=== PATIENT | female | born 1945 | race African-American/Black ===

== ENCOUNTER 2020-07-08 14:49 | Outpatient (REF) | payer MEDICARE, SELFPAY ==
--- NOTE | 2020-07-05 08:45 | MHC.SHP ---
Pre-Procedural Eval Section A The patient is an INPATIENT: No The History & Physical has been completed within 30 days and I have reviewed it.: Yes Section B Chief Complaint: Phimosis Anterior Capsule Allergies: Allergies Allergy/AdvReac Type Severity Reaction Status Date / Time insulin detemir Allergy Unknown hives Verified 10/22/16 00:00 insulin glargine Allergy Unknown rash/ hives Verified 10/22/16 00:00 penicillin V Allergy Unknown Verified 10/22/16 00:00 Penicillins [PENICILLINS] Allergy Unknown HIVES Unverified 06/06/20 17:06 sitagliptin [Januvia] Allergy Unknown hives Verified 10/22/16 00:00 Plan Diagnosis/Plan: Unchanged Patient has been examined and remains a candidate for the planned procedure
[2020-07-08 15:04] VITALS: BMI 28.7
[2020-07-08 15:06] VITALS: BP 153/70; PULSE 92; RESP 16; TEMP 36.6; O2SAT 96
== END 2020-07-08 23:59 | disposition home or self-care (01) ==
LOC: HO.MS 14:49
PROVIDERS: Visit Provider Ophthalmology
PROC: (CPT 66821; principal; 2020-07-08 15:40)
DX: H26.491 Other secondary cataract, right eye (principal); Z96.1 Presence of intraocular lens; E11.9 Type 2 diabetes mellitus without complications; E78.00 Pure hypercholesterolemia, unspecified; F17.210 Nicotine dependence, cigarettes, uncomplicated; Z79.84 Long term (current) use of oral hypoglycemic drugs; Z79.899 Other long term (current) drug therapy
CPT/HCPCS: 66821

== ENCOUNTER 2020-11-26 10:42 | Outpatient (REF) | payer MEDICARE, SELFPAY ==
[2020-11-26 12:19] LABS: MANUAL DIFF FLAG NO
[2020-11-26 12:26] LABS: Basophils Percent Auto 0.3 % (0-2); Eosinophils Absolute Auto 0.2 X10*3/uL (0.0-0.4); Hematocrit 43.7 % (37-47); Hemoglobin 13.8 g/dl (12.0-16.0); Imm Gran Abs Auto 0.03 X10*3/uL (0.00-0.03); Imm Gran Pct Auto 0.3 % (0.0-0.4); Lymphocytes Absolute Auto 3.1 X10*3/uL (1.2-4.9); Mean Corpuscular HGB Conc 31.6 g/dl (31.0-35.0); Mean Corpuscular Hemoglobin 28.2 pg (27.0-33.0); Mean Corpuscular Volume 89.4 fL (80-98); Mean Platelet Volume 9.4 fL (9.4-12.3); Monocytes Absolute Auto 0.4 X10*3/uL (0.1-1.2); Monocytes Percent Auto 4.6 % (2-11); Neutrophils Absolute Auto 5.9 X10*3/uL (2.0-8.3); Neutrophils Percent Auto 60.8 % (45-73); Platelet Count 342 X10*3/uL (160-400); Red Blood Count 4.89 X10*6/uL (4.20-5.50); Red Cell Distribution Width 12.8 % (11.0-16.0); White Blood Count 9.7 X10*3/uL (4.8-10.8)
[2020-11-26 12:40] LABS: Glucose Urine UA NEG (NEG); Leukocyte Esterase Urine NEG (NEG); Nitrite Urine NEG (NEG); Specific Gravity - Urine 1.025 (1.005-1.025); Urine Blood NEG (NEG); Urine Ketones NEG (NEG); Urine Protein NEG (NEG-TRACE)
[2020-11-26 13:06] LABS: Creatinine Urine 168.12 mg/dL; Microalbum/Creatinine Ratio Ur 13.6 ug/mg cr
[2020-11-26 13:20] LABS: Appearance Urine HAZY; Color Urine YELLOW
[2020-11-26 14:46] LABS: TSH reflex Free T4 0.79 uIU/mL (0.32-4.0)
[2020-11-26 15:06] LABS: Alanine Aminotransferase 26 U/L (0-31); Albumin Level 4.1 g/dL (3.5-5.0); Alkaline Phosphatase 114 U/L (39-117); Anion Gap 15 (12-20); Aspartate Amino Transferase 38 U/L (5-31); Bilirubin Total < 0.2 mg/dL (0.0-1.0); Blood Urea Nitrogen 10 mg/dL (9-16); Calcium 8.8 mg/dL (8.4-10.2); Carbon Dioxide 26 mmol/L (22-29); Chloride 106 mmol/L (96-108); Cholesterol 118 mg/dL; Estimated Glomerular Filt Rate > 60; Glucose Fasting 187 mg/dL (60-99); HDL Cholesterol 34 mg/dL; LDL Cholesterol Calculated 63 mg/dl; Potassium 4.5 mmol/L (3.3-5.1); Sodium 142 mmol/L (135-145); Total Protein 6.5 g/dL (6.5-8.0); Triglycerides 106 mg/dL
== END 2020-11-26 10:43 | disposition home or self-care (01) ==
LOC: HO.10HDL 10:42
PROVIDERS: Visit Provider Internal Medicine
DX: I10 Essential (primary) hypertension (principal); E78.00 Pure hypercholesterolemia, unspecified; E11.9 Type 2 diabetes mellitus without complications; E66.3 Overweight
CPT/HCPCS: 36415; 80053; 80061; 81003; 82043; 84443; 85025

== ENCOUNTER 2020-12-13 14:27 | Outpatient (REF) | payer MEDICARE, SELFPAY ==
--- NOTE | ~2020-12-13 | MM_ITS ---
EXAMINATION: MM SCREENING DIGITAL BREAST TOMOSYNTHESIS, BILATERAL CLINICAL INFORMATION: Screening. Asymptomatic. The lifetime risk of breast cancer based on the Tyrer-Cuzick Model is 7.8%. COMPARISON: Mammography: August 10, 2019 and studies dating back to August 12, 2015 TECHNIQUE: Digital breast tomosynthesis is performed in both the craniocaudal and mediolateral oblique views along with computer-aided detection (CAD). Synthesized 2D images are generated from the tomosynthesis. FINDINGS: There are scattered areas of fibroglandular density (ACR BI-RADS breast composition Category b). There are no significant masses, abnormal calcifications, or other abnormalities. MM/MM tomosynthesis screening BI IMPRESSION: There are no significant changes from prior study. ASSESSMENT: BI-RADS 1: Negative RECOMMENDATION: Routine annual mammography screening. This patient's information was entered into a reminder system with a target due date for their next mammogram.
== END 2020-12-13 14:28 | disposition home or self-care (01) ==
LOC: HO.MAMMO 14:27
PROVIDERS: Visit Provider Internal Medicine
DX: Z12.31 Encounter for screening mammogram for malignant neoplasm of breast (principal)
CPT/HCPCS: 77063; 77067

== ENCOUNTER 2021-01-09 06:49 | Outpatient (REF) | payer MEDICARE, SELFPAY ==
[2021-01-09 08:09] LABS: MANUAL DIFF FLAG NO
[2021-01-09 08:12] LABS: Basophils Percent Auto 0.2 % (0-2); Eosinophils Absolute Auto 0.2 X10*3/uL (0.0-0.4); Eosinophils Percent Auto 1.3 % (0-4); Hemoglobin 13.7 g/dl (12.0-16.0); Imm Gran Abs Auto 0.05 X10*3/uL (0.00-0.03); Imm Gran Pct Auto 0.4 % (0.0-0.4); Lymphocytes Absolute Auto 4.6 X10*3/uL (1.2-4.9); Lymphocytes Percent Auto 34.1 % (20-40); Mean Corpuscular HGB Conc 31.9 g/dl (31.0-35.0); Mean Corpuscular Hemoglobin 28.6 pg (27.0-33.0); Mean Corpuscular Volume 89.8 fL (80-98); Mean Platelet Volume 9.3 fL (9.4-12.3); Monocytes Absolute Auto 0.7 X10*3/uL (0.1-1.2); Monocytes Percent Auto 5.1 % (2-11); Neutrophils Percent Auto 58.9 % (45-73); Platelet Count 323 X10*3/uL (160-400); Red Blood Count 4.79 X10*6/uL (4.20-5.50); Red Cell Distribution Width 12.9 % (11.0-16.0); White Blood Count 13.5 X10*3/uL (4.8-10.8)
[2021-01-09 08:36] LABS: Alanine Aminotransferase 24 U/L (0-31); Albumin Level 4.1 g/dL (3.5-5.0); Alkaline Phosphatase 112 U/L (39-117); Anion Gap 14 (12-20); Aspartate Amino Transferase 38 U/L (5-31); Bilirubin Total 0.7 mg/dL (0.0-1.0); Blood Urea Nitrogen 17 mg/dL (9-16); Calcium 9.1 mg/dL (8.4-10.2); Carbon Dioxide 29 mmol/L (22-29); Chloride 102 mmol/L (96-108); Estimated Glomerular Filt Rate > 60; Glucose Random 158 mg/dL (60-115); Lipase 55 U/L (8-78); Potassium 4.6 mmol/L (3.3-5.1); Sodium 140 mmol/L (135-145); Total Protein 6.3 g/dL (6.5-8.0)
== END 2021-01-09 06:50 | disposition home or self-care (01) ==
LOC: HO.LAB 06:49
PROVIDERS: Visit Provider Internal Medicine
DX: R14.0 Abdominal distension (gaseous) (principal); R19.7 Diarrhea, unspecified
CPT/HCPCS: 36415; 80053; 83690; 85025

== ENCOUNTER 2021-08-15 09:19 | Emergency (ER) | payer MEDICARE, SELFPAY ==
[2021-08-15 09:43] VITALS: BP 140/68; PULSE 92; RESP 16; TEMP 36.9; O2SAT 98; BMI 27.8
--- NOTE | 2021-08-15 10:05 | ED.EAR ---
HPI - Ear Problem General Chief complaint: Ear Problems Stated complaint: lt ear pain Time Seen by Provider: 08/15/21 09:45 Source: patient Mode of arrival: ambulatory Limitations: no limitations History of Present Illness HPI Narrative: 75-year-old female with history of [id number] diabetes here with complaints of left ear pain and itching for 1 week. Patient was seen at urgent care on August 11 and prescribed ofloxacin drops 5 times twice a day. here with continued symptoms. no fevers, chills, drainage. Related Data Home Medications Medication Instructions Recorded Confirmed aspirin 81 mg tablet,delayed 81 mg PO DAILY 11/08/20 08/11/21 release diclofenac potassium 50 mg tablet 50 mg PO TID PRN 11/08/20 08/11/21 glipizide 10 mg tablet 10 mg PO BID 11/08/20 08/11/21 saxagliptin 5 mg tablet (Onglyza) 5 mg PO DAILY 11/08/20 08/11/21 tramadol 50 mg tablet 50 mg PO TID PRN 11/08/20 08/11/21 Previous Rx's Medication Instructions Recorded dulaglutide 0.75 mg/0.5 mL 0.75 mg (0.5 mL) SUBCUT QWEEK 28 05/15/21 subcutaneous pen injector Days #2 ml (Trulicity) atorvastatin 40 mg tablet 40 mg PO DAILY #90 tab 05/18/21 lisinopril 5 mg tablet 5 mg PO DAILY #90 tab 05/18/21 ciprofloxacin HCl 0.2 % ear drops 5 drp OTIC (EARS) BID 7 Days #14 ea 08/11/21 in a dropperette azithromycin 250 mg tablet See Rx Instructions .ROUTE 08/15/21 .COMPLEX #6 tab ciprofloxacin 0.3 %-dexamethasone 4 drp OTIC (EARS) BID 7 Days #7.5 08/15/21 0.1 % ear drops,suspension ml (Ciprodex) Allergies Allergy/AdvReac Type Severity Reaction Status Date / Time insulin detemir Allergy Unknown hives Verified 08/11/21 12:28 insulin glargine Allergy Unknown rash/ hives Verified 08/11/21 12:28 Penicillins [PENICILLINS] Allergy Unknown HIVES Verified 08/11/21 12:28 sitagliptin [Januvia] Allergy Unknown hives Verified 08/11/21 12:28 metformin AdvReac Intermediate diarrhea Verified 08/11/21 12:28 Review of Systems Review of Systems: Yes all other systems are reviewed and are negative Constitutional: Constitutional: Reports no additional constitutional complaints, Denies body ache(s), Denies chills, Denies fever(s), Denies headache(s) and Denies weakness Eyes: Eyes: Reports no additional eye complaints and Denies change in vision ENT: Reports system reviewed and no additional complaints, except as documented, Denies dizziness, Denies ear discharge, Reports otalgia, Denies headache(s), Denies nasal congestion, Denies nasal discharge and Denies neck pain Cardiovascular: Cardiovascular: Reports no additional cardiovascular complaints, Denies chest pain, Denies leg edema and Denies dyspnea Respiratory: Respiratory: Reports no additional respiratory complaints, Denies cough and Denies dyspnea Gastrointestinal: Gastrointestinal: Reports no additional gastrointestinal complaints, Denies abdominal pain, Denies diarrhea, Denies nausea and Denies vomiting Genitourinary: Genitourinary: Reports no additional female genitourinary complaints and Denies urinary incontinence Musculoskeletal: Musculoskeletal: Reports no additional musculoskeletal complaints, Denies back pain, Denies arthralgias, Denies joint swelling, Denies neck pain, Denies numbness and Denies tingling Integumentary/Breasts: Skin/Breast: Reports system reviewed and no additional complaints, except as docu and Denies rash Neurologic: Reports system reviewed and no additional complaints, except as documented, Denies Abnormal speech present, Denies dizziness, Denies headache(s), Denies numbness, Denies tingling and Denies weakness [facility] Past Medical History Attestation statement: The following information was validated with the patient. Source: old records reviewed and nursing notes reviewed Medical History Abdominal bloating Arthralgia Benign essential hypertension Diabetes mellitus Diarrhea Hip pain, bilateral Low back pain Overweight (BMI 25.0-29.9) Pure hypercholesterolemia Smoker Surgical History History of cataract surgery History of laser refractive surgery History of tonsillectomy Hx of appendectomy Family History Family History Mother Alzheimer disease Heart problem Father Heart attack Other Substance abuse Social History Social History Housing: Apartment Alcohol intake: current Alcohol intake frequency: holidays/special occasions only Patient Tobacco Use Status: Current everyday Tobacco user Cigarettes Per Day: 10 Second Hand Smoke Exposure: Yes Advance Directives: No Advance Directives Information Provided: Yes service: No Current occupational status: employed Physical Exam Vital Signs: Vital Signs: Last Vital Signs Temp 98.5 F 08/15/21 09:43 Pulse 92 08/15/21 09:43 Resp 16 08/15/21 09:43 BP 140/68 H 08/15/21 09:43 Pulse Ox 98 08/15/21 09:43 Body Mass Index 27.8 Const: General: cooperative, healthy appearing, comfortable and no acute distress Orientation/consciousness: patient oriented x3 Limitations: no limitations HENMT: Head: Yes normal to inspection Ears: hearing grossly normal bilaterally, TM normal on the right, EAC's normal, mastoids normal, no periauricular adenopathy, Abnormal EAC present ( left) erythema, edema and EAC tenderness and TM abnormal ( Left w/ erythema and bulging) General nose exam: Normal external nose present Face and sinus: Yes normal facial exam Mouth: Normal oral and palatal mucosa present Throat: Yes posterior oropharynx normal Eyes: General: appearance normal, both eyes and all related structures Pupils: Equal, round and reactive pupils present Neck: Neck: Yes normal visual inspection, Yes full ROM and Yes no lymphadenopathy Chest: Chest palpation & inspection: normal inspection of the chest Resp: Effort & Inspection: normal respiratory effort Auscultation: clear to auscultation bilaterally Cardio: Rate: regular rate Rhythm: regular rhythm Peripheral pulses: Peripheral pulses 2+ throughout GI: Inspection: Yes normal to inspection Palpation (GI): Soft to palpation and nontender Auscultation: normal bowel sounds Back/Spine/Pelvis: Thoracic/Lumbar Spine: thoracic and lumbar spine normal to inspection Skin: General skin exam: no rashes or lesions noted Neuro: General: patient oriented x3, no focal motor deficits and normal sensation to monofilament Cranial nerves: Yes Equal, round and reactive pupils present Cognition (Neuro): normal cognition Speech: No Abnormal speech present Gait exam (Neuro): Normal gait present Motor exam (neuro): 5/5 motor strength present throughout Extrem: General: Yes normal to inspection, Yes no pedal edema and Yes no calf tenderness Course Course Course Narrative: 75-year-old female here with a left otitis media and externa on exam despite using antibiotic drops for the last 4 days. No evidence of mastoiditis. nontoxic-appearing. will change drops to Ciprodex, add oral azithromycin due to penicillin allergy. reviewed worrisome signs and symptoms of when to return to the emergency department. Comfortable discharge home. MDM - Ear Medical Records Attestation: I reviewed the patient's medical records. Lab Data Attestation: I reviewed the patient's lab results. Discharge Plan Discharge Clinical Impression: Otitis externa, Otitis media Patient Disposition: Home, Self-Care Instructions: Otitis Externa (ED), How to Use Ear Drops (ED), Ear Infection (ED) Additional Instructions: When using the ear drips please let them instill in the ear for five minutes before sitting up. Alternate motrin and tylenol if able as needed Prescriptions: New ciprofloxacin-dexamethasone [Ciprodex] 0.3-0.1 % drops,suspension 4 drp otic (ears) BID 7 Days Qty: 7.5 RF: 0 azithromycin 250 mg tablet See Rx Instructions .ROUTE .COMPLEX Qty: 6 RF: 0 No Action Trulicity 0.75 mg/0.5 mL pen injector 0.75 mg subcut QWEEK 28 Days Qty: 2 RF: 3 lisinopril 5 mg tablet 5 mg PO DAILY Qty: 90 RF: 0 atorvastatin 40 mg tablet 40 mg PO DAILY Qty: 90 RF: 0 glipizide 10 mg tablet 10 mg PO BID RF: 0 aspirin 81 mg tablet,delayed release (DR/EC) 81 mg PO DAILY RF: 0 tramadol 50 mg tablet 50 mg PO TID PRNRF: 0 Onglyza 5 mg tablet 5 mg PO DAILY RF: 0 diclofenac potassium 50 mg tablet 50 mg PO TID PRNRF: 0 ciprofloxacin HCl 0.2 % dropperette 5 drp otic (ears) BID 7 Days Qty: 14 RF: 0 Referrals: Jono Vallecillo MD [Primary Care Provider] - 2 days Interventions: ED Discharge Assessment Last Done: 08/15/21 10:09 Discharge Date/Time: 08/15/21 10:10
== END 2021-08-15 10:10 | disposition home or self-care (01) ==
PROVIDERS: Emergency Provider Emergency Medicine; PCP Internal Medicine
DX: H66.92 Otitis media, unspecified, left ear (principal); H60.92 Unspecified otitis externa, left ear; E11.9 Type 2 diabetes mellitus without complications; I10 Essential (primary) hypertension; E78.00 Pure hypercholesterolemia, unspecified; F17.200 Nicotine dependence, unspecified, uncomplicated; Z79.4 Long term (current) use of insulin; Z79.82 Long term (current) use of aspirin; Z79.02 Long term (current) use of antithrombotics/antiplatelets; Z79.899 Other long term (current) drug therapy
CPT/HCPCS: 99283

== ENCOUNTER 2021-08-19 16:01 | Emergency (ER) | payer MEDICARE, SELFPAY ==
--- NOTE | ~2021-08-19 | CT_ITS ---
EXAMINATION: CT INNER EAR TEMPORAL BONES CLINICAL INFORMATION: Left ear infection. Mastoiditis. Malignant otitis externa. COMPARISON: Brain MRI from 08/12/2018. TECHNIQUE: Multidetector helical imaging was performed in the axial plane with generation of oblique axial and coronal reformatted projections. This CT examination was performed using dose optimization techniques as appropriate, variously including the following: *Automated exposure control. *Adjustment of mA and/or kV according to patient size (this includes techniques or standardized protocols for targeted exams where dose is matched to indication/reason for exam; i.e. extremities or head). *Use of iterative reconstruction technique. DLP: 340 mGy-cm FINDINGS: Right Temporal Bone: The external auditory canal is normal in appearance. The tympanic membrane is normal. The ossicular chain is intact. No soft tissue abnormality within the middle ear. The mastoid antrum and additional mastoid air cells remain well aerated. The sigmoid plate is intact. Normal ossification of the bony labyrinth. Normal appearance of the cochlea, vestibule, and semicircular canals. The vestibular aqueduct is normal. Normal appearance of the labyrinthine, geniculate, tympanic, and mastoid segments of the facial nerve. Normal appearance of the internal auditory canal. The cochlear aperture is normal. Normal appearance of the carotid canal and jugular foramen. Left Temporal Bone: Moderate circumferential mucosal thickening of the external auditory canal. The canal is partially filled with debris. There is also mild smooth thickening of the tympanic membrane which appears largely intact. No associated osseous erosion. Mild fluid/mucosal thickening and Prussak space and within the oval window niche. The ossicular chain is intact. No additional soft tissue abnormality within the middle ear. The mastoid antrum and additional mastoid air cells remain well aerated. The sigmoid plate is intact. Normal ossification of the bony labyrinth. Normal appearance of the cochlea, vestibule, and semicircular canals. The vestibular aqueduct is normal. Normal appearance of the labyrinthine, geniculate, tympanic, and mastoid segments of the facial nerve. Normal appearance of the internal auditory canal. The cochlear aperture is normal. Normal appearance of the carotid canal and jugular foramen. Other: The temporomandibular joints are normal in appearance bilaterally. No demonstrated intracranial abnormalities of the visualized skull base. Mild mucosal thickening of the paranasal sinuses. Multifocal odontogenic disease of the visualized maxillary teeth. Bilateral lens extractions. No additional Significant abnormalities of the visualized orbits. No abnormal contours of the visualized pharynx. CT/CT mastoid IMPRESSION: 1. Moderate circumferential mucosal thickening of the left external auditory canal suggestive of otitis externa. No associated osseous erosions. There is small volume fluid/mucosal thickening in the left-sided Prussak space and open window niche suggestive of mild otitis media. No demonstrated overt osseous destruction. 2. Normal CT appearance of the right temporal bone. 3. Odontogenic disease of the visualized maxillary teeth.
[2021-08-19 17:35] VITALS: BP 135/60; PULSE 86; RESP 19; TEMP 36.4; O2SAT 98; BMI 28.9
--- NOTE | 2021-08-19 20:35 | ED_ITS ---
HPI - Ear Problem General Chief complaint: Ear Problems Stated complaint: ear pain x2 weeks Time Seen by Provider: 08/19/21 19:38 Source: patient Mode of arrival: ambulatory Limitations: no limitations History of Present Illness HPI Narrative: Patient presents to ED for left ear pain. Patient states diagnosed with left ear infection that has not improved for the past 2 weeks. Patient states she has been to 2 ear drops and oral antibiotics and pain is still present. Patient states infections gotten worse. Patient denies any recent trauma to the ear or bleeding from the ear. Related Data Home Medications Medication Instructions Recorded Confirmed aspirin 81 mg tablet,delayed 81 mg PO DAILY 11/08/20 08/11/21 release diclofenac potassium 50 mg tablet 50 mg PO TID PRN 11/08/20 08/11/21 glipizide 10 mg tablet 10 mg PO BID 11/08/20 08/11/21 saxagliptin 5 mg tablet (Onglyza) 5 mg PO DAILY 11/08/20 08/11/21 tramadol 50 mg tablet 50 mg PO TID PRN 11/08/20 08/11/21 Previous Rx's Medication Instructions Recorded dulaglutide 0.75 mg/0.5 mL 0.75 mg (0.5 mL) SUBCUT QWEEK 28 05/15/21 subcutaneous pen injector Days #2 ml (Trulicity) atorvastatin 40 mg tablet 40 mg PO DAILY #90 tab 05/18/21 lisinopril 5 mg tablet 5 mg PO DAILY #90 tab 05/18/21 ciprofloxacin HCl 0.2 % ear drops 5 drp OTIC (EARS) BID 7 Days #14 ea 08/11/21 in a dropperette azithromycin 250 mg tablet See Rx Instructions .ROUTE 08/15/21 .COMPLEX #6 tab ciprofloxacin 0.3 %-dexamethasone 4 drp OTIC (EARS) BID 7 Days #7.5 08/15/21 0.1 % ear drops,suspension ml (Ciprodex) [id number] 3.3 4 drp OTIC (EAR) LEFT QID 10 Days 08/19/21 mg-3 mg-10 mg-0.5 mg/mL ear #10 ml drops,susp (Cortisporin-TC) oxycodone-acetaminophen 5 mg-325 1 tab PO TID PRN #9 tab 08/19/21 mg tablet (Percocet) Allergies Allergy/AdvReac Type Severity Reaction Status Date / Time insulin detemir Allergy Unknown hives Verified 08/19/21 17:34 insulin glargine Allergy Unknown rash/ hives Verified 08/19/21 17:34 Penicillins [PENICILLINS] Allergy Unknown HIVES Verified 08/19/21 17:34 sitagliptin [Januvia] Allergy Unknown hives Verified 08/19/21 17:34 metformin AdvReac Intermediate diarrhea Verified 08/19/21 17:34 Review of Systems Review of Systems: Yes all other systems are reviewed and are negative Constitutional: Constitutional: Reports as per HPI and Reports no additional constitutional complaints Eyes: Eyes: Reports as per HPI and Reports no additional eye complaints ENT: Reports system reviewed and no additional complaints, except as documented, Reports as per HPI and Reports ear discharge Cardiovascular: Cardiovascular: Reports as per HPI and Reports no additional cardiovascular complaints Respiratory: Respiratory: Reports as per HPI and Reports no additional respiratory complaints Gastrointestinal: Gastrointestinal: Reports as per HPI and Reports no additional gastrointestinal complaints Musculoskeletal: Musculoskeletal: Reports no additional musculoskeletal complaints and Reports as per HPI Neurologic: Reports system reviewed and no additional complaints, except as documented and Reports as per HPI Psychiatric: Psychiatric: Reports no additional psychiatric complaints and Reports as per HPI PMFSH Past Medical History Medical History Abdominal bloating Arthralgia Benign essential hypertension Diabetes mellitus Diarrhea Hip pain, bilateral Low back pain Overweight (BMI 25.0-29.9) Pure hypercholesterolemia Smoker Surgical History History of cataract surgery History of laser refractive surgery History of tonsillectomy Hx of appendectomy Family History Family History Mother Alzheimer disease Heart problem Father Heart attack Other Substance abuse Social History Social History Housing: Apartment Alcohol intake: current Alcohol intake frequency: holidays/special occasions only Patient Tobacco Use Status: Current everyday Tobacco user Cigarettes Per Day: 10 Second Hand Smoke Exposure: Yes Advance Directives: No Advance Directives Information Provided: Yes service: No Current occupational status: employed Physical Exam Vital Signs: Vital Signs: Last Vital Signs Temp 97.5 F 08/19/21 17:35 Pulse 86 08/19/21 17:35 Resp 19 08/19/21 17:35 BP 135/60 08/19/21 17:35 Pulse Ox 98 08/19/21 17:35 Body Mass Index 28.9 Const: General: cooperative, healthy appearing, comfortable, well developed, alert and awake Orientation/consciousness: patient oriented x3 HENMT: Head: Yes normal to inspection, Yes No palpable skull fracture present, Yes normocephalic and No atraumatic Ears: hearing grossly normal bilaterally, TM normal on the right, mastoids normal bilaterally, no periauricular adenopathy and Abnormal EAC present (left ear with white discharge/green discharge.) Eyes: General: appearance normal, both eyes and all related structures Neck: Neck: Yes normal visual inspection, Yes full ROM, Yes no lymphadenopathy, Yes no meningeal signs, Yes trachea midline, Yes supple, No anterior neck swelling and No tender Chest: Chest palpation & inspection: normal inspection of the chest and normal palpation of entire chest wall Resp: Effort & Inspection: normal respiratory effort and able to speak in complete sentences Cardio: Jugular venous distension: no JVD Heart sounds: S1 normal heart sound present and S2 normal heart sound present GI: Inspection: Yes normal to inspection and No abdominal wall ecchymosis Palpation (GI): Soft to palpation, not firm, nontender, no guarding and not rigid : General: No CVA tenderness and Yes no CVA tenderness Back/Spine/Pelvis: Back: no CVA tenderness, No CVA tenderness and No back tenderness Skin: General skin exam: no rashes or lesions noted and elasticity normal Neuro: General: patient oriented x3, gait normal, no meningeal signs and CN's II-XI intact bilaterally Cranial nerves: Yes CN's II-XII intact bilaterally Extrem: General: Yes normal to inspection and Yes full ROM Psych: Appearance: grossly normal, well kempt and not disheveled Course Course Course Narrative: Due to patient is still having infection for the past 2 weeks with pmh of DM will do CT scan of the ear mastoid to look for mastoiditis a lthough very unlikely due to mastoids appearing normal and check for malignant otitis externa. Pain medication ordered Reevaluation(s) Reevaluation #1: CT scan negative for mastoiditis or malignant otitis externa. Negative for osteomyelitis. Patient will be sent home with cortical Spore ear drops. She completed azithromycin. Time: :44 MDM - Ear MDM Narrative Medical decision making narrative: Otitis externa Discharge Plan Discharge Clinical Impression: Acute otitis externa of left ear Patient Disposition: Home, Self-Care Instructions: Otitis Externa (ED) Additional Instructions: CT scan shows otitis externa. CC scan came back negative for any mastoiditis or infection going to the bones of your skull. He will be discharged with corticosporin ear drops and narcotic. 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 Return to the ED immediately for any worsening ear pain, drainage, loss of hearing, swelling anterior/posterior tear, fever, chills, headache, dizziness, or any other concerning symptoms. Prescriptions: New Cortisporin-TC 3.3-3-10-0.5 mg/mL drops,suspension 4 drp otic (ear) left QID 10 Days Qty: 10 RF: 0 oxycodone-acetaminophen [Percocet] 5-325 mg tablet 1 tab PO TID PRN (Reason: pain) Qty: 9 RF: 0 No Action Trulicity 0.75 mg/0.5 mL pen injector 0.75 mg subcut QWEEK 28 Days Qty: 2 RF: 3 lisinopril 5 mg tablet 5 mg PO DAILY Qty: 90 RF: 0 atorvastatin 40 mg tablet 40 mg PO DAILY Qty: 90 RF: 0 ciprofloxacin-dexamethasone [Ciprodex] 0.3-0.1 % drops,suspension 4 drp otic (ears) BID 7 Days Qty: 7.5 RF: 0 azithromycin 250 mg tablet See Rx Instructions .ROUTE .COMPLEX Qty: 6 RF: 0 glipizide 10 mg tablet 10 mg PO BID RF: 0 aspirin 81 mg tablet,delayed release (DR/EC) 81 mg PO DAILY RF: 0 tramadol 50 mg tablet 50 mg PO TID PRNRF: 0 Onglyza 5 mg tablet 5 mg PO DAILY RF: 0 diclofenac potassium 50 mg tablet 50 mg PO TID PRNRF: 0 ciprofloxacin HCl 0.2 % dropperette 5 drp otic (ears) BID 7 Days Qty: 14 RF: 0 Referrals: Juan Smith [Physician] - 2 days (Otitis media for 2 weeks with no improvement with 2 prescribed ear drops and oral antibiotics. CT scan negative for mastoiditis or malignant otitis externa.) Interventions: ED Discharge Assessment Last Done: 08/19/21 22:00 Discharge Date/Time: 08/19/21 22:02 Print Language: Irish
[2021-08-19] MEDS: oxyCODONE HCl Immed Release 5 MG TABLET PO (20:59)
== END 2021-08-19 22:02 | disposition home or self-care (01) ==
PROVIDERS: Emergency Provider Emergency Medicine; PCP Internal Medicine
DX: H66.92 Otitis media, unspecified, left ear (principal); E11.9 Type 2 diabetes mellitus without complications; I10 Essential (primary) hypertension; F17.200 Nicotine dependence, unspecified, uncomplicated
CPT/HCPCS: 70481; 99283; 99284

== ENCOUNTER 2021-08-22 17:34 | Outpatient (REF) | payer MEDICARE, MEDICAID, SELFPAY | END 2021-08-22 17:35 | disposition home or self-care (01) | LOC: HO.LNP 17:34 | PROVIDERS: Visit Provider Internal Medicine | DX: H66.92 Otitis media, unspecified, left ear (principal) | CPT/HCPCS: 87070; 87077; 87205 ==

== ENCOUNTER 2022-01-20 00:23 | Emergency (ER) | payer MEDICARE, MEDICAID, SELFPAY ==
--- NOTE | ~2022-01-20 | XR_ITS ---
EXAMINATION: XR KNEE, LEFT CLINICAL INFORMATION: Injury, pain COMPARISON: None TECHNIQUE: Four views of the left knee. FINDINGS: Osseous alignment is anatomic. There is mild tricompartmental joint space narrowing. No acute fracture is seen. Patellar spurring is noted at the attachments of the quadriceps and patellar tendons. No significant effusion. XR/XR knee LT 3V IMPRESSION: No acute findings identified. Chronic/degenerative changes as noted above.
[2022-01-20 00:53] VITALS: BP 123/62; BP 140/60; PULSE 92; PULSE 96; RESP 18; TEMP 37.1; O2SAT 100; O2SAT 97; BMI 29.2
--- NOTE | 2022-01-20 01:27 | ED.GENADULT ---
HPI - General Adult General Chief complaint: General Medical Stated complaint: knee pain due to fall Time Seen by Provider: 01/20/22 01:24 Source: patient Limitations: no limitations History of Present Illness HPI narrative: This is a 76-year-old female who was going down the stairs around 16:00 yesterday when she thinks she missed a step and twisted her left knee. She denies any other injuries. She felt okay initially but later developed severe pain in her left knee, around 23:00. She notes that hurts her to try to walk or to bend or extend her left knee. Pain is achy, severe Related Data Home Medications Medication Instructions Recorded Confirmed aspirin 81 mg tablet,delayed 81 mg PO DAILY 11/08/20 08/22/21 release diclofenac potassium 50 mg tablet 50 mg PO TID PRN 11/08/20 08/22/21 glipizide 10 mg tablet 10 mg PO BID 11/08/20 08/22/21 tramadol 50 mg tablet 50 mg PO TID PRN 11/08/20 08/22/21 Previous Rx's Medication Instructions Recorded ciprofloxacin HCl 0.2 % ear drops 5 drp OTIC (EARS) BID 7 Days #14 ea 08/11/21 in a dropperette ciprofloxacin 0.3 %-dexamethasone 4 drp OTIC (EARS) BID 7 Days #7.5 08/15/21 0.1 % ear drops,suspension ml (Ciprodex) [id number] 3.3 4 drp OTIC (EAR) LEFT QID 10 Days 08/19/21 mg-3 mg-10 mg-0.5 mg/mL ear #10 ml drops,susp (Cortisporin-TC) oxycodone-acetaminophen 5 mg-325 1 tab PO TID PRN #9 tab 08/19/21 mg tablet (Percocet) dulaglutide 0.75 mg/0.5 mL 1.125 mg (0.75 mL) SUBCUT QWEEK #2 08/21/21 subcutaneous pen injector cap (Trulicity) saxagliptin 5 mg tablet (Onglyza) 5 mg PO DAILY 90 Days #90 tab 08/22/21 sulfamethoxazole 800 1 tab PO BID 10 Days #20 tab 08/22/21 mg-trimethoprim 160 mg tablet (Bactrim DS) clotrimazole 1 % topical solution See Rx Instructions .ROUTE TID 14 08/29/21 Days #30 ml atorvastatin 40 mg tablet 40 mg PO DAILY #90 tab 01/16/22 lisinopril 5 mg tablet 5 mg PO DAILY #90 tab 01/16/22 tramadol 50 mg tablet 50 - 100 mg PO Q4H PRN #20 tab 01/20/22 Allergies Allergy/AdvReac Type Severity Reaction Status Date / Time insulin detemir Allergy Unknown hives Verified 08/22/21 13:31 insulin glargine Allergy Unknown rash/ hives Verified 08/22/21 13:31 Penicillins [PENICILLINS] Allergy Unknown HIVES Verified 08/22/21 13:31 sitagliptin [Januvia] Allergy Unknown hives Verified 08/22/21 13:31 metformin AdvReac Intermediate diarrhea Verified 08/22/21 13:31 Review of Systems Review of Systems: As per HPI [facility] Past Medical History Medical History Abdominal bloating Arthralgia Benign essential hypertension Diabetes mellitus Diarrhea Hip pain, bilateral Low back pain Overweight (BMI 25.0-29.9) Pure hypercholesterolemia Smoker Surgical History History of cataract surgery History of laser refractive surgery History of tonsillectomy Hx of appendectomy Family History Family History Mother Alzheimer disease Heart problem Father Heart attack Other Substance abuse Social History Social History Housing: Apartment Alcohol intake: current Alcohol intake frequency: holidays/special occasions only Patient Tobacco Use Status: Current everyday Tobacco user Cigarettes Per Day: 5 Second Hand Smoke Exposure: Yes Advance Directives: No service: No Current occupational status: employed Physical Exam ED Vital Signs: Vital Signs - 24 hr 01/20/22 00:53 01/20/22 02:12 Temperature 98.8 F 99.3 F Pulse Rate 92 92 Respiratory Rate 18 14 Blood Pressure 123/62 122/48 L Pulse Oximetry 97 95 BMI result Body Mass Index 29.2 Const General: no acute distress Orientation/consciousness: patient oriented x3 HENMT Head: Yes normal to inspection General nose exam: Normal external nose present Mouth: moist mucous membranes Throat: Yes posterior oropharynx normal, Yes tonsils normal and Yes uvula midline Eyes Eyelids: Yes eyelids normal Conjunctivae: conjunctivae normal Pupils: Equal, round and reactive pupils present Neck Neck: Yes supple Resp Effort & Inspection: normal respiratory effort Auscultation: clear to auscultation bilaterally Cardio Rate: regular rate Rhythm: regular rhythm Heart sounds: S1 normal heart sound present, S2 normal heart sound present, no gallops, no murmurs and no rubs GI Inspection: No distended Palpation (GI): Soft to palpation and nontender Auscultation: normal bowel sounds Skin General skin exam: other (Warm and dry) Neuro General: patient oriented x3 and CN's II-XI intact bilaterally Cranial nerves: Yes Equal, round and reactive pupils present Extrem Other: Left knee without any effusion or obvious deformity. Tenderness over the patella also over the upper tibia at the knee. No laxity of the joint. Patient unable to lift the leg off of the gurney due to pain. No laxity with valgus or varus stress. General: Yes no pedal edema Psych Affect: normal affect Attitude: cooperative Medical Decision Making MDM Narrative Medical decision making narrative: Patient with an injury to her left knee, when she missed a step on the stairs yesterday. Pain did not start several hours later. Patient had extreme tenderness on exam to any movement, as well as to palpation. Pain seemed to be out of proportion to physical examination, as well as mechanism Imaging Data Left knee: Attestation: I personally reviewed and interpreted this imaging study as follows: My impression: No acute pathology Discharge Plan Discharge Clinical Impression: Left knee sprain Patient Disposition: Home, Self-Care Instructions: Knee Sprain (ED) Additional Instructions: Use tramadol and acetaminophen for pain. Wear the knee immobilizer for the next 5 days while up and around (you can remove it while resting or sleeping). Follow-up with orthopedics Prescriptions: New tramadol 50 mg tablet 50 - 100 mg PO Q4H PRN (Reason: pain) Qty: 20 0RF No Action Trulicity 0.75 mg/0.5 mL pen injector 1.125 mg subcut QWEEK Qty: 2 3RF clotrimazole 1 % solution See Rx Instructions .ROUTE TID 14 Days Qty: 30 0RF Rx Instructions: Apply 3 to 4 drops into the affected ear 3 times a day; lisinopril 5 mg tablet 5 mg PO DAILY Qty: 90 0RF atorvastatin 40 mg tablet 40 mg PO DAILY Qty: 90 0RF Cortisporin-TC 3.3-3-10-0.5 mg/mL drops,suspension 4 drp otic (ear) left QID 10 Days Qty: 10 0RF oxycodone-acetaminophen [Percocet] 5-325 mg tablet 1 tab PO TID PRN (Reason: pain) Qty: 9 0RF Rx Instructions: side effect is drowsiness. ciprofloxacin-dexamethasone [Ciprodex] 0.3-0.1 % drops,suspension 4 drp otic (ears) BID 7 Days Qty: 7.5 0RF sulfamethoxazole-trimethoprim [Bactrim DS] 800-160 mg tablet 1 tab PO BID 10 Days Qty: 20 0RF Onglyza 5 mg tablet 5 mg PO DAILY 90 Days Qty: 90 1RF glipizide 10 mg tablet 10 mg PO BID 0RF aspirin 81 mg tablet,delayed release (DR/EC) 81 mg PO DAILY 0RF tramadol 50 mg tablet 50 mg PO TID PRN0RF diclofenac potassium 50 mg tablet 50 mg PO TID PRN0RF ciprofloxacin HCl 0.2 % dropperette 5 drp otic (ears) BID 7 Days Qty: 14 0RF Referrals: Keith Gee MD [Physician] - 5 days
[2022-01-20] MEDS: Ibuprofen 400 MG TABLET PO (01:47)
[2022-01-20] MEDS: Acetaminophen 325 MG TABLET 650 MG PO (01:47)
[2022-01-20] MEDS: oxyCODONE HCl Immed Release 5 MG TABLET PO (01:48)
[2022-01-20 02:12] VITALS: BP 122/48; PULSE 92; RESP 14; TEMP 37.4; O2SAT 95
== END 2022-01-20 03:50 | disposition home or self-care (01) ==
PROVIDERS: Emergency Provider Emergency Medicine; PCP Internal Medicine
DX: S83.92XA Sprain of unspecified site of left knee, initial encounter (principal); M25.562 Pain in left knee; W10.9XXA Fall (on) (from) unspecified stairs and steps, initial encounter; Y93.9 Activity, unspecified; Y92.9 Unspecified place or not applicable; Y99.9 Unspecified external cause status; F17.210 Nicotine dependence, cigarettes, uncomplicated; Z71.6 Tobacco abuse counseling; Z79.899 Other long term (current) drug therapy
CPT/HCPCS: 73562; 99283

== ENCOUNTER 2022-02-05 06:36 | Outpatient (REF) | payer OTHER, SELFPAY ==
--- NOTE | ~2022-02-05 | XR_ITS ---
EXAMINATION: XR HIP, RIGHT CLINICAL INFORMATION: M25.551 - Pain in right hip COMPARISON: Radiographs lumbar spine 02/05/2022, 07/19/2019 TECHNIQUE: Two views of the right hip. FINDINGS: No fracture, dislocation, destructive process. No focal hip joint narrowing or erosive change or visible chondrocalcinosis. Mild spurring greater and lesser trochanter. Right SI joint and pubis are unremarkable. There is prominent whiskering from the lateral iliac crest and some mild whiskering at the ischial tuberosity. Lumbar radiographs show ossification anterior spinal ligament lower thoracic spine. Findings are suggestive of diffuse idiopathic skeletal hyperostosis. XR/XR hip RT min 2V IMPRESSION: -No hip joint narrowing or erosive change. -Mild spurring greater trochanter and lesser trochanter likely involving the tendon insertions. -Prominent whiskering lateral iliac crest and ossification lower thoracic anterior spinal ligament which may suggest diffuse idiopathic skeletal hyperostosis (DISH).
--- NOTE | ~2022-02-05 | XR_ITS ---
EXAMINATION: XR LUMBOSACRAL SPINE CLINICAL INFORMATION: M54.50 - Low back pain, unspecified COMPARISON: Radiographs lumbar spine 07/19/2019, MR lumbar spine 05/29/2020 TECHNIQUE: Three views of the lumbosacral spine. FINDINGS: The vertebral bodies are normal in height and there is normal lumbar lordosis. There is no lumbar vertebral compression, spondylolisthesis, destructive process. There is variable vertebral spurring again present L3-L4 and L4-L5 without interval disc narrowing or erosive change. Multilevel degenerative facet changes are present L3-S1. The SI joints and visualized sacrum are unremarkable. There is smooth ossification anterior spinal ligament lower thoracic spine again noted on lateral view. XR/XR lumbar spine 2-3V IMPRESSION: -Facet degeneration L3-S1. Vertebral spurring L3-S1. -No vertebral compression, spondylolisthesis, or destructive process.
== END 2022-02-05 06:37 | disposition home or self-care (01) ==
LOC: HO.XRAY 06:36
PROVIDERS: PCP Internal Medicine; Visit Provider Internal Medicine
DX: M25.551 Pain in right hip (principal); M54.50 Low back pain, unspecified
CPT/HCPCS: 72100; 73502

== ENCOUNTER 2022-02-18 14:51 | Outpatient (REF) | payer OTHER, SELFPAY ==
--- NOTE | ~2022-02-18 | MM_ITS ---
EXAMINATION: MM SCREENING DIGITAL BREAST TOMOSYNTHESIS, BILATERAL CLINICAL INFORMATION: Screening. Asymptomatic. Benign left stereotactic biopsy 2014 (sclerotic fibroadenoma with coarse and fine microcalcifications). Benign right stereotactic biopsy 2008 (sclerotic fibroadenoma). The lifetime risk of breast cancer based on the Tyrer-Cuzick Model is 8%. COMPARISON: Mammography: 12/13/2020, 08/10/2019, 08/27/2015, 08/22/2015, 08/12/2015 TECHNIQUE: Digital breast tomosynthesis is performed in both the craniocaudal and mediolateral oblique views along with computer-aided detection (CAD). Synthesized 2D images are generated from the tomosynthesis. FINDINGS: There are scattered areas of fibroglandular density (ACR BI-RADS breast composition Category b). Parenchymal pattern is similar to prior exams. There is fine fibronodular pattern. No developing density or interval mass or architectural abnormality. There is biopsy clip marker again seen mid upper outer left breast and a biopsy clip marker overlying coarse grouped calcifications posterior medial right breast. Other benign scattered punctate calcifications are similar to prior study. The axilla and skin contours are unremarkable. MM/MM tomosynthesis screening BI IMPRESSION: No significant changes from prior studies. ASSESSMENT: BI-RADS 2: Benign RECOMMENDATION: Routine annual mammography screening. This patient's information was entered into a reminder system with a target due date for their next mammogram.
== END 2022-02-18 14:52 | disposition home or self-care (01) ==
LOC: HO.MAMMO 14:51
PROVIDERS: Visit Provider Internal Medicine
DX: Z12.31 Encounter for screening mammogram for malignant neoplasm of breast (principal)
CPT/HCPCS: 77063; 77067

== ENCOUNTER 2022-02-19 06:25 | Outpatient (REF) | payer OTHER, SELFPAY | END 2022-02-19 06:26 | disposition home or self-care (01) | LOC: HO.HOSX 06:25 | PROVIDERS: Visit Provider Physician Assistant | DX: Z13.89 Encounter for screening for other disorder (principal) ==

== ENCOUNTER 2022-04-15 19:23 | Emergency (ER) | payer OTHER, SELFPAY ==
--- NOTE | ~2022-04-15 | XR_ITS ---
EXAMINATION: XR FOOT, RIGHT CLINICAL INFORMATION: Toe redness with pain. History of diabetes. COMPARISON: None TECHNIQUE: AP, lateral, and oblique views of the right foot. FINDINGS: No fracture or dislocation. No osseous destructive change or periostitis. No tracking soft tissue gas. Hallux valgus deformity and moderate first MTP joint osteoarthritis with joint space narrowing and osteophytes noted. Lisfranc alignment is maintained. Vascular calcifications and calcaneal spurs. XR/XR foot RT min 3V IMPRESSION: 1. No acute osseous injury or radiographic evidence of advanced osteomyelitis. 2. 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
[2022-04-15 20:50] VITALS: BP 123/70; PULSE 100; RESP 18; TEMP 36.6; O2SAT 97; BMI 28.9
[2022-04-15 22:57] LABS: Basophils Percent Auto 0.2 % (0-2); Eosinophils Absolute Auto 0.3 X10*3/uL (0.0-0.4); Hematocrit 43.1 % (37.0-47.0); Hemoglobin 14.3 g/dl (12.0-16.0); Imm Gran Abs Auto 0.03 X10*3/uL (0.00-0.03); Imm Gran Pct Auto 0.2 % (0.0-0.4); Lymphocytes Absolute Auto 4.5 X10*3/uL (1.2-4.9); Lymphocytes Percent Auto 35.3 % (20-40); MANUAL DIFF FLAG NO; Mean Corpuscular HGB Conc 33.2 g/dl (31.0-35.0); Mean Corpuscular Volume 87.4 fL (80.0-98.0); Mean Platelet Volume 8.8 fL (9.4-12.3); Monocytes Absolute Auto 0.7 X10*3/uL (0.1-1.2); Monocytes Percent Auto 5.2 % (2-11); Neutrophils Absolute Auto 7.2 x10*3/uL (2.0-8.3); Neutrophils Percent Auto 57.1 % (45-73); Platelet Count 321 X10*3/uL (160-400); Red Blood Count 4.93 X10*6/uL (4.20-5.50); Red Cell Distribution Width 12.7 % (11.0-16.0); White Blood Count 12.6 X10*3/uL (4.8-10.8)
[2022-04-15 23:00] VITALS: RESP 16
[2022-04-15] MEDS: HYDROmorphone HCl 0.5 MG/0.5 ML SYRINGE IVPUSH (23:00)
[2022-04-15] MEDS: 0.9 % Sodium Chloride 1,000 ML 999 ML IVCONT (23:01)
[2022-04-15] MEDS: cefTRIAXone sodium 1 GM in 0.9 % Sodium Chloride 50 ML IV (23:04)
--- NOTE | 2022-04-15 23:14 | ED.EXTPRO ---
HPI - Extremity Problem General Chief complaint: Extremity Injury, Lower Stated complaint: R foot pain Time Seen by Provider: 04/15/22 22:07 Source: patient Mode of arrival: ambulatory Limitations: no limitations History of Present Illness HPI Narrative: 76 yo female with history of poorly controlled diabetes (A1c 10.7%), chronic low back pain on chronic opiates, HTN, HLD, arthritis who presents to the ER for evaluation of non-traumatic right foot and toe pain for the last 1 week. She reports about 1 week ago she started having pain at the bottom of her right foot, as well as pain in all of her toes. She noticed her great toe was starting to turn red and she had redness at the bottom of her foot. She called her primary care doctor who advised her to do warm soaks with her foot, take her previously prescribed tramadol and exercise. She was instructed to come to the ER if these measures do not improve her pain. Patient reports significant pain with ambulation, palpation and movement of the foot and toes. Her sugars have been poorly controlled. She denies any history of diabetic foot wounds or ulcers on the toes. She does not have a advertising display rotator. She denies any fever or chills at home. She denies any wounds or discharge from the toes or foot. MD Complaint: extremity pain Onset (ago): week(s) (1) Pain Consistency: constant Location: right and lower extremity Severity scale (1-10): 9 Quality: burning, stabbing and aching Radiation: proximal Relieving factors: nothing Exacerbating factors: range of motion, weight bearing, walking and palpation Associated symptoms: denies other symptoms Related Data Home Medications Medication Instructions Recorded Confirmed aspirin 81 mg tablet,delayed 81 mg PO DAILY 11/08/20 03/25/22 release glipizide 10 mg tablet 10 mg PO BID 11/08/20 03/25/22 Previous Rx's Medication Instructions Recorded ciprofloxacin 0.3 %-dexamethasone 4 drp otic (ears) BID 7 days #7.5 08/15/21 0.1 % ear drops,suspension mL (Ciprodex) clotrimazole 1 % topical solution See Rx Instructions .Route TID 2 08/29/21 weeks #30 mL tramadol 50 mg tablet 50 - 100 mg PO Q4H PRN pain #20 01/20/22 tabs dulaglutide 1.5 mg/0.5 mL 1.5 mg (0.5 mL) subcut QWEEK 90 02/04/22 subcutaneous pen injector days #6.5 mL saxagliptin 5 mg tablet (Onglyza) 5 mg PO DAILY 90 days #90 tabs 02/04/22 atorvastatin 40 mg tablet 40 mg PO DAILY #90 tabs 03/09/22 lisinopril 5 mg tablet 5 mg PO DAILY #90 tabs 03/09/22 diclofenac sodium 1 % topical gel 2 g topical QID PRN pain #100 grams 03/25/22 (Arthritis Pain (diclofenac)) tramadol 50 mg tablet 50 mg PO TID PRN pain 30 days #90 03/30/22 tabs cephalexin 500 mg capsule 500 mg PO Q6H 10 days #40 caps 04/16/22 doxycycline hyclate 100 mg tablet 100 mg PO BID #20 tabs 04/16/22 oxycodone 5 mg tablet 5 mg PO Q6H PRN pain #8 tabs 04/16/22 Allergies Allergy/AdvReac Type Severity Reaction Status Date / Time insulin detemir Allergy Unknown hives Verified 04/15/22 22:38 insulin glargine Allergy Unknown rash/ hives Verified 04/15/22 22:38 Penicillins [PENICILLINS] Allergy Unknown HIVES Verified 04/15/22 22:38 sitagliptin [Januvia] Allergy Unknown hives Verified 04/15/22 22:38 metformin AdvReac Intermediate diarrhea Verified 04/15/22 22:38 Review of Systems Review of Systems: Constitutional: No Fever, No Chills ENT/Mouth: No sore throat, No Rhinorrhea, No Swallowing Difficulty Cardiovascular: No Chest Pain, No SOB, No Orthopnea, No Edema Respiratory: No Cough, No Sputum, No Wheezing, No dyspnea Gastrointestinal: No Nausea, No Vomiting, No Diarrhea, No abdominal Pain, No Hematochezia, No Melena Genitourinary: No Dysuria, No Urinary Frequency, No Hematuria Musculoskeletal: + joint pain, No Myalgias Skin: + Skin Lesions, No rash Neuro: No Weakness, + Numbness, No Dizziness, No Headache Psych: No Anxiety/Panic, No Depression Heme/Lymph: No Bruising, No Lymphadenopathy Endocrine: No Polyuria, No Polydipsia PMFSH Past Medical History Medical History Abdominal bloating Arthralgia Benign essential hypertension Diabetes mellitus Diarrhea Hip pain, bilateral Low back pain Overweight (BMI 25.0-29.9) Pure hypercholesterolemia Smoker Surgical History History of cataract surgery History of laser refractive surgery History of tonsillectomy Hx of appendectomy Family History Family History Mother Alzheimer disease Heart problem Father Heart attack Other Substance abuse Social History Social History Housing: Apartment Alcohol intake: current Alcohol intake frequency: holidays/special occasions only Patient Tobacco Use Status: Current everyday Tobacco user Cigarettes Per Day: 5 Second Hand Smoke Exposure: Yes Advance Directives: No Advance Directives Information Provided: No service: No Current occupational status: employed Cognitive needs: No Hearing needs: No Vision needs: Yes Physical Exam Vital Signs: Vital Signs: Last Vital Signs Temp 97.8 F 04/15/22 20:50 Pulse 100 04/15/22 20:50 Resp 16 04/15/22 23:00 BP 123/70 04/15/22 20:50 Pulse Ox 97 04/15/22 20:50 O2 Del Method 04/15/22 20:50 BMI result Body Mass Index 28.9 Appearance: Alert. Oriented X3. No acute distress. Eyes: Pupils equal, round and reactive to light. ENT: Pharynx normal. Neck: Normal inspection. Neck supple. CVS: Normal heart rate and rhythm. Pulses normal. Respiratory: No respiratory distress. Breath sounds normal. Abdomen: Soft and nontender. +BS x4 Skin: Skin warm and dry. Normal skin color. Normal skin turgor. No rashes. Extremities: thickened, yellow toenails on bilateral feet. right great toe with mild erythema and warmth of the tip, no open wound, great toe and toes 2-4 are tender to touch, cool. plantar aspect of the 4th digit with purplish discoloration. 1+ DP and PD pulses bilaterally. Neuro: Oriented X 3. No motor deficit. No sensory deficit. Course Course Course Narrative: 76-year-old female with history of poorly controlled diabetes among other comorbidities who presents to the ER for evaluation of a painful right foot and several toes. Denies any trauma or injury. Examination is concerning for possible PVD with embolic phenomenon however foot has good pulses in both the DP and PD locations. cool but not cold. possible mild early cellulitis of the great toe as well. Will get metabolic workup, XR foot and give empiric dose of IV rocephin. Dispo pending resulst in improvement Reevaluation(s) Reevaluation #1: Lab workup showing WBC 12.6. ESR only 22. CRP only 1.23. She has mild transaminitis with no right upper quadrant tenderness or abdominal complaints today. X-ray of the foot is showing no acute osseous injury or radiographic evidence of advanced osteomyelitis. Her pain is improved after IV pain medications. She was hoping to avoid admission to the hospital. Case was discussed with Dr. Wolfe. Will plan to send the patient home on oral antibiotics, pain control and have her return to the ER in 2 days for re-evaluation. Will start on aspirin for concern of PVD. She will need to be seen by Dr. Good, encouraged to call his office tomorrow morning to arrange an appointment. Patient agrees with plan and will come back to the ER on Wednesday for re-evaluation. Strict return precautions were discussed as well that showed prompt more urgent re-evaluation. Patient agrees with plan and stable for discharge home. MDM - Extremity (Nontraumatic) Lab Data Result diagrams: 04/15/22 22:47 04/15/22 22:47 Labs: Lab Results 04/15/22 04/15/22 04/15/22 Range/Units 22:47 22:47 22:47 WBC 12.6 H (4.8-10.8) X10*3/uL RBC 4.93 (4.20-5.50) X10*6/uL Hgb 14.3 (12.0-16.0) g/dl Hct 43.1 (37.0-47.0) % MCV 87.4 (80.0-98.0) fL MCH 29.0 (27.0-33.0) pg MCHC 33.2 (31.0-35.0) g/dl RDW 12.7 (11.0-16.0) % Plt Count 321 (160-400) X10*3/uL MPV 8.8 L (9.4-12.3) fL Immature Gran % (Auto) 0.2 (0.0-0.4) % Neut % (Auto) 57.1 (45-73) % Lymph % (Auto) 35.3 (20-40) % [place] % (Auto) 5.2 (2-11) % Eos % (Auto) 2.0 (0-4) % Baso % (Auto) 0.2 (0-2) % Lymph # (Auto) 4.5 (1.2-4.9) X10*3/uL [place] # (Auto) 0.7 (0.1-1.2) X10*3/uL Eos # (Auto) 0.3 (0.0-0.4) X10*3/uL Baso # (Auto) 0.0 (0.0-0.2) X10*3/uL Abs Immat Gran (auto) 0.03 (0.00-0.03) X10*3/uL Absolute Neuts (auto) 7.2 (2.0-8.3) x10*3/uL Absolute Nucleated RBC 0.000 (0.0-0.012) X10*3/uL Nucleated RBC % (auto) 0.0 (0.0-0.2) /100WBC ESR 22 H (0-20) MM/HR Sodium 143 (135-145) mmol/L Potassium 4.3 (3.3-5.1) mmol/L Chloride 105 (96-108) mmol/L Carbon Dioxide 29 (22-29) mmol/L Anion Gap 13 (12-20) BUN 13 (9-16) mg/dL Creatinine 0.72 (0.5-1.4) mg/dL Estim Creat Clear Calc 63.5 Estimated GFR > 60 Random Glucose 115 (60-115) mg/dL Lactic Acid (0.5-2.0) mmol/L Calcium 9.4 (8.4-10.2) mg/dL Magnesium 1.8 (1.6-2.6) mg/dL Total Bilirubin 0.2 (0.0-1.0) mg/dL Direct Bilirubin < 0.2 (0.0-0.5) mg/dL AST 51 H (5-31) U/L ALT 42 H (0-31) U/L Alkaline Phosphatase 128 H (39-117) U/L C-Reactive Protein 1.23 H (< or = 0.50) mg/dL Total Protein 6.9 (6.5-8.0) g/dL Albumin 4.2 (3.5-5.0) g/dL COVID-19 ([facility]) (Negative) COVID-19 Clin Com 04/15/22 04/15/22 Range/Units 22:47 22:47 WBC (4.8-10.8) X10*3/uL RBC (4.20-5.50) X10*6/uL Hgb (12.0-16.0) g/dl Hct (37.0-47.0) % MCV (80.0-98.0) fL MCH (27.0-33.0) pg MCHC (31.0-35.0) g/dl RDW (11.0-16.0) % Plt Count (160-400) X10*3/uL MPV (9.4-12.3) fL Immature Gran % (Auto) (0.0-0.4) % Neut % (Auto) (45-73) % Lymph % (Auto) (20-40) % [place] % (Auto) (2-11) % Eos % (Auto) (0-4) % Baso % (Auto) (0-2) % Lymph # (Auto) (1.2-4.9) X10*3/uL [place] # (Auto) (0.1-1.2) X10*3/uL Eos # (Auto) (0.0-0.4) X10*3/uL Baso # (Auto) (0.0-0.2) X10*3/uL Abs Immat Gran (auto) (0.00-0.03) X10*3/uL Absolute Neuts (auto) (2.0-8.3) x10*3/uL Absolute Nucleated RBC (0.0-0.012) X10*3/uL Nucleated RBC % (auto) (0.0-0.2) /100WBC ESR (0-20) MM/HR Sodium (135-145) mmol/L Potassium (3.3-5.1) mmol/L Chloride (96-108) mmol/L Carbon Dioxide (22-29) mmol/L Anion Gap (12-20) BUN (9-16) mg/dL Creatinine (0.5-1.4) mg/dL Estim Creat Clear Calc Estimated GFR Random Glucose (60-115) mg/dL Lactic Acid 1.0 (0.5-2.0) mmol/L Calcium (8.4-10.2) mg/dL Magnesium (1.6-2.6) mg/dL Total Bilirubin (0.0-1.0) mg/dL Direct Bilirubin (0.0-0.5) mg/dL AST (5-31) U/L ALT (0-31) U/L Alkaline Phosphatase (39-117) U/L C-Reactive Protein (< or = 0.50) mg/dL Total Protein (6.5-8.0) g/dL Albumin (3.5-5.0) g/dL COVID-19 ([facility]) Negative (Negative) COVID-19 Clin Com See Note Critical Care Time Critical Care Time Critical Care Time: No Discharge Plan Discharge Clinical Impression: Acute foot pain, Cellulitis of toe Patient Disposition: Home, Self-Care Instructions: Cellulitis (ED), Peripheral Vascular Disease (ED) Additional Instructions: Recommend starting the prescribed antibiotics as directed, complete the entire course. Start him 1st thing tomorrow morning. Recommend starting baby aspirin 81 mg per day. Take the prescribed oxycodone as needed for severe pain, do not combine this with your previously prescribed tramadol. Keep the foot warm to help improve circulation. Recommend following up with Dr. Good, the vascular surgeon to evaluate for peripheral vascular disease. Recommend coming back to the emergency room in 2 days.i for re-evaluation. If you develop new or worsening symptoms call 911 or come back to the ER for further evaluation. Prescriptions: New doxycycline hyclate 100 mg tablet 100 mg PO BID Qty: 20 0RF cephalexin 500 mg capsule 500 mg PO Q6H 10 Days Qty: 40 0RF oxycodone 5 mg tablet 5 mg PO Q6H PRN (Reason: pain) Qty: 8 0RF Rx Instructions: Partial Fill upon patient request. No Action clotrimazole 1 % solution See Rx Instructions .ROUTE TID 14 Days Qty: 30 0RF Rx Instructions: Apply 3 to 4 drops into the affected ear 3 times a day; lisinopril 5 mg tablet 5 mg PO DAILY Qty: 90 0RF atorvastatin 40 mg tablet 40 mg PO DAILY Qty: 90 0RF tramadol 50 mg tablet 50 mg PO TID PRN (Reason: pain) 30 Days Qty: 90 0RF tramadol 50 mg tablet 50 - 100 mg PO Q4H PRN (Reason: pain) Qty: 20 0RF ciprofloxacin-dexamethasone [Ciprodex] 0.3-0.1 % drops,suspension 4 drp otic (ears) BID 7 Days Qty: 7.5 0RF glipizide 10 mg tablet 10 mg PO BID aspirin 81 mg tablet,delayed release (DR/EC) 81 mg PO DAILY Onglyza 5 mg tablet 5 mg PO DAILY 90 Days Qty: 90 1RF Trulicity 1.5 mg/0.5 mL pen injector 1.5 mg subcut QWEEK 90 Days Qty: 6.5 1RF diclofenac sodium [Arthritis Pain (diclofenac)] 1 % gel 2 g topical QID PRN (Reason: pain) Qty: 100 1RF Rx Instructions: apply to single elbow, wrist or hand; for hand includes palm/fingers/back of hand Referrals: Roque Good MD [Physician] - (poorly controlled diabetic with embolic phenomenon to toes)
[2022-04-15 23:21] LABS: COVID-19 Test Negative (Negative)
[2022-04-15 23:26] LABS: Alanine Aminotransferase 42 U/L (0-31); Albumin Level 4.2 g/dL (3.5-5.0); Alkaline Phosphatase 128 U/L (39-117); Anion Gap 13 (12-20); Aspartate Amino Transferase 51 U/L (5-31); Bilirubin Direct < 0.2 mg/dL (0.0-0.5); Bilirubin Total 0.2 mg/dL (0.0-1.0); Blood Urea Nitrogen 13 mg/dL (9-16); C Reactive Protein 1.23 mg/dL (< or = 0.50); Calcium 9.4 mg/dL (8.4-10.2); Carbon Dioxide 29 mmol/L (22-29); Chloride 105 mmol/L (96-108); Creatinine Clr Calc Pharmacy 63.5; Estimated Glomerular Filt Rate > 60; Glucose Random 115 mg/dL (60-115); Magnesium 1.8 mg/dL (1.6-2.6); Potassium 4.3 mmol/L (3.3-5.1); Sodium 143 mmol/L (135-145); Total Protein 6.9 g/dL (6.5-8.0)
[2022-04-15 23:37] LABS: Erythrocyte Sedimentation Rate 22 MM/HR (0-20)
== END 2022-04-16 00:51 | disposition home or self-care (01) ==
PROVIDERS: Physician Assistant; Emergency Provider Internal Medicine; PCP Internal Medicine
DX: M79.671 Pain in right foot (principal); L03.031 Cellulitis of right toe; Z20.822 Contact with and (suspected) exposure to COVID-19; E11.9 Type 2 diabetes mellitus without complications; I10 Essential (primary) hypertension; E78.5 Hyperlipidemia, unspecified; F11.20 Opioid dependence, uncomplicated; F17.200 Nicotine dependence, unspecified, uncomplicated; Z79.82 Long term (current) use of aspirin; Z79.02 Long term (current) use of antithrombotics/antiplatelets; Z79.899 Other long term (current) drug therapy; Z79.4 Long term (current) use of insulin
CPT/HCPCS: 73630; 80048; 80076; 83605; 83735; 85025; 85652; 86140; 87040; 87635; 96365; 96375; 99283; 99284; J0696; J1170

== ENCOUNTER 2022-04-18 13:42 | Emergency (ER) | payer OTHER, SELFPAY ==
--- NOTE | ~2022-04-18 | US_ITS ---
EXAMINATION: NONINVASIVE ASSESSMENT OF THE ARTERIES OF THE RIGHT LOWER EXTREMITY INCLUDING BILATERAL LOWER EXTREMITY DUPLEX. CLINICAL INFORMATION: Foot pain, wound, peripheral vascular disease COMPARISON: None TECHNIQUE: right lower extremity arterial system evaluated with duplex Doppler techniques with wave form analysis and measurement of velocities in the common femoral, profunda femoral, superficial femoral, popliteal, tibial and peroneal arteries. The study was performed only at rest. FINDINGS: Common femoral artery: 164 cm/s, Multiphasic Profunda femoris artery: 132 cm/s, Multiphasic Superficial femoral artery (proximal): 583 cm/s, monophasic Superficial femoral artery (mid): 73.2 cm/s, monophasic Superficial femoral artery (distal): 75.2 cm/s, triphasic Proximal Popliteal artery: 37.8 cm/s, monophasic Proximal posterior tibial artery: 37.5 cm/s, monophasic Mid Peroneal artery: 16.3 cm/s, Multiphasic Diffuse atherosclerotic disease, most significantly in the proximal SFA. US/US arterial duplex LE RT IMPRESSION: Severe stenosis in the proximal SFA and short segment occlusion in the mid posterior tibial artery.
[2022-04-18 13:54] VITALS: BP 145/69; PULSE 100; RESP 18; TEMP 36.4; O2SAT 95; BMI 28.9
--- NOTE | 2022-04-18 17:15 | ED.GENADULT ---
HPI - General Adult General Chief complaint: General Medical Stated complaint: check up on foot Time Seen by Provider: 04/18/22 15:39 Source: patient Mode of arrival: ambulatory Limitations: no limitations History of Present Illness HPI narrative: 76 year old female with past medical history significant for poorly controlled diabetes (A1c 10.7%), chronic low back pain on chronic opiates, HTN, HLD, arthritis who presents to the ER for evaluation of non-traumatic right foot and toe pain for the last week and a half worsening. Patient tells me that she has noted discoloration to her toes, has also been worsening. She reports severe neuropathy to the toes in the foot, she tells me it is so painful it is keeping her up at night. She was seen here in the emergency department on 04/15/2022, started on aspirin for concerns of PVD and was discharged home with Keflex and doxycycline as well as oxycodone. Patient denies chest pain, shortness of breath, fevers, chills, nausea, vomiting, abdominal pain, headache, vision changes and dizziness. Onset (ago): week(s) (1.5 ) Severity: severe Severity scale (1-10): 10 Quality: burning and sharp Pain Consistency: constant Relieving factors: none Exacerbating factors: other (weight bearing ) Associated symptoms: denies other symptoms Related Data Home Medications Medication Instructions Recorded Confirmed aspirin 81 mg tablet,delayed 81 mg PO DAILY 11/08/20 03/25/22 release glipizide 10 mg tablet 10 mg PO BID 11/08/20 03/25/22 Previous Rx's Medication Instructions Recorded ciprofloxacin 0.3 %-dexamethasone 4 drp otic (ears) BID 7 days #7.5 08/15/21 0.1 % ear drops,suspension mL (Ciprodex) clotrimazole 1 % topical solution See Rx Instructions .Route TID 2 08/29/21 weeks #30 mL tramadol 50 mg tablet 50 - 100 mg PO Q4H PRN pain #20 01/20/22 tabs dulaglutide 1.5 mg/0.5 mL 1.5 mg (0.5 mL) subcut QWEEK 90 02/04/22 subcutaneous pen injector days #6.5 mL saxagliptin 5 mg tablet (Onglyza) 5 mg PO DAILY 90 days #90 tabs 02/04/22 diclofenac sodium 1 % topical gel 2 g topical QID PRN pain #100 grams 03/25/22 (Arthritis Pain (diclofenac)) tramadol 50 mg tablet 50 mg PO TID PRN pain 30 days #90 03/30/22 tabs atorvastatin 40 mg tablet 40 mg PO DAILY #90 tabs 04/16/22 cephalexin 500 mg capsule 500 mg PO Q6H 10 days #40 caps 04/16/22 doxycycline hyclate 100 mg tablet 100 mg PO BID #20 tabs 04/16/22 lisinopril 5 mg tablet 5 mg PO DAILY #90 tabs 04/16/22 oxycodone 5 mg tablet 5 mg PO Q6H PRN pain #8 tabs 04/16/22 clopidogrel 75 mg tablet 75 mg PO DAILY #30 tabs 04/18/22 gabapentin 100 mg capsule 100 mg PO TID PRN neuropathy #30 04/18/22 caps oxycodone 5 mg capsule 5 mg PO BID PRN pain #8 caps 04/18/22 Allergies Allergy/AdvReac Type Severity Reaction Status Date / Time insulin detemir Allergy Unknown hives Verified 04/18/22 13:54 insulin glargine Allergy Unknown rash/ hives Verified 04/18/22 13:54 Penicillins [PENICILLINS] Allergy Unknown HIVES Verified 04/18/22 13:54 sitagliptin [Januvia] Allergy Unknown hives Verified 04/18/22 13:54 metformin AdvReac Intermediate diarrhea Verified 04/18/22 13:54 Review of Systems Review of Systems: Constitutional: No Fever, No Chills ENT/Mouth: No sore throat, No Rhinorrhea, No Swallowing Difficulty Cardiovascular: No Chest Pain, No SOB, No Orthopnea, No Edema Respiratory: No Cough, No Sputum, No Wheezing, No dyspnea Gastrointestinal: No Nausea, No Vomiting, No Diarrhea, No abdominal Pain, No Hematochezia, No Melena Genitourinary: No Dysuria, No Urinary Frequency, No Hematuria Musculoskeletal: + joint pain, No Myalgias Skin: + Skin Lesions, No rash Neuro: No Weakness, + Numbness, No Dizziness, No Headache Psych: No Anxiety/Panic, No Depression Heme/Lymph: No Bruising, No Lymphadenopathy Endocrine: No Polyuria, No Polydipsia Yes all other systems are reviewed and are negative [facility] Past Medical History Attestation statement: The following information was validated with the patient. Source: old records reviewed and nursing notes reviewed Medical History Abdominal bloating Arthralgia Benign essential hypertension Diabetes mellitus Diarrhea Hip pain, bilateral Low back pain Overweight (BMI 25.0-29.9) Pure hypercholesterolemia Smoker Surgical History History of cataract surgery History of laser refractive surgery History of tonsillectomy Hx of appendectomy Family History Family History Mother Alzheimer disease Heart problem Father Heart attack Other Substance abuse Social History Social History Housing: Apartment Alcohol intake: current Alcohol intake frequency: holidays/special occasions only Patient Tobacco Use Status: Current everyday Tobacco user Cigarettes Per Day: 5 Second Hand Smoke Exposure: Yes Advance Directives: No Advance Directives Information Provided: No service: No Current occupational status: employed Cognitive needs: No Hearing needs: No Vision needs: Yes Physical Exam ED Vital Signs: Vital Signs - 24 hr 04/18/22 13:54 Temperature 97.6 F Pulse Rate 100 Respiratory Rate 18 Blood Pressure 145/69 H Pulse Oximetry 95 Oxygen Delivery Method Room Air BMI result Body Mass Index 28.9 VSS Appearance: Alert.? Oriented X3.? No acute distress.? Head: Normocephalic, atraumatic, no step-offs or deformities Eyes: Pupils equal, round and reactive to light.? CVS: Normal heart rate and rhythm.? Pulses normal.? Respiratory: No respiratory distress.? Breath sounds normal.? Abdomen: Soft and nontender.? Skin: Skin warm and dry.? Normal skin color.? Normal skin turgor.? Extremities: No lower extremity edema.? No calf ttp. 5/5 strength to bilateral upper and lower extremities 2+ DP,AT,PT pulses on left. 1+ DP,AT,PT pulses on right. Thickened, yellow toenails on b/l feet. R great toe with mild erythema and warmth of the tip, no open wound. All toes on right surface grinder tender to touch and cool. 4th digit on the rights plantar aspect with purplish discoloration. R foot with decreased sensation from toes to ankle on right when compared to left. Left normal sensation. Neuro: Oriented X 3.? No motor deficit. CN 2-12 intact Course Reevaluation(s) Reevaluation #1: Arterial duplex scan with severe stenosis in the proximal SFA and short-segment occlusion in the right mid posterior tibial artery. I discussed these findings with Dr. Good who recommends adding Plavix to aspirin. He recommends outpatient follow-up. At this time patient will be discharged home, will add gabapentin for neuropathy. Advised her to return with new or worsening symptoms. Gabapentin has also been sent to her pharmacy for neuropathy. Time: 17:26 Medical Decision Making [facility] Narrative Medical decision making narrative: [id number] 76-year-old female presents with complaints of atraumatic right foot pain, and discoloration to toes. Was told to come in for further evaluation after few days of treatment with antibiotics, pain medicine. To note patient was seen here on the , was discharged home with 100 mg doxycycline p.o. b.i.d. times 10 days, Keflex 500 mg p.o. q.6 hours times 10 days, oxycodone 5 mg tablets p.o. q.6 hours as needed and was instructed to start 81 mg baby aspirin daily. Patient tells me she has been taking all these as prescribed. Physical examination significant for 5/5 strength to bilateral upper and lower extremities 2+ DP,AT,PT pulses on left. 1+ DP,AT,PT pulses on right. Thickened, yellow toenails on b/l feet. R great toe with mild erythema and warmth of the tip, no open wound. All toes on right surface grinder tender to touch and cool. 4th digit on the rights plantar aspect with purplish discoloration. R foot with decreased sensation from toes to ankle on right when compared to left. Left normal sensation. Concerns for arterial occlusion, PVD. Plan- arterial duplex Medical Records Medical records reviewed: Yes I reviewed the patient's medical records. Lab Data Lab results reviewed: Yes I reviewed the patient's lab results. Critical Care Time Critical Care Time Critical Care Time: No Discharge Plan Discharge Clinical Impression: Arterial occlusion Patient Disposition: Home, Self-Care Instructions: Peripheral Vascular Disease (ED) Additional Instructions: Take your medications as prescribed. If you were prescribed antibiotics today, it is important that you take your medication to their entirety, do not skip any doses, do not finish them early. Follow-up with your primary care provider this week. Return to the emergency department with new or worsening symptoms. Such as fevers, chills, chest pain, shortness of breath, nausea, vomiting, dizziness, headache, vision changes, lethargy In case of emergency call 911 Please continue taking aspirin 81 mg daily, on top of aspirin I have sent clopidogrel to the pharmacy similar to [facility] Gabapentin has also been sent to your pharmacy you can take it 3 times a day as needed for pain, is good for neuropathy. I also sent a script for oxycodone unknown, please take this only for severe pain, it is a narcotic it can cause dependence please take this with caution. It may also cause constipation so you can take [id number] stool softeners with this. US/US arterial duplex LE RT IMPRESSION: Severe stenosis in the proximal SFA and short segment occlusion in the mid posterior tibial artery. Prescriptions: New clopidogrel 75 mg tablet 75 mg PO DAILY Qty: 30 0RF gabapentin 100 mg capsule 100 mg PO TID PRN (Reason: neuropathy) Qty: 30 0RF oxycodone 5 mg capsule 5 mg PO BID PRN (Reason: pain) Qty: 8 0RF Rx Instructions: Partial Fill upon patient request. No Action clotrimazole 1 % solution See Rx Instructions .ROUTE TID 14 Days Qty: 30 0RF Rx Instructions: Apply 3 to 4 drops into the affected ear 3 times a day; tramadol 50 mg tablet 50 mg PO TID PRN (Reason: pain) 30 Days Qty: 90 0RF lisinopril 5 mg tablet 5 mg PO DAILY Qty: 90 0RF atorvastatin 40 mg tablet 40 mg PO DAILY Qty: 90 0RF tramadol 50 mg tablet 50 - 100 mg PO Q4H PRN (Reason: pain) Qty: 20 0RF ciprofloxacin-dexamethasone [Ciprodex] 0.3-0.1 % drops,suspension 4 drp otic (ears) BID 7 Days Qty: 7.5 0RF doxycycline hyclate 100 mg tablet 100 mg PO BID Qty: 20 0RF cephalexin 500 mg capsule 500 mg PO Q6H 10 Days Qty: 40 0RF oxycodone 5 mg tablet 5 mg PO Q6H PRN (Reason: pain) Qty: 8 0RF Rx Instructions: Partial Fill upon patient request. glipizide 10 mg tablet 10 mg PO BID aspirin 81 mg tablet,delayed release (DR/EC) 81 mg PO DAILY Onglyza 5 mg tablet 5 mg PO DAILY 90 Days Qty: 90 1RF Trulicity 1.5 mg/0.5 mL pen injector 1.5 mg subcut QWEEK 90 Days Qty: 6.5 1RF diclofenac sodium [Arthritis Pain (diclofenac)] 1 % gel 2 g topical QID PRN (Reason: pain) Qty: 100 1RF Rx Instructions: apply to single elbow, wrist or hand; for hand includes palm/fingers/back of hand Referrals: Jono Vallecillo MD [Primary Care Provider] - 2 days ED Physician,Delilah [Physician] - 2 days Roque Good MD [Physician] - 2 days Stand Alone Forms: Work/School Release
== END 2022-04-18 17:58 | disposition home or self-care (01) ==
PROVIDERS: Emergency Provider Emergency Medicine; PCP Internal Medicine
DX: I77.1 Stricture of artery (principal); M79.671 Pain in right foot; E11.9 Type 2 diabetes mellitus without complications; F11.20 Opioid dependence, uncomplicated; I10 Essential (primary) hypertension; E78.00 Pure hypercholesterolemia, unspecified; F17.210 Nicotine dependence, cigarettes, uncomplicated; Z79.02 Long term (current) use of antithrombotics/antiplatelets; Z79.899 Other long term (current) drug therapy
CPT/HCPCS: 93926; 99282; 99284

== ENCOUNTER → 2022-05-05 13:32 | Outpatient (BNVA) | payer OTHER, SELFPAY | PROVIDERS: PCP Internal Medicine; Visit Provider Surgery Vascular Surgery | DX: I73.9 Peripheral vascular disease, unspecified (principal) | CPT/HCPCS: 99202 ==

== ENCOUNTER 2022-05-12 16:26 | Outpatient (REF) | payer OTHER, SELFPAY ==
[2022-05-12 16:53] LABS: MANUAL DIFF FLAG NO
[2022-05-12 17:23] LABS: Basophils Percent Auto 0.3 % (0-2); Eosinophils Absolute Auto 0.2 X10*3/uL (0.0-0.4); Eosinophils Percent Auto 1.7 % (0-4); Hematocrit 43.4 % (37.0-47.0); Hemoglobin 14.1 g/dl (12.0-16.0); Imm Gran Abs Auto 0.05 X10*3/uL (0.00-0.03); Imm Gran Pct Auto 0.4 % (0.0-0.4); Lymphocytes Absolute Auto 4.3 X10*3/uL (1.2-4.9); Lymphocytes Percent Auto 35.2 % (20-40); Mean Corpuscular HGB Conc 32.5 g/dl (31.0-35.0); Mean Corpuscular Hemoglobin 28.4 pg (27.0-33.0); Mean Corpuscular Volume 87.3 fL (80.0-98.0); Mean Platelet Volume 8.7 fL (9.4-12.3); Monocytes Absolute Auto 0.5 X10*3/uL (0.1-1.2); Monocytes Percent Auto 4.2 % (2-11); Neutrophils Absolute Auto 7.1 x10*3/uL (2.0-8.3); Neutrophils Percent Auto 58.2 % (45-73); Platelet Count 404 X10*3/uL (160-400); Red Blood Count 4.97 X10*6/uL (4.20-5.50); Red Cell Distribution Width 12.9 % (11.0-16.0); White Blood Count 12.2 X10*3/uL (4.8-10.8)
[2022-05-12 17:44] LABS: Alanine Aminotransferase 45 U/L (0-31); Albumin Level 4.2 g/dL (3.5-5.0); Alkaline Phosphatase 155 U/L (39-117); Anion Gap 15 (12-20); Aspartate Amino Transferase 58 U/L (5-31); Bilirubin Total 0.3 mg/dL (0.0-1.0); Blood Urea Nitrogen 10 mg/dL (9-16); Calcium 9.4 mg/dL (8.4-10.2); Carbon Dioxide 28 mmol/L (22-29); Chloride 104 mmol/L (96-108); Cholesterol 122 mg/dL; Estimated Glomerular Filt Rate > 60; Glucose Fasting 151 mg/dL (60-99); HDL Cholesterol 30 mg/dL; LDL Cholesterol Calculated 64 mg/dl; Potassium 4.1 mmol/L (3.3-5.1); Sodium 143 mmol/L (135-145); Total Protein 6.9 g/dL (6.5-8.0); Triglycerides 140 mg/dL
[2022-05-12 17:47] LABS: Estimated Average Glucose 160 mg/dL; Hemoglobin A1c % 7.2 %
[2022-05-12 17:49] LABS: Appearance Urine Clear; Color Urine Yellow; Glucose Urine UA 100 mg/dL (Negative); Leukocyte Esterase Urine Small (1+) (Negative); Nitrite Urine Negative (Negative); Urine Blood Negative (Negative); Urine Ketones Trace mg/dL (Negative); Urine Protein Trace mg/dL (Neg-Trace)
[2022-05-12 18:04] LABS: TSH reflex Free T4 1.13 uIU/mL (0.32-4.0)
[2022-05-12 19:20] LABS: Bacteria Urine None Seen (None Seen); Hyaline Casts Urine 0-2 /LPF (0-2); RBC Urine 0-2 /HPF (0-2); UACC Culture Trigger YES
[2022-05-14 00:41] LABS: C Peptide 6.21 ng/mL (0.80-3.85)
[2022-05-15 19:41] LABS: Glutamic acid decarboxylase Ab <5 IU/mL (<5)
== END 2022-05-12 16:27 | disposition home or self-care (01) ==
LOC: HO.LAB 16:26
PROVIDERS: PCP Internal Medicine; Visit Provider Internal Medicine
DX: E11.9 Type 2 diabetes mellitus without complications (principal); E78.00 Pure hypercholesterolemia, unspecified; I10 Essential (primary) hypertension
CPT/HCPCS: 36415; 80053; 80061; 81001; 83036; 84443; 84681; 85025; 86341; 87086

== ENCOUNTER 2022-05-13 07:31 | Day surgery (SDC) | payer OTHER, SELFPAY ==
[2022-05-13] VITALS (7 sets, daily range): BP systolic 130–151; BP diastolic 46–73; PULSE 75–88; RESP 15–18; TEMP 36.4–36.6; O2SAT 98–100; BMI 28.9
[2022-05-13 08:09] LABS: Glucose, Whole Blood 168 mg/dL (60-115)
[2022-05-13 08:14] LABS: MANUAL DIFF FLAG NO
[2022-05-13 08:16] LABS: Basophils Absolute Auto 0.1 X10*3/uL (0.0-0.2); Basophils Percent Auto 0.4 % (0-2); Eosinophils Absolute Auto 0.3 X10*3/uL (0.0-0.4); Eosinophils Percent Auto 2.9 % (0-4); Hematocrit 40.7 % (37.0-47.0); Hemoglobin 13.2 g/dl (12.0-16.0); Imm Gran Abs Auto 0.04 X10*3/uL (0.00-0.03); Imm Gran Pct Auto 0.4 % (0.0-0.4); Lymphocytes Absolute Auto 3.1 X10*3/uL (1.2-4.9); Lymphocytes Percent Auto 27.6 % (20-40); Mean Corpuscular HGB Conc 32.4 g/dl (31.0-35.0); Mean Corpuscular Hemoglobin 28.4 pg (27.0-33.0); Mean Corpuscular Volume 87.7 fL (80.0-98.0); Mean Platelet Volume 8.5 fL (9.4-12.3); Monocytes Absolute Auto 0.5 X10*3/uL (0.1-1.2); Monocytes Percent Auto 4.6 % (2-11); Neutrophils Absolute Auto 7.2 x10*3/uL (2.0-8.3); Neutrophils Percent Auto 64.1 % (45-73); Platelet Count 363 X10*3/uL (160-400); Red Blood Count 4.64 X10*6/uL (4.20-5.50); White Blood Count 11.2 X10*3/uL (4.8-10.8)
[2022-05-13 08:36] LABS: Blood Urea Nitrogen 9 mg/dL (9-16); Creatinine Clr Calc Pharmacy 63.5; Estimated Glomerular Filt Rate > 60
--- NOTE | 2022-05-13 11:52 | W.PM.OPN ---
Operative Note Operative Note Date of Service: 05/13/22 Narrative: Angiogram report from [facility] Preoperative diagnosis: Atherosclerosis of right lower extremity with nonhealing great toe ulcer Postoperative diagnosis: Same Procedure: 1. Ultrasound-guided left common femoral access 2. Aortogram with right lower extremity runoff 3. Right SFA atherectomy and plasty Surgeon:Roque Good M.D., FACS, RPVI Operation Shift Supervisor:None Anesthesia: Local with moderate conscious sedation. Total intraservice moderate sedation time was 61 minutes. I monitored the patient's level of consciousness and physiologic status continuously throughout the procedure. Specimens:none Drains:none Estimated blood loss: Less than 10 ml Implant: Medtronic Impact 5 x 40 DCB Indications: 76-year-old female who originally presented to the emergency room with pain and nonhealing ulcer of the right leg now presents to us for endovascular intervention she had noninvasive testing which demonstrated SFA disease. She now presents for intervention. The patient has signed the informed consent after reviewing risks, complications, benefits, and alternatives previously discussed with the patient. The patient was given the opportunity to ask any additional questions or voice any concerns. All questions were answered to the patient's satisfaction. Procedure in detail: Patient was brought to the angiography suite prior to which a time-out was called for patient identification and site verification. Bilateral groins were prepped and draped in the standard surgical fashion. Under ultrasound guidance left common femoral was punctured with micro puncture needle and wire. Subsequently a precision 4 [place] sheath was then placed. Bentson wire was advanced to the level of the aorta. 4 [place] Flush catheter was brought up and parked at the level of the renal arteries. Aortogram was then undertaken. Catheter was brought down to the level of the iliac bifurcation. Iliacs were subsequently imaged. Catheter was then brought in up and over to the right side SFA. Runoff study was then undertaken. It was noted that she had a proximal small segment stenotic lesion in the SFA at this time 5000 units of systemic heparin was administered up and over 6 [place] sheath was then placed. Glidewire Advantage was used to traverse the lesion. Once across the lesion we placed a trail Blazer catheter. We instilled contrast to confirmed true lumen. Once this was done we placed a 5 [place] spider wire. Once this was done we then turned our attention to the proximal SFA. Multiple unidirectional passes of the SFA were undertaken. This debulk the lesion. This was then subsequently followed up with a 5 x 40 drug coated balloon. This was brought into position and the under 3 minutes and insufflated for a total of 3 minutes in duration. Once this was all accomplished completion angiogram demonstrated excellent result. Catheter wire sheath was brought back to the ipsilateral side. StarClose closure device was then deployed. At the end the case sponge instrument counts were correct. Patient tolerated the procedure well. Returned to recovery with stable vitals. Interpretation of films: 1. Ultrasound demonstrates appropriate femoral puncture. Image of which was saved. 2. Aortogram demonstrates appropriate caliber aorta. Minimal disease. Appropriate take-off of the renals. 3. Iliac images demonstrate no significant disease 4. 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 Dorsalis pedis/plantar arch: Incomplete Conclusion: 1. Successful atherectomy and plasty of right SFA 2. Anticoagulation status: Will require 6 months of aspirin and Plavix This note is constructed using voice recognition software. While every effort has been made to ensure accuracy, bench inspector errors may have been included. Thank you for allowing me to participate in the care of your patient. Yours sincerely, Roque Good MD, FACS, R.P.V.I.
[2022-05-13] MEDS: Clopidogrel Bisulfate 75 MG TABLET PO (12:34)
[2022-05-13] MEDS: Aspirin 81 MG TAB.CHEW PO (12:34)
== END 2022-05-13 14:50 | disposition home or self-care (01) ==
PROVIDERS: PCP Internal Medicine; Visit Provider Surgery Vascular Surgery
DX: E11.51 Type 2 diabetes mellitus with diabetic peripheral angiopathy without gangrene (principal); E11.65 Type 2 diabetes mellitus with hyperglycemia; L97.519 Non-pressure chronic ulcer of other part of right foot with unspecified severity; I70.235 Atherosclerosis of native arteries of right leg with ulceration of other part of foot; Z79.4 Long term (current) use of insulin; I10 Essential (primary) hypertension; E78.5 Hyperlipidemia, unspecified; M54.50 Low back pain, unspecified; M25.552 Pain in left hip; M25.551 Pain in right hip; Z79.899 Other long term (current) drug therapy; Z79.82 Long term (current) use of aspirin; Z79.02 Long term (current) use of antithrombotics/antiplatelets; Z88.0 Allergy status to penicillin; Z88.8 Allergy status to other drugs, medicaments and biological substances; F17.210 Nicotine dependence, cigarettes, uncomplicated
CPT/HCPCS: 36415; 37225; 76937; 82565; 82947; 84520; 85025; 99152; 99153; C1714; C1725; C1760; C1769; C1884; C1887; J2250; J3010; Q9967

== ENCOUNTER → 2022-05-26 14:09 | Outpatient (BNVA) | payer OTHER, SELFPAY | PROVIDERS: PCP Internal Medicine; Visit Provider Surgery Vascular Surgery | DX: I73.9 Peripheral vascular disease, unspecified (principal) | CPT/HCPCS: 99212 ==

== ENCOUNTER 2022-06-01 09:40 | Emergency (ER) | payer OTHER, SELFPAY ==
--- NOTE | ~2022-06-01 | CT_ITS ---
EXAMINATION: CT HEAD WITHOUT CONTRAST CLINICAL INFORMATION: Severe headache COMPARISON: None TECHNIQUE: Contiguous axial imaging was performed from the skull base to vertex without intravenous administration of contrast. This CT examination was performed using dose optimization techniques as appropriate, variously including the following: *Automated exposure control *Adjustment of mA and/or kV according to patient size (this includes techniques or standardized protocols for targeted exams where dose is matched to indication/reason for exam; i.e. extremities or head) *Use of iterative reconstruction technique DLP: 703 mGy-cm FINDINGS: There is no acute intra-axial, extra-axial bleed, masses or midline shift. There is no acute infarction evolution. The lateral ventricles are symmetrical in size and configuration without enlargement. The chaidez to white matter difference is maintained normal. The bone windows reveal no calvarial abnormality. Bilateral paranasal sinuses and mastoid air cells are well-aerated. There is nonspecific mild asymmetric thickening of the right posterior scalp compatible left side but no hematoma is suspected. CT/CT head/brain wo IV con IMPRESSION: No acute intracranial process seen.
--- NOTE | ~2022-06-01 | CT_ITS ---
EXAMINATION: CTA OF THE HEAD AND NECK CLINICAL INFORMATION: Headache. COMPARISON: Head CT from 06/01/2022. TECHNIQUE: Test bolus sequences followed by intravenous administration 70 mL of Omnipaque 350. Helical imaging was performed in the axial plane from the mediastinum to the skull vertex. Delayed postcontrast imaging of the head was also performed. The data was processed at the medical office technologist's workstation for generation of MIP sequences. Three-dimensional volume rendered reformatted images were also generated at an offline 3-D workstation. Stenoses are assessed in accordance with NASCET criteria unless otherwise indicated. This CT examination was performed using dose optimization techniques as appropriate, variously including the following: *Automated exposure control *Adjustment of mA and/or kV according to patient size (this includes techniques or standardized protocols for targeted exams where dose is matched to indication/reason for exam; i.e. extremities or head) *Use of iterative reconstruction technique DLP: 1553 mGy-cm FINDINGS: CTA NECK: The imaged aortic arch and origins of the great vessels are patent with mild atherosclerotic wall calcifications. The common carotid arteries are patent with a retropharyngeal course of the right common carotid artery near the bifurcation. There is mild atheromatous plaque along the medial wall of the left common carotid artery without significant stenosis. Atherosclerotic wall calcifications at the origin of the left internal carotid artery results in a 50% focal stenosis. The remainder of the left cervical ICA is normal. There is mild atheromatous disease in the proximal right ICA without significant stenosis. The vertebral arteries opacify normally and are of normal caliber. There are asymmetrically prominent posterior right parotid space lymph nodes measuring up to 1 cm in diameter. There are additional right-sided high level V lymph nodes which are mildly enlarged, measuring up to 1.3 cm in long axis dimension in the axial plane at the C2-C3 level. A right-sided level IIB is mildly enlarged, though with a normal reniform morphology. A small but conspicuous right-sided postauricular lymph node is also visible. Bulky anterior endplate osteophyte formation visible from the C4 through the C6 levels. Multilevel hypertrophic facet arthropathy present contributing to varying degrees of foraminal encroachment. The thyroid is mildly heterogeneous with small nodules. The visualized mediastinum appears normal. The imaged portions of the lungs are clear. CTA HEAD: The intradural vertebral arteries and basilar artery are normal. The posterior cerebral arteries are widely patent. There are significant atherosclerotic wall calcifications in the cavernous internal carotid arteries and proximal supraclinoid segments with areas of moderate stenotic narrowing. The MARY and MCA vascular complexes bilaterally are normal. The venous sinuses opacify normally. Right parieto-occipital scalp soft tissue thickening and a mild amount of subgaleal fluid noted, of indeterminate etiology. Soft tissue reticulation and stranding evident in the right suboccipital soft tissues involving the superficial paravertebral musculature as well. There is also what may represent focal scarring at the high right frontal scalp vertex. CT/CT angio head neck IMPRESSION: Approximately 50% stenosis at the origin of the cervical left internal carotid artery. Partial retropharyngeal course of the right carotid vasculature. No vessel occlusion or significant stenosis otherwise. Extensive atherosclerotic wall calcifications in the intracranial internal carotid arteries with areas of moderate stenosis. Remaining vessels at the level of the [place] are patent. No vascular occlusions. Right parieto-occipital scalp soft tissue thickening with a mild amount of subgaleal edema. Additional mild inflammatory changes in the surrounding right suboccipital soft tissues. Asymmetric mild right-sided parotid space and right-sided upper level V cervical adenopathy. Findings are indeterminate but in the absence of recent trauma may be due to an underlying infectious/inflammatory process. Correlate with findings on physical examination. Imaging findings reported to Dr. Alvarez at 4:14PM on 06/01/2022.
[2022-06-01 10:21] VITALS: BP 152/65; PULSE 104; RESP 18; TEMP 36.6; O2SAT 99; BMI 27.4
[2022-06-01 12:50] VITALS: BP 157/66; PULSE 89; RESP 16; TEMP 36.9; O2SAT 99
[2022-06-01 14:12] VITALS: BP 136/65; PULSE 91; RESP 14; TEMP 36.8; O2SAT 99
--- NOTE | 2022-06-01 14:46 | ED_ITS ---
HPI - Headache General Chief Complaint: Headache Stated Complaint: MASSIVE PAIN BACK OF HEAD Time Seen by Provider: 06/01/22 10:44 Source: patient Mode of arrival: ambulatory Limitations: no limitations History of Present Illness HPI Narrative: 76-year-old female came in for evaluation of a headache. Since yesterday morning patient did have right-sided head pain involving also the right side of her neck and the right ear pain has been severe 03/29 and constant described as dull aching pain, patient used oxycodone that was prescribed to her for different issue with no relief of the pain, no nausea, no vomiting, no photophobia, no neck stiffness, nothing makes the pain worse or better. No fever or chills. Related Data Home Medications Medication Instructions Recorded Confirmed aspirin 81 mg tablet,delayed 81 mg PO DAILY 11/08/20 05/15/22 release glipizide 10 mg tablet 10 mg PO BID 11/08/20 05/15/22 Previous Rx's Medication Instructions Recorded saxagliptin 5 mg tablet (Onglyza) 5 mg PO DAILY 90 days #90 tabs 02/04/22 tramadol 50 mg tablet 50 mg PO TID PRN pain 30 days #90 03/30/22 tabs atorvastatin 40 mg tablet 40 mg PO DAILY #90 tabs 04/16/22 lisinopril 5 mg tablet 5 mg PO DAILY #90 tabs 04/16/22 diclofenac sodium 1 % topical gel 2 g topical QID PRN pain #100 grams 05/06/22 (Arthritis Pain (diclofenac)) clopidogrel 75 mg tablet (Plavix) 75 mg PO DAILY #90 tabs 05/13/22 gabapentin 100 mg capsule 100 mg PO TID PRN neuropathy 30 05/15/22 days #90 caps dulaglutide 1.5 mg/0.5 mL 1.5 mg (0.5 mL) subcut QWEEK 90 05/16/22 subcutaneous pen injector days #6.5 mL oxycodone 5 mg tablet 5 mg PO Q8H PRN pain #7 tabs 06/01/22 Allergies Allergy/AdvReac Type Severity Reaction Status Date / Time insulin detemir Allergy Unknown hives Verified 05/26/22 14:14 insulin glargine Allergy Unknown rash/ hives Verified 05/26/22 14:14 Penicillins [PENICILLINS] Allergy Unknown HIVES Verified 05/26/22 14:14 sitagliptin [Januvia] Allergy Unknown hives Verified 05/26/22 14:14 metformin AdvReac Intermediate diarrhea Verified 05/26/22 14:14 Review of Systems Review of Systems: All other systems are reviewed and are negative Constitutional: Reports as per HPI and Reports no additional constitutional complaints Eyes: Reports as per HPI and Reports no additional eye complaints Reports system reviewed and no additional complaints, except as documented Cardiovascular: Reports as per HPI and Reports no additional cardiovascular complaints Respiratory: Reports as per HPI and Reports no additional respiratory complaints Gastrointestinal: Reports as per HPI and Reports no additional gastrointestinal complaints Genitourinary: Reports no additional female genitourinary complaints Musculoskeletal: Reports no additional musculoskeletal complaints Skin/Breast: Reports system reviewed and no additional complaints, except as docu Psychiatric: Reports no additional psychiatric complaints Endocrine: Reports no additional endocrine complaints Hematologic/Lymphatic: Reports no additional hematologic/lymphatic complaints Allergic/Immunologic: Reports no additional allergic/immunologic complaints Reports system reviewed and no additional complaints, except as documented and Reports Abnormal speech present [facility] Past Medical History Medical History Abdominal bloating Arthralgia Benign essential hypertension Diabetes mellitus Diarrhea H/O coronary angiogram Hip pain, bilateral Low back pain Overweight (BMI 25.0-29.9) Pure hypercholesterolemia Smoker Surgical History History of cataract surgery History of laser refractive surgery History of tonsillectomy Hx of appendectomy Family History Family History Mother Alzheimer disease Heart problem Father Heart attack Other Substance abuse Social History Social History Housing: Apartment Alcohol intake: current Alcohol intake frequency: holidays/special occasions only Patient Tobacco Use Status: Current everyday Tobacco user Cigarettes Per Day: 5 Second Hand Smoke Exposure: Yes Advance Directives: No Advance Directives Information Provided: Yes service: No Current occupational status: employed Cognitive needs: No Hearing needs: No Vision needs: Yes Physical Exam Vital Signs: Vital Signs: Last Vital Signs Temp 98.2 F 06/01/22 16:00 Pulse 89 06/01/22 16:00 Resp 16 06/01/22 16:00 BP 155/63 H 06/01/22 16:00 Pulse Ox 98 06/01/22 16:00 O2 Del Method 06/01/22 16:00 BMI result Body Mass Index 27.4 Vital signs have been reviewed as appeared to be correct. Blood pressure normal. Heart rate normal. Respiration rate normal. Temperature normal. Oxygen saturation normal. Appearance: Alert. Oriented X3. No acute distress. Head: Normal external exam. Normocephalic. Atraumatic. No Barros signs noted. No raccoon eyes noted Eyes: PERRLA. EOMI. Conjunctiva and sclera normal. Eyelids normal. ENT: TM's Normal. Pharynx normal. Uvula midline. Moist mucous membranes. No trismus noted. No drooling noted. No muffled voice noted. Neck: Normal inspection. Neck supple. FROM. No adenopathy. Thyroid Normal. No meningeal signs. No neck mass noted. CVS: Normal heart rate and rhythm. Heart sound normal. No murmurs noted. Pulses normal throughout. Respiratory: No respiratory distress. Painless inspiration. Breath sounds normal. No wheezes/rales/rhonchi noted. Chest nontender. No accessory muscle usage noted or decreased air movement noted. Abdomen: Soft and nontender. Bowel sounds normal in all 4 quadrants. No distention noted. No organomegaly noted. No visible injury noted. Back: No CVA tenderness. Full range of motion noted. Skin: Skin warm and dry. Normal skin color. Normal skin turgor. No rashes/lesions/lacerations noted. Extremities: No lower extremity edema. Extremities exhibit normal range of motion. Extremities nontender. Neuro: Oriented X 3. Cranial nerve exam: II-XII are grossly intact No motor deficit. No sensory deficit. Reflexes normal. Course Course Course Narrative: 76-year-old female came in with headache, patient has normal inflammatory marker, negative CT head, negative CT angiogram of head and neck, only remarkable for inflammatory scalp change with lymphadenopathy. Case signed out to Dr. Carcamo to check on the CTA angio and dispo the patient. [facility] [place] - Headache Lab Data Attestation: I reviewed the patient's lab results. Result diagrams: 06/01/22 14:33 06/01/22 14:33 Labs: Lab Results 06/01/22 06/01/22 06/01/22 Range/Units 14:33 14:33 14:33 WBC 8.6 (4.8-10.8) X10*3/uL RBC 4.64 (4.20-5.50) X10*6/uL Hgb 13.1 (12.0-16.0) g/dl Hct 40.7 (37.0-47.0) % MCV 87.7 (80.0-98.0) fL MCH 28.2 (27.0-33.0) pg MCHC 32.2 (31.0-35.0) g/dl RDW 13.3 (11.0-16.0) % Plt Count 349 (160-400) X10*3/uL MPV 8.4 L (9.4-12.3) fL Immature Gran % (Auto) 0.2 (0.0-0.4) % Neut % (Auto) 57.1 (45-73) % Lymph % (Auto) 32.3 (20-40) % [place] % (Auto) 7.4 (2-11) % Eos % (Auto) 2.6 (0-4) % Baso % (Auto) 0.4 (0-2) % Lymph # (Auto) 2.8 (1.2-4.9) X10*3/uL [place] # (Auto) 0.6 (0.1-1.2) X10*3/uL Eos # (Auto) 0.2 (0.0-0.4) X10*3/uL Baso # (Auto) 0.0 (0.0-0.2) X10*3/uL Abs Immat Gran (auto) 0.02 (0.00-0.03) X10*3/uL Absolute Neuts (auto) 4.9 (2.0-8.3) x10*3/uL Absolute Nucleated RBC 0.000 (0.0-0.012) X10*3/uL Nucleated RBC % (auto) 0.0 (0.0-0.2) /100WBC ESR 13 (0-20) MM/HR Sodium 142 (135-145) mmol/L Potassium 3.9 (3.3-5.1) mmol/L Chloride 105 (96-108) mmol/L Carbon Dioxide 29 (22-29) mmol/L Anion Gap 12 (12-20) BUN 7 L (9-16) mg/dL Creatinine 0.74 (0.5-1.4) mg/dL Estim Creat Clear Calc 60.3 Estimated GFR > 60 Random Glucose 99 (60-115) mg/dL Calcium 8.8 D (8.4-10.2) mg/dL Troponin I High Sens (<3.5-17.0) ng/L C-Reactive Protein 0.47 (< or = 0.50) mg/dL 06/01/22 Range/Units 14:33 WBC (4.8-10.8) X10*3/uL RBC (4.20-5.50) X10*6/uL Hgb (12.0-16.0) g/dl Hct (37.0-47.0) % MCV (80.0-98.0) fL MCH (27.0-33.0) pg MCHC (31.0-35.0) g/dl RDW (11.0-16.0) % Plt Count (160-400) X10*3/uL MPV (9.4-12.3) fL Immature Gran % (Auto) (0.0-0.4) % Neut % (Auto) (45-73) % Lymph % (Auto) (20-40) % [place] % (Auto) (2-11) % Eos % (Auto) (0-4) % Baso % (Auto) (0-2) % Lymph # (Auto) (1.2-4.9) X10*3/uL [place] # (Auto) (0.1-1.2) X10*3/uL Eos # (Auto) (0.0-0.4) X10*3/uL Baso # (Auto) (0.0-0.2) X10*3/uL Abs Immat Gran (auto) (0.00-0.03) X10*3/uL Absolute Neuts (auto) (2.0-8.3) x10*3/uL Absolute Nucleated RBC (0.0-0.012) X10*3/uL Nucleated RBC % (auto) (0.0-0.2) /100WBC ESR (0-20) MM/HR Sodium (135-145) mmol/L Potassium (3.3-5.1) mmol/L Chloride (96-108) mmol/L Carbon Dioxide (22-29) mmol/L Anion Gap (12-20) BUN (9-16) mg/dL Creatinine (0.5-1.4) mg/dL Estim Creat Clear Calc Estimated GFR Random Glucose (60-115) mg/dL Calcium (8.4-10.2) mg/dL Troponin I High Sens 5.5 (<3.5-17.0) ng/L C-Reactive Protein (< or = 0.50) mg/dL Imaging Data CT scan - head: Attestation: I personally reviewed and interpreted this imaging study as follows: Radiologist's impression: No acute pathology. Discharge Plan Discharge Clinical Impression: Headache Patient Disposition: Still a Patient Instructions: Acute Headache (ED) Prescriptions: New oxycodone 5 mg tablet 5 mg PO Q8H PRN (Reason: pain) Qty: 7 0RF Rx Instructions: Partial Fill upon patient request. No Action tramadol 50 mg tablet 50 mg PO TID PRN (Reason: pain) 30 Days Qty: 90 0RF lisinopril 5 mg tablet 5 mg PO DAILY Qty: 90 0RF atorvastatin 40 mg tablet 40 mg PO DAILY Qty: 90 0RF diclofenac sodium [Arthritis Pain (diclofenac)] 1 % gel 2 g topical QID PRN (Reason: pain) Qty: 100 1RF Rx Instructions: apply to single elbow, wrist or hand; for hand includes palm/fingers/back of hand dulaglutide 1.5 mg/0.5 mL pen injector 1.5 mg subcut QWEEK 90 Days Qty: 6.5 1RF clopidogrel [Plavix] 75 mg tablet 75 mg PO DAILY Qty: 90 1RF glipizide 10 mg tablet 10 mg PO BID aspirin 81 mg tablet,delayed release (DR/EC) 81 mg PO DAILY gabapentin 100 mg capsule 100 mg PO TID PRN (Reason: neuropathy) 30 Days Qty: 90 2RF Onglyza 5 mg tablet 5 mg PO DAILY 90 Days Qty: 90 1RF Referrals: Jono Vallecillo MD [Primary Care Provider] -
[2022-06-01 14:50] LABS: MANUAL DIFF FLAG NO
[2022-06-01 14:53] LABS: Basophils Percent Auto 0.4 % (0-2); Eosinophils Absolute Auto 0.2 X10*3/uL (0.0-0.4); Eosinophils Percent Auto 2.6 % (0-4); Hematocrit 40.7 % (37.0-47.0); Hemoglobin 13.1 g/dl (12.0-16.0); Imm Gran Abs Auto 0.02 X10*3/uL (0.00-0.03); Imm Gran Pct Auto 0.2 % (0.0-0.4); Lymphocytes Absolute Auto 2.8 X10*3/uL (1.2-4.9); Lymphocytes Percent Auto 32.3 % (20-40); Mean Corpuscular HGB Conc 32.2 g/dl (31.0-35.0); Mean Corpuscular Hemoglobin 28.2 pg (27.0-33.0); Mean Corpuscular Volume 87.7 fL (80.0-98.0); Mean Platelet Volume 8.4 fL (9.4-12.3); Monocytes Absolute Auto 0.6 X10*3/uL (0.1-1.2); Monocytes Percent Auto 7.4 % (2-11); Neutrophils Absolute Auto 4.9 x10*3/uL (2.0-8.3); Neutrophils Percent Auto 57.1 % (45-73); Platelet Count 349 X10*3/uL (160-400); Red Blood Count 4.64 X10*6/uL (4.20-5.50); Red Cell Distribution Width 13.3 % (11.0-16.0); White Blood Count 8.6 X10*3/uL (4.8-10.8)
[2022-06-01 15:05] LABS: Anion Gap 12 (12-20); Blood Urea Nitrogen 7 mg/dL (9-16); C Reactive Protein 0.47 mg/dL (< or = 0.50); Calcium 8.8 mg/dL (8.4-10.2); Carbon Dioxide 29 mmol/L (22-29); Chloride 105 mmol/L (96-108); Creatinine Clr Calc Pharmacy 60.3; Estimated Glomerular Filt Rate > 60; Glucose Random 99 mg/dL (60-115); Potassium 3.9 mmol/L (3.3-5.1); Sodium 142 mmol/L (135-145)
[2022-06-01 15:12] LABS: Troponin-I High Sensitivity 5.5 ng/L (<3.5-17.0)
[2022-06-01] MEDS: Morphine Sulfate 2 MG/ML CARTRIDGE 1 MG IVPUSH (15:12)
[2022-06-01] MEDS: 0.9 % Sodium Chloride 1,000 ML 999 ML IV (15:13)
--- NOTE | 2022-06-01 15:14 | PC.NURSE ---
patient a/ox4 . pearrla . heart rate regular at 94 . lungs clear . skin pink warm and dry . abdomen soft non tender , non distended . positive bowel sounds in all four quadrants . Iv placed in left AC . fluids and pain medication given for 10/10 pain located in posture part of patients head and neck . patient has full range of motion to area ., reports that it feels like a pulled muscle since Wednesday . patient to CT for IV contrast . patient aware of plan of care .
[2022-06-01 15:41] LABS: Erythrocyte Sedimentation Rate 13 MM/HR (0-20)
[2022-06-01] MEDS: iohexoL 350 MG/ML 100 ML INFUS..BTL IV (15:45)
[2022-06-01 16:00] VITALS: BP 155/63; PULSE 89; RESP 16; TEMP 36.8; O2SAT 98
[2022-06-01] MEDS: valACYclovir HCL 1,000 MG TABLET 1000 MG PO (17:33)
[2022-06-01] MEDS: Gabapentin 300 MG CAPSULE PO (17:33)
== END 2022-06-01 17:49 | disposition home or self-care (01) ==
PROVIDERS: Emergency Medicine; Emergency Provider Internal Medicine; PCP Internal Medicine
DX: R51.9 Headache, unspecified (principal); R21 Rash and other nonspecific skin eruption; I10 Essential (primary) hypertension; E11.9 Type 2 diabetes mellitus without complications; E78.00 Pure hypercholesterolemia, unspecified; Z79.02 Long term (current) use of antithrombotics/antiplatelets; Z79.899 Other long term (current) drug therapy; Z79.82 Long term (current) use of aspirin; F17.210 Nicotine dependence, cigarettes, uncomplicated
CPT/HCPCS: 36415; 70450; 70496; 70498; 80048; 84484; 85025; 85652; 86140; 96360; 96361; 96374; 96375; 99284; J2270; Q9967

== ENCOUNTER 2022-08-07 15:00 | Outpatient (REF) | payer OTHER, SELFPAY ==
[2022-08-07 15:20] LABS: MANUAL DIFF FLAG NO
[2022-08-07 15:33] LABS: Basophils Percent Auto 0.3 % (0-2); Eosinophils Absolute Auto 0.3 X10*3/uL (0.0-0.4); Eosinophils Percent Auto 2.3 % (0-4); Hematocrit 44.3 % (37.0-47.0); Hemoglobin 14.4 g/dl (12.0-16.0); Imm Gran Abs Auto 0.04 X10*3/uL (0.00-0.03); Imm Gran Pct Auto 0.3 % (0.0-0.4); Lymphocytes Absolute Auto 4.8 X10*3/uL (1.2-4.9); Lymphocytes Percent Auto 41.3 % (20-40); Mean Corpuscular HGB Conc 32.5 g/dl (31.0-35.0); Mean Corpuscular Hemoglobin 28.6 pg (27.0-33.0); Mean Corpuscular Volume 88.1 fL (80.0-98.0); Mean Platelet Volume 8.4 fL (9.4-12.3); Monocytes Absolute Auto 0.6 X10*3/uL (0.1-1.2); Monocytes Percent Auto 4.9 % (2-11); Neutrophils Absolute Auto 5.8 x10*3/uL (2.0-8.3); Neutrophils Percent Auto 50.9 % (45-73); Platelet Count 365 X10*3/uL (160-400); Red Blood Count 5.03 X10*6/uL (4.20-5.50); Red Cell Distribution Width 13.1 % (11.0-16.0); White Blood Count 11.5 X10*3/uL (4.8-10.8)
[2022-08-07 15:44] LABS: Estimated Average Glucose 151 mg/dL; Hemoglobin A1c % 6.9 %
[2022-08-07 16:30] LABS: Alanine Aminotransferase 44 U/L (0-31); Albumin Level 4.2 g/dL (3.5-5.0); Alkaline Phosphatase 119 U/L (39-117); Anion Gap 14 (12-20); Aspartate Amino Transferase 53 U/L (5-31); Bilirubin Total 0.5 mg/dL (0.0-1.0); Blood Urea Nitrogen 9 mg/dL (9-16); Calcium 9.5 mg/dL (8.4-10.2); Carbon Dioxide 28 mmol/L (22-29); Chloride 104 mmol/L (96-108); Cholesterol 103 mg/dL; Estimated Glomerular Filt Rate > 60; Glucose Fasting 148 mg/dL (60-99); HDL Cholesterol 30 mg/dL; LDL Cholesterol Calculated 56 mg/dl; Potassium 4.2 mmol/L (3.3-5.1); Sodium 142 mmol/L (135-145); TSH reflex Free T4 1.26 uIU/mL (0.32-4.0); Total Protein 6.7 g/dL (6.5-8.0); Triglycerides 88 mg/dL; Vitamin D 25-OH Total 10.2 ng/mL (>30)
[2022-08-07 18:06] LABS: Appearance Urine Clear; Color Urine Yellow; Glucose Urine UA 100 mg/dL (Negative); Leukocyte Esterase Urine Negative (Negative); Nitrite Urine Negative (Negative); PH 5.5 (5.0-9.0); Specific Gravity - Urine 1.015 (1.005-1.025); Urine Blood Negative (Negative); Urine Ketones Negative (Negative); Urine Protein Negative (Neg-Trace)
[2022-08-07 18:23] LABS: Creatinine Urine 95.16 mg/dL; Microalbum/Creatinine Ratio Ur 11.5 ug/mg cr
== END 2022-08-07 15:01 | disposition home or self-care (01) ==
LOC: HO.LAB 15:00
PROVIDERS: PCP Internal Medicine; Visit Provider Internal Medicine
DX: E78.00 Pure hypercholesterolemia, unspecified (principal); E11.9 Type 2 diabetes mellitus without complications; E55.9 Vitamin D deficiency, unspecified; I10 Essential (primary) hypertension
CPT/HCPCS: 36415; 80053; 80061; 81003; 82043; 82306; 83036; 84443; 85025

== ENCOUNTER 2022-09-29 14:24 | Outpatient (REF) | payer OTHER, SELFPAY ==
--- NOTE | ~2022-09-29 | US_ITS ---
EXAMINATION: NONINVASIVE ASSESSMENT OF THE ARTERIES OF BOTH LOWER EXTREMITIES WITH PVR EXAM AND BILATERAL LOWER EXTREMITY DUPLEX Gricelda Gordillo MD CLINICAL INFORMATION: Peripheral vascular disease TECHNIQUE: Ankle pulse volume recordings, ankle pressure measurements and ankle brachial indices were obtained of the lower extremity arterial system bilaterally in addition to duplex Doppler techniques with wave form analysis and measurement of velocities in the common femoral, profunda femoral, superficial femoral, popliteal and tibial arteries. The study was performed only at rest. COMPARISON: Arterial duplex on 04/18/2022 FINDINGS: Significant bilateral calcific atherosclerotic disease. a) AT REST: RIGHT LE. The right ankle-brachial index is: 0.61 * >0.97-1.25 = normal - no significant arterial disease * 0.75-0.96 = mild peripheral arterial disease * 0.5-0.74 = moderate peripheral arterial disease * <0.50 = severe peripheral arterial disease 2. Right ankle pressure: Abnormal 3. Right ankle PVR waveform: Abnormal 4. Right direct duplex Doppler findings: Common femoral artery: 161 cm/s, Multiphasic Profunda femoris artery: 140 cm/s, Multiphasic Superficial femoral artery (proximal): 185 cm/s, Multiphasic Superficial femoral artery (mid): 150 cm/s, Multiphasic Superficial femoral artery (distal): 170 cm/s, Multiphasic Proximal Popliteal artery: 75 cm/s, Multiphasic Mid posterior tibial artery: Occluded LEFT LE. The left ankle-brachial index is: 0.47 * >0.97-1.25 = normal - no significant arterial disease * 0.75-0.96 = mild peripheral arterial disease * 0.5-0.74 = moderate peripheral arterial disease * <0.50 = severe peripheral arterial disease 2. Left ankle pressure: Abnormal 3. Left ankle PVR waveform: Abnormal 4. Left direct duplex Doppler findings: Common femoral artery: 99 cm/s, Multiphasic Profunda femoris artery: 148 cm/s, Multiphasic Superficial femoral artery (proximal): 77 cm/s, Multiphasic Superficial femoral artery (mid): 139 cm/s, Multiphasic Superficial femoral artery (distal): 19 cm/s, Multiphasic Proximal Popliteal artery: 37 cm/s, Multiphasic Mid posterior tibial artery: 19 cm/s, monophasic US/US arterial duplex LE BI IMPRESSION: RIGHT LEG: Moderate peripheral arterial disease throughout the right lower extremity. Severe stenosis at the proximal SFA and occlusion of the posterior tibial artery. LEFT LEG: Moderate peripheral arterial disease throughout the right lower extremity. Severe stenosis of the left posterior tibial artery.
== END 2022-09-29 14:25 | disposition home or self-care (01) ==
LOC: HO.US 14:24
PROVIDERS: Visit Provider Surgery Vascular Surgery
DX: I73.9 Peripheral vascular disease, unspecified (principal)
CPT/HCPCS: 93923; 93925

== ENCOUNTER → 2022-10-20 11:12 | Outpatient (BNVA) | payer OTHER, SELFPAY | PROVIDERS: PCP Internal Medicine; Visit Provider Surgery Vascular Surgery | DX: I73.9 Peripheral vascular disease, unspecified (principal) | CPT/HCPCS: 99212 ==

== ENCOUNTER 2022-11-16 13:20 | Outpatient (REF) | payer OTHER, SELFPAY ==
[2022-11-16 13:33] LABS: MANUAL DIFF FLAG NO
[2022-11-16 14:23] LABS: Basophils Percent Auto 0.3 % (0-2); Eosinophils Absolute Auto 0.2 X10*3/uL (0.0-0.4); Eosinophils Percent Auto 1.5 % (0-4); Hematocrit 45.9 % (37.0-47.0); Hemoglobin 14.8 g/dl (12.0-16.0); Imm Gran Abs Auto 0.03 X10*3/uL (0.00-0.03); Imm Gran Pct Auto 0.3 % (0.0-0.4); Lymphocytes Absolute Auto 3.7 X10*3/uL (1.2-4.9); Lymphocytes Percent Auto 32.5 % (20-40); Mean Corpuscular HGB Conc 32.2 g/dl (31.0-35.0); Mean Corpuscular Hemoglobin 28.2 pg (27.0-33.0); Mean Corpuscular Volume 87.4 fL (80.0-98.0); Mean Platelet Volume 8.8 fL (9.4-12.3); Monocytes Absolute Auto 0.5 X10*3/uL (0.1-1.2); Neutrophils Absolute Auto 7.1 x10*3/uL (2.0-8.3); Neutrophils Percent Auto 61.4 % (45-73); Platelet Count 378 X10*3/uL (160-400); Red Blood Count 5.25 X10*6/uL (4.20-5.50); White Blood Count 11.5 X10*3/uL (4.8-10.8)
[2022-11-16 14:45] LABS: Estimated Average Glucose 246 mg/dL; Hemoglobin A1c % 10.2 %
[2022-11-16 15:18] LABS: Alanine Aminotransferase 17 U/L (0-31); Alkaline Phosphatase 105 U/L (39-117); Anion Gap 11 (12-20); Aspartate Amino Transferase 35 U/L (5-31); Bilirubin Total 0.4 mg/dL (0.0-1.0); Blood Urea Nitrogen 12 mg/dL (9-16); Calcium 9.4 mg/dL (8.4-10.2); Carbon Dioxide 31 mmol/L (22-29); Chloride 104 mmol/L (96-108); Cholesterol 164 mg/dL; Estimated Glomerular Filt Rate > 60; Glucose Fasting 106 mg/dL (60-99); HDL Cholesterol 31 mg/dL; LDL Cholesterol Calculated 108 mg/dl; Potassium 4.4 mmol/L (3.3-5.1); Sodium 142 mmol/L (135-145); Total Protein 6.6 g/dL (6.5-8.0); Triglycerides 126 mg/dL; Vitamin D 25-OH Total 18.5 ng/mL (>30)
[2022-11-16 15:48] LABS: Appearance Urine Clear; Color Urine Yellow; Glucose Urine UA Negative (Negative); Leukocyte Esterase Urine Negative (Negative); Nitrite Urine Negative (Negative); Specific Gravity - Urine 1.025 (1.005-1.025); Urine Blood Negative (Negative); Urine Ketones Trace mg/dL (Negative); Urine Protein Trace mg/dL (Neg-Trace)
[2022-11-16 16:27] LABS: Creatinine Urine 206.92 mg/dL; Microalbum/Creatinine Ratio Ur 5.7 ug/mg cr
== END 2022-11-16 13:21 | disposition home or self-care (01) ==
LOC: HO.LAB 13:20
PROVIDERS: PCP Internal Medicine; Visit Provider Internal Medicine
DX: E11.9 Type 2 diabetes mellitus without complications (principal); E78.00 Pure hypercholesterolemia, unspecified; E55.9 Vitamin D deficiency, unspecified; I10 Essential (primary) hypertension
CPT/HCPCS: 36415; 80053; 80061; 81003; 82043; 82306; 83036; 84443; 85025

== ENCOUNTER 2023-03-04 09:58 | Outpatient (REF) | payer OTHER, SELFPAY ==
[2023-03-04 10:10] LABS: MANUAL DIFF FLAG NO
[2023-03-04 10:42] LABS: Basophils Percent Auto 0.3 % (0-2); Eosinophils Absolute Auto 0.3 X10*3/uL (0.0-0.4); Eosinophils Percent Auto 2.7 % (0-4); Hematocrit 42.2 % (37.0-47.0); Hemoglobin 13.6 g/dl (12.0-16.0); Imm Gran Abs Auto 0.02 X10*3/uL (0.00-0.03); Imm Gran Pct Auto 0.2 % (0.0-0.4); Lymphocytes Absolute Auto 3.6 X10*3/uL (1.2-4.9); Lymphocytes Percent Auto 38.7 % (20-40); Mean Corpuscular HGB Conc 32.2 g/dl (31.0-35.0); Mean Corpuscular Hemoglobin 28.4 pg (27.0-33.0); Mean Corpuscular Volume 88.1 fL (80.0-98.0); Mean Platelet Volume 8.5 fL (9.4-12.3); Monocytes Absolute Auto 0.6 X10*3/uL (0.1-1.2); Monocytes Percent Auto 6.1 % (2-11); Neutrophils Absolute Auto 4.9 x10*3/uL (2.0-8.3); Platelet Count 317 X10*3/uL (160-400); Red Blood Count 4.79 X10*6/uL (4.20-5.50); White Blood Count 9.4 X10*3/uL (4.8-10.8)
[2023-03-04 11:23] LABS: Appearance Urine Clear; Color Urine Yellow; Glucose Urine UA Negative (Negative); Leukocyte Esterase Urine Small (1+) (Negative); Nitrite Urine Negative (Negative); UMIC TRIGGER UACC YES; Urine Blood Negative (Negative); Urine Ketones Negative (Negative); Urine Protein Negative (Neg-Trace)
[2023-03-04 11:26] LABS: Bacteria Urine None Seen (None Seen); Hyaline Casts Urine 0-2 /LPF (0-2); RBC Urine 0-2 /HPF (0-2); UACC Culture Trigger YES
[2023-03-04 11:29] LABS: Estimated Average Glucose 177 mg/dL; Hemoglobin A1c % 7.8 %
[2023-03-04 11:32] LABS: Alanine Aminotransferase 22 U/L (0-31); Alkaline Phosphatase 98 U/L (39-117); Anion Gap 12 (12-20); Aspartate Amino Transferase 42 U/L (5-31); Bilirubin Total 0.5 mg/dL (0.0-1.0); Blood Urea Nitrogen 14 mg/dL (9-16); Calcium 9.1 mg/dL (8.4-10.2); Carbon Dioxide 29 mmol/L (22-29); Chloride 105 mmol/L (96-108); Cholesterol 121 mg/dL; Estimated Glomerular Filt Rate > 60; Glucose Fasting 135 mg/dL (60-99); HDL Cholesterol 36 mg/dL; LDL Cholesterol Calculated 69 mg/dl; Sodium 142 mmol/L (135-145); Total Protein 6.6 g/dL (6.5-8.0); Triglycerides 83 mg/dL
[2023-03-04 11:36] LABS: TSH reflex Free T4 1.75 uIU/mL (0.32-4.0)
[2023-03-04 12:03] LABS: Creatinine Urine 134.57 mg/dL; Microalbum/Creatinine Ratio Ur 9.6 ug/mg cr
== END 2023-03-04 09:59 | disposition home or self-care (01) ==
LOC: HO.LAB 09:58
PROVIDERS: PCP Internal Medicine; Visit Provider Internal Medicine
DX: E78.00 Pure hypercholesterolemia, unspecified (principal); E11.9 Type 2 diabetes mellitus without complications; I10 Essential (primary) hypertension; E55.9 Vitamin D deficiency, unspecified; R82.90 Unspecified abnormal findings in urine
CPT/HCPCS: 36415; 80053; 80061; 81001; 82043; 82306; 83036; 84443; 85025; 87086

== ENCOUNTER 2023-03-25 14:36 | Outpatient (REF) | payer OTHER, SELFPAY ==
--- NOTE | ~2023-03-25 | US_ITS ---
EXAMINATION: US NONINVASIVE ASSESSMENT OF THE ARTERIES OF BOTH LOWER EXTREMITIES INCLUDING PVR EXAM AND BILATERAL LOWER EXTREMITY DUPLEX. CLINICAL INFORMATION: Peripheral vascular disease COMPARISON: ABIs/arterial duplex 09/29/2022 TECHNIQUE: Ankle pulse volume recordings, ankle pressure measurements and ankle brachial indices were obtained of the lower extremity arterial system bilaterally in addition to duplex Doppler techniques with wave form analysis and measurement of velocities in the common femoral, profunda femoral, superficial femoral, popliteal, tibial and peroneal arteries. The study was performed only at rest. FINDINGS: RIGHT LE. THE RIGHT ANKLE-BRACHIAL INDEX IS: 0.79 >0.97-1.25 = normal - no significant arterial disease 0.75-0.96 = mild peripheral arterial disease 0.5-0.74 = moderate peripheral arterial disease <0.50 = severe peripheral arterial disease <0.30 = critical arterial disease 2. SEGMENTAL PRESSURES (mmHg): Ankle: PT 92, DP 82 3. PVR WAVEFORMS: Ankle: Loss of dicrotic notch. 4. DIRECT DUPLEX: Common femoral artery: 172 cm/s, monophasic Profunda femoris artery: 125 cm/s, biphasic Superficial femoral artery (proximal): 148 cm/s, biphasic Superficial femoral artery (mid): 175 cm/s, biphasic Superficial femoral artery (distal): 228 cm/s, biphasic Popliteal artery: 83.5 cm/s, biphasic Mid posterior tibial artery: 9.4 cm/s, monophasic Peroneal artery: 39.5 cm/s, biphasic LEFT LE. THE LEFT ANKLE-BRACHIAL INDEX IS: 0.76 (higher of the DP/PT) >0.97-1.25 = normal - no significant arterial disease 0.75-0.96 = mild peripheral arterial disease 0.5-0.74 = moderate peripheral arterial disease <0.50 = severe peripheral arterial disease <0.30 = critical arterial disease 2. SEGMENTAL PRESSURES: Ankle: PT 67, DP 88 3. PVR WAVEFORMS: Ankle: Loss of dicrotic notch. 4. DIRECT DUPLEX: Common femoral artery: 83 cm/s, biphasic Profunda femoris artery: 177 cm/s, monophasic Superficial femoral artery (proximal): 87 cm/s, monophasic Superficial femoral artery (mid): 234 cm/s, biphasic Superficial femoral artery (distal): 52 cm/s, monophasic Popliteal artery: 32.6 cm/s, Multiphasic Mid posterior tibial artery: 18.3 cm/s, monophasic Peroneal artery: 25.5 cm/s, monophasic US/US arterial duplex LE BI IMPRESSION: 1. Moderate bilateral lower extremity peripheral arterial disease. When compared to prior study in September 2022, bilateral ABIs have improved. 2. Moderate left mid and right distal SFA stenosis. 3. Bilateral tibial disease, worst involving the left posterior tibial artery.
== END 2023-03-25 14:37 | disposition home or self-care (01) ==
LOC: HO.US 14:36
PROVIDERS: PCP Internal Medicine; Visit Provider Surgery Vascular Surgery
DX: I70.213 Atherosclerosis of native arteries of extremities with intermittent claudication, bilateral legs (principal)
CPT/HCPCS: 93923; 93925

== ENCOUNTER 2023-04-15 13:35 | Outpatient (REF) | payer OTHER, SELFPAY ==
--- NOTE | ~2023-04-15 | MM_ITS ---
EXAMINATION: MM SCREENING DIGITAL BREAST TOMOSYNTHESIS, BILATERAL CLINICAL INFORMATION: Screening. Asymptomatic. The lifetime risk of breast cancer based on the Tyrer-Cuzick Model is 6.9%. COMPARISON: Mammography: Numerous prior exams, most recently 02/18/2022. Exams dating back to 2014. Benign left stereotactic biopsy 2014 (sclerotic fibroadenoma with coarse and fine microcalcifications). Benign right stereotactic biopsy 02/18/2009 (sclerotic fibroadenoma). TECHNIQUE: Digital breast tomosynthesis is performed in both the craniocaudal and mediolateral oblique views along with computer-aided detection (CAD). Synthesized 2D images are generated from the tomosynthesis. FINDINGS: The breasts are heterogeneously dense, which may obscure small masses (ACR BI-RADS breast composition Category c). Stable biopsy clip abutting dystrophic calcifications present posterior one third right breast in the approximate 2:00 axis. Stable benign scattered punctate calcifications in both breasts without suspicious morphologies. Post benign biopsy clip noted upper outer left breast, middle one third. There is a stable small round circumscribed partially calcified fibroadenoma in the outer right breast far posterior one third. This is unchanged from several prior exams and is benign. Low density benign appearing axillary lymph nodes are unchanged from multiple prior exams. There are no suspicious masses, suspicious grouped calcifications, or areas of architectural distortion. The parenchymal pattern is stable from prior exams. There are no skin changes evident. MM/MM tomosynthesis screening BI IMPRESSION: No mammographic evidence of malignancy. Stable benign findings. ASSESSMENT: BI-RADS BI-RADS 2 - Benign Findings RECOMMENDATION: Routine annual mammography screening. 1 year F/U This examination should not preclude the clinical evaluation of a suspicious palpable abnormality. This patient's information was entered into a reminder system with a target due date for their next mammogram.
== END 2023-04-15 13:36 | disposition home or self-care (01) ==
LOC: HO.MAMMO 13:35
PROVIDERS: Visit Provider Internal Medicine
DX: Z12.31 Encounter for screening mammogram for malignant neoplasm of breast (principal)
CPT/HCPCS: 77063; 77067

== ENCOUNTER → 2023-04-15 13:45 | Outpatient (BNV) | payer OTHER, SELFPAY | PROVIDERS: Visit Provider Radiology Diagnostic Radiology | DX: Z12.31 Encounter for screening mammogram for malignant neoplasm of breast (principal) | CPT/HCPCS: 77063; 77067 ==

== ENCOUNTER 2023-05-11 15:07 | Outpatient (AMB) | payer OTHER, SELFPAY ==
[2023-05-11 15:07] VITALS: BMI 28.5
--- NOTE | 2023-05-11 15:07 | A.OFFVIS_ITS ---
Intake Vital Signs 05/11/23 15:07 Height 5 ft 2 in Weight 156 lb BMI 28.5 Intake Visit Reasons: Follow up 03/25 arterial Intake Note: 6 mo follow up Right LE Angio 05/13/22 s/p Arterial US 03/25/23, Pt states she is well, only concern is right foot numbness and stiffness. Accompanied by: Self / Same As Patient Allergies insulin detemir Allergy (Unknown, Verified 05/11/23 15:11) hives insulin glargine Allergy (Unknown, Verified 05/11/23 15:11) rash/ hives Penicillins [PENICILLINS] Allergy (Unknown, Verified 05/11/23 15:11) HIVES sitagliptin [Januvia] Allergy (Unknown, Verified 05/11/23 15:11) hives metformin Adverse Reaction (Intermediate, Verified 05/11/23 15:11) diarrhea HPI Follow up 03/25 arterial HPI Details Very pleasant 77-year-old female presents for routine surveillance follow-up the regarding peripheral vascular disease. She had undergone prior endovascular intervention on the right lower extremity back in April of 2022 she has continues to do fairly well with that. Her right great toe has gone on to heal. 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 She has been fairly active and busy with that. She remains on aspirin and statin. She now presents for routine surveillance follow-up. [facility] Medical History Abdominal bloating Arthralgia Benign essential hypertension Diabetes mellitus Diarrhea H/O coronary angiogram Hip pain, bilateral Low back pain Overweight (BMI 25.0-29.9) Pure hypercholesterolemia Smoker Vitamin D deficiency Surgical History History of cataract surgery History of laser refractive surgery History of tonsillectomy Hx of appendectomy Family History Mother Alzheimer disease Heart problem Father Heart attack Other Substance abuse Social History (Updated 05/11/23 @ 15:13 by REILLY Grove) Housing: Apartment Alcohol intake: current Alcohol intake frequency: holidays/special occasions only Patient Tobacco Use Status: Former Tobacco user Quit Date: 12/2022 Cigarettes Per Day: 5 e-Cigarette/Vaping Use: Never Used Second Hand Smoke Exposure: Yes service: No Current occupational status: employed Cognitive needs: No Hearing needs: No Vision needs: Yes Review of Systems Const All systems reviewed & are unremarkable except as noted in HPI and below Reports no additional complaints ENT Reports Normal hearing present Card Denies chest pain, Denies chest pain at rest, Denies chest pain with activity and Denies pedal edema Resp Denies cough GI Denies abdominal pain Musc Denies abnormal gait, Denies muscle cramps and Denies radiating pain into limb Skin/Breast Denies skin ulcer and Denies wounds Neuro Reports Normal hearing present and Denies abnormal gait Psych Reports no additional complaints Physical Exam Vital Signs: BMI result Body Mass Index 28.5 Const General: cooperative, healthy appearing and comfortable Orientation/consciousness: oriented to person, oriented to place and oriented to time HEENT Head: Yes normal to inspection Neck Neck: Yes normal visual inspection Carotids: no bruits Chest Chest palpation & inspection: normal inspection of the chest Resp Effort & Inspection: normal respiratory effort and able to speak in complete sentences Auscultation: clear to auscultation bilaterally, no crackles, no rales, no rhonchi and no wheezes Cardio Other: Right side palpable DP left side DP signal Rate: regular rate Rhythm: regular rhythm Heart sounds: S1 normal heart sound present and S2 normal heart sound present Bruits: no carotid bruits Peripheral pulses: Peripheral pulses 2+ throughout GI Inspection: Yes normal to inspection Skin Wounds: no wounds Hair: normal Neuro General: oriented to person, oriented to place and oriented to time Cranial nerves: Yes CN's II-XII intact bilaterally and Yes Normal hearing present Cognition (Neuro): normal cognition Motor exam (neuro): 5/5 motor strength present throughout Extrem Other: venous exam: No significant superficial varicosities or spider telangiectasias, minimal edema General: No clubbing, No cyanosis and No edema Psych Appearance: grossly normal Mental Status: mental status grossly normal Speech and movement: Normal speech and movement present Results Reviewed Results Reviewed: Noninvasive arterial testing dated 03/25/2023 demonstrates DANYELLE on the right of 0.79 and on the left of 0.76. Assessment & Plan Assessment & Plan (1) PAD (peripheral artery disease): Comment: 05/13/2022 - right SFA atherectomy and plasty, Code(s): I73.9 - Peripheral vascular disease, unspecified Plan: In short patient has stable claudication. I did review the pathophysiology of peripheral vascular disease with the patient. In addition we did discuss routine conservative measures including a healthy diet and the importance of exercise and ambulation. We did discuss risk factor modification. The patient will continue to to follow-up with surveillance follow-up in approximately 1 year. Thank you for allowing us to participate in this patient's care. If there are any questions or concerns please do not hesitate to contact us. Orders: Orders US arterial duplex LE BI 364 Days I73.9 - Peripheral vascular disease, unspeci fied Coding Level of Care Code Est Pt Level 4 (81734) Diagnoses PAD (peripheral artery disease) I73.9
== END 2023-05-11 15:29 | disposition home or self-care (01) ==
PROVIDERS: PCP Internal Medicine; Visit Provider Surgery Vascular Surgery
DX: I73.9 Peripheral vascular disease, unspecified (principal); Z98.62 Peripheral vascular angioplasty status
CPT/HCPCS: 99213

== ENCOUNTER → 2023-05-11 15:07 | Outpatient (BNVA) | payer OTHER, SELFPAY | PROVIDERS: PCP Internal Medicine; Visit Provider Surgery Vascular Surgery | DX: I73.9 Peripheral vascular disease, unspecified (principal) | CPT/HCPCS: 99212 ==

== ENCOUNTER 2023-07-13 15:20 | Outpatient (REF) | payer OTHER, SELFPAY ==
[2023-07-13 15:49] LABS: MANUAL DIFF FLAG NO
[2023-07-13 16:51] LABS: Basophils Percent Auto 0.4 % (0-2); Eosinophils Absolute Auto 0.2 X10*3/uL (0.0-0.4); Eosinophils Percent Auto 1.9 % (0-4); Hemoglobin 13.7 g/dl (12.0-16.0); Imm Gran Abs Auto 0.02 X10*3/uL (0.00-0.03); Imm Gran Pct Auto 0.2 % (0.0-0.4); Lymphocytes Absolute Auto 3.1 X10*3/uL (1.2-4.9); Lymphocytes Percent Auto 37.9 % (20-40); Mean Corpuscular HGB Conc 32.6 g/dl (31.0-35.0); Mean Corpuscular Hemoglobin 28.4 pg (27.0-33.0); Mean Corpuscular Volume 87.1 fL (80.0-98.0); Monocytes Absolute Auto 0.5 X10*3/uL (0.1-1.2); Monocytes Percent Auto 5.9 % (2-11); Neutrophils Absolute Auto 4.5 x10*3/uL (2.0-8.3); Neutrophils Percent Auto 53.7 % (45-73); Platelet Count 338 X10*3/uL (160-400); Red Blood Count 4.82 X10*6/uL (4.20-5.50); White Blood Count 8.3 X10*3/uL (4.8-10.8)
[2023-07-13 16:58] LABS: Estimated Average Glucose 169 mg/dL; Hemoglobin A1c % 7.5 % (<6.0)
[2023-07-13 18:03] LABS: Appearance Urine Clear; Color Urine Yellow; Glucose Urine UA 500 mg/dL (Negative); Leukocyte Esterase Urine Trace (Negative); Nitrite Urine Negative (Negative); PH 6.5 (5.0-9.0); UMIC TRIGGER UACC YES; Urine Blood Negative (Negative); Urine Ketones Negative (Negative); Urine Protein Negative (Neg-Trace)
[2023-07-13 18:09] LABS: Bacteria Urine None Seen (None Seen); Hyaline Casts Urine 0-2 /LPF (0-2); RBC Urine 0-2 /HPF (0-2); WBC Urine 0-5 /HPF (0-5)
[2023-07-13 18:28] LABS: Alanine Aminotransferase 22 U/L (0-31); Albumin Level 3.9 g/dL (3.5-5.0); Alkaline Phosphatase 82 U/L (39-117); Anion Gap 13 (12-20); Aspartate Amino Transferase 40 U/L (5-31); Bilirubin Total 0.3 mg/dL (0.0-1.0); Blood Urea Nitrogen 11 mg/dL (9-16); Calcium 9.3 mg/dL (8.4-10.2); Carbon Dioxide 28 mmol/L (22-29); Chloride 105 mmol/L (96-108); Cholesterol 170 mg/dL (<200); Estimated Glomerular Filt Rate > 60; Glucose Fasting 182 mg/dL (60-99); HDL Cholesterol 32 mg/dL (>40); LDL Cholesterol Calculated 79 mg/dL (<100); Potassium 4.1 mmol/L (3.3-5.1); Sodium 142 mmol/L (135-145); Total Protein 6.6 g/dL (6.5-8.0); Triglycerides 295 mg/dL (<150)
[2023-07-13 18:45] LABS: Vitamin D 25-OH Total 20.9 ng/mL (>30)
[2023-07-13 23:43] LABS: Creatinine Urine 107.47 mg/dL; Microalbum/Creatinine Ratio Ur 6.5 ug/mg cr (<30)
== END 2023-07-13 15:21 | disposition home or self-care (01) ==
LOC: HO.LAB 15:20
PROVIDERS: PCP Internal Medicine; Visit Provider Internal Medicine
DX: E55.9 Vitamin D deficiency, unspecified (principal); E11.9 Type 2 diabetes mellitus without complications; E78.00 Pure hypercholesterolemia, unspecified; I10 Essential (primary) hypertension; R30.0 Dysuria
CPT/HCPCS: 36415; 80053; 80061; 81001; 82043; 82306; 82570; 83036; 85025

== ENCOUNTER 2023-07-21 14:28 | Outpatient (AMB) | payer OTHER, SELFPAY ==
[2023-07-21 14:32] VITALS: BP 120/62; PULSE 107; O2SAT 97; BMI 29.9
--- NOTE | 2023-07-21 14:32 | MHC.PC.OV ---
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 Accompanied by: Self / Same As Patient Allergies insulin detemir Allergy (Unknown, Verified 07/21/23 14:55) hives insulin glargine Allergy (Unknown, Verified 07/21/23 14:55) rash/ hives Penicillins [PENICILLINS] Allergy (Unknown, Verified 07/21/23 14:55) HIVES sitagliptin [Januvia] Allergy (Unknown, Verified 07/21/23 14:55) hives metformin Adverse Reaction (Intermediate, Verified 07/21/23 14:55) diarrhea Medication List - Last Reconciled 07/22/23 by Jono Vallecillo MD aspirin 81 mg PO DAILY atorvastatin 40 mg PO DAILY cholecalciferol (vitamin D3) 50 mcg PO DAILY 90 days diclofenac sodium 1% (Arthritis Pain (diclofenac)) 2 grams topical QID PRN dulaglutide 1.5 mg (0.5 mL) subcut QWEEK 90 days gabapentin 100 mg PO TID PRN 30 days lisinopril 5 mg PO DAILY tramadol 50 mg PO TID PRN 30 days valacyclovir (Valtrex) 1,000 mg PO TID Tobacco use date assessed: 07/21/23 Fall risk assessment: No Falls in past year Last assessed Fall Risk: 07/21/23 Dental Screening Dental Screen Date: 07/21/23 Did you have a dental visit in the last 12 months?: No Did you have a dental problem in the last 6 months where you did not have access to dental care?: No Was dental information given to patient?: No HPI F/Up DM, hyperlipidemia HPI Details Patient comes in today for her follow-up visit States that she feels okay She denies any headaches or dizziness Denies any chest pains, no shortness of breath No nausea /vomiting, no abdominal pain No change in bowel habits noted Needs her Trulicity Rx refilled Had her follow-up labs done last week - to discuss her results [facility] History Vitamin D deficiency H/O coronary angiogram Hip pain, bilateral Arthralgia Diarrhea Abdominal bloating Smoker Low back pain Overweight (BMI 25.0-29.9) Benign essential hypertension Pure hypercholesterolemia Diabetes mellitus Surgical History Hx of appendectomy History of tonsillectomy History of laser refractive surgery History of cataract surgery Family History Mother Alzheimer disease Heart problem Father Heart attack Other Substance abuse Social History Housing: Apartment Alcohol intake: current Alcohol intake frequency: holidays/special occasions only Patient Tobacco Use Status: Former Tobacco user Quit Date: 12/2022 Cigarettes Per Day: 5 e-Cigarette/Vaping Use: Never Used Second Hand Smoke Exposure: Yes service: No Current occupational status: employed Cognitive needs: No Hearing needs: No Vision needs: Yes Questionnaire PHQ-9 Over the last 2 weeks, how often have you been bothered by any of the following problems? 1. Little interest or pleasure in doing things: not at all 2. Feeling down, depressed, or hopeless: not at all 3. Trouble falling or staying asleep, or sleeping too much: not at all 4. Feeling tired or having little energy: not at all 5. Poor appetite or overeating: not at all 6. Feeling bad about yourself - or that you are a failure or have let yourself or your family down: not at all 7. Trouble concentrating on things, such as reading the newspaper or watching television: not at all 8. Moving or speaking so slowly that other people could have noticed. Or the opposite - being so fidgety or restless that you have been moving around a lot more than usual: not at all 9. Thoughts that you would be better off or of hurting yourself in some way: not at all Total score: 0 Depression Screening Interpretation: Negative Depression Screening Done: Yes 93719 - PHQ-9 Billing: Yes Source: Developed by Drs. Jet Sutton, Anali Darby, Rg Fleming and colleagues, with an educational casandra from [employer]. Thrive Questionnaire Date Thrive assessed: 07/21/23 I am a: Patient What is your living situation today?: I have a steady place to live Within the past 12 months, did the food you bought not last and you didn't have the money to get more?: Never true Within the past 12 months, did you worry whether your food would run out before you got money to buy more?: Never true Do you have trouble paying for medicines?: No Do you have trouble getting transportation to medical appointments?: No Do you have trouble paying your heating and electricity bill?: No Do you have trouble taking care of your child, family member or friend?: No Do you have trouble with day-to-day activities such as bathing, preparing meals, shopping, managing finances, etc.?: No Are you currently unemployed and looking for a job?: No Are you interested in more education?: No Please select the resources that you would like help with: None Currently or been in a relationship where the following occur: no concerns reported AUDIT C Alcohol Use Questionnaire (AUDIT-C) 1. How often do you have a drink containing alcohol?: Monthly or less 2. How many drinks containing alcohol do you have on a typical day when you are drinking?: 1 or 2 3. How often do you have six or more drinks on one occasion?: Never Total Score: 1 Score Reviewed/Action Taken: Yes WILDA-7 AMB Questionnaire WILDA-7 Date WILDA - 7 assessed: 07/21/23 Feeling nervous, anxious, or on edge: 0 = Not at all Not being able to stop or control worryin = Not at all Worrying too much about different things: 0 = Not at all Trouble relaxin = Not at all Being so restless that it is hard to sit still: 0 = Not at all Becoming easily annoyed or irritable: 0 = Not at all Feeling afraid as if something awful might happen: 0 = Not at all Total WILDA-7 score (0-4 normal; 5-9 mild; 10-14 moderate; 15-21 severe): 0 Source: Developed by Drs. Jet Sutton, Anali Darby, Rg Fleming and colleagues, with an educational casandra from [employer]. Review of Systems Const Denies chills, Denies fatigue, Denies fever(s) and Denies headache(s) ENT Denies dysphagia, Denies dizziness, Denies otalgia, Denies headache(s), Denies neck pain, Denies odynophagia and Denies sore throat Card Denies chest pain, Denies palpitations and Denies dyspnea Resp Denies cough and Denies dyspnea GI Denies abdominal pain, Denies constipation, Denies dysphagia, Denies heartburn, Denies diarrhea, Denies nausea, Denies odynophagia and Denies vomiting Denies difficulty voiding, Denies nocturia and Denies dysuria Musc Denies neck pain Skin/Breast Denies rash Neuro Denies dizziness and Denies headache(s) Endo Denies fatigue and Denies palpitations Physical exam (Primary Care) Vital Signs: Last Vital Signs Pulse 107 H 07/21/23 14:32 BP 120/62 07/21/23 14:32 Pulse Ox 97 07/21/23 14:32 Oxygen Delivery Method Room Air 07/21/23 14:32 BMI result Body Mass Index 29.9 Tobacco/Smoking Status: Tobacco use Status Tobacco use date assessed 07/21/23 07/21/23 14:41 Patient Tobacco Use Status Former Tobacco user 07/21/23 14:41 e-Cigarette/Vaping Use Never Used 07/21/23 14:41 PHQ-9: PHQ-9 Score PHQ-9: Total score 0 07/22/23 05:23 Depression Screening Interpretation: Negative Thrive Assessment: Date of Thrive Assessment Date Thrive assessed 07/21/23 07/21/23 14:41 Currently or been in a relationship where the following occur: no concerns reported Const General: no acute distress and alert HENMT Ears: TM's normal bilaterally and EAC's normal Throat: Yes posterior oropharynx normal and Yes tonsils normal (no TP congestion) Neck Neck: Yes no lymphadenopathy and Yes supple Resp Auscultation: clear to auscultation bilaterally, no rales and no wheezes Cardio Rate: regular rate Rhythm: regular rhythm Heart sounds: no murmurs GI Palpation (GI): Soft to palpation and nontender Auscultation: normal bowel sounds Back/Spine/Pelvis Thoracic/Lumbar Spine: lumbar spinal tenderness (mild) Skin Other: (+) multiple scattered dark and slightly raised skin lesions on the face and forehead Extrem General: Yes no clubbing, cyanosis or edema Right lower extremity: hip/thigh Details: tenderness Location: of the hip Left lower extremity: knee Details: tenderness; no swelling Results Reviewed Results Reviewed: Laboratory Tests 03/04/23 07/13/23 07/13/23 10:09 15:48 15:48 WBC 8.3 Hgb 13.7 Hct 42.0 Plt Count 338 Sodium 142 Potassium 4.1 Creatinine 0.77 Estimated GFR > 60 Fasting Glucose 182 H Hemoglobin A1c % 7.5 H Calcium 9.3 AST 40 H ALT 22 Triglycerides 295 H Cholesterol 170 LDL Cholesterol, Calc 79 HDL Cholesterol 32 L 25-OH Vitamin D Total 20.9 L TSH 1.75 Ur Specific [place] Urine Protein Urine Glucose (UA) Urine Blood Microalb/Creat Ratio 07/13/23 16:45 WBC Hgb Hct Plt Count Sodium Potassium Creatinine Estimated GFR Fasting Glucose Hemoglobin A1c % Calcium AST ALT Triglycerides Cholesterol LDL Cholesterol, Calc HDL Cholesterol 25-OH Vitamin D Total TSH Ur Specific [place] 1.020 Urine Protein Negative Urine Glucose (UA) 500 H Urine Blood Negative Microalb/Creat Ratio 6.5 Assessment and Plan Assessment & Plan (1) Diabetes mellitus: Code(s): E11.9 - Type 2 diabetes mellitus without complications Qualifiers: Diabetes mellitus complication status: with other specified complication Diabetes mellitus [employer] insulin use: without [employer] use Diabetes mellitus type: type 2 Qualified Code(s): E11.69 - Type 2 diabetes mellitus with other specified complication Plan: HgbA1c was at 7.5% on her labs done last week (was at 7.8% a few months ago) - goal is < 7.0% Reinforced diabetic diet Continue Glipizide 10 mg BID, Onglyza 5 mg QD and Trulicity 1.5 mg SQ once a week Will recheck her labs and HgbA1c in 3 months for follow up (2) Pure hypercholesterolemia: Code(s): E78.00 - Pure hypercholesterolemia, unspecified Plan: Results of her labs done last week reviewed and discussed with patient Reinforced low cholesterol diet Continue Atorvastatin 40 mg QD Will recheck her fasting lipids and labs in 3 months for follow-up (3) Benign essential hypertension: Code(s): I10 - Essential (primary) hypertension Plan: Reinforced low-sodium diet - goal is systolic BP of at least 140 mm or less Continue Lisinopril 5 mg QD (4) PAD (peripheral artery disease): Comment: 05/13/2022 - right SFA atherectomy and plasty, Code(s): I73.9 - Peripheral vascular disease, unspecified Plan: S/P endovascular intervention of the right lower extremity last year in April 2022 S/P dual antiplatelet therapy with Aspirin 81 mg QD and Clopidogrel 75 mg QD x 6 months post-op Currently remains on Aspirin 81 mg QD alone Follow up with vascular surgery as scheduled (5) Vitamin D deficiency: Code(s): E55.9 - Vitamin D deficiency, unspecified Plan: Advised that her Vitamin D level is still low on her recent labs Continue Vitamin D3 2000 units QD (6) Facet arthritis, degenerative, lumbar spine: Code(s): M47.816 - Spondylosis without myelopathy or radiculopathy, lumbar region Plan: Lumbar spine x-rays done a few months ago revealed (+) facet arthritis changes in the lumbar spine Reinforced activity and weight lifting restrictions Patient reports (+) significant improvement of her low back pain with physical therapy Continue Tramadol 50 mg TID PRN and Voltaren gel topically over her lower back as needed; continue Gabapentin 100 mg TID (7) Multiple lesions of face: Code(s): L98.9 - Disorder of the skin and subcutaneous tissue, unspecified Plan: Patient has been referred to dermatology for further evaluation and management of these lesions Follow up with dermatology as scheduled (8) Overweight (BMI 25.0-29.9): Code(s): E66.3 - Overweight Plan: Reinforced diet/exercise as tolerated/lose weight Plan Follow up in 3 months Orders: Orders Complete Blood Count Auto Diff 3 Months I10 - Essential (primary) hypertension Lipid Panel 3 Months E78.00 - Pure hypercholesterolemia, unspecified Hemoglobin A1c 3 Months E11.9 - Type 2 diabetes mellitus without complications Microalbumin, Random (w Creat) 3 Months E11.9 - Type 2 diabetes mellitus without complications Comprehensive [place]. Panel Fast 3 Months E78.00 - Pure hypercholesterolemia, unspecified TSH reflex Free T4 3 Months E78.00 - Pure hypercholesterolemia, unspecified UA CC w/rflx Micro + Cult 3 Months R30.0 - Dysuria Vitamin D 25-OH Total 3 Months E55.9 - Vitamin D deficiency, unspecified Medications: Refilled dulaglutide 1.5 mg (0.5 mL) subcut QWEEK 90 days 6.5 mL 1RF E11.69 - Type 2 diabetes mellitus with other specified complication Discontinued gabapentin Discontinued Reason: Duplicate 300 mg PO BID 30 caps 0RF Coding Level of Care Code Est Pt Level 4 (18554) Diagnoses Type 2 diabetes mellitus with other specified complication, without long-term current use of insulin E11.69 Diabetes mellitus complication status: with other specified complication Diabetes mellitus [employer] insulin use: without fpc use Diabetes mellitus type: type 2 Pure hypercholesterolemia E78.00 Benign essential hypertension I10 PAD (peripheral artery disease) I73.9 Vitamin D deficiency E55.9 Facet arthritis, degenerative, 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 Multiple lesions of face L98.9 Overweight (BMI 25.0-29.9) E66.3
== END 2023-07-21 15:02 | disposition home or self-care (01) ==
PROVIDERS: PCP Internal Medicine; Visit Provider Internal Medicine
DX: E11.69 Type 2 diabetes mellitus with other specified complication (principal); E78.00 Pure hypercholesterolemia, unspecified; I10 Essential (primary) hypertension; I73.9 Peripheral vascular disease, unspecified; E55.9 Vitamin D deficiency, unspecified; M47.816 Spondylosis without myelopathy or radiculopathy, lumbar region; L98.9 Disorder of the skin and subcutaneous tissue, unspecified; E66.3 Overweight
CPT/HCPCS: 99214

== ENCOUNTER 2023-10-22 11:47 | Outpatient (REF) | payer OTHER, SELFPAY ==
[2023-10-22 12:09] LABS: MANUAL DIFF FLAG NO
[2023-10-22 13:50] LABS: Basophils Percent Auto 0.4 % (0-2); Eosinophils Absolute Auto 0.2 X10*3/uL (0.0-0.4); Hematocrit 42.9 % (37.0-47.0); Hemoglobin 13.9 g/dl (12.0-16.0); Imm Gran Abs Auto 0.02 X10*3/uL (0.00-0.03); Imm Gran Pct Auto 0.2 % (0.0-0.4); Lymphocytes Absolute Auto 3.2 X10*3/uL (1.2-4.9); Lymphocytes Percent Auto 37.5 % (20-40); Mean Corpuscular HGB Conc 32.4 g/dl (31.0-35.0); Mean Corpuscular Hemoglobin 28.4 pg (27.0-33.0); Mean Corpuscular Volume 87.6 fL (80.0-98.0); Mean Platelet Volume 9.1 fL (9.4-12.3); Monocytes Absolute Auto 0.5 X10*3/uL (0.1-1.2); Monocytes Percent Auto 6.1 % (2-11); Neutrophils Absolute Auto 4.5 x10*3/uL (2.0-8.3); Neutrophils Percent Auto 53.8 % (45-73); Platelet Count 333 X10*3/uL (160-400); Red Cell Distribution Width 13.1 % (11.0-16.0); White Blood Count 8.4 X10*3/uL (4.8-10.8)
[2023-10-22 14:16] LABS: Appearance Urine Cloudy; Color Urine Yellow; Glucose Urine UA 500 mg/dL (Negative); Leukocyte Esterase Urine Trace (Negative); Nitrite Urine Negative (Negative); PH 5.5 (5.0-9.0); Specific Gravity - Urine >= 1.030 (1.005-1.025); UMIC TRIGGER UACC YES; Urine Blood Negative (Negative); Urine Ketones Negative (Negative); Urine Protein 30 (1+) mg/dL (Neg-Trace)
[2023-10-22 14:26] LABS: Bacteria Urine Trace (None Seen); Hyaline Casts Urine 0-2 /LPF (0-2); RBC Urine 0-2 /HPF (0-2); WBC Urine 0-5 /HPF (0-5)
[2023-10-22 14:51] LABS: Alanine Aminotransferase 27 U/L (0-31); Albumin Level 3.9 g/dL (3.5-5.0); Alkaline Phosphatase 90 U/L (39-117); Anion Gap 14 (12-20); Aspartate Amino Transferase 45 U/L (5-31); Bilirubin Total 0.3 mg/dL (0.0-1.0); Blood Urea Nitrogen 12 mg/dL (9-16); Calcium 8.8 mg/dL (8.4-10.2); Carbon Dioxide 27 mmol/L (22-29); Chloride 105 mmol/L (96-108); Cholesterol 160 mg/dL (<200); Estimated Glomerular Filt Rate > 60; Glucose Fasting 230 mg/dL (60-99); HDL Cholesterol 36 mg/dL (>40); LDL Cholesterol Calculated 103 mg/dL (<100); Sodium 142 mmol/L (135-145); Total Protein 6.7 g/dL (6.5-8.0); Triglycerides 106 mg/dL (<150)
[2023-10-22 15:01] LABS: Creatinine Urine 203.05 mg/dL; Microalbum/Creatinine Ratio Ur 17.2 ug/mg cr (<30)
[2023-10-22 15:11] LABS: TSH reflex Free T4 1.44 uIU/mL (0.32-4.0); Vitamin D 25-OH Total 20.5 ng/mL (>30)
[2023-10-22 15:13] LABS: Estimated Average Glucose 209 mg/dL; Hemoglobin A1c % 8.9 % (<6.0)
== END 2023-10-22 11:48 | disposition home or self-care (01) ==
LOC: HO.LAB 11:47
PROVIDERS: PCP Internal Medicine; Visit Provider Internal Medicine
DX: R30.0 Dysuria (principal); E11.9 Type 2 diabetes mellitus without complications; I10 Essential (primary) hypertension; E78.00 Pure hypercholesterolemia, unspecified; E55.9 Vitamin D deficiency, unspecified
CPT/HCPCS: 36415; 80053; 80061; 81001; 82043; 82306; 82570; 83036; 84443; 85025

== ENCOUNTER 2023-10-27 14:06 | Outpatient (AMB) | payer OTHER, SELFPAY ==
[2023-10-27 14:08] VITALS: BP 130/70; PULSE 100; O2SAT 96; BMI 30.8
--- NOTE | 2023-10-27 14:08 | MHC.PC.OV ---
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 Required: No Accompanied by: Self / Same As Patient Allergies insulin detemir Allergy (Unknown, Verified 10/27/23 14:56) hives insulin glargine Allergy (Unknown, Verified 10/27/23 14:56) rash/ hives Penicillins [PENICILLINS] Allergy (Unknown, Verified 10/27/23 14:56) HIVES sitagliptin [Januvia] Allergy (Unknown, Verified 10/27/23 14:56) hives metformin Adverse Reaction (Intermediate, Verified 10/27/23 14:56) diarrhea Medication List - Last Reconciled 10/27/23 by Jono Vallecillo MD aspirin 81 mg PO DAILY atorvastatin 40 mg PO DAILY cholecalciferol (vitamin D3) 50 mcg PO DAILY 90 days diclofenac sodium 1% (Arthritis Pain (diclofenac)) 2 grams topical QID PRN dulaglutide 1.5 mg (0.5 mL) subcut QWEEK 90 days gabapentin 100 mg PO TID PRN 30 days lisinopril 5 mg PO DAILY tramadol 50 mg PO TID PRN 30 days valacyclovir (Valtrex) 1,000 mg PO TID Tobacco use date assessed: 10/27/23 Fall risk assessment: No Falls in past year Last assessed Fall Risk: 10/27/23 Dental Screening Dental Screen Date: 10/27/23 Did you have a dental visit in the last 12 months?: No Did you have a dental problem in the last 6 months where you did not have access to dental care?: No Was dental information given to patient?: No HPI 3 MONTH F/U HPI Details Patient comes in today for her follow up visit States that she feels okay She denies any headaches or dizziness Denies any chest pains, no SOB No nausea/vomiting, no abdominal pain No change in bowel habits noted Had her follow up labs done last week - to discuss her results [facility] Medical History (Updated 10/27/23 @ 15:24 by Jono Vallecillo MD) Obesity (BMI 30-39.9) Vitamin D deficiency H/O coronary angiogram Hip pain, bilateral Arthralgia Diarrhea Abdominal bloating Smoker Low back pain Overweight (BMI 25.0-29.9) Benign essential hypertension Pure hypercholesterolemia Diabetes mellitus Surgical History Hx of appendectomy History of tonsillectomy History of laser refractive surgery History of cataract surgery Family History Mother Alzheimer disease Heart problem Father Heart attack Other Substance abuse Social History Housing: Apartment Alcohol intake: current Alcohol intake frequency: holidays/special occasions only Patient Tobacco Use Status: Former Tobacco user Quit Date: 12/2022 Cigarettes Per Day: 5 e-Cigarette/Vaping Use: Never Used Second Hand Smoke Exposure: Yes service: No Current occupational status: employed Cognitive needs: No Hearing needs: No Vision needs: Yes Questionnaire PHQ-9 Over the last 2 weeks, how often have you been bothered by any of the following problems? 1. Little interest or pleasure in doing things: not at all 2. Feeling down, depressed, or hopeless: not at all 3. Trouble falling or staying asleep, or sleeping too much: not at all 4. Feeling tired or having little energy: not at all 5. Poor appetite or overeating: not at all 6. Feeling bad about yourself - or that you are a failure or have let yourself or your family down: not at all 7. Trouble concentrating on things, such as reading the newspaper or watching television: not at all 8. Moving or speaking so slowly that other people could have noticed. Or the opposite - being so fidgety or restless that you have been moving around a lot more than usual: not at all 9. Thoughts that you would be better off or of hurting yourself in some way: not at all Total score: 0 Depression Screening Interpretation: Negative Depression Screening Done: Yes 44457 - PHQ-9 Billing: Yes Source: Developed by Drs. Jet Sutton, Anali Darby, Rg Fleming and colleagues, with an educational casandra from [employer]. Thrive Questionnaire Date Thrive assessed: 10/27/23 I am a: Patient What is your living situation today?: I have a steady place to live Within the past 12 months, did the food you bought not last and you didn't have the money to get more?: Never true Within the past 12 months, did you worry whether your food would run out before you got money to buy more?: Never true Do you have trouble paying for medicines?: No Do you have trouble getting transportation to medical appointments?: No Do you have trouble paying your heating and electricity bill?: No Do you have trouble taking care of your child, family member or friend?: No Do you have trouble with day-to-day activities such as bathing, preparing meals, shopping, managing finances, etc.?: No Are you currently unemployed and looking for a job?: No Are you interested in more education?: No Please select the resources that you would like help with: None Currently or been in a relationship where the following occur: no concerns reported THRIVE Score: 0 AUDIT C Alcohol Use Questionnaire (AUDIT-C) 1. How often do you have a drink containing alcohol?: Monthly or less 2. How many drinks containing alcohol do you have on a typical day when you are drinking?: 1 or 2 3. How often do you have six or more drinks on one occasion?: Never Total Score: 1 Score Reviewed/Action Taken: Yes WILDA-7 AMB Questionnaire WILDA-7 Date WILDA - 7 assessed: 10/27/23 Feeling nervous, anxious, or on edge: 0 = Not at all Not being able to stop or control worryin = Not at all Worrying too much about different things: 0 = Not at all Trouble relaxin = Not at all Being so restless that it is hard to sit still: 0 = Not at all Becoming easily annoyed or irritable: 0 = Not at all Feeling afraid as if something awful might happen: 0 = Not at all Total WILDA-7 score (0-4 normal; 5-9 mild; 10-14 moderate; 15-21 severe): 0 Source: Developed by Drs. Jet Sutton, Anali Darby, Rg Fleming and colleagues, with an educational casandra from [employer]. Review of Systems Const Denies chills, Denies fatigue, Denies fever(s) and Denies headache(s) ENT Denies dysphagia, Denies dizziness, Denies otalgia, Denies headache(s), Denies neck pain, Denies odynophagia and Denies sore throat Card Denies chest pain, Denies palpitations and Denies dyspnea Resp Denies cough and Denies dyspnea GI Denies abdominal pain, Denies constipation, Denies dysphagia, Denies heartburn, Denies diarrhea, Denies nausea, Denies odynophagia and Denies vomiting Denies difficulty voiding, Denies nocturia and Denies dysuria Musc Reports back pain (over the lower back - chronic), Reports arthralgias (both hips, on and off) and Denies neck pain Skin/Breast Denies rash Neuro Denies dizziness and Denies headache(s) Endo Denies fatigue and Denies palpitations Physical exam (Primary Care) Vital Signs: Last Vital Signs Pulse 100 10/27/23 14:08 BP 130/70 10/27/23 14:08 Pulse Ox 96 10/27/23 14:08 Oxygen Delivery Method Room Air 10/27/23 14:08 BMI result Body Mass Index 30.8 Tobacco/Smoking Status: Tobacco use Status Tobacco use date assessed 10/27/23 10/27/23 14:14 Patient Tobacco Use Status Former Tobacco user 10/27/23 14:14 e-Cigarette/Vaping Use Never Used 10/27/23 14:14 PHQ-9: PHQ-9 Score PHQ-9: Total score 0 10/27/23 14:14 Depression Screening Interpretation: Negative Thrive Assessment: Date of Thrive Assessment Date Thrive assessed 10/27/23 10/27/23 14:14 Currently or been in a relationship where the following occur: no concerns reported Const General: no acute distress and alert HENMT Ears: TM's normal bilaterally and EAC's normal Throat: Yes posterior oropharynx normal and Yes tonsils normal (no TP congestion) Neck Neck: Yes no lymphadenopathy and Yes supple Resp Auscultation: clear to auscultation bilaterally, no rales and no wheezes Cardio Rate: regular rate Rhythm: regular rhythm Heart sounds: no murmurs GI Palpation (GI): Soft to palpation and nontender Auscultation: normal bowel sounds Back/Spine/Pelvis Thoracic/Lumbar Spine: lumbar spinal tenderness (mild) Extrem General: Yes no clubbing, cyanosis or edema Right lower extremity: hip/thigh Details: tenderness Location: of the hip Left lower extremity: knee Details: tenderness; no swelling Results Reviewed Results Reviewed: Laboratory Tests 10/22/23 10/22/23 12:07 12:08 WBC 8.4 Hgb 13.9 Hct 42.9 Plt Count 333 Sodium 142 Potassium 4.0 Creatinine 0.79 Estimated GFR > 60 Fasting Glucose 230 H Hemoglobin A1c % 8.9 H Calcium 8.8 AST 45 H ALT 27 Triglycerides 106 Cholesterol 160 LDL Cholesterol, Calc 103 H HDL Cholesterol 36 L 25-OH Vitamin D Total 20.5 L TSH 1.44 Urine pH 5.5 Ur Specific Brule >= 1.030 H Urine Protein 30 (1+) H Urine Glucose (UA) 500 H Urine Blood Negative Urine Nitrite Negative Ur Leukocyte Esterase Trace H Microalb/Creat Ratio 17.2 Assessment and Plan Assessment & Plan (1) Diabetes mellitus: Code(s): E11.9 - Type 2 diabetes mellitus without complications Qualifiers: Diabetes mellitus type: type 2 Diabetes mellitus fdc insulin use: without termite technician use Diabetes mellitus complication status: with other specified complication Qualified Code(s): E11.69 - Type 2 diabetes mellitus with other specified complication Plan: HgbA1c was at 8.9% on her labs done last week (was at 7.5% a few months ago) - goal is < 7.0% Reinforced diabetic diet - patient admits to poor compliance with her diet over the holidays Continue Glipizide 10 mg BID and Onglyza 5 mg QD; will increase her Trulicity from 1.5 mg to 3 mg SQ once a week Will recheck her labs and HgbA1c in 3 months for follow up (2) Pure hypercholesterolemia: Code(s): E78.00 - Pure hypercholesterolemia, unspecified Plan: Results of her labs done last week reviewed and discussed with patient Reinforced low cholesterol diet Continue Atorvastatin 40 mg QD Will recheck her fasting lipids and labs in 3 months for follow-up (3) Benign essential hypertension: Code(s): I10 - Essential (primary) hypertension Plan: Reinforced low-sodium diet - goal is systolic BP of at least 140 mm or less Continue Lisinopril 5 mg QD (4) PAD (peripheral artery disease): Comment: 05/13/2022 - right SFA atherectomy and plasty, Code(s): I73.9 - Peripheral vascular disease, unspecified Plan: S/P endovascular intervention of the right lower extremity a couple of years ago in April 2022 S/P dual antiplatelet therapy with Aspirin 81 mg QD and Clopidogrel 75 mg QD x 6 months post-op She currently remains on Aspirin 81 mg QD alone Follow up with vascular surgery as scheduled (5) Vitamin D deficiency: Code(s): E55.9 - Vitamin D deficiency, unspecified Plan: Continue Vitamin D3 2000 units QD (6) Facet arthritis, degenerative, lumbar spine: Code(s): M47.816 - Spondylosis without myelopathy or radiculopathy, lumbar region Plan: Lumbar spine x-rays done last year revealed (+) facet arthritis changes in the lumbar spine Reinforced activity and weight lifting restrictions Patient reports (+) significant improvement of her low back pain with physical therapy Continue Tramadol 50 mg TID PRN and Voltaren gel topically over her lower back as needed; continue Gabapentin 100 mg TID (7) Obesity (BMI 30-39.9): Code(s): E66.9 - Obesity, unspecified Plan: Reinforced diet/exercise as tolerated/lose weight - she has gained some weight since her last visit Plan Follow up in 3 months Orders: Orders Complete Blood Count Auto Diff 3 Months D64.9 - Anemia, unspecified Lipid Panel 3 Months E78.00 - Pure hypercholesterolemia, unspecified Microalbumin, Random (w Creat) 3 Months E11.9 - Type 2 diabetes mellitus without complications TSH reflex Free T4 3 Months E78.00 - Pure hypercholesterolemia, unspecified UA CC w/rflx Micro + Cult 3 Months R30.0 - Dysuria Comprehensive Eckerman. Panel Fast 3 Months E78.00 - Pure hypercholesterolemia, unspecified Vitamin B12 and Folate 3 Months E53.8 - Deficiency of other specified B group vitamins Vitamin D 25-OH Total 3 Months E55.9 - Vitamin D deficiency, unspecified Hemoglobin A1c 3 Months E11.9 - Type 2 diabetes mellitus without complications Medications: Changed From dulaglutide 1.5 mg (0.5 mL) subcut QWEEK 90 days 6.5 mL 1RF E11.69 - Type 2 diabetes mellitus with other specified complication To dulaglutide 1.5 mg (0.25 mL) subcut QWEEK 90 days 3.25 mL 1RF E11.69 - Type 2 diabetes mellitus with other specified complication From dulaglutide 1.5 mg (0.25 mL) subcut QWEEK 90 days 3.25 mL 1RF E11.69 - Type 2 diabetes mellitus with other specified complication To dulaglutide 3 mg (0.5 mL) subcut QWEEK 90 days 6.5 mL 1RF E11.69 - Type 2 diabetes mellitus with other specified complication Coding Level of Care Code Est Pt Level 4 (12864) Diagnoses Type 2 diabetes mellitus with other specified complication, without long-term current use of insulin E11.69 Diabetes mellitus type: type 2 Diabetes mellitus termite technician insulin use: without termite technician use Diabetes mellitus complication status: with other specified complication Pure hypercholesterolemia E78.00 Benign essential hypertension I10 PAD (peripheral artery disease) I73.9 Vitamin D deficiency E55.9 Facet arthritis, degenerative, 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 Obesity (BMI 30-39.9) E66.9
== END 2023-10-27 15:02 | disposition home or self-care (01) ==
PROVIDERS: PCP Internal Medicine; Visit Provider Internal Medicine
DX: E11.69 Type 2 diabetes mellitus with other specified complication (principal); I73.9 Peripheral vascular disease, unspecified; E66.9 Obesity, unspecified; Z68.30 Body mass index [BMI] 30.0-30.9, adult; E78.00 Pure hypercholesterolemia, unspecified; I10 Essential (primary) hypertension; E55.9 Vitamin D deficiency, unspecified; M47.816 Spondylosis without myelopathy or radiculopathy, lumbar region
CPT/HCPCS: 99214

== ENCOUNTER 2023-12-22 15:40 | Outpatient (AMB) | payer OTHER, SELFPAY ==
--- NOTE | 2023-12-22 15:43 | A.OFFPC_ITS ---
Vital Signs 12/22/23 15:45 Height 5 ft 2 in Weight 165 lb BMI 30.2 BP 110/52 L Blood Pressure Location Lt brachial Position Sitting Pulse 101 H Pulse Source Pulse Oximeter Pulse Oximetry (%) 95 Oxygen Delivery Method Room Air Intake Visit Reasons: Annual Physical - see comments Intake Note: Patient is here today for a physical. 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 Required: No [place] Curtain Machine Tender: Not Required per policy Accompanied by: Self / Same As Patient Allergies insulin detemir Allergy (Unknown, Verified 03/22/24 14:12) hives insulin glargine Allergy (Unknown, Verified 03/22/24 14:12) rash/ hives Penicillins [PENICILLINS] Allergy (Unknown, Verified 03/22/24 14:12) HIVES sitagliptin [Januvia] Allergy (Unknown, Verified 03/22/24 14:12) hives metformin Adverse Reaction (Intermediate, Verified 03/22/24 14:12) diarrhea Medication List - Last Reconciled 12/22/23 by Jono Vallecillo MD aspirin 81 mg PO DAILY atorvastatin 40 mg PO DAILY cholecalciferol (vitamin D3) 50 mcg PO DAILY 90 days diclofenac sodium 1% (Arthritis Pain (diclofenac)) 2 grams topical QID PRN dulaglutide 3 mg (0.5 mL) subcut QWEEK 90 days gabapentin 100 mg PO TID PRN 30 days lisinopril 5 mg PO DAILY tramadol 50 mg PO TID PRN 30 days valacyclovir (Valtrex) 1,000 mg PO TID Tobacco use date assessed: 12/22/23 Fall risk assessment: No Falls in past year Last assessed Fall Risk: 12/22/23 Dental Screening Dental Screen Date: 10/27/23 HPI Annual Physical - see comments HPI Details Patient comes in today for her annual physical examination States that she feels okay She denies any headaches or dizziness Denies any chest pains, no shortness of breath No nausea /vomiting, no abdominal pain No change in bowel habits noted She denies any acute urinary symptoms Needs her Valacyclovir Rx refilled She had her mammogram last done in March 2023; she no longer needs to continue with her yearly gynecologic exam and Pap smear States that had a colonoscopy many years ago but cannot exactly remember when - states that it is likely over 10 years ago [facility] Medical History Obesity (BMI 30-39.9) Vitamin D deficiency H/O coronary angiogram Hip pain, bilateral Arthralgia Diarrhea Abdominal bloating Smoker Low back pain Overweight (BMI 25.0-29.9) Benign essential hypertension Pure hypercholesterolemia Diabetes mellitus Surgical History Hx of appendectomy History of tonsillectomy History of laser refractive surgery History of cataract surgery Family History Mother Alzheimer disease Heart problem Father Heart attack Other Substance abuse Social History Housing: Apartment Alcohol intake: current Alcohol intake frequency: holidays/special occasions only Patient Tobacco Use Status: Former Tobacco user Cigarettes Per Day: 5 e-Cigarette/Vaping Use: Never Used Second Hand Smoke Exposure: Yes service: No Current occupational status: employed Cognitive needs: No Hearing needs: No Vision needs: Yes Questionnaire Thrive Questionnaire Date Thrive assessed: 10/27/23 WILDA-7 AMB Questionnaire WILDA-7 Date WILDA - 7 assessed: 10/27/23 Source: Developed by Drs. Jet Sutton, Anali Darby, Rg Fleming and colleagues, with an educational casandra from [employer]. Review of Systems Const Denies chills, Denies fatigue, Denies fever(s), Denies headache(s) and Denies malaise Eyes Denies blurry vision, Denies change in vision, Denies irritation and Denies itchy eyes ENT Denies dysphagia, Denies dizziness, Denies headache(s), Denies neck pain and Denies odynophagia Card Denies chest pain, Denies rapid heart rate, Denies irregular heart rhythm, Denies palpitations and Denies dyspnea Resp Denies chest congestion, Denies cough, Denies dyspnea and Denies wheezing GI Denies abdominal pain, Denies bloating, Denies constipation, Denies dysphagia, Denies heartburn, Denies diarrhea, Denies nausea, Denies odynophagia and Denies vomiting Denies hematuria, Denies urinary frequency, Denies dysuria, Denies urinary incontinence and Denies urinary urgency Musc Reports back pain (over the lower back - chronic), Reports arthralgias (in both hips, on and off) and Denies neck pain Skin/Breast Denies breast pain, Denies breast mass, Denies change in pigmentation, Denies lesions, Denies rash and Denies unusual bruising Neuro Denies dizziness, Denies headache(s) and Denies paresthesias Psych Denies anxiety and Denies depression Endo Denies fatigue and Denies palpitations Chicho/Lymph Denies easy bruising Aller/Immun Denies itchy eyes and Denies wheezing Physical exam (Primary Care) Vital Signs: Last Vital Signs Pulse 101 H 12/22/23 15:45 BP 110/52 L 12/22/23 15:45 Pulse Ox 95 12/22/23 15:45 Oxygen Delivery Method Room Air 12/22/23 15:45 BMI result Body Mass Index 30.2 Tobacco/Smoking Status: Tobacco use Status Tobacco use date assessed 12/22/23 12/22/23 15:50 Patient Tobacco Use Status Former Tobacco user 12/22/23 15:50 e-Cigarette/Vaping Use Never Used 12/22/23 15:50 Thrive Assessment: Date of Thrive Assessment Date Thrive assessed 10/27/23 12/22/23 15:50 Const General: no acute distress, alert and awake Orientation/consciousness: patient oriented x3 HENMT Head: Yes normocephalic and Yes atraumatic Ears: external ears normal, TM's normal bilaterally and EAC's normal General nose exam: No nasal discharge present Face and sinus: Yes normal facial exam and Yes sinuses nontender Teeth and gingiva: dentition normal Throat: Yes posterior oropharynx normal and Yes tonsils normal (no TP congestion) Eyes Eyelids: Yes eyelids normal Conjunctivae: conjunctivae normal Pupils: Equal, round and reactive pupils present EOM: EOMs intact bilaterally Neck Neck: Yes no lymphadenopathy and Yes supple Thyroid: Thyroid normal Resp Auscultation: clear to auscultation bilaterally, no rales and no wheezes Cardio Rate: regular rate Rhythm: regular rhythm Heart sounds: no murmurs GI Palpation (GI): Soft to palpation, nontender and No hepatosplenomegaly present Auscultation: normal bowel sounds General: Yes no CVA tenderness Back/Spine/Pelvis Back: no CVA tenderness Thoracic/Lumbar Spine: lumbar spinal tenderness (mild) Skin Lesions: no lesions Rashes: no rashes Neuro General: patient oriented x3, moves all extremities, no focal motor deficits and CN's II-XI intact bilaterally Cranial nerves: Yes Equal, round and reactive pupils present Cognition (Neuro): normal cognition Gait exam (Neuro): Normal gait present Extrem General: Yes no clubbing, cyanosis or edema Right lower extremity: hip/thigh Details: tenderness Location: of the hip Left lower extremity: knee Details: tenderness; no swelling Assessment and Plan Assessment & Plan (1) Annual physical exam: Code(s): Z00.00 - Encounter for general adult medical examination without abnormal findings Plan: Have reminded patient to get her follow up labs done as scheduled next month before her regular follow up visit Will refer her to GI for her repeat colonoscopy She is up-to-date with her annual mammogram; she no longer needs to continue with yearly gynecology exam and pap smear (2) Diabetes mellitus: Code(s): E11.9 - Type 2 diabetes mellitus without complications Qualifiers: Diabetes mellitus complication status: with other specified complication Diabetes mellitus salvage determiner insulin use: without penitentiary use Diabetes mellitus type: type 2 Qualified Code(s): E11.69 - Type 2 diabetes mellitus with other specified complication Plan: Her HgbA1c was at 8.9% on her labs done a couple of months ago (was previously at 7.5%) - goal is < 7.0% Reinforced diabetic diet - patient admits to poor compliance with her diet over the past few months Continue Glipizide 10 mg BID and Onglyza 5 mg QD; will increase her Trulicity from 1.5 mg to 3 mg SQ once a week Will recheck her labs and HgbA1c in 3 months for follow up (3) Pure hypercholesterolemia: Code(s): E78.00 - Pure hypercholesterolemia, unspecified Plan: Reinforced low cholesterol diet Continue Atorvastatin 40 mg QD Will recheck her fasting lipids and labs as scheduled next month for follow-up (4) Benign essential hypertension: Code(s): I10 - Essential (primary) hypertension Plan: Reinforced low-sodium diet - goal is systolic BP of at least 140 mm or less Continue Lisinopril 5 mg QD (5) PAD (peripheral artery disease): Comment: 05/13/2022 - right SFA atherectomy and plasty, 01/12/2024 - left SFA atherectomy and plasty Code(s): I73.9 - Peripheral vascular disease, unspecified Plan: S/P endovascular intervention of the right lower extremity a couple of years ago in April 2022 S/P dual antiplatelet therapy with Aspirin 81 mg QD and Clopidogrel 75 mg QD x 6 months post-op She currently remains on Aspirin 81 mg QD alone Follow up with vascular surgery as scheduled (6) Vitamin D deficiency: Code(s): E55.9 - Vitamin D deficiency, unspecified Plan: Continue Vitamin D3 2000 units QD (7) Facet arthritis, degenerative, lumbar spine: Code(s): M47.816 - Spondylosis without myelopathy or radiculopathy, lumbar region Plan: Lumbar spine x-rays done last year revealed (+) facet arthritis changes in the lumbar spine Reinforced activity and weight lifting restrictions Patient reports (+) significant improvement of her low back pain with physical therapy Continue Tramadol 50 mg TID PRN and Voltaren gel topically over her lower back as needed; continue Gabapentin 100 mg TID (8) Obesity (BMI 30-39.9): Code(s): E66.9 - Obesity, unspecified Plan: Reinforced diet/exercise as tolerated/lose weight Plan Follow up as scheduled next month Orders: Referrals Gastroenterology Referral Z12.11 - Encounter for screening for malignant neoplasm of colon Medications: Changed From valacyclovir 1,000 mg PO TID 20 tabs 0RF To valacyclovir (Valtrex) 1,000 mg PO TID 20 tabs 0RF Coding Level of Care Code Est Pt Prev Care >65y(68235) Diagnoses Annual physical exam Z00.00 Type 2 diabetes mellitus with other specified complication, without long-term current use of insulin E11.69 Diabetes mellitus complication status: with other specified complication Diabetes mellitus salvage determiner insulin use: without penitentiary use Diabetes mellitus type: type 2 Pure hypercholesterolemia E78.00 Benign essential hypertension I10 PAD (peripheral artery disease) I73.9 Vitamin D deficiency E55.9 Facet arthritis, degenerative, 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 Obesity (BMI 30-39.9) E66.9
[2023-12-22 15:45] VITALS: BP 110/52; PULSE 101; O2SAT 95; BMI 30.2
== END 2023-12-22 16:20 | disposition home or self-care (01) ==
PROVIDERS: PCP Internal Medicine; Visit Provider Internal Medicine
DX: Z00.00 Encounter for general adult medical examination without abnormal findings (principal); E11.69 Type 2 diabetes mellitus with other specified complication; E78.00 Pure hypercholesterolemia, unspecified; I10 Essential (primary) hypertension; I73.9 Peripheral vascular disease, unspecified; E55.9 Vitamin D deficiency, unspecified; M47.816 Spondylosis without myelopathy or radiculopathy, lumbar region; E66.9 Obesity, unspecified
CPT/HCPCS: 99499

== ENCOUNTER 2024-01-04 14:34 | Emergency (ER) | payer OTHER, SELFPAY ==
--- NOTE | ~2024-01-04 | US_ITS ---
EXAMINATION: US VENOUS ULTRASOUND WITH DOPPLER LOWER EXTREMITY, LEFT CLINICAL INFORMATION: Pain COMPARISON: None available. TECHNIQUE: Ultrasound of the deep veins is performed from the hip to the calf with compression sonography and color and pulse Doppler assessment. Spectral analysis with color-flow imaging is performed. FINDINGS: There is normal venous compression and respiratory variation and augmented flow. The visualized common femoral vein, superficial femoral vein, profunda femoral vein, popliteal vein, and the mid calf posterior tibial and peroneal veins shows no evidence of deep venous thrombosis. US/US venous duplex LE LT IMPRESSION: No DVT demonstrated in the left lower extremity.
--- NOTE | ~2024-01-04 | US_ITS ---
EXAMINATION: NONINVASIVE ASSESSMENT OF THE ARTERIES OF THE LEFT LOWER EXTREMITY Abdiel Fall MD CLINICAL INFORMATION: Rule out arterial occlusion TECHNIQUE: Left lower extremity duplex ultrasound was performed with velocity measurements and waveform analysis in the common femoral arteries, profunda femoris arteries, proximal mid and distal superficial femoral arteries, popliteal arteries and tibial vessels. This study was performed only at rest. COMPARISON: 03/25/2023 FINDINGS: Velocities in cm/sec and phasicity as well as the presence of plaque are reported below. LEFT LEG: Severe atherosclerotic disease is present with moderate plaque. Biphasic flow is present in the common femoral artery and profunda femoris artery. A tight stenosis is seen in the mid SFA with velocity acceleration up to 241 cm/s. Below this level there is monophasic flow. Collateral branches can be seen. Common Femoral: 115 Profunda Femoris: 149 Proximal SFA: 60 Mid SFA: 241 Distal SFA: 15 Popliteal: 27 Posterior tibial: 10, occluded distally Peroneal: 20 Anterior tibial artery: 22 US/US arterial duplex LE LT IMPRESSION: 1. Moderate atherosclerotic changes are present. 2. There is a tight stenosis in the mid SFA with monophasic flow below this level. 3. There is occlusion of the distal posterior tibial artery.
[2024-01-04 14:59] VITALS: BP 164/58; PULSE 93; RESP 16; TEMP 36.6; O2SAT 95; BMI 30.1
--- NOTE | 2024-01-04 15:04 | ED_ITS ---
HPI - General Adult General Chief complaint: Extremity Injury, Lower Stated complaint: Heat Sensation in L Leg Time Seen by Provider: 01/04/24 17:16 Source: patient Mode of arrival: ambulatory Limitations: no limitations History of Present Illness HPI narrative: 78 year old female with pmhx significant for poorly-controlled diabetes, diabetic neuropathy, right lower extremity arterial occlusion on 81 mg aspirin d aily, chronic low back pain, hypertension, HDL, arthritis presents to the ED today for evaluation of atraumatic left lower extremity pain x1 day, worsening. Admits to burning sensation with in the left lower extremity, extending from her left foot into her knee. Endorses pain with touching the left lower extremity. Able to ambulate with steady gait. She does have a history of neuropathy and st ates that this does not feel similar. Denies recent travel or long car rides. Denies fever, chills, chest pain, shortness of breath, cough, hemoptysis. Related Data Home Medications ?Medication ?Instructions ?Recorded ?Confirmed aspirin 81 mg tablet,delayed 81 mg PO DAILY 11/08/20 12/22/23 release Previous Rx's ?Medication ?Instructions ?Recorded gabapentin 100 mg capsule 100 mg PO TID PRN neuropathy 30 10/08/22 days #90 caps atorvastatin 40 mg tablet 40 mg PO DAILY #90 tabs 07/14/23 diclofenac sodium 1 % topical gel 2 g topical QID PRN pain #100 grams 07/30/23 (Arthritis Pain (diclofenac)) cholecalciferol (vitamin D3) 50 50 mcg PO DAILY 90 days #90 caps 09/10/23 mcg (2,000 unit) capsule tramadol 50 mg tablet 50 mg PO TID PRN pain 30 days #90 09/10/23 tabs dulaglutide 3 mg/0.5 mL 3 mg (0.5 mL) subcut QWEEK 90 days 10/27/23 subcutaneous pen injector #6.5 mL lisinopril 5 mg tablet 5 mg PO DAILY #90 tabs 11/26/23 valacyclovir 1 gram tablet 1,000 mg PO TID #20 tabs 12/22/23 (Valtrex) Allergies Allergy/AdvReac Type Severity Reaction Status Date / Time insulin detemir Allergy Unknown hives Verified 01/04/24 15:04 insulin glargine Allergy Unknown rash/ hives Verified 01/04/24 15:04 Penicillins [PENICILLINS] Allergy Unknown HIVES Verified 01/04/24 15:04 sitagliptin [Januvia] Allergy Unknown hives Verified 01/04/24 15:04 metformin AdvReac Intermediate diarrhea Verified 01/04/24 15:04 Review of Systems Review of Systems: Constitutional: No fever, chills, fatigue, night sweats, weight changes ENT/Mouth: No ear pain, hearing loss, nasal congestion, sinus pain, rhinorrhea, sore throat Eyes: No eye pain, swelling, redness, vision changes, discharge Cardio: No chest pain, palpitations, [place], orthopnea, peripheral edema Pulm: No SOB, cough, sputum, wheezing, dyspnea, hemoptysis GI: No nausea, vomiting, hematemesis, abdominal pain, diarrhea, constipation, hematochezia, melena : No irregular bleeding, dysuria, frequency, urgency, hesitancy, hematuria, flank pain, urinary flow changes, urinary incontinence or retention MSK: No back pain, neck pain, joint pain, myalgias, +LLE pain Skin: No lesions, rashes Neuro: No weakness, numbness, paresthesias, LOC, dizziness, headache Psych: No anxiety/panic, depression, SI/HI, AH/VH All other systems reviewed and are negative. [facility] Past Medical History Attestation statement: The following information was validated with the patient. Source: old records reviewed and nursing notes reviewed Medical History Obesity (BMI 30-39.9) Vitamin D deficiency H/O coronary angiogram Hip pain, bilateral Arthralgia Diarrhea Abdominal bloating Smoker Low back pain Overweight (BMI 25.0-29.9) Benign essential hypertension Pure hypercholesterolemia Diabetes mellitus Surgical History Hx of appendectomy History of tonsillectomy History of laser refractive surgery History of cataract surgery Family History Family History Mother Alzheimer disease Heart problem Father Heart attack Other Substance abuse Social History Social History Housing: Apartment Alcohol intake: current Alcohol intake frequency: holidays/special occasions only Patient Tobacco Use Status: Former Tobacco user Quit Date: 12/2022 Cigarettes Per Day: 5 e-Cigarette/Vaping Use: Never Used Second Hand Smoke Exposure: Yes Advance Directives: No Advance Directives Information Provided: No service: No Current occupational status: employed Cognitive needs: No Hearing needs: No Vision needs: Yes Physical Exam ED Vital Signs: Vital Signs - 24 hr 01/04/24 14:59 01/04/24 16:24 01/04/24 20:15 Temperature 97.9 F 98.3 F 97.9 F Pulse Rate 93 81 76 Respiratory Rate 16 18 16 Blood Pressure 164/58 H 148/65 H 143/60 H Pulse Oximetry 95 98 99 Oxygen Delivery Method Room Air Room Air Room Air 01/04/24 21:04 Temperature 97.9 F Pulse Rate 76 Respiratory Rate 16 Blood Pressure 143/60 H Pulse Oximetry 99 Oxygen Delivery Method Room Air BMI result Body Mass Index 30.1 Patient hypertensive, vitals otherwise WNL. Const General: cooperative, healthy appearing, comfortable and no acute distress Orientation/consciousness: patient oriented x3 Limitations: no limitations [facility] Head: Yes normal to inspection, Yes No palpable skull fracture present, Yes normocephalic and Yes atraumatic Eyes General: appearance normal, both eyes and all related structures Conjunctivae: conjunctivae normal Sclerae: sclerae normal Pupils: Equal, round and reactive pupils present Neck Neck: Yes normal visual inspection Skin General skin exam: no rashes or lesions noted Neuro General: patient oriented x3 and gait normal Cranial nerves: Yes Equal, round and reactive pupils present Extrem Other: + no peripheral edema. Tender to palpation of the posterior left lower extremity. Extremity slightly cold to touch. No palpable DP or PT pulses noted to left lower extremity. I did however identify faint PT pulse with Doppler. No mottling. Sensation intact. Strength intact. Full ROM noted to left knee, left ankle and all digits on left foot. Ambulating with steady gait. General: Yes normal to inspection Course Course Course Narrative: RME- 78-year-old female presents for evaluation of a warm sensation to her left calf. She denies any pain but does have tenderness on exam. Plan for ultrasound to rule out DVT. The patient has a history of neuropathy Reevaluation(s) Reevaluation #1: 7669-- venous duplex of left lower extremity does not demonstrate clot. Given patient's history of arterial occlusion and PVD without identified pulses with palpation, arterial ultrasound obtained. Sign-out given to my colleague Faraz Hardwick pending results and disposition. Reevaluation #2: Patient's left lower extremity arterial ultrasound does show a distal tibial artery occlusion. The patient's physical exam is reassuring. I did discuss with Dr. Good, vascular surgery. He reviewed the ultrasound report and the patient is stable for discharge on baby aspirin and Plavix. She will follow-up with him in the office on . The patient already sees Dr. Good. She will call the office tomorrow Time: 20:53 Medical Decision Making Medical Decision Making MDM Narrative: 8 year old female with pmhx significant for poorly-controlled diabetes, diabetic neuropathy, right lower extremity arterial occlusion on 81 mg aspirin daily, chronic low back pain, hypertension, HDL, arthritis presents to the ED today for evaluation of atraumatic left lower extremity pain x1 day, worsening. Patient hypertensive, vitals otherwise WNL. On exam, there is no peripheral edema. Tender to palpation of the posterior left lower extremity. Extremity slightly cold to touch. No palpable DP or PT pulses noted to left lower extremity. I did however identify faint PT pulse with Doppler. No mottling. Sensation intact. Strength intact. Full ROM noted to left knee, left ankle and all digits on left foot. Ambulating with steady gait. Differential diagnosis includes PVD, PAD, neuropathy, DVT, MSK sprain/strain, muscle spasm. Lower suspicion for acute arterial occlusion however given patient's history, will obtain arterial duplex. Unlikely fracture, dislocation, acute threat to limb or compartment syndrome. Differential Diagnosis Differential Diagnoses: The differential diagnosis associated with the pr esentation includes As above Admission/Observation Consideration of admission/observation: Escalation of care including admissi on/observation considered Consult Healthcare Provider Management of the patient was discussed with: Delivery And Mail Sorter (Dr. Good) Independent Interpretation I performed an independent interpretation of an: Ultrasound Interpretation: Venous duplex does not demonstrate clot, agree with radiologist's interpretation. Radiology Impression Discussion of test interpretation with radiology: I have reviewed the radiol ogist's reading. Radiologist Impression: EXAMINATION: US VENOUS ULTRASOUND WITH DOPPLER LOWER EXTREMITY, LEFT CLINICAL INFORMATION: Pain COMPARISON: None available. TECHNIQUE: Ultrasound of the deep veins is performed from the hip to the calf with compression sonography and color and pulse Doppler assessment. Spectral analysis with color-flow imaging is performed. FINDINGS: There is normal venous compression and respiratory variation and augmented flow. The visualized common femoral vein, superficial femoral vein, profunda femoral vein, popliteal vein, and the mid calf posterior tibial and peroneal veins shows no evidence of deep venous thrombosis. US/US venous duplex LE LT IMPRESSION: No DVT demonstrated in the left lower extremity. EXAMINATION: NONINVASIVE ASSESSMENT OF THE ARTERIES OF THE LEFT LOWER EXTREMITY Abdiel Fall MD CLINICAL INFORMATION: Rule out arterial occlusion TECHNIQUE: Left lower extremity duplex ultrasound was performed with velocity measurements and waveform analysis in the common femoral arteries, profunda femoris arteries, proximal mid and distal superficial femoral arteries, popliteal arteries and tibial vessels. This study was performed only at rest. COMPARISON: 03/25/2023 FINDINGS: Velocities in cm/sec and phasicity as well as the presence of plaque are reported below. LEFT LEG: Severe atherosclerotic disease is present with moderate plaque. Biphasic flow is present in the common femoral artery and profunda femoris artery. A tight stenosis is seen in the mid SFA with velocity acceleration up to 241 cm/s. Below this level there is monophasic flow. Collateral branches can be seen. Common Femoral: 115 Profunda Femoris: 149 Proximal SFA: 60 Mid SFA: 241 Distal SFA: 15 Popliteal: 27 Posterior tibial: 10, occluded distally Peroneal: 20 Anterior tibial artery: 22 US/US arterial duplex LE LT IMPRESSION: 1. Moderate atherosclerotic changes are present. 2. There is a tight stenosis in the mid SFA with monophasic flow below this level. 3. There is occlusion of the distal posterior tibial artery. External Record Review External record reviewed: Inpatient record, Office record, Outpatient record, Prior outpatient labs, Prior outpatient radiology, Primary care record and Outside ED record Prescription Management I considered prescription management with: Pain Medication Chronic Conditions Patient?s care impacted by: Diabetes and Other (Neuropathy, PVD) Social Determinants Patient?s care significantly limited by Social Determinants of Health including: Other Social Determinant of Health Critical Care Time Critical Care Time Critical Care Time: Yes Total Critical Care Time: 50 Attestation: Critical care time in the amount of 50 minutes has been provided to the patient in terms of direct patient care, frequent reevaluation, consultation with vascular surgery, review and interpretation of medical data and results, and management of potentially life-threatening conditions. This is all outside of any medical procedures. Discharge Plan Discharge Clinical Impression: PAD (peripheral artery disease) Patient Disposition: Home, Self-Care Instructions: Peripheral Artery Disease (ED) Additional Instructions: A venous ultrasound of your left leg does not show clot. The arterial ultrasound does show a clot in the distal tibial artery. Take aspirin 81 mg daily and Plavix 75 mg daily Call the office of Dr. Good tomorrow morning to schedule an appointment. He will be able to see you on , but you still need to get a time for your appointment Return for new or worsening symptoms Prescriptions: No Action gabapentin 100 mg capsule 100 mg PO TID PRN (Reason: neuropathy) 30 Days Qty: 90 2RF atorvastatin 40 mg tablet 40 mg PO DAILY Qty: 90 1RF diclofenac sodium [Arthritis Pain (diclofenac)] 1 % gel 2 g topical QID PRN (Reason: pain) Qty: 100 1RF Rx Instructions: apply to single elbow, wrist or hand; for hand includes palm/fingers/back of hand tramadol 50 mg tablet 50 mg PO TID PRN (Reason: pain) 30 Days Qty: 90 0RF cholecalciferol (vitamin D3) 50 mcg (2,000 unit) capsule 50 mcg PO DAILY 90 Days Qty: 90 3RF lisinopril 5 mg tablet 5 mg PO DAILY Qty: 90 0RF aspirin 81 mg tablet,delayed release (DR/EC) 81 mg PO DAILY dulaglutide 3 mg/0.5 mL pen injector 3 mg subcut QWEEK 90 Days Qty: 6.5 1RF valacyclovir [Valtrex] 1 gram tablet 1,000 mg PO TID Qty: 20 0RF Referrals: Roque Good MD [Physician] - (left posterior artery occlusion) Interventions: ED Discharge Assessment Last Done: 01/04/24 21:04 Discharge Date/Time: 01/04/24 21:05 Print Language: Macedonian
[2024-01-04 16:24] VITALS: BP 148/65; PULSE 81; RESP 18; TEMP 36.8; O2SAT 98
[2024-01-04 20:15] VITALS: BP 143/60; PULSE 76; RESP 16; TEMP 36.6; O2SAT 99
--- NOTE | 2024-01-04 20:37 | PC.NURSE ---
this nurse took over care of pt at 1915, pt a&ox3, awaiting results of doppler, vitals stable, pt denies pain/discomfort, call huerta within reach, will continue to monitor
[2024-01-04 21:04] VITALS: BP 143/60; PULSE 76; RESP 16; TEMP 36.6; O2SAT 99
== END 2024-01-04 21:05 | disposition home or self-care (01) ==
PROVIDERS: Emergency Provider Emergency Medicine Emergency Medical Services; PCP Internal Medicine
DX: I73.9 Peripheral vascular disease, unspecified (principal); I70.201 Unspecified atherosclerosis of native arteries of extremities, right leg; I10 Essential (primary) hypertension; E11.40 Type 2 diabetes mellitus with diabetic neuropathy, unspecified; Z79.82 Long term (current) use of aspirin
CPT/HCPCS: 93926; 93971; 99283; 99284

== ENCOUNTER 2024-01-06 12:43 | Outpatient (AMB) | payer OTHER, SELFPAY ==
--- NOTE | 2024-01-06 12:59 | A.OFFVIS_ITS ---
Vital Signs 01/06/24 12:59 Height 5 ft 2 in Weight 164 lb BMI 30.0 Intake Visit Reasons: ED referral for Left PAD Intake Note: Ed referral for Left LE PAD s/p Arterial US 01/04/24. Pt states wednesday a.m. she felt heat on her distal calf up to her knee and it comes and goes. Pt has Hx of Right LE Angio 05/13/2022. Pt states she is no longer on Plavix at the moment Accompanied by: Self / Same As Patient Allergies insulin detemir Allergy (Unknown, Verified 01/06/24 13:07) hives insulin glargine Allergy (Unknown, Verified 01/06/24 13:07) rash/ hives Penicillins [PENICILLINS] Allergy (Unknown, Verified 01/06/24 13:07) HIVES sitagliptin [Januvia] Allergy (Unknown, Verified 01/06/24 13:07) hives metformin Adverse Reaction (Intermediate, Verified 01/06/24 13:07) diarrhea HPI HPI ED referral for Left PAD: Details: Very pleasant 78-year-old female presents for follow-up regarding peripheral vascular disease. She reported new onset left lower extremity pain and actually presented to the emergency room on 01/04/2024. She would undergone arterial noninvasive testing which did demonstrate some SFA disease. She is noting that she is having difficulty ambulating more than a block in particular that left leg. Of note she has undergone previous right lower extremity intervention back in April of 2022 with us. She continues to be maintained on aspirin and statin. She now presents to us for routine follow-up [facility] Medical History Obesity (BMI 30-39.9) Vitamin D deficiency H/O coronary angiogram Hip pain, bilateral Arthralgia Diarrhea Abdominal bloating Smoker Low back pain Overweight (BMI 25.0-29.9) Benign essential hypertension Pure hypercholesterolemia Diabetes mellitus Surgical History Hx of appendectomy History of tonsillectomy History of laser refractive surgery History of cataract surgery Family History Mother Alzheimer disease Heart problem Father Heart attack Other Substance abuse Social History (Reviewed 01/06/24 @ 13:09 by [place] Housing: Apartment Alcohol intake: current Alcohol intake frequency: holidays/special occasions only Patient Tobacco Use Status: Former Tobacco user Quit Date: 12/2022 Cigarettes Per Day: 5 e-Cigarette/Vaping Use: Never Used Second Hand Smoke Exposure: Yes service: No Current occupational status: employed Cognitive needs: No Hearing needs: No Vision needs: Yes Review of Systems Const All systems reviewed & are unremarkable except as noted in HPI and below Reports no additional complaints ENT Reports Normal hearing present Card Denies chest pain, Denies chest pain at rest, Denies chest pain with activity and Denies pedal edema Resp Denies cough GI Denies abdominal pain Musc Denies abnormal gait, Denies muscle cramps and Denies radiating pain into limb Skin/Breast Denies skin ulcer and Denies wounds Neuro Reports Normal hearing present and Denies abnormal gait Psych Reports no additional complaints Physical Exam Vital Signs: BMI result Body Mass Index 30.0 Const General: cooperative, healthy appearing and comfortable Orientation/consciousness: oriented to person, oriented to place and oriented to time HEENT Head: Yes normal to inspection Neck Neck: Yes normal visual inspection Carotids: no bruits Chest Chest palpation & inspection: normal inspection of the chest Resp Effort & Inspection: normal respiratory effort and able to speak in complete sentences Auscultation: clear to auscultation bilaterally, no crackles, no rales, no rhonchi and no wheezes Cardio Other: Bilateral DP signals Rate: regular rate Rhythm: regular rhythm Heart sounds: S1 normal heart sound present and S2 normal heart sound present Bruits: no carotid bruits Peripheral pulses: Peripheral pulses 2+ throughout GI Inspection: Yes normal to inspection Skin Wounds: no wounds Hair: normal Neuro General: oriented to person, oriented to place and oriented to time Cranial nerves: Yes CN's II-XII intact bilaterally and Yes Normal hearing present Cognition (Neuro): normal cognition Motor exam (neuro): 5/5 motor strength present throughout Extrem Other: venous exam: No significant superficial varicosities or spider telangiectasias, minimal edema General: No clubbing, No cyanosis and No edema Psych Appearance: grossly normal Mental Status: mental status grossly normal Speech and movement: Normal speech and movement present Results Reviewed Results Reviewed: Noninvasive arterial testing dated 01/04/2024 demonstrates left side mid SFA high velocities of 241. Written report and images were reviewed. Assessment & Plan Assessment & Plan (1) PAD (peripheral artery disease): Comment: 05/13/2022 - right SFA atherectomy and plasty, Code(s): I73.9 - Peripheral vascular disease, unspecified Category: Medical Plan: Patient notes leg pain when walking distances. I have discussed the pathophysiology of peripheral vascular disease with the patient. I have also discussed risk factor modification. I have reviewed the patient's arterial testing which reveals left SFA disease. the patient would benefit from a left leg endovascular peripheral angiogram with possible angioplasty, stent, and/or atherectomy. This has been discussed in detail with the patient along with risks, benefits, and complications. This includes but is not limited to b leeding, infection, heart attack, need for emergent surgical repair, limb ischemia, blood vessel damage, bleeding, puncture, kidney injury, bruising, allergic reaction, and skin reaction. The patient demonstrates a clear understanding. We will schedule for the next appropriate time. Thank you for allowing us to assist in this patient's care.
== END 2024-01-06 13:42 | disposition home or self-care (01) ==
PROVIDERS: PCP Internal Medicine; Visit Provider Surgery Vascular Surgery
DX: I73.9 Peripheral vascular disease, unspecified (principal)
CPT/HCPCS: 99214

== ENCOUNTER → 2024-01-06 12:43 | Outpatient (BNVA) | payer OTHER, SELFPAY | PROVIDERS: PCP Internal Medicine; Visit Provider Surgery Vascular Surgery | DX: I73.9 Peripheral vascular disease, unspecified (principal) | CPT/HCPCS: 99212 ==

== ENCOUNTER 2024-01-12 05:58 | Day surgery (SDC) | payer OTHER, SELFPAY ==
[2024-01-12] VITALS (8 sets, daily range): BP systolic 118–144; BP diastolic 56–65; PULSE 78–85; RESP 14–16; TEMP 36.1–36.6; O2SAT 93–99; BMI 30.2
[2024-01-12 06:31] LABS: MANUAL DIFF FLAG NO
[2024-01-12] MEDS: 0.9 % Sodium Chloride 1,000 ML 100 ML IVCONT (06:49)
[2024-01-12 06:52] LABS: Basophils Percent Auto 0.2 % (0-2); Eosinophils Absolute Auto 0.2 X10*3/uL (0.0-0.4); Eosinophils Percent Auto 2.2 % (0-4); Hematocrit 42.7 % (37.0-47.0); Imm Gran Abs Auto 0.02 X10*3/uL (0.00-0.03); Imm Gran Pct Auto 0.2 % (0.0-0.4); Lymphocytes Absolute Auto 4.1 X10*3/uL (1.2-4.9); Lymphocytes Percent Auto 43.2 % (20-40); Mean Corpuscular HGB Conc 32.8 g/dl (31.0-35.0); Mean Corpuscular Hemoglobin 28.7 pg (27.0-33.0); Mean Corpuscular Volume 87.5 fL (80.0-98.0); Mean Platelet Volume 9.2 fL (9.4-12.3); Monocytes Absolute Auto 0.6 X10*3/uL (0.1-1.2); Monocytes Percent Auto 6.4 % (2-11); Neutrophils Absolute Auto 4.5 x10*3/uL (2.0-8.3); Neutrophils Percent Auto 47.8 % (45-73); Platelet Count 326 X10*3/uL (160-400); Red Blood Count 4.88 X10*6/uL (4.20-5.50); Red Cell Distribution Width 12.5 % (11.0-16.0); White Blood Count 9.4 X10*3/uL (4.8-10.8)
[2024-01-12 06:54] LABS: Blood Urea Nitrogen 11 mg/dL (9-16); Creatinine Clr Calc Pharmacy 52.1; Estimated Glomerular Filt Rate > 60
--- NOTE | 2024-01-12 09:32 | W.PM.OPN ---
Operative Note Operative Note Date of Service: 01/12/24 Narrative: Angiogram report from [facility] Preoperative diagnosis: Atherosclerosis of left lower extremity with activity limiting claudication Postoperative diagnosis: Same Procedure: 1. Ultrasound-guided right common femoral access 2. Aortogram with left lower extremity runoff 3. Left SFA atherectomy and plasty Surgeon:Roque Good M.D., FACS, RPVI Cryptologic Technician Technical:None Anesthesia: Local with moderate conscious sedation. Total intraservice moderate sedation time was 60 minutes. I monitored the patient's level of consciousness and physiologic status continuously throughout the procedure. Specimens:none Drains:none Estimated blood loss: Less than 10 ml Implant: [employer] Impact DCB 4 by 80 Indications: Very pleasant 78-year-old female who actually presented to the emergency room with left lower extremity pain. She reported it was more of a pain and warm sensation in that left leg. She now presents for endovascular intervention. The patient has signed the informed consent after reviewing risks, complications, benefits, and alternatives previously discussed with the patient. The patient was given the opportunity to ask any additional questions or voice any concerns. All questions were answered to the patient's satisfaction. Procedure in detail: Patient was brought to the angiography suite prior to which a time-out was called for patient identification and site verification. Bilateral groins were prepped and draped in the standard surgical fashion. Under ultrasound guidance right common femoral was punctured with micro puncture needle and wire. Subsequently a precision 4 [place]i sheath was then placed. Bentson wire was advanced to the level of the aorta. 4 [place]i Flush catheter was brought up and parked at the level of the renal arteries. Aortogram was then undertaken. Catheter was brought down to the level of the iliac bifurcation. Iliacs were subsequently imaged. Catheter was then brought in up and over to the left side SFA. Runoff study was then undertaken. It was recognized that she had mid SFA disease. At this time 5000 units of systemic heparin was administered. After 5 minutes of circulation time up and over 6 [place]i sheath was then placed. Once this was accomplished we then placed a 5. Spider wire. The we then used a Hawk 1 atherectomy on left SFA. Once this was accomplished we had some residual stenosis. We then used a 4 x 80 drug coated balloon. Demonstrated excellent result. Catheter wire sheath was brought back to the ipsilateral side. Celt closure device was then deployed. Patient tolerated the procedure well. Returned to recovery with stable vitals. Interpretation of films: 1. Ultrasound demonstrates appropriate femoral puncture. Image of which was saved. 2. Aortogram demonstrates appropriate caliber aorta. Minimal disease. Appropriate take-off of the renals. 3. Iliac images demonstrate no significant disease small in caliber 4. Left Leg Common femoral artery: No significant disease Profundus Femoris: No significant disease Superficial femoral artery: Small in caliber mid SFA total occlusion immediate reconstitution question usual connection between artery and vein. Popliteal artery (p1,p2,p3): No significant disease Anterior tibial artery: Patent to Peroneal artery: Patent to foot Posterior tibial artery: Diminutive and occludes in the proximal 3rd Dorsalis pedis/plantar arch: Incomplete Conclusion: 1. Successful atherectomy and plasty left SFA 2. Anticoagulation status: 6 months of aspirin and Plavix This note is constructed using voice recognition software. While every effort has been made to ensure accuracy, vp clinical research errors may have been included. Thank you for allowing me to participate in the care of your patient. Yours sincerely, Roque Good MD, FACS, R.P.V.I.
[2024-01-12] MEDS: Clopidogrel Bisulfate 75 MG TABLET PO (11:24)
[2024-01-12] MEDS: Aspirin 81 MG TAB.CHEW PO (11:24)
== END 2024-01-12 11:50 | disposition home or self-care (01) ==
PROVIDERS: PCP Internal Medicine; Visit Provider Surgery Vascular Surgery
DX: E11.51 Type 2 diabetes mellitus with diabetic peripheral angiopathy without gangrene (principal); I70.212 Atherosclerosis of native arteries of extremities with intermittent claudication, left leg; I10 Essential (primary) hypertension; E78.00 Pure hypercholesterolemia, unspecified; E66.9 Obesity, unspecified; Z68.30 Body mass index [BMI] 30.0-30.9, adult; Z79.85 Long-term (current) use of injectable non-insulin antidiabetic drugs; Z79.82 Long term (current) use of aspirin; Z79.899 Other long term (current) drug therapy; Z88.0 Allergy status to penicillin; Z88.8 Allergy status to other drugs, medicaments and biological substances; Z98.890 Other specified postprocedural states; Z87.891 Personal history of nicotine dependence
CPT/HCPCS: 36415; 37225; 75630; 76937; 82565; 84520; 85025; 99152; 99153; A4364; C1714; C1760; C1769; C1887; C1894; C2623; J1644; J2250; J2310; J3010; Q9967

== ENCOUNTER → 2024-01-12 05:58 | Outpatient (BNV) | payer OTHER, SELFPAY | PROVIDERS: PCP Internal Medicine; Visit Provider Surgery Vascular Surgery | DX: I70.212 Atherosclerosis of native arteries of extremities with intermittent claudication, left leg (principal) | CPT/HCPCS: 37225; 75625; 75710; 99152 ==

== ENCOUNTER 2024-02-10 10:51 | Outpatient (AMB) | payer OTHER, SELFPAY ==
--- NOTE | 2024-02-10 10:56 | MHC.OFFVIS ---
Intake Visit Reasons: 2 week follow up left leg angio Intake Note: Patient presents for 2 week follow up left leg angiogram. Patient has no symptoms or complaints. Accompanied by: Self / Same As Patient Allergies insulin detemir Allergy (Unknown, Verified 02/10/24 10:57) hives insulin glargine Allergy (Unknown, Verified 02/10/24 10:57) rash/ hives Penicillins [PENICILLINS] Allergy (Unknown, Verified 02/10/24 10:57) HIVES sitagliptin [Januvia] Allergy (Unknown, Verified 02/10/24 10:57) hives metformin Adverse Reaction (Intermediate, Verified 02/10/24 10:57) diarrhea HPI HPI 2 week follow up left leg angio: Details: Very pleasant 78-year-old female presents for follow-up status post left lower extremity angiogram. She reports that the left leg does feel significantly better. She is ambulating much better. She now presents for routine postprocedure follow-up. [facility] Medical History Obesity (BMI 30-39.9) Vitamin D deficiency H/O coronary angiogram Hip pain, bilateral Arthralgia Diarrhea Abdominal bloating Smoker Low back pain Overweight (BMI 25.0-29.9) Benign essential hypertension Pure hypercholesterolemia Diabetes mellitus Surgical History Hx of appendectomy History of tonsillectomy History of laser refractive surgery History of cataract surgery Family History Mother Alzheimer disease Heart problem Father Heart attack Other Substance abuse Social History Housing: Apartment Alcohol intake: current Alcohol intake frequency: holidays/special occasions only Patient Tobacco Use Status: Former Tobacco user Quit Date: 12/2022 Cigarettes Per Day: 5 e-Cigarette/Vaping Use: Never Used Second Hand Smoke Exposure: Yes service: No Current occupational status: employed Cognitive needs: No Hearing needs: No Vision needs: Yes Review of Systems Const All systems reviewed & are unremarkable except as noted in HPI and below Reports no additional complaints ENT Reports Normal hearing present Card Denies chest pain, Denies chest pain at rest, Denies chest pain with activity and Denies pedal edema Resp Denies cough GI Denies abdominal pain Musc Denies abnormal gait, Denies muscle cramps and Denies radiating pain into limb Skin/Breast Denies skin ulcer and Denies wounds Neuro Reports Normal hearing present and Denies abnormal gait Psych Reports no additional complaints Physical Exam Const General: cooperative, healthy appearing and comfortable Orientation/consciousness: oriented to person, oriented to place and oriented to time HEENT Head: Yes normal to inspection Neck Neck: Yes normal visual inspection Carotids: no bruits Chest Chest palpation & inspection: normal inspection of the chest Resp Effort & Inspection: normal respiratory effort and able to speak in complete sentences Auscultation: clear to auscultation bilaterally, no crackles, no rales, no rhonchi and no wheezes Cardio Other: Bilateral DP signals Rate: regular rate Rhythm: regular rhythm Heart sounds: S1 normal heart sound present and S2 normal heart sound present Bruits: no carotid bruits Peripheral pulses: Peripheral pulses 2+ throughout GI Inspection: Yes normal to inspection Skin Wounds: no wounds Hair: normal Neuro General: oriented to person, oriented to place and oriented to time Cranial nerves: Yes CN's II-XII intact bilaterally and Yes Normal hearing present Cognition (Neuro): normal cognition Motor exam (neuro): 5/5 motor strength present throughout Extrem Other: venous exam: No significant superficial varicosities or spider telangiectasias, minimal edema General: No clubbing, No cyanosis and No edema Psych Appearance: grossly normal Mental Status: mental status grossly normal Speech and movement: Normal speech and movement present Assessment & Plan Assessment & Plan (1) PAD (peripheral artery disease): Comment: 05/13/2022 - right SFA atherectomy and plasty, 01/12/2024 - left SFA atherectomy and plasty Code(s): I73.9 - Peripheral vascular disease, unspecified Category: Medical Plan: In short patient has done well from her endovascular intervention. I did review the pathophysiology of peripheral vascular disease with the patient. In addition we did discuss routine conservative measures including a healthy diet and the importance of exercise and ambulation. We did discuss risk factor modification. The patient will continue to to follow-up with surveillance follow-up in approximately 3 months. Thank you for allowing us to participate in this patient's care. If there are any questions or concerns please do not hesitate to contact us. Orders: Orders US arterial duplex LE BI 3 Months I73.9 - Peripheral vascular disease, unspecified Coding Level of Care Code Est Pt Level 4 (13349) Diagnoses PAD (peripheral artery disease) I73.9
== END 2024-02-10 11:37 | disposition home or self-care (01) ==
PROVIDERS: PCP Internal Medicine; Visit Provider Surgery Vascular Surgery
DX: I73.9 Peripheral vascular disease, unspecified (principal)
CPT/HCPCS: 99213

== ENCOUNTER → 2024-02-10 10:51 | Outpatient (BNVA) | payer OTHER, SELFPAY | PROVIDERS: PCP Internal Medicine; Visit Provider Surgery Vascular Surgery | DX: I73.9 Peripheral vascular disease, unspecified (principal) | CPT/HCPCS: 99212 ==

== ENCOUNTER 2024-03-17 11:58 | Outpatient (REF) | payer OTHER, SELFPAY ==
[2024-03-17 12:13] LABS: MANUAL DIFF FLAG NO
[2024-03-17 13:52] LABS: Basophils Percent Auto 0.5 % (0-2); Eosinophils Absolute Auto 0.2 X10*3/uL (0.0-0.4); Eosinophils Percent Auto 2.5 % (0-4); Hematocrit 40.3 % (37.0-47.0); Hemoglobin 13.4 g/dl (12.0-16.0); Imm Gran Abs Auto 0.02 X10*3/uL (0.00-0.03); Imm Gran Pct Auto 0.2 % (0.0-0.4); Lymphocytes Absolute Auto 3.3 X10*3/uL (1.2-4.9); Lymphocytes Percent Auto 40.6 % (20-40); Mean Corpuscular HGB Conc 33.3 g/dl (31.0-35.0); Mean Corpuscular Hemoglobin 29.1 pg (27.0-33.0); Mean Corpuscular Volume 87.4 fL (80.0-98.0); Monocytes Absolute Auto 0.5 X10*3/uL (0.1-1.2); Neutrophils Percent Auto 50.2 % (45-73); Platelet Count 350 X10*3/uL (160-400); Red Blood Count 4.61 X10*6/uL (4.20-5.50)
[2024-03-17 14:02] LABS: Estimated Average Glucose 223 mg/dL; Hemoglobin A1c % 9.4 % (<6.0)
[2024-03-17 14:11] LABS: Appearance Urine Cloudy; Color Urine Yellow; Glucose Urine UA Negative (Negative); Leukocyte Esterase Urine Small (1+) (Negative); Nitrite Urine Negative (Negative); Specific Gravity - Urine 1.025 (1.005-1.025); UMIC TRIGGER UACC YES; Urine Blood Negative (Negative); Urine Ketones Negative (Negative); Urine Protein Trace mg/dL (Neg-Trace)
[2024-03-17 14:32] LABS: Bacteria Urine Trace (None Seen); Calcium Oxalate Crystals Urine Present; Hyaline Casts Urine 0-2 /LPF (0-2); RBC Urine 0-2 /HPF (0-2); UACC Culture Trigger YES; WBC Urine 0-5 /HPF (0-5)
[2024-03-17 14:58] LABS: Creatinine Urine 228.04 mg/dL; Microalbum/Creatinine Ratio Ur 7.8 ug/mg cr (<30)
[2024-03-17 15:12] LABS: Alanine Aminotransferase 24 U/L (0-31); Alkaline Phosphatase 91 U/L (39-117); Anion Gap 13 (12-20); Aspartate Amino Transferase 39 U/L (5-31); Bilirubin Total 0.4 mg/dL (0.0-1.0); Blood Urea Nitrogen 11 mg/dL (9-16); Calcium 9.4 mg/dL (8.4-10.2); Carbon Dioxide 27 mmol/L (22-29); Chloride 106 mmol/L (96-108); Cholesterol 119 mg/dL (<200); Estimated Glomerular Filt Rate > 60; Glucose Fasting 175 mg/dL (60-99); HDL Cholesterol 35 mg/dL (>40); LDL Cholesterol Calculated 65 mg/dL (<100); Potassium 3.8 mmol/L (3.3-5.1); Sodium 142 mmol/L (135-145); TSH reflex Free T4 1.51 uIU/mL (0.32-4.0); Total Protein 6.8 g/dL (6.5-8.0); Triglycerides 95 mg/dL (<150); Vitamin D 25-OH Total 27.3 ng/mL (>30)
[2024-03-17 15:18] LABS: Folate 5.7 ng/mL (> or = 4.0); Vitamin B12 223 pg/mL (200-900)
== END 2024-03-17 11:59 | disposition home or self-care (01) ==
LOC: HO.LAB 11:58
PROVIDERS: PCP Internal Medicine; Visit Provider Internal Medicine
DX: E55.9 Vitamin D deficiency, unspecified (principal); E53.8 Deficiency of other specified B group vitamins; E78.00 Pure hypercholesterolemia, unspecified; E11.9 Type 2 diabetes mellitus without complications; D64.9 Anemia, unspecified; R82.90 Unspecified abnormal findings in urine
CPT/HCPCS: 36415; 80053; 80061; 81001; 81003; 82043; 82306; 82570; 82607; 82746; 83036; 84443; 85025; 87086

== ENCOUNTER 2024-03-22 13:30 | Outpatient (AMB) | payer OTHER, SELFPAY ==
--- NOTE | 2024-03-22 13:32 | A.OFFPC_ITS ---
Vital Signs 03/22/24 13:33 Height 5 ft 2 in Weight 162 lb BMI 29.6 BP 134/58 L Blood Pressure Location Lt brachial Position Sitting Pulse 84 Pulse Source Pulse Oximeter Pulse Oximetry (%) 97 Oxygen Delivery Method Room Air Intake Visit Reasons: Follow Up Intake Note: Patient is here to follow up Building Energy Consultant Required: No Allergies insulin detemir Allergy (Unknown, Verified 03/22/24 14:12) hives insulin glargine Allergy (Unknown, Verified 03/22/24 14:12) rash/ hives Penicillins [PENICILLINS] Allergy (Unknown, Verified 03/22/24 14:12) HIVES sitagliptin [Januvia] Allergy (Unknown, Verified 03/22/24 14:12) hives metformin Adverse Reaction (Intermediate, Verified 03/22/24 14:12) diarrhea Medication List - Last Reconciled 03/22/24 by Jono Vallecillo MD aspirin 81 mg PO DAILY atorvastatin 40 mg PO DAILY cholecalciferol (vitamin D3) 50 mcg PO DAILY 90 days clopidogrel (Plavix) 75 mg PO DAILY diclofenac sodium 1% (Arthritis Pain (diclofenac)) 2 grams topical QID PRN dulaglutide (Trulicity) 1.5 mg subcut QWEEK gabapentin 100 mg PO TID PRN 30 days lisinopril 5 mg PO DAILY tramadol 50 mg PO TID PRN 30 days valacyclovir (Valtrex) 1,000 mg PO TID Tobacco use date assessed: 12/22/23 Fall risk assessment: No Falls in past year Last assessed Fall Risk: 03/22/24 Dental Screening Dental Screen Date: 10/27/23 HPI Follow Up HPI Details Patient comes in today for her follow-up visit States that she feels okay She denies any headaches or dizziness Denies any chest pains, no shortness of breath No nausea/ vomiting, no abdominal pain No change in bowel habits noted Needs her Tramadol Rx refilled - states that these are helping her manage her chronic low back pain and joint pains Had her follow-up labs done last week - to discuss her results [facility] Medical History Obesity (BMI 30-39.9) Vitamin D deficiency H/O coronary angiogram Hip pain, bilateral Arthralgia Diarrhea Abdominal bloating Smoker Low back pain Overweight (BMI 25.0-29.9) Benign essential hypertension Pure hypercholesterolemia Diabetes mellitus Surgical History Hx of appendectomy History of tonsillectomy History of laser refractive surgery History of cataract surgery Family History Mother Alzheimer disease Heart problem Father Heart attack Other Substance abuse Social History Housing: Apartment Alcohol intake: current Alcohol intake frequency: holidays/special occasions only Patient Tobacco Use Status: Former Tobacco user Cigarettes Per Day: 5 e-Cigarette/Vaping Use: Never Used Second Hand Smoke Exposure: Yes service: No Current occupational status: employed Cognitive needs: No Hearing needs: No Vision needs: Yes Questionnaire Thrive Questionnaire Date Thrive assessed: 10/27/23 AUDIT C Alcohol Use Questionnaire (AUDIT-C) 1. How often do you have a drink containing alcohol?: Monthly or less 2. How many drinks containing alcohol do you have on a typical day when you are drinking?: 1 or 2 3. How often do you have six or more drinks on one occasion?: Never Total Score: 1 Score Reviewed/Action Taken: Yes WILDA-7 AMB Questionnaire WILDA-7 Date WILDA - 7 assessed: 10/27/23 Source: Developed by Drs. Jet Sutton, Anali Darby, Rg Fleming and colleagues, with an educational casandra from [employer]. Review of Systems Const Denies chills, Denies fatigue, Denies fever(s) and Denies headache(s) ENT Denies dysphagia, Denies dizziness, Denies otalgia, Denies headache(s), Denies neck pain, Denies odynophagia and Denies sore throat Card Denies chest pain, Denies palpitations and Denies dyspnea Resp Denies cough and Denies dyspnea GI Denies abdominal pain, Denies constipation, Denies dysphagia, Denies heartburn, Denies diarrhea, Denies nausea, Denies odynophagia and Denies vomiting Denies difficulty voiding, Denies nocturia and Denies dysuria Musc Reports back pain (over the lower back - chronic), Reports arthralgias (in both hips, on and off) and Denies neck pain Skin/Breast Denies rash Neuro Denies dizziness and Denies headache(s) Endo Denies fatigue and Denies palpitations Physical exam (Primary Care) Vital Signs: Last Vital Signs Pulse 84 03/22/24 13:33 BP 134/58 L 03/22/24 13:33 Pulse Ox 97 03/22/24 13:33 Oxygen Delivery Method Room Air 03/22/24 13:33 BMI result Body Mass Index 29.6 Tobacco/Smoking Status: Tobacco use Status Tobacco use date assessed 12/22/23 03/22/24 13:33 Patient Tobacco Use Status Former Tobacco user 03/22/24 13:33 e-Cigarette/Vaping Use Never Used 03/22/24 13:33 Thrive Assessment: Date of Thrive Assessment Date Thrive assessed 10/27/23 03/22/24 13:33 Const General: no acute distress and alert HENMT Ears: TM's normal bilaterally and EAC's normal Throat: Yes posterior oropharynx normal and Yes tonsils normal (no TP congestion) Neck Neck: Yes no lymphadenopathy and Yes supple Thyroid: Thyroid normal Resp Auscultation: clear to auscultation bilaterally, no rales and no wheezes Cardio Rate: regular rate Rhythm: regular rhythm Heart sounds: no murmurs GI Palpation (GI): Soft to palpation and nontender Auscultation: normal bowel sounds General: Yes no CVA tenderness Back/Spine/Pelvis Back: no CVA tenderness Thoracic/Lumbar Spine: lumbar spinal tenderness (mild) Extrem General: Yes no clubbing, cyanosis or edema Right lower extremity: hip/thigh Details: tenderness Location: of the hip Left lower extremity: knee Details: tenderness; no swelling Results Reviewed Results Reviewed: Laboratory Tests 10/22/23 03/17/24 03/17/24 12:08 12:05 12:10 WBC 8.4 8.0 Hgb 13.9 13.4 Hct 42.9 40.3 Plt Count 333 350 Sodium 142 142 Potassium 4.0 3.8 Creatinine 0.82 Estimated GFR > 60 Fasting Glucose 175 H Hemoglobin A1c % 9.4 H Calcium 9.4 D AST 39 H ALT 24 Triglycerides 95 Cholesterol 119 LDL Cholesterol, Calc 65 HDL Cholesterol 35 L Vitamin B12 223 25-OH Vitamin D Total 27.3 L TSH 1.51 Ur Specific [place] 1.025 Urine Protein Trace Urine Glucose (UA) Negative Urine Blood Negative Urine Nitrite Negative Ur Leukocyte Esterase Small (1+) H Microalb/Creat Ratio 7.8 Assessment and Plan Assessment & Plan (1) Diabetes mellitus: Code(s): E11.9 - Type 2 diabetes mellitus without complications Qualifiers: Diabetes mellitus complication status: with other specified complication 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 use: without regional intermodal truck driver use Diabetes mellitus type: type 2 Qualified Code(s): E11.69 - Type 2 diabetes mellitus with other specified complication Plan: Patient's HgbA1c is now at 9.4% on her labs done last week (was at 8.9% a few months ago) - goal is < 7.0% Reinforced diabetic diet Continue Glipizide 10 mg BID; we tried increasing her Trulicity from 1.5 mg to 3 mg SQ once a week a few months ago but she could not tolerate the 3 mg dose due to severe nausea and went back on the 1.5 mg does once a week She also developed hives previously to long-acting insulins like Tresiba and Lantus as well as to Januvia and she could not tolerate metformin due to diarrhea We tried to start her additionally on Onglyza at her last visit but it appears that her insurance declined to cover this Have advised patient that her diabetes control appears to be gradually getting worse and as she had significant reactions to several different diabetes medications, it is getting complicated trying to figure out what the best start her on medication-goetz Will go ahead and refer her to endocrinology [facility] for further evaluation and management Will recheck her labs and HgbA1c in 3 months for follow up (2) Pure hypercholesterolemia: Code(s): E78.00 - Pure hypercholesterolemia, unspecified Plan: Results of her labs done last week reviewed and discussed with patient Reinforced low cholesterol diet Continue Atorvastatin 40 mg QD Will recheck her fasting lipids and labs in 3 months for follow-up (3) Benign essential hypertension: Code(s): I10 - Essential (primary) hypertension Plan: Reinforced low-sodium diet - goal is systolic BP of at least 140 mm or less Continue Lisinopril 5 mg QD for now (4) PAD (peripheral artery disease): Comment: 05/13/2022 - right SFA atherectomy and plasty, 01/12/2024 - left SFA atherectomy and plasty Code(s): I73.9 - Peripheral vascular disease, unspecified Plan: S/P endovascular intervention of the right lower extremity a couple of years ago in April 2022 S/P dual antiplatelet therapy with Aspirin 81 mg QD and Clopidogrel 75 mg QD x 6 months post-op She currently remains on Aspirin 81 mg QD alone Follow up with vascular surgery as scheduled (5) Vitamin D deficiency: Code(s): E55.9 - Vitamin D deficiency, unspecified Plan: Continue Vitamin D3 2000 units QD (6) Facet arthritis, degenerative, lumbar spine: Code(s): M47.816 - Spondylosis without myelopathy or radiculopathy, lumbar region Plan: Lumbar spine x-rays done last year revealed (+) facet arthritis changes in the lumbar spine Reinforced activity and weight lifting restrictions Patient reports (+) significant improvement of her low back pain with physical therapy Continue Tramadol 50 mg TID PRN and Voltaren gel topically over her lower back as needed; continue Gabapentin 100 mg TID (7) Obesity (BMI 30-39.9): Code(s): E66.9 - Obesity, unspecified Plan: Reinforced diet/exercise as tolerated/lose weight Plan Follow up in 3 months Orders: Orders Complete Blood Count Auto Diff 3 Months D64.9 - Anemia, unspecified Hemoglobin A1c 3 Months E11.9 - Type 2 diabetes mellitus without complications Microalbumin, Random (w Creat) 3 Months E11.9 - Type 2 diabetes mellitus without complications Comprehensive [place]. Panel Fast 3 Months E78.00 - Pure hypercholesterolemia, unspecified Lipid Panel 3 Months E78.00 - Pure hypercholesterolemia, unspecified UA CC w/rflx Micro + Cult 3 Months R30.0 - Dysuria Referrals Endocrinology Referral E11.69 - Type 2 diabetes mellitus with other specified complication Medications: Refilled tramadol 50 mg PO TID 30 days PRN 90 tabs 0RF pain Coding Level of Care Code Est Pt Level 4 (12946) Complex EM visit Add On G2211 Diagnoses Type 2 diabetes mellitus with other specified complication, without long-term current use of insulin E11.69 Diabetes mellitus complication status: with other specified complication Diabetes mellitus senior care insulin use: without senior care use Diabetes mellitus type: type 2 Pure hypercholesterolemia E78.00 Benign essential hypertension I10 PAD (peripheral artery disease) I73.9 Vitamin D deficiency E55.9 Facet arthritis, degenerative, 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 Obesity (BMI 30-39.9) E66.9
[2024-03-22 13:33] VITALS: BP 134/58; PULSE 84; O2SAT 97; BMI 29.6
== END 2024-03-22 14:24 | disposition home or self-care (01) ==
PROVIDERS: PCP Internal Medicine; Visit Provider Internal Medicine
DX: E11.51 Type 2 diabetes mellitus with diabetic peripheral angiopathy without gangrene (principal); E78.00 Pure hypercholesterolemia, unspecified; I10 Essential (primary) hypertension; M47.816 Spondylosis without myelopathy or radiculopathy, lumbar region; E55.9 Vitamin D deficiency, unspecified
CPT/HCPCS: 99214; G2211

== ENCOUNTER 2024-03-28 13:49 | Outpatient (AMB) | payer OTHER, SELFPAY ==
--- NOTE | 2024-03-28 13:53 | MHC.OFFVIS ---
Vital Signs 03/28/24 13:55 Height 5 ft 2 in Weight 163 lb 2.273 oz BMI 29.8 BP 116/60 Blood Pressure Location Rt brachial Position Sitting Pulse 96 Pulse Source Pulse Oximeter Intake Visit Reasons: T2DM/CONFIRMED Intake Note: NEW Patient presents today to established treatment for Diabetes Mellitus Type 2: Most recent Diabetic Eye Exam: DUE Most recent Podiatry Exam: Does not see a Residential Housekeeper Most recent HbA1c: 9.4%, 03/17/2024 Random Glucose- 269mg/dL, Today District Attorney Required: No Accompanied by: Self / Same As Patient Allergies insulin detemir Allergy (Unknown, Verified 03/28/24 13:54) hives insulin glargine Allergy (Unknown, Verified 03/28/24 13:54) rash/ hives Penicillins [PENICILLINS] Allergy (Unknown, Verified 03/28/24 13:54) HIVES sitagliptin [Januvia] Allergy (Unknown, Verified 03/28/24 13:54) hives metformin Adverse Reaction (Intermediate, Verified 03/28/24 13:54) diarrhea HPI Comments Details: [78] YO [M/F] who is seen in consultation for T2DM at the request of PCP. Initially diagnosed with T2DM in [1995 ]. Most recent HbA1c: 9.4%, 03/17/2024 Was initially started on treatment with [glipizide]. Metformin (not er) gas/bloating Lantus/levemir hives Diffuse rash with Lantus many years ago glipizide stopped:ineffective Current regimen [Trulicity 1.5mg]. Has been on for several years, recently tried 3.0 mg and was unable to tolerate. Checks sugars [0] times per day. In the past she did test twice daily and does have a meter. Reports low sugars [none]. Treats lows with [Doesn't carry a source of sugar]. [Checks] sugar after to ensure it is rising. [Treats] according to rule of 15's. Had eyes checked yearly in the past, last eye exam [2-3 years ago], [not certain] retinopathy. [Denies ] neuropathy, last foot exam [Sees PA at the [facility]], [Denies] nephropathy, on [KENNY]. [Has] HLD, on [statin]. Last LDL [65] as measured on [03/13]. [Denies] CAD. Sees vascular has had angioplasty Denies numbness, tingling, cramping in legs Diet: [Eats a slice of toast/ 1/2 banana for breakfast, picks on veg/fruit/cheese for lunch and small dinner.] Weight: [stable, appetite down since Trulicity] [Had] diabetes education. None recent She quit smoking a year and a half ago. Rare alcohol PFSH Medical History Obesity (BMI 30-39.9) Vitamin D deficiency H/O coronary angiogram Hip pain, bilateral Arthralgia Diarrhea Abdominal bloating Smoker Low back pain Overweight (BMI 25.0-29.9) Benign essential hypertension Pure hypercholesterolemia Diabetes mellitus Surgical History Hx of appendectomy History of tonsillectomy History of laser refractive surgery History of cataract surgery Family History Mother Alzheimer disease Heart problem Father Heart attack Other Substance abuse Social History Housing: Apartment Alcohol intake: current Alcohol intake frequency: holidays/special occasions only Patient Tobacco Use Status: Former Tobacco user Cigarettes Per Day: 5 e-Cigarette/Vaping Use: Never Used Second Hand Smoke Exposure: Yes service: No Current occupational status: employed Cognitive needs: No Hearing needs: No Vision needs: Yes Physical Exam Vital Signs: Last Vital Signs Pulse 96 03/28/24 13:55 BP 116/60 03/28/24 13:55 BMI result Body Mass Index 29.8 Absence of Cushingoid features. Absence of acromegalic features. Neck exam reveals nl size thyroid about 15 gms. No thyroid nodules palpable. No carotid bruits present. Lungs CTA. Heart S1 S2, Reg R/R. No M/R/ G. Skin exam reveals absence of vitiligo or acanthosis nigricans. Abdominal exam reveals Soft NT/ND with NA BS. No organomegaly present. Const General: cooperative and healthy appearing Orientation/consciousness: oriented to person Neck Other: . Neck: Yes normal visual inspection Thyroid: Thyroid normal Resp Effort & Inspection: normal respiratory effort Cardio Jugular venous distension: no JVD Rate: regular rate Rhythm: regular rhythm Heart sounds: S1 normal heart sound present and S2 normal heart sound present Neuro General: oriented to person Extrem Other: Visual exam of foot performed. No ulcerations or open lesions. No onchomycosis, no callouses.Pulses 2 + distally Sensation intact to monofilament exam. Vibratory sensation sensed is intact with 128 Hz tuning fork, bunion bilateral Results Reviewed Results Reviewed: Laboratory Last Values Glucose (Clinic) 269 mg/dL (60-115) H 03/28/24 14:05 Laboratory Tests 07/13/23 10/22/23 03/17/24 15:48 12:08 12:05 Potassium Creatinine Estimated GFR Fasting Glucose Hemoglobin A1c % 7.5 H 8.9 H Calcium AST ALT Albumin Triglycerides Cholesterol LDL Cholesterol, Calc Urine Creatinine 228.04 Urine Microalbumin 18.0 Microalb/Creat Ratio 7.8 03/17/24 12:10 Potassium 3.8 Creatinine 0.82 Estimated GFR > 60 Fasting Glucose 175 H Hemoglobin A1c % 9.4 H Calcium 9.4 D AST 39 H ALT 24 Albumin 4.0 Triglycerides 95 Cholesterol 119 LDL Cholesterol, Calc 65 Urine Creatinine Urine Microalbumin Microalb/Creat Ratio Assessment & Plan Assessment & Plan (1) Diabetes mellitus: Code(s): E11.9 - Type 2 diabetes mellitus without complications Category: Medical Qualifiers: Diabetes mellitus type: type 2 Diabetes mellitus watcher automat long goods insulin use: without watcher automat long goods use Diabetes mellitus complication status: with other specified complication Qualified Code(s): E11.69 - Type 2 diabetes mellitus with other specified complication Plan: Poorly controlled sugar on Trulicity 1.5 mg weekly. Had hives to both Lantus and Levemir and GI intolerance to 1500 mg of metformin regular release. The prescription was sent for a Empagliglozin. Side effects of empagliflozin were reviewed: UTI, fungal infection, infection and groin, DKA, low sugars and lightheadedness. We will get her started on a freestyle Asim 3 and set up an appointment with the supervisor assembly room. She will use her iPhone for this. In the meantime she is agreed to test her sugars twice daily. The patient was counseled to always carry a source of sugar and on the rule of 15's: Take 3 glucose tablets and repeat again in 15 minutes if blood sugar is not in normal range. Continue to repeat every 15 minutes until blood sugar is normal. Medications: New blood-glucose sensor (FreeStyle Asim 3 Sensor device) As directed 2 ea 11RF empagliflozin (Jardiance) 10 mg PO DAILY 30 days 30 tabs 1RF E11.69 - Type 2 diabetes mellitus with other specified complication Coding Level of Care Code Tele New Pt Level 5 (58623) Diagnoses Type 2 diabetes mellitus with other specified complication, without long-term current use of insulin E11.69 Diabetes mellitus type: type 2 Diabetes mellitus long-term insulin use: without long-term use Diabetes mellitus complication status: with other specified complication Time Spent (min) 60 Comment Time spent reviewing labs/diagnostic, reviewing previous provider notes, face to face, doc
[2024-03-28 13:55] VITALS: BP 116/60; PULSE 96; BMI 29.8
[2024-03-28 14:10] LABS: Glucose, Whole Blood 269 mg/dL (60-115)
== END 2024-03-28 14:46 | disposition home or self-care (01) ==
PROVIDERS: PCP Internal Medicine; Visit Provider Nurse Practitioner Adult Health
DX: E11.69 Type 2 diabetes mellitus with other specified complication (principal)
CPT/HCPCS: 99205

== ENCOUNTER → 2024-03-28 13:49 | Outpatient (BNVA) | payer OTHER, SELFPAY | PROVIDERS: PCP Internal Medicine; Visit Provider Nurse Practitioner Adult Health | DX: E11.69 Type 2 diabetes mellitus with other specified complication (principal); Z79.85 Long-term (current) use of injectable non-insulin antidiabetic drugs | CPT/HCPCS: 82947 ==

== ENCOUNTER 2024-04-11 13:02 | Outpatient (AMB) | payer MEDICARE, SELFPAY ==
--- NOTE | 2024-04-11 13:06 | A.OFFVIS_ITS ---
Vital Signs 04/11/24 13:07 Height 5 ft 2 in Weight 159 lb 13.362 oz BMI 29.2 BP 131/56 L Blood Pressure Location Lt brachial Position Sitting Pulse 101 H Intake Visit Reasons: Colonoscopy Screening Intake Note: New patient in office today for colonoscopy screening. CC: Patient denies having any GI concerns or symptoms today. She does not remember when was her last colonoscopy but it states that it was done here at [facility] [place] and that it was normal. Lead Printer Required: No Accompanied by: Self / Same As Patient Allergies insulin detemir Allergy (Unknown, Verified 05/23/24 13:03) hives insulin glargine Allergy (Unknown, Verified 05/23/24 13:03) rash/ hives Penicillins [PENICILLINS] Allergy (Unknown, Verified 05/23/24 13:03) HIVES sitagliptin [Januvia] Allergy (Unknown, Verified 05/23/24 13:03) hives metformin Adverse Reaction (Intermediate, Verified 05/23/24 13:03) diarrhea HPI HPI Colonoscopy Screening: Details: 78-year-old female here for preprocedural meeting to discuss a screening colonoscopy. She is referred by Jono Vallecillo. PMX Obesity Hypertension High cholesterol Diabetes Peripheral arterial disease Lumbar facet arthritis * SURGICAL HISTORY Appendectomy Tonsillectomy Cataract surgery Question laser refractive surgery * ALLERGIES Insulin detimer Penicillin Metformin Sitagliptin * Social Yuppies LABS: Laboratory Tests 03/17/24 12:10 WBC 8.0 Hgb 13.4 Hct 40.3 Plt Count 350 Estimated GFR > 60 Total Bilirubin 0.4 AST 39 H ALT 24 Alkaline Phosphatase 91 TSH 1.51 TODAY'S VISIT She tells me that she just had a negative Cologuard test - it apperas this happened AFTER her GI referral for colonoscopy. With this she does not need a colonoscopy given she has no FHX of CRC - she can repeat the COloguard q 3 years. She had some diarrhea but this resolved with stopping metformin. She had some appetite problems, but this was r/t her Trulicity and she is snacking on finger foods. GLEN osborn PFS Medical History Right hip pain Abdominal bloating Diarrhea Overweight (BMI 25.0-29.9) Right otitis media Left otitis media Left knee sprain Annual physical exam Obesity (BMI 30-39.9) Vitamin D deficiency H/O coronary angiogram Hip pain, bilateral Arthralgia Smoker Low back pain Benign essential hypertension Pure hypercholesterolemia Diabetes mellitus Surgical History H/O tubal ligation H/O colonoscopy Hx of appendectomy History of tonsillectomy History of laser refractive surgery History of cataract surgery Family History Mother Alzheimer disease Heart problem Father Heart attack Brother Cancer Sister Breast cancer Family/Other Breast cancer Other Substance abuse Social History Housing: Apartment Alcohol intake: current Alcohol intake frequency: holidays/special occasions only Patient Tobacco Use Status: Former Tobacco user Cigarettes Per Day: 5 e-Cigarette/Vaping Use: Never Used Second Hand Smoke Exposure: Yes service: No Current occupational status: employed Cognitive needs: No Hearing needs: No Vision needs: Yes Review of Systems Const Denies fatigue, Denies fever(s), Denies night sweats, Denies poor appetite and Denies weight loss Eyes Details: glasses Reports requires corrective lenses ENT Reports Normal hearing present, Denies dental pain, Denies dysphagia, Denies hearing loss, Denies mouth pain, Denies odynophagia, Denies throat swelling, Denies tongue swelling and Reports other (Dentition adequate) Card Reports no additional complaints Resp Reports no additional complaints GI Details: Denies abdominal pain, Denies melena, Denies bloating, Denies hematochezia, Denies constipation, Denies GI cramping, Denies dysphagia, Denies excessive flatus, Denies early satiety, Denies heartburn, Denies diarrhea, Denies nausea, Denies odynophagia, Denies vomiting and Denies hematemesis Skin/Breast Denies pruritus, Denies lesions, Denies rash and Denies jaundice Neuro Reports Normal hearing present and Denies Abnormal speech present Endo Denies fatigue Aller/Immun Denies throat swelling and Denies tongue swelling Physical Exam Vital Signs: Last Vital Signs Pulse 101 H 04/11/24 13:07 BP 131/56 L 04/11/24 13:07 BMI result Body Mass Index 29.2 Const General: cooperative, no acute distress, well developed and well groomed Nutritional Appearance: well nourished and overweight Orientation/consciousness: oriented to person, oriented to place and oriented to time Limitations: No language barrier HEENT Head: Yes normocephalic and Yes atraumatic Eyes General: appearance normal, both eyes and all related structures Pupils: Equal, round and reactive pupils present Neck Neck: Yes normal visual inspection and Yes no lymphadenopathy Thyroid: Thyroid normal Resp Effort & Inspection: normal respiratory effort and able to speak in complete sentences Auscultation: clear to auscultation bilaterally Cardio Rate: regular rate Rhythm: regular rhythm Heart sounds: Normal, physiologic split S2 sound present Peripheral pulses: radial pulses present and posterior tibial pulses present GI Inspection: No distended and No Abdominal panniculus present Palpation (GI): Soft to palpation, nontender, no guarding, not rigid and No hepatosplenomegaly present Percussion: Yes normal to percussion Auscultation: normal bowel sounds Rectal Exam - Female: deferred Skin General skin exam: no rashes or lesions noted, turgor normal, skin not dry, no jaundice, No spider nevi and no striae Rashes: no rashes Nails: normal Neuro General: oriented to person, oriented to place and oriented to time Cranial nerves: Yes Equal, round and reactive pupils present and Yes Normal hearing present Speech: No Abnormal speech present Extrem General: Yes normal to inspection, No clubbing, No cyanosis and No edema Psych Appearance: grossly normal and well kempt Mental Status: mental status grossly normal Speech and movement: Normal speech and movement present Affect: normal affect Attitude: cooperative Thought process: Normal thought process present and not confabulating Thought content: Normal thought content present Insight: Good insight present (Psych) Judgement: Good judgement present (Psych) Assessment & Plan Assessment & Plan (1) Pre-op examination: Code(s): Z01.818 - Encounter for other preprocedural examination Category: Medical Plan She tells me that she just had a negative Cologuard test - it apperas this happened AFTER her GI referral for colonoscopy. With this she does not need a colonoscopy given she has no FHX of CRC - she can repeat the COloguard q 3 years. She had some diarrhea but this resolved with stopping metformin. She had some appetite problems, but this was r/t her Trulicity and she is snacking on finger foods. ROV prn Coding Level of Care Code New Pt Level 3 (35735) Diagnoses Pre-op examination Z01.818
[2024-04-11 13:07] VITALS: BP 131/56; PULSE 101; BMI 29.2
== END 2024-04-11 13:34 | disposition home or self-care (01) ==
PROVIDERS: PCP Internal Medicine; Visit Provider Nurse Practitioner
DX: Z12.11 Encounter for screening for malignant neoplasm of colon (principal)
CPT/HCPCS: 99024

== ENCOUNTER → 2024-04-11 13:02 | Outpatient (BNVA) | payer MEDICARE, SELFPAY | PROVIDERS: PCP Internal Medicine; Visit Provider Nurse Practitioner | DX: Z01.818 Encounter for other preprocedural examination (principal) | CPT/HCPCS: 99212 ==

== ENCOUNTER 2024-04-17 12:51 | Outpatient (AMB) | payer OTHER, SELFPAY ==
--- NOTE | 2024-04-17 13:29 | MHC.AMDMED ---
Intake Intake Visit Reasons: T2DM Obstetric Assistant Required: No Accompanied by: Self / Same As Patient Allergies insulin detemir Allergy (Unknown, Verified 03/28/24 13:54) hives insulin glargine Allergy (Unknown, Verified 03/28/24 13:54) rash/ hives Penicillins [PENICILLINS] Allergy (Unknown, Verified 03/28/24 13:54) HIVES sitagliptin [Januvia] Allergy (Unknown, Verified 03/28/24 13:54) hives metformin Adverse Reaction (Intermediate, Verified 03/28/24 13:54) diarrhea HPI Comprehensive Diabetes Asmnt Most Recent Diabetes Results: Microalb/Creat Ratio 7.8 ug/mg cr (<30) 03/17/24 Cholesterol 119 mg/dL (<200) 03/17/24 HDL Cholesterol 35 mg/dL (>40) L 03/17/24 Triglycerides 95 mg/dL (<150) 03/17/24 Creatinine 0.82 mg/dL (0.5-1.4) 03/17/24 Blood Urea Nitrogen 11 mg/dL (9-16) 03/17/24 Sodium 142 mmol/L (135-145) 03/17/24 Potassium 3.8 mmol/L (3.3-5.1) 03/17/24 Chloride 106 mmol/L (96-108) 03/17/24 Carbon Dioxide 27 mmol/L (22-29) 03/17/24 Calcium 9.4 mg/dL (8.4-10.2) 03/17/24 AST 39 U/L (5-31) H 03/17/24 ALT 24 U/L (0-31) 03/17/24 Total Protein 6.8 g/dL (6.5-8.0) 03/17/24 Albumin 4.0 g/dL (3.5-5.0) 03/17/24 [facility] Medical History Right hip pain Abdominal bloating Diarrhea Overweight (BMI 25.0-29.9) Right otitis media Left otitis media Left knee sprain Annual physical exam Obesity (BMI 30-39.9) Vitamin D deficiency H/O coronary angiogram Hip pain, bilateral Arthralgia Smoker Low back pain Benign essential hypertension Pure hypercholesterolemia Diabetes mellitus Surgical History H/O tubal ligation H/O colonoscopy Hx of appendectomy History of tonsillectomy History of laser refractive surgery History of cataract surgery Family History Mother Alzheimer disease Heart problem Father Heart attack Brother Cancer Sister Breast cancer Family/Other Breast cancer Other Substance abuse Social History Housing: Apartment Alcohol intake: current Alcohol intake frequency: holidays/special occasions only Patient Tobacco Use Status: Former Tobacco user Cigarettes Per Day: 5 e-Cigarette/Vaping Use: Never Used Second Hand Smoke Exposure: Yes service: No Current occupational status: employed Cognitive needs: No Hearing needs: No Vision needs: Yes Assessment & Plan Assessment & Plan (1) Diabetes mellitus: Code(s): E11.9 - Type 2 diabetes mellitus without complications Qualifiers: Diabetes mellitus type: type 2 Diabetes mellitus director long term care insulin use: without director long term care use Diabetes mellitus complication status: with other specified complication Qualified Code(s): E11.69 - Type 2 diabetes mellitus with other specified complication Plan: Patient at visit to set up an insert Asim 3 Instructed patient sensors water proof you can shower, or swim do not submerge sensor in water for over 30 minutes Is sensor falls off cannot put back in you need to replace sensor, customer service number given to patient for sensor replacement Sensor placed on the back of L arm Patient left visit with sensor in warmup Reviewed how to interpret trend arrows Reminded patient that to check finger sticks if symptoms do not match sensor reading. Discussed lag time between finger stick and sensor data.? Instructed patient she should always keep blood glucometer for backup testing if needed Reviewed delay of CGM from fingersticks Reminded pt that if symptoms do not match sensor still needs to check fingersticks. Portions of this note were created using voice recognition software, please excuse any words or phrases that may have been misinterpreted. Patient Instructions: Patient instruction: CGM provides information on blood glucose control throughout the day, including hyperglycemia and hypoglycemia. ? Continue to monitor blood glucose as instructed. Follow nutrition guidelines provided. Report any discomfort promptly to health care provider. ?Stay well-hydrated. You can bathe ,shower, swim and exercise while wearing the glucose sensor. Do not submerge glucose sensor in water for more than 30 minutes. Coding Level of Care Code Est Pt Level 1 (13923) Diagnoses Type 2 diabetes mellitus with other specified complication, without long-term current use of insulin E11.69 Diabetes mellitus type: type 2 Diabetes mellitus detention insulin use: without detention use Diabetes mellitus complication status: with other specified complication
== END 2024-04-17 13:58 | disposition home or self-care (01) ==
PROVIDERS: PCP Internal Medicine; Visit Provider Registered Nurse Diabetes Educator
DX: E11.69 Type 2 diabetes mellitus with other specified complication (principal)

== ENCOUNTER → 2024-04-17 12:51 | Outpatient (BNVA) | payer OTHER, SELFPAY | PROVIDERS: PCP Internal Medicine; Visit Provider Registered Nurse Diabetes Educator | DX: E11.69 Type 2 diabetes mellitus with other specified complication (principal) | CPT/HCPCS: 99211 ==

== ENCOUNTER 2024-04-25 13:29 | Outpatient (REF) | payer OTHER, SELFPAY ==
[2024-04-25 15:19] LABS: Appearance Urine Clear; Color Urine Yellow; Glucose Urine UA >=1000 mg/dL (Negative); Leukocyte Esterase Urine Negative (Negative); Nitrite Urine Negative (Negative); PH 5.5 (5.0-9.0); Specific Gravity - Urine >= 1.030 (1.005-1.025); UMIC TRIGGER UACC YES; Urine Blood Negative (Negative); Urine Ketones Negative (Negative); Urine Protein Negative (Neg-Trace)
[2024-04-25 15:27] LABS: Bacteria Urine None Seen (None Seen); Hyaline Casts Urine 0-2 /LPF (0-2); RBC Urine 0-2 /HPF (0-2); Squamous Epithelial Cell Urine 0-2 /HPF (0-2); WBC Urine 0-5 /HPF (0-5)
[2024-04-25 15:47] LABS: Anion Gap 11 (12-20); Blood Urea Nitrogen 12 mg/dL (9-16); Calcium 9.4 mg/dL (8.4-10.2); Carbon Dioxide 28 mmol/L (22-29); Chloride 107 mmol/L (96-108); Estimated Glomerular Filt Rate > 60; Glucose Random 98 mg/dL (60-115); Sodium 142 mmol/L (135-145)
== END 2024-04-25 13:30 | disposition home or self-care (01) ==
LOC: HO.LAB 13:29
PROVIDERS: PCP Internal Medicine; Visit Provider Nurse Practitioner Adult Health
DX: E11.69 Type 2 diabetes mellitus with other specified complication (principal)
CPT/HCPCS: 36415; 80048; 81001; 82947

== ENCOUNTER 2024-04-25 13:29 | Outpatient (AMB) | payer OTHER, SELFPAY ==
--- NOTE | 2024-04-25 13:37 | A.OFFVIS_ITS ---
Vital Signs 04/25/24 13:38 Height 5 ft 2 in Weight 160 lb 14.999 oz BMI 29.4 BP 116/78 Position Sitting Pulse 92 Pulse Source Pulse Oximeter Intake Visit Reasons: T2DM/CONFIRMED Intake Note: Patient presents today for a follow-up on Type 2 Diabetes Mellitus: Last Diabetic Eye exam: OVER DUE Last Podiatry Exam: Does not see a Compacting Machine Operator/Tender Most recent HbA1c: 9.4%, 03/17/2024 Random Glucose- 119 mg/dL, Today Allergies insulin detemir Allergy (Unknown, Verified 03/28/24 13:54) hives insulin glargine Allergy (Unknown, Verified 03/28/24 13:54) rash/ hives Penicillins [PENICILLINS] Allergy (Unknown, Verified 03/28/24 13:54) HIVES sitagliptin [Januvia] Allergy (Unknown, Verified 03/28/24 13:54) hives metformin Adverse Reaction (Intermediate, Verified 03/28/24 13:54) diarrhea PFSH Medical History Right hip pain Abdominal bloating Diarrhea Overweight (BMI 25.0-29.9) Right otitis media Left otitis media Left knee sprain Annual physical exam Obesity (BMI 30-39.9) Vitamin D deficiency H/O coronary angiogram Hip pain, bilateral Arthralgia Smoker Low back pain Benign essential hypertension Pure hypercholesterolemia Diabetes mellitus Surgical History H/O tubal ligation H/O colonoscopy Hx of appendectomy History of tonsillectomy History of laser refractive surgery History of cataract surgery Family History Mother Alzheimer disease Heart problem Father Heart attack Brother Cancer Sister Breast cancer Family/Other Breast cancer Other Substance abuse Social History Housing: Apartment Alcohol intake: current Alcohol intake frequency: holidays/special occasions only Patient Tobacco Use Status: Former Tobacco user Cigarettes Per Day: 5 e-Cigarette/Vaping Use: Never Used Second Hand Smoke Exposure: Yes service: No Current occupational status: employed Cognitive needs: No Hearing needs: No Vision needs: Yes Coding
[2024-04-25 13:38] VITALS: BP 116/78; PULSE 92; BMI 29.4
--- NOTE | 2024-04-25 13:44 | A.OFFVIS_ITS ---
Vital Signs 04/25/24 13:38 Height 5 ft 2 in Weight 160 lb 14.999 oz BMI 29.4 BP 116/78 Position Sitting Pulse 92 Pulse Source Pulse Oximeter Intake Visit Reasons: T2DM/CONFIRMED Intake Note: Patient presents today for a follow-up on Type 2 Diabetes Mellitus: Last Diabetic Eye exam: DUE Last Podiatry Exam: Does not see a Door To Door Selling Distributor Most recent HbA1c: 9.4%, 03/17/2024 Random Glucose- 119 mg/dL, Today Allergies insulin detemir Allergy (Unknown, Verified 03/28/24 13:54) hives insulin glargine Allergy (Unknown, Verified 03/28/24 13:54) rash/ hives Penicillins [PENICILLINS] Allergy (Unknown, Verified 03/28/24 13:54) HIVES sitagliptin [Januvia] Allergy (Unknown, Verified 03/28/24 13:54) hives metformin Adverse Reaction (Intermediate, Verified 03/28/24 13:54) diarrhea HPI Comments Details: Details: [78] YO [M/F] who is seen in f/u for type 2 diabetes. She was last seen by Maryanne MCGRAW for freestyle Asim sensor training and by myself as a new patient several weeks ago at which time she was started on Jardiance. Initially diagnosed with T2DM in [1995 ]. Most recent HbA1c: 9.4%, 03/17/2024 Was initially started on treatment with [glipizide]. Metformin (not er) gas/bloating Lantus/levemir hives Diffuse rash with Lantus many years ago glipizide stopped:ineffective Current regimen [Trulicity 1.5mg] and Jardiance. Has been on Trulicity for several years, recently tried 3.0 mg and was unable to tolerate. Average glucose is 138. Had 1 yeast infection since starting Jardiance and cleared with otc Rx. Reports low sugars [none]. Treats lows with [Doesn't carry a source of sugar]. [Checks] sugar after to ensure it is rising. . Had eyes checked yearly in the past, last eye exam [2-3 years ago], [not certain] retinopathy. She will call with the name of the Opthamologist she would like to see if [employer] requires a referral. [Denies ] neuropathy, last foot exam [Sees PA at the [facility]], [Denies] nephropathy, on [KENNY]. [Has] HLD, on [statin]. Last LDL [65] as measured on [03/13]. [Denies] CAD. Sees vascular has had angioplasty Denies numbness, tingling, cramping in legs Diet: [Eats a slice of toast/ 1/2 banana for breakfast, picks on veg/fruit/cheese for lunch and small dinner.] Weight: [stable, appetite down since Trulicity] [Had] diabetes education. None recent with exception of sensor training. She quit smoking a year and a half ago. Rare alcohol PFSH Medical History Right hip pain Abdominal bloating Diarrhea Overweight (BMI 25.0-29.9) Right otitis media Left otitis media Left knee sprain Annual physical exam Obesity (BMI 30-39.9) Vitamin D deficiency H/O coronary angiogram Hip pain, bilateral Arthralgia Smoker Low back pain Benign essential hypertension Pure hypercholesterolemia Diabetes mellitus Surgical History H/O tubal ligation H/O colonoscopy Hx of appendectomy History of tonsillectomy History of laser refractive surgery History of cataract surgery Family History Mother Alzheimer disease Heart problem Father Heart attack Brother Cancer Sister Breast cancer Family/Other Breast cancer Other Substance abuse Social History Housing: Apartment Alcohol intake: current Alcohol intake frequency: holidays/special occasions only Patient Tobacco Use Status: Former Tobacco user Cigarettes Per Day: 5 e-Cigarette/Vaping Use: Never Used Second Hand Smoke Exposure: Yes service: No Current occupational status: employed Cognitive needs: No Hearing needs: No Vision needs: Yes Physical Exam Vital Signs: Last Vital Signs Pulse 92 04/25/24 13:38 BP 116/78 04/25/24 13:38 BMI result Body Mass Index 29.4 Const General: cooperative and healthy appearing Nutritional Appearance: average body habitus Neck Neck: Yes normal visual inspection Resp Effort & Inspection: normal respiratory effort Cardio Jugular venous distension: no JVD Rate: regular rate Rhythm: regular rhythm Heart sounds: S1 normal heart sound present and S2 normal heart sound present Results Reviewed Results Reviewed: Laboratory Last Values Glucose (Clinic) 119 mg/dL (60-115) H 04/25/24 13:43 Laboratory Tests 03/17/24 03/17/24 12:05 12:10 Plt Count 350 Potassium 3.8 Creatinine 0.82 Estimated GFR > 60 Hemoglobin A1c % 9.4 H Calcium 9.4 D AST 39 H ALT 24 Triglycerides 95 Cholesterol 119 LDL Cholesterol, Calc 65 HDL Cholesterol 35 L 25-OH Vitamin D Total 27.3 L TSH 1.51 Urine Creatinine 228.04 Urine Microalbumin 18.0 Microalb/Creat Ratio 7.8 Assessment & Plan Assessment & Plan (1) Diabetes mellitus: Code(s): E11.9 - Type 2 diabetes mellitus without complications Category: Medical Qualifiers: Diabetes mellitus type: type 2 Diabetes mellitus usp insulin use: without intermediate project manager use Diabetes mellitus complication status: with other specified complication Qualified Code(s): E11.69 - Type 2 diabetes mellitus with other specified complication Plan: Type 2 diabetic with improved readings on Trulicity, Jardiance and freestyle Asim 3. She has had 1 yeast infections since starting Jardiance which she treated OTC. I again today reviewed side effects with her. She will contact our office with the name of the transport tech she would like to see if she needs a referral through [employer]. She has road ordered an elliptical link trainer operator and we will start exercising on this. She is requesting a new meter in the event she needs to test her sugar to confirm a low or reading out of the ordinary. She will have labs done today and I will see him back in 4 months. Orders: Orders Basic Metabolic Panel Today E11.69 - Type 2 diabetes mellitus with other specified complication Medications: New blood-glucose sensor (FreeStyle Asim 3 Sensor device) As directed 6 11RF blood-glucose meter (FreeStyle Lite Meter kit) As directed prn low reading on sensor 1 ea 0RF blood sugar diagnostic (FreeStyle Lite Strips) As directed prn low on glucose sensor 50 ea 1RF lancets (Fingerstix Lancets) As directed for use with freestyle lite prn low glucose on sensor 50 ea 1RF E11.69 - Type 2 diabetes mellitus with other specified complication Discontinued blood-glucose sensor (FreeStyle Asim 3 Sensor device) Discontinued Reason: Doctor's Order As directed 2 ea 11RF Coding Level of Care Code Est Pt Level 4 (17220) Diagnoses Type 2 diabetes mellitus with other specified complication, without long-term current use of insulin E11.69 Diabetes mellitus type: type 2 Diabetes mellitus usp insulin use: without intermediate project manager use Diabetes mellitus complication status: with other specified complication Time Spent (min) 30 Comment Time spent reviewing labs/previous provider notes, face to face, chart documenta tion
[2024-04-25 13:50] LABS: Glucose, Whole Blood 119 mg/dL (60-115)
== END 2024-04-25 14:08 | disposition home or self-care (01) ==
PROVIDERS: PCP Internal Medicine; Visit Provider Nurse Practitioner Adult Health
DX: E11.69 Type 2 diabetes mellitus with other specified complication (principal)
CPT/HCPCS: 99214

== ENCOUNTER 2024-05-01 15:25 | Outpatient (AMB) | payer OTHER, SELFPAY ==
--- NOTE | 2024-05-01 15:54 | MHC.AMDMED ---
Intake Intake Visit Reasons: 60 min/CONFIRMED Retail Pricing Coordinator Required: No Accompanied by: Self / Same As Patient Allergies insulin detemir Allergy (Unknown, Verified 03/28/24 13:54) hives insulin glargine Allergy (Unknown, Verified 03/28/24 13:54) rash/ hives Penicillins [PENICILLINS] Allergy (Unknown, Verified 03/28/24 13:54) HIVES sitagliptin [Januvia] Allergy (Unknown, Verified 03/28/24 13:54) hives metformin Adverse Reaction (Intermediate, Verified 03/28/24 13:54) diarrhea HPI Comprehensive Diabetes Asmnt Most Recent Diabetes Results: Hemoglobin A1c 11.4 % 02/09/20 Microalb/Creat Ratio 7.8 ug/mg cr (<30) 03/17/24 Cholesterol 119 mg/dL (<200) 03/17/24 HDL Cholesterol 35 mg/dL (>40) L 03/17/24 Triglycerides 95 mg/dL (<150) 03/17/24 Creatinine 0.79 mg/dL (0.5-1.4) 04/25/24 Blood Urea Nitrogen 12 mg/dL (9-16) 04/25/24 Sodium 142 mmol/L (135-145) 04/25/24 Potassium 4.0 mmol/L (3.3-5.1) 04/25/24 Chloride 107 mmol/L (96-108) 04/25/24 Carbon Dioxide 28 mmol/L (22-29) 04/25/24 Calcium 9.4 mg/dL (8.4-10.2) 04/25/24 AST 39 U/L (5-31) H 03/17/24 ALT 24 U/L (0-31) 03/17/24 Total Protein 6.8 g/dL (6.5-8.0) 03/17/24 Albumin 4.0 g/dL (3.5-5.0) 03/17/24 [facility] Medical History Right hip pain Abdominal bloating Diarrhea Overweight (BMI 25.0-29.9) Right otitis media Left otitis media Left knee sprain Annual physical exam Obesity (BMI 30-39.9) Vitamin D deficiency H/O coronary angiogram Hip pain, bilateral Arthralgia Smoker Low back pain Benign essential hypertension Pure hypercholesterolemia Diabetes mellitus Surgical History H/O tubal ligation H/O colonoscopy Hx of appendectomy History of tonsillectomy History of laser refractive surgery History of cataract surgery Family History Mother Alzheimer disease Heart problem Father Heart attack Brother Cancer Sister Breast cancer Family/Other Breast cancer Other Substance abuse Social History Housing: Apartment Alcohol intake: current Alcohol intake frequency: holidays/special occasions only Patient Tobacco Use Status: Former Tobacco user Cigarettes Per Day: 5 e-Cigarette/Vaping Use: Never Used Second Hand Smoke Exposure: Yes service: No Current occupational status: employed Cognitive needs: No Hearing needs: No Vision needs: Yes Assessment & Plan Assessment & Plan (1) Diabetes mellitus: Code(s): E11.9 - Type 2 diabetes mellitus without complications Qualifiers: Diabetes mellitus type: type 2 Diabetes mellitus penitentiary insulin use: without termite exterminator helper use Diabetes mellitus complication status: with other specified complication Qualified Code(s): E11.69 - Type 2 diabetes mellitus with other specified complication Plan: Personal Continuous Glucose Monitor: Patients CGM information reviewed Reviewed patient's sensor data: Hypoglycemia: ? 0% Hyperglycemia:? 16% Time in Range:? 84% Average glucose for the last 2 weeks?145 mg/dL Patient able to insert new sensor independently at visit without issue.? Patient reports she has changed portions of carbohydrates at meals, and eliminated many high carbohydrate foods. Reviewed with patient diabetes food hub website, for recipe ideas for breakfast. Reviewed how to interpret trend arrows Reminded patient that to check finger sticks if symptoms do not match sensor reading. Discussed lag time between finger stick and sensor data.? Patient will follow-up with ict educator as instructed Portions of this note were created using voice recognition software, please excuse any words or phrases that may have been misinterpreted. Patient Instructions: Follow-up with ict educator in 10 weeks Coding Level of Care Code Est Pt Level 1 (23315) Diagnoses Type 2 diabetes mellitus with other specified complication, without long-term current use of insulin E11.69 Diabetes mellitus type: type 2 Diabetes mellitus termite exterminator helper insulin use: without penitentiary use Diabetes mellitus complication status: with other specified complication
== END 2024-05-01 15:56 | disposition home or self-care (01) ==
PROVIDERS: PCP Internal Medicine; Visit Provider Registered Nurse Diabetes Educator
DX: E11.69 Type 2 diabetes mellitus with other specified complication (principal)

== ENCOUNTER → 2024-05-01 15:25 | Outpatient (BNVA) | payer OTHER, SELFPAY | PROVIDERS: PCP Internal Medicine; Visit Provider Registered Nurse Diabetes Educator | DX: E11.69 Type 2 diabetes mellitus with other specified complication (principal) | CPT/HCPCS: 99211 ==

== ENCOUNTER 2024-05-15 12:55 | Outpatient (REF) | payer OTHER, SELFPAY ==
--- NOTE | ~2024-05-15 | US_ITS ---
EXAMINATION: Noninvasive assessment of the bilateral lower extremities with ARTERIAL DUPLEX and ANKLE BRACHIAL INDICES (ABIs). CLINICAL INFORMATION: Peripheral vascular disease TECHNIQUE: Duplex Doppler techniques with waveform analysis and measurement of velocities in the bilateral common femoral, profunda femoris, superficial femoral, popliteal and tibial arteries were performed. Additionally, ankle pulse volume recordings, ankle pressure measurements and ankle brachial indices were obtained of the lower extremity arterial system bilaterally. The study was performed only at rest. COMPARISON: Noninvasive arterial evaluation from 01/04/2024, ultrasound from 03/25/2023 and arteriogram from 01/12/2024 FINDINGS: DIRECT DUPLEX DOPPLER FINDINGS: RIGHT LEG: Common femoral artery: 165 cm/s, phasicity: Biphasic Profunda femoris artery: 171 cm/s, phasicity: Triphasic Superficial femoral artery (proximal): 145 cm/s, phasicity: Biphasic Superficial femoral artery (mid): 130 cm/s, phasicity: Biphasic Superficial femoral artery (distal): 83.4 cm/s, phasicity: Biphasic Popliteal artery: 72.4 cm/s, phasicity: Monophasic Posterior tibial artery: 90.8 cm/s, phasicity: Biphasic. The mid segment is occluded. The distal segment demonstrates retrograde flow Peroneal artery: 88 cm/s, phasicity: Monophasic Anterior tibial artery: 30 cm/s, phasicity: Biphasic Dorsalis pedis artery: 46.2 cm/s, phasicity:Monophasic LEFT LEG: Common femoral artery: 94.1 cm/s, phasicity: Biphasic Profunda femoris artery: 111 cm/s, phasicity: Biphasic Superficial femoral artery (proximal): 145 cm/s, phasicity: Biphasic Superficial femoral artery (mid): 48.5 cm/s, phasicity: Biphasic Superficial femoral artery (distal): 73.1 cm/s, phasicity: Biphasic Popliteal artery: 50.9 cm/s, phasicity: Biphasic Posterior tibial artery: 93.7 cm/s, phasicity: Biphasic. The mid and distal segments are occluded Peroneal artery: 40.5 cm/s, phasicity: Monophasic Anterior tibial artery: 70.9 cm/s, phasicity: Monophasic Dorsalis pedis artery: 27.4 cm/s, phasicity: Monophasic ANKLE-BRACHIAL INDEX: Right: 1.56 Left: 1.56 ANKLE PRESSURES: Right: PT 115, DP 200 Left: PT 141, DP 200 ANKLE PVR WAVEFORMS: Right: Abnormal Left: Abnormal US/US arterial duplex BI w/ DANYELLE IMPRESSION: RIGHT LEG: No significant inflow disease. Patent femoral-popliteal segment. Occluded mid posterior tibial artery with retrograde flow in the distal segment. Patent anterior tibial artery. LEFT LEG: No significant inflow disease. Patent femoral-popliteal segment. Occluded mid and distal posterior tibial artery. Patent anterior tibial artery. Electronically signed by: Donald Santillan MD 05/18/2024 01:26 PM EDT RP
== END 2024-05-15 12:56 | disposition home or self-care (01) ==
LOC: HO.US 12:55
PROVIDERS: PCP Internal Medicine; Visit Provider Surgery Vascular Surgery
DX: I73.9 Peripheral vascular disease, unspecified (principal)
CPT/HCPCS: 93922; 93925

== ENCOUNTER 2024-05-23 12:47 | Outpatient (AMB) | payer MEDICARE, SELFPAY ==
--- NOTE | 2024-05-23 13:00 | A.OFFVIS_ITS ---
Vital Signs 05/23/24 13:01 Height 5 ft 2 in Weight 160 lb BMI 29.3 Intake Visit Reasons: 3m f/u s/p ART US 05/15/24 Intake Note: 3 mo follow up arterial US 05/15/24 w hx of Left LE ANgio 01/12/24 & Right LE Angio 05/13/22. Pt states legs feel good, no comlaints Accompanied by: Self / Same As Patient Allergies insulin detemir Allergy (Unknown, Verified 05/23/24 13:03) hives insulin glargine Allergy (Unknown, Verified 05/23/24 13:03) rash/ hives Penicillins [PENICILLINS] Allergy (Unknown, Verified 05/23/24 13:03) HIVES sitagliptin [Januvia] Allergy (Unknown, Verified 05/23/24 13:03) hives metformin Adverse Reaction (Intermediate, Verified 05/23/24 13:03) diarrhea HPI HPI 3m f/u s/p ART US 05/15/24: Details: Very pleasant 78-year-old female presents for routine surveillance arterial follow-up. She had had prior endovascular intervention in her right leg in 2021 and her left leg 3 months prior. Reports both legs are doing fairly well. She can easily walk a block without any significant difficulty. She is able to carry out her daily activities including shopping. She now presents for routine follow-up. [facility] Medical History Right hip pain Abdominal bloating Diarrhea Overweight (BMI 25.0-29.9) Right otitis media Left otitis media Left knee sprain Annual physical exam Obesity (BMI 30-39.9) Vitamin D deficiency H/O coronary angiogram Hip pain, bilateral Arthralgia Smoker Low back pain Benign essential hypertension Pure hypercholesterolemia Diabetes mellitus Surgical History H/O tubal ligation H/O colonoscopy Hx of appendectomy History of tonsillectomy History of laser refractive surgery History of cataract surgery Family History Mother Alzheimer disease Heart problem Father Heart attack Brother Cancer Sister Breast cancer Family/Other Breast cancer Other Substance abuse Social History Housing: Apartment Alcohol intake: current Alcohol intake frequency: holidays/special occasions only Patient Tobacco Use Status: Former Tobacco user Cigarettes Per Day: 5 e-Cigarette/Vaping Use: Never Used Second Hand Smoke Exposure: Yes service: No Current occupational status: employed Cognitive needs: No Hearing needs: No Vision needs: Yes Review of Systems Const All systems reviewed & are unremarkable except as noted in HPI and below Reports no additional complaints ENT Reports Normal hearing present Card Denies chest pain, Denies chest pain at rest, Denies chest pain with activity and Denies pedal edema Resp Denies cough GI Denies abdominal pain Musc Denies abnormal gait, Denies muscle cramps and Denies radiating pain into limb Skin/Breast Denies skin ulcer and Denies wounds Neuro Reports Normal hearing present and Denies abnormal gait Psych Reports no additional complaints Physical Exam Vital Signs: BMI result Body Mass Index 29.3 Const General: cooperative, healthy appearing and comfortable Orientation/consciousness: oriented to person, oriented to place and oriented to time HEENT Head: Yes normal to inspection Neck Neck: Yes normal visual inspection Carotids: no bruits Chest Chest palpation & inspection: normal inspection of the chest Resp Effort & Inspection: normal respiratory effort and able to speak in complete sentences Auscultation: clear to auscultation bilaterally, no crackles, no rales, no rhonchi and no wheezes Cardio Other: Bilateral DP signals Rate: regular rate Rhythm: regular rhythm Heart sounds: S1 normal heart sound present and S2 normal heart sound present Bruits: no carotid bruits GI Inspection: Yes normal to inspection Skin Wounds: no wounds Hair: normal Neuro General: oriented to person, oriented to place and oriented to time Cranial nerves: Yes CN's II-XII intact bilaterally and Yes Normal hearing present Cognition (Neuro): normal cognition Motor exam (neuro): 5/5 motor strength present throughout Extrem Other: venous exam: No significant superficial varicosities or spider telangiectasias, minimal edema General: No clubbing, No cyanosis and No edema Psych Appearance: grossly normal Mental Status: mental status grossly normal Speech and movement: Normal speech and movement present Results Reviewed Results Reviewed: Noninvasive arterial testing dated 05/15/2024 demonstrates DANYELLE on the right of 1.56 and on the left of 1.56 both are artifactually elevated but SFA is look patent. Written report and images were reviewed Assessment & Plan Assessment & Plan (1) PAD (peripheral artery disease): Comment: 05/13/2022 - right SFA atherectomy and plasty, 01/12/2024 - left SFA atherectomy and plasty Code(s): I73.9 - Peripheral vascular disease, unspecified Category: Medical Plan: In short patient has stable claudication. I did review the pathophysiology of peripheral vascular disease with the patient. In addition we did discuss routine conservative measures including a healthy diet and the importance of exercise and ambulation. We did discuss risk factor modification. The patient will continue to to follow-up with surveillance follow-up in approximately 6 months. Thank you for allowing us to participate in this patient's care. If there are any questions or concerns please do not hesitate to contact us. Please note a longitudinal relationship has been created with the patient and we have been following and surveillance this chronic condition. Orders: Orders US arterial duplex LE BI 1 Week I73.9 - Peripheral vascular disease, unspecified Coding Level of Care Code Est Pt Level 4 (36779) Complex EM visit Add On G2211 Diagnoses PAD (peripheral artery disease) I73.9
[2024-05-23 13:01] VITALS: BMI 29.3
== END 2024-05-23 13:22 | disposition home or self-care (01) ==
PROVIDERS: PCP Internal Medicine; Visit Provider Surgery Vascular Surgery
DX: I73.9 Peripheral vascular disease, unspecified (principal)
CPT/HCPCS: 99214; G2211

== ENCOUNTER → 2024-05-23 12:47 | Outpatient (BNVA) | payer MEDICARE, SELFPAY | PROVIDERS: PCP Internal Medicine; Visit Provider Surgery Vascular Surgery | DX: I73.9 Peripheral vascular disease, unspecified (principal) | CPT/HCPCS: 99212 ==

== ENCOUNTER 2024-07-05 13:44 | Outpatient (REF) | payer MEDICARE, SELFPAY ==
[2024-07-05 14:32] LABS: MANUAL DIFF FLAG NO
[2024-07-05 15:55] LABS: Basophils Percent Auto 0.5 % (0-2); Eosinophils Absolute Auto 0.2 X10*3/uL (0.0-0.4); Eosinophils Percent Auto 2.3 % (0-4); Hematocrit 44.8 % (37.0-47.0); Hemoglobin 14.3 g/dl (12.0-16.0); Imm Gran Abs Auto 0.01 X10*3/uL (0.00-0.03); Imm Gran Pct Auto 0.2 % (0.0-0.4); Lymphocytes Absolute Auto 2.9 X10*3/uL (1.2-4.9); Lymphocytes Percent Auto 44.1 % (20-40); Mean Corpuscular HGB Conc 31.9 g/dl (31.0-35.0); Mean Corpuscular Hemoglobin 28.1 pg (27.0-33.0); Mean Corpuscular Volume 88.2 fL (80.0-98.0); Mean Platelet Volume 8.5 fL (9.4-12.3); Monocytes Absolute Auto 0.3 X10*3/uL (0.1-1.2); Monocytes Percent Auto 5.2 % (2-11); Neutrophils Absolute Auto 3.1 x10*3/uL (2.0-8.3); Neutrophils Percent Auto 47.7 % (45-73); Platelet Count 339 X10*3/uL (160-400); Red Blood Count 5.08 X10*6/uL (4.20-5.50); White Blood Count 6.5 X10*3/uL (4.8-10.8)
[2024-07-05 16:34] LABS: Alanine Aminotransferase 19 U/L (0-31); Alkaline Phosphatase 80 U/L (39-117); Anion Gap 12 (12-20); Aspartate Amino Transferase 40 U/L (5-31); Bilirubin Total 0.4 mg/dL (0.0-1.0); Blood Urea Nitrogen 10 mg/dL (9-16); Calcium 9.4 mg/dL (8.4-10.2); Carbon Dioxide 29 mmol/L (22-29); Chloride 106 mmol/L (96-108); Cholesterol 178 mg/dL (<200); Estimated Glomerular Filt Rate > 60; Glucose Fasting 117 mg/dL (60-99); HDL Cholesterol 36 mg/dL (>40); LDL Cholesterol Calculated 121 mg/dL (<100); Potassium 4.1 mmol/L (3.3-5.1); Sodium 143 mmol/L (135-145); Total Protein 6.5 g/dL (6.5-8.0); Triglycerides 105 mg/dL (<150)
[2024-07-05 16:36] LABS: Appearance Urine Clear; Color Urine Yellow; Glucose Urine UA 500 mg/dL (Negative); Leukocyte Esterase Urine Trace (Negative); Nitrite Urine Negative (Negative); PH 5.5 (5.0-9.0); Specific Gravity - Urine 1.025 (1.005-1.025); UMIC TRIGGER UACC YES; Urine Blood Negative (Negative); Urine Ketones Trace mg/dL (Negative); Urine Protein Negative (Neg-Trace)
[2024-07-05 16:50] LABS: Estimated Average Glucose 140 mg/dL; Hemoglobin A1C 175.8188 umol/L; Hemoglobin A1c % 6.5 % (<6.0)
[2024-07-05 17:04] LABS: Creatinine Urine 182.86 mg/dL; Microalbum/Creatinine Ratio Ur 8.2 ug/mg cr (<30)
[2024-07-05 17:25] LABS: Bacteria Urine None Seen (None Seen); Hyaline Casts Urine 0-2 /LPF (0-2); RBC Urine 0-2 /HPF (0-2); UACC Culture Trigger YES
== END 2024-07-05 13:45 | disposition home or self-care (01) ==
LOC: HO.LAB 13:44
PROVIDERS: PCP Internal Medicine; Visit Provider Internal Medicine
DX: D64.9 Anemia, unspecified (principal); E11.9 Type 2 diabetes mellitus without complications; E78.00 Pure hypercholesterolemia, unspecified; R30.0 Dysuria
CPT/HCPCS: 36415; 80053; 80061; 81001; 81003; 82043; 82570; 83036; 85025; 87086

== ENCOUNTER 2024-07-07 14:28 | Outpatient (AMB) | payer MEDICARE, SELFPAY ==
--- NOTE | 2024-07-07 14:31 | MHC.PC.OV ---
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 Required: No Accompanied by: Self / Same As Patient Allergies insulin detemir Allergy (Unknown, Verified 07/07/24 14:46) hives insulin glargine Allergy (Unknown, Verified 07/07/24 14:46) rash/ hives Penicillins [PENICILLINS] Allergy (Unknown, Verified 07/07/24 14:46) HIVES sitagliptin [Januvia] Allergy (Unknown, Verified 07/07/24 14:46) hives metformin Adverse Reaction (Intermediate, Verified 07/07/24 14:46) diarrhea Medication List - Last Reconciled 07/07/24 by Jono Vallecillo MD aspirin 81 mg PO DAILY atorvastatin 40 mg PO DAILY blood sugar diagnostic (OneTouch Ultra Test strips) As directed prn tid to confirm glucose sensor readings blood-glucose meter As directed Dispense as one touch ultra prn to confirm glucose sensor blood-glucose sensor (FreeStyle Asim 3 Sensor device) As directed cholecalciferol (vitamin D3) 50 mcg PO DAILY 90 days clopidogrel 75 mg PO DAILY diclofenac sodium 1% (Arthritis Pain (diclofenac)) 2 grams topical QID PRN dulaglutide (Trulicity) 1.5 mg (0.5 mL) subcut QWEEK empagliflozin (Jardiance) 10 mg PO DAILY 30 days gabapentin 100 mg PO TID PRN 30 days lancets (Fingerstix Lancets) As directed for use with freestyle lite prn low glucose on sensor lisinopril 5 mg PO DAILY tramadol 50 mg PO TID PRN 30 days Tobacco use date assessed: 07/07/24 Fall risk assessment: No Falls in past year Last assessed Fall Risk: 07/07/24 Dental Screening Dental Screen Date: 07/07/24 Did you have a dental visit in the last 12 months?: No Did you have a dental problem in the last 6 months where you did not have access to dental care?: No Was dental information given to patient?: No HPI DM, hyperlipidemia HPI Details Patient comes in today for her follow-up visit States that she feels okay She denies any headaches or dizziness Denies any chest pains, no shortness of breath No nausea/ vomiting, no abdominal pain No change in bowel habits noted States that her chronic low back pain and joint pains remain adequately controlled on her current Rx Needs a few of her Rx refilled She had her follow-up labs done a couple of days ago - to discuss her results [facility] Medical History Right hip pain Abdominal bloating Diarrhea Overweight (BMI 25.0-29.9) Right otitis media Left otitis media Left knee sprain Annual physical exam Obesity (BMI 30-39.9) Vitamin D deficiency H/O coronary angiogram Hip pain, bilateral Arthralgia Smoker Low back pain Benign essential hypertension Pure hypercholesterolemia Diabetes mellitus Surgical History H/O tubal ligation H/O colonoscopy Hx of appendectomy History of tonsillectomy History of laser refractive surgery History of cataract surgery Family History Mother Alzheimer disease Heart problem Father Heart attack Brother Cancer Sister Breast cancer Family/Other Breast cancer Other Substance abuse Social History Housing: Apartment Alcohol intake: current Alcohol intake frequency: holidays/special occasions only Patient Tobacco Use Status: Former Tobacco user Cigarettes Per Day: 5 e-Cigarette/Vaping Use: Never Used Second Hand Smoke Exposure: Yes service: No Current occupational status: employed Cognitive needs: No Hearing needs: No Vision needs: Yes Questionnaire PHQ-9 Over the last 2 weeks, how often have you been bothered by any of the following problems? 1. Little interest or pleasure in doing things: not at all 2. Feeling down, depressed, or hopeless: not at all 3. Trouble falling or staying asleep, or sleeping too much: not at all 4. Feeling tired or having little energy: not at all 5. Poor appetite or overeating: not at all 6. Feeling bad about yourself - or that you are a failure or have let yourself or your family down: not at all 7. Trouble concentrating on things, such as reading the newspaper or watching television: not at all 8. Moving or speaking so slowly that other people could have noticed. Or the opposite - being so fidgety or restless that you have been moving around a lot more than usual: not at all 9. Thoughts that you would be better off or of hurting yourself in some way: not at all Total score: 0 Depression Screening Interpretation: Negative Depression Screening Done: Yes 42471 - PHQ-9 Billing: Yes Source: Developed by Drs. Jet Sutton, Anali Darby, Rg Fleming and colleagues, with an educational casandra from [employer]. Thrive Questionnaire Date Thrive assessed: 07/07/24 I am a: Patient What is your living situation today?: I have a steady place to live Within the past 12 months, did the food you bought not last and you didn't have the money to get more?: Never true Within the past 12 months, did you worry whether your food would run out before you got money to buy more?: Never true Do you have trouble paying for medicines?: No Do you have trouble getting transportation to medical appointments?: No Do you have trouble paying your heating and electricity bill?: No Do you have trouble taking care of your child, family member or friend?: No Do you have trouble with day-to-day activities such as bathing, preparing meals, shopping, managing finances, etc.?: No Are you currently unemployed and looking for a job?: No Are you interested in more education?: No Please select the resources that you would like help with: None Currently or been in a relationship where the following occur: No concerns reported THRIVE Score: 0 AUDIT C Alcohol Use Questionnaire (AUDIT-C) 1. How often do you have a drink containing alcohol?: Monthly or less 2. How many drinks containing alcohol do you have on a typical day when you are drinking?: 1 or 2 3. How often do you have six or more drinks on one occasion?: Never Total Score: 1 Score Reviewed/Action Taken: Yes WILDA-7 AMB Questionnaire WILDA-7 Date WILDA - 7 assessed: 07/07/24 Feeling nervous, anxious, or on edge: 0 = Not at all Not being able to stop or control worryin = Not at all Worrying too much about different things: 0 = Not at all Trouble relaxin = Not at all Being so restless that it is hard to sit still: 0 = Not at all Becoming easily annoyed or irritable: 0 = Not at all Feeling afraid as if something awful might happen: 0 = Not at all Total WILDA-7 score (0-4 normal; 5-9 mild; 10-14 moderate; 15-21 severe): 0 Source: Developed by Drs. Jet Sutton, Anali Darby, Rg Fleming and colleagues, with an educational casandra from [employer]. Review of Systems Const Denies chills, Denies fatigue, Denies fever(s) and Denies headache(s) ENT Denies dysphagia, Denies dizziness, Denies otalgia, Denies headache(s), Denies neck pain, Denies odynophagia and Denies sore throat Card Denies chest pain, Denies palpitations and Denies dyspnea Resp Reports chest congestion, Denies cough and Denies dyspnea GI Denies abdominal pain, Denies constipation, Denies dysphagia, Denies heartburn, Denies diarrhea, Denies nausea, Denies odynophagia and Denies vomiting Denies difficulty voiding, Denies nocturia, Denies dysuria (but occasional sensation of irritation - thinks it is due to Jardiance) and Denies urinary urgency Musc Reports back pain (over the lower back - chronic), Reports arthralgias (in both hips, on and off) and Denies neck pain Skin/Breast Denies rash Neuro Denies dizziness and Denies headache(s) Endo Denies fatigue and Denies palpitations Physical exam (Primary Care) Vital Signs: Last Vital Signs Pulse 100 07/07/24 14:32 BP 110/62 07/07/24 14:32 Pulse Ox 96 07/07/24 14:32 Oxygen Delivery Method Room Air 07/07/24 14:32 BMI result Body Mass Index 29.0 Tobacco/Smoking Status: Tobacco use Status Tobacco use date assessed 07/07/24 07/07/24 14:34 Patient Tobacco Use Status Former Tobacco user 07/07/24 14:32 e-Cigarette/Vaping Use Never Used 07/07/24 14:32 PHQ-9: PHQ-9 Score PHQ-9: Total score 0 07/07/24 14:52 Depression Screening Interpretation: Negative Thrive Assessment: Date of Thrive Assessment Date Thrive assessed 07/07/24 07/07/24 14:34 Currently or been in a relationship where the following occur: No concerns reported Const General: no acute distress and alert HENMT Ears: TM's normal bilaterally and EAC's normal Throat: Yes posterior oropharynx normal and Yes tonsils normal (no TP congestion) Neck Neck: Yes no lymphadenopathy and Yes supple Thyroid: Thyroid normal Resp Auscultation: clear to auscultation bilaterally, no rales and no wheezes Cardio Rate: regular rate Rhythm: regular rhythm Heart sounds: no murmurs GI Palpation (GI): Soft to palpation and nontender Auscultation: normal bowel sounds General: Yes no CVA tenderness Back/Spine/Pelvis Back: no CVA tenderness Thoracic/Lumbar Spine: lumbar spinal tenderness (mild) Extrem General: Yes no clubbing, cyanosis or edema Right lower extremity: hip/thigh Details: tenderness Location: of the hip Left lower extremity: knee Details: tenderness; no swelling Results Reviewed Results Reviewed: Laboratory Tests 07/05/24 07/05/24 14:30 14:31 WBC 6.5 Hgb 14.3 Hct 44.8 Plt Count 339 Sodium 143 Potassium 4.1 Creatinine 0.78 Estimated GFR > 60 Fasting Glucose 117 H Hemoglobin A1c % 6.5 H Calcium 9.4 AST 40 H ALT 19 Triglycerides 105 Cholesterol 178 LDL Cholesterol, Calc 121 H HDL Cholesterol 36 L Ur Specific [place] 1.025 Urine Protein Negative Urine Glucose (UA) 500 H Urine Blood Negative Urine Nitrite Negative Ur Leukocyte Esterase Trace H Microalb/Creat Ratio 8.2 Coding Level of Care Code Est Pt Level 4 (59482) Complex EM visit Add On G2211 Diagnoses Type 2 diabetes mellitus with other specified complication, without long-term current use of insulin E11.69 Diabetes mellitus type: type 2 Diabetes mellitus senior living insulin use: without exterminator use Diabetes mellitus complication status: with other specified complication Pure hypercholesterolemia E78.00 Benign essential hypertension I10 Vitamin D deficiency E55.9 PAD (peripheral artery disease) I73.9 Facet arthritis, degenerative, 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 Obesity (BMI 30-39.9) E66.9 Assessment & Plan Assessment & Plan (1) Diabetes mellitus: Code(s): E11.9 - Type 2 diabetes mellitus without complications Category: Medical Qualifiers: Diabetes mellitus type: type 2 Diabetes mellitus senior living insulin use: without senior living use Diabetes mellitus complication status: with other specified complication Qualified Code(s): E11.69 - Type 2 diabetes mellitus with other specified complication Plan: Patient's HgbA1c is now at 6.5% on her labs done a couple of days ago (was previously at 9.4% a few months ago) - goal is < 7.0% Reinforced diabetic diet Continue Glipizide 10 mg BID; we tried increasing her Trulicity from 1.5 mg to 3 mg SQ once a week a few months ago but she could not tolerate the 3 mg dose due to severe nausea and went back on the 1.5 mg dose once a week She also developed hives previously to long-acting insulins like Tresiba and Lantus as well as to Januvia and she could not tolerate Metformin due to diarrhea We tried to start her additionally on Onglyza but her insurance declined to cover Rx; she was started on Jardiance 10 mg QD by endocrinology a few months ago when she was first seen She is now doing very well on her current Rx - Trulicity 1.5 mg once a week, Glipizide 10 mg BID and Jardiance 10 mg Q AM Will recheck her labs and HgbA1c in 4 months for follow up Follow up with endocrinology as scheduled (2) Pure hypercholesterolemia: Code(s): E78.00 - Pure hypercholesterolemia, unspecified Category: Medical Plan: Results of her labs done a couple of days ago reviewed and discussed with patient Reinforced low cholesterol diet Continue Atorvastatin 40 mg QD Will recheck her fasting lipids and labs in 4 months for follow-up (3) Benign essential hypertension: Code(s): I10 - Essential (primary) hypertension Category: Medical Plan: Reinforced low-sodium diet - goal is systolic BP of at least 140 mm or less Continue Lisinopril 5 mg QD (4) Vitamin D deficiency: Code(s): E55.9 - Vitamin D deficiency, unspecified Category: Medical Plan: Continue Vitamin D3 2000 units QD (5) PAD (peripheral artery disease): Comment: 05/13/2022 - right SFA atherectomy and plasty, 01/12/2024 - left SFA atherectomy and plasty Code(s): I73.9 - Peripheral vascular disease, unspecified Category: Medical Plan: S/P endovascular intervention of the right lower extremity a couple of years ago in April 2022 S/P dual antiplatelet therapy with Aspirin 81 mg QD and Clopidogrel 75 mg QD x 6 months post-op She currently remains on Aspirin 81 mg QD alone for anticoagulation Follow up with vascular surgery as scheduled (6) Facet arthritis, degenerative, lumbar spine: Code(s): M47.816 - Spondylosis without myelopathy or radiculopathy, lumbar region Category: Medical Plan: Lumbar spine x-rays done last year revealed (+) facet arthritis changes in the lumbar spine Reinforced activity and weight lifting restrictions Patient reports (+) significant improvement of her low back pain with physical therapy Continue Tramadol 50 mg TID PRN and Voltaren gel topically over her lower back as needed; continue Gabapentin 100 mg TID (7) Obesity (BMI 30-39.9): Code(s): E66.9 - Obesity, unspecified Category: Medical Plan: Reinforced diet/exercise as tolerated/lose weight Plan Follow up in 4 months Orders: Orders Lipid Panel 4 Months E78.00 - Pure hypercholesterolemia, unspecified Complete Blood Count Auto Diff 4 Months D64.9 - Anemia, unspecified Hemoglobin A1c 4 Months E11.9 - Type 2 diabetes mellitus without complications Comprehensive [place]. Panel Fast 4 Months E78.00 - Pure hypercholesterolemia, unspecified Microalbumin, Random (w Creat) 4 Months E11.9 - Type 2 diabetes mellitus without complications UA CC w/rflx Micro + Cult 4 Months R30.0 - Dysuria Vitamin D 25-OH Total 4 Months E55.9 - Vitamin D deficiency, unspecified Medications: Changed From empagliflozin (Jardiance) 10 mg PO DAILY 30 days 30 tabs 1RF E11.69 - Type 2 diabetes mellitus with other specified complication To empagliflozin (Jardiance) 10 mg PO DAILY 90 days 90 tabs 1RF E11.69 - Type 2 diabetes mellitus with other specified complication From lisinopril 5 mg PO DAILY 90 tabs 0RF To lisinopril 5 mg PO DAILY 90 days 90 tabs 1RF Refilled dulaglutide (Trulicity) 1.5 mg (0.5 mL) subcut QWEEK 6 mL 1RF atorvastatin 40 mg PO DAILY 90 tabs 3RF
[2024-07-07 14:32] VITALS: BP 110/62; PULSE 100; O2SAT 96; BMI 29.0
== END 2024-07-07 14:56 | disposition home or self-care (01) ==
PROVIDERS: PCP Internal Medicine; Visit Provider Internal Medicine
DX: E11.69 Type 2 diabetes mellitus with other specified complication (principal); I73.9 Peripheral vascular disease, unspecified; E66.811 Obesity, class 1; Z68.29 Body mass index [BMI] 29.0-29.9, adult; E78.00 Pure hypercholesterolemia, unspecified; I10 Essential (primary) hypertension; E55.9 Vitamin D deficiency, unspecified; M47.816 Spondylosis without myelopathy or radiculopathy, lumbar region

== ENCOUNTER → 2024-07-07 14:28 | Outpatient (BNVA) | payer MEDICARE, SELFPAY | PROVIDERS: PCP Internal Medicine; Visit Provider Internal Medicine | DX: E11.69 Type 2 diabetes mellitus with other specified complication (principal); E78.00 Pure hypercholesterolemia, unspecified; I10 Essential (primary) hypertension; E55.9 Vitamin D deficiency, unspecified; I73.9 Peripheral vascular disease, unspecified; M47.816 Spondylosis without myelopathy or radiculopathy, lumbar region; E66.9 Obesity, unspecified; Z68.29 Body mass index [BMI] 29.0-29.9, adult; Z79.899 Other long term (current) drug therapy | CPT/HCPCS: 96127; 99212 ==

== ENCOUNTER 2024-07-18 14:57 | Outpatient (AMB) | payer OTHER, SELFPAY ==
--- NOTE | 2024-07-18 15:14 | MHC.AMDMED ---
Intake Intake Visit Reasons: 60 Min-conf Allergies insulin detemir Allergy (Unknown, Verified 07/07/24 14:46) hives insulin glargine Allergy (Unknown, Verified 07/07/24 14:46) rash/ hives Penicillins [PENICILLINS] Allergy (Unknown, Verified 07/07/24 14:46) HIVES sitagliptin [Januvia] Allergy (Unknown, Verified 07/07/24 14:46) hives metformin Adverse Reaction (Intermediate, Verified 07/07/24 14:46) diarrhea HPI Comprehensive Diabetes Asmnt Most Recent Diabetes Results: Hemoglobin A1c 11.4 % 02/09/20 Microalb/Creat Ratio 8.2 ug/mg cr (<30) 07/05/24 Cholesterol 178 mg/dL (<200) 07/05/24 HDL Cholesterol 36 mg/dL (>40) L 07/05/24 Triglycerides 105 mg/dL (<150) 07/05/24 Creatinine 0.78 mg/dL (0.5-1.4) 07/05/24 Blood Urea Nitrogen 10 mg/dL (9-16) 07/05/24 Sodium 143 mmol/L (135-145) 07/05/24 Potassium 4.1 mmol/L (3.3-5.1) 07/05/24 Chloride 106 mmol/L (96-108) 07/05/24 Carbon Dioxide 29 mmol/L (22-29) 07/05/24 Calcium 9.4 mg/dL (8.4-10.2) 07/05/24 AST 40 U/L (5-31) H 07/05/24 ALT 19 U/L (0-31) 07/05/24 Total Protein 6.5 g/dL (6.5-8.0) 07/05/24 Albumin 4.0 g/dL (3.5-5.0) 07/05/24 [facility] Medical History Right hip pain Abdominal bloating Diarrhea Overweight (BMI 25.0-29.9) Right otitis media Left otitis media Left knee sprain Annual physical exam Obesity (BMI 30-39.9) Vitamin D deficiency H/O coronary angiogram Hip pain, bilateral Arthralgia Smoker Low back pain Benign essential hypertension Pure hypercholesterolemia Diabetes mellitus Surgical History H/O tubal ligation H/O colonoscopy Hx of appendectomy History of tonsillectomy History of laser refractive surgery History of cataract surgery Family History Mother Alzheimer disease Heart problem Father Heart attack Brother Cancer Sister Breast cancer Family/Other Breast cancer Other Substance abuse Social History Housing: Apartment Alcohol intake: current Alcohol intake frequency: holidays/special occasions only Patient Tobacco Use Status: Former Tobacco user Cigarettes Per Day: 5 e-Cigarette/Vaping Use: Never Used Second Hand Smoke Exposure: Yes service: No Current occupational status: employed Cognitive needs: No Hearing needs: No Vision needs: Yes Assessment & Plan Assessment & Plan (1) Diabetes mellitus: Code(s): E11.9 - Type 2 diabetes mellitus without complications Qualifiers: Diabetes mellitus type: type 2 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 2= needs review? 3= comprehend keep point? 4= demonstrates understanding/ competent? NC= Not Covered Topics Learning Objective: Initial visit Initial or post srvc Initial or post srvc Initial or post srvc Initial or post srvc Initial or post srvc Post srvc Comments Pre Edu-assessment/plan Outcome or reassess Outcome or reassess Outcome or reassess Outcome or reassess Outcome or reassess Outcome or reassess Diabetes pathophysiology 2 Healthy eating 2 Being active 1 Taking medication 2 Monitoring glucose 2 Acute complication 2 Chronic complicated 2 Lifestyle and healthy coping Diabetes distress in support ?Diabetes pathophysiology: ?Defined diabetes med identify own type of diabetes; list 3 options for treating diabetes Healthy eating: ?Described effect of type, amount and ?timing of food on blood glucose; list 3 methods for planning meal Being active: ?State effect of exercise on blood glucose level Taking medication: ?State effect of diabetes medications on diabetes; name diabetes medications taking, action and side effects Monitoring glucose: ?Identify recommended blood glucose targets and personal target Acute complication: ?List symptoms and treatment of hyper and hypoglycemia, DKA, sick day guidelines and guidelines for severe weather or situations of crisis and diabetes supply manage Chronic complication: ?To find the relationship of blood glucose levels to long-term complications of diabetes in screening and preventative measures Lifestyle and healthy coping: ?Described lifestyle and healthy coping strategies to rule out diabetes self-management Diabetes to stress and support: ?Recognize Diabetes to stress and be able to identified support options Learning objectives: The patient was provided with verbal and written education on the following topics as outlined below. The patient met all learning objectives and was able to verbalize understanding and provide teach back of education topics discussed . The patient was provided with the opportunity to ask questions and all questions were answered. Patient Assessment Patient questions/concerns, patient report she has been diagnosed with diabetes for over 40 years. Last A1c on 07/05/24 6.5%, this is an improvement from 9.4% in 02/2024 Patient is currently on Trulicity 1.5 mg weekly Jardiance 10 mg daily, patient complains of consistent yeast infection symptoms since beginning Jardiance. Message sent to QUALITY CONTROL CHEMIST regarding yeast infection symptoms What is Diabetes? Pathophysiology How the body produces and uses insulin Identify type of DM Risk factors Signs of Diabetes Brief overview of Diabetes Management Monitoring blood sugar Following a meal plan Regular exercise Maintaining a healthy weight Taking medication as needed Members of the care team (PCP, RN, MA, RD, CDE, fueler) Blood glucose monitoring When/how often to test Target blood sugar ranges Asim 3 data Above target 11% At target 89% Below target 0% Patient's average glucose for the past 14 days 137 mg/dL Introduction to Nutrition Importance of healthy diet in managing DM Diet is personalized to individual preference Review patient?s regular diet/food preferences Who prepares meals/does food shopping/ Dining out?/ Barriers? How diet effects glucose Eating 3 balanced meals a day with small, healthy snacks between meals Review food groups Carbohydrates: What is a carbohydrate/Which food/food groups are considered carbohydrates Effect of carbohydrates on blood glucose Portion sizes Reading food labels Basic carb counting (if applicable per nursing assessment) Plate method Meal planning Recommendations: Follow plate method, consistent carbs and read nutritional labels. Smart Goal: Patient will keep carbohydrates at mealtimes between 30-45 g Educational Materials: The patient was provided with the following written educational materials: Planning Healthy Meals Handout Patient Response to instructions: Comprehension of Instructions: Fair Readiness to make changes: Contemplation How confident they feel about making changes: Positive Portions of this note were created using voice recognition software, please excuse any words or phrases that may have been misinterpreted. Patient Instructions: Include regular daily activity. ADA recommends 30 minutes of exercise 5 days a week. Weight loss talk to PCP or Carry Out Clerk before starting new plan. Test blood sugar as directed; Fasting and 2hpp largest meal. Watch trends in results. Utilize results and to assess how food, physical activity and medications affect blood sugar results. Bring glucometer or CGM to next visit. Be knowledgeable about diabetes medication, its action, side effects, efficacy, toxicity, prescribed dosage, appropriate timing and frequency of administration, effect of missed and delayed doses and instructions for storage, travel and safety. Problem solving techniques to monitor hypo/hyperglycemia episodes and treatments. Reduce risk reduction behaviors, smoking cessation, regular eye, foot and dental examinations. Patient will follow-up with assistant inventory manager in 3 months Coding Level of Care Code Est Pt Level 1 (26988) Diagnoses Type 2 diabetes mellitus with other specified complication, without long-term current use of insulin E11.69 Diabetes mellitus type: type 2 Diabetes mellitus care home insulin use: without electrical lineworker use Diabetes mellitus complication status: with other specified complication
== END 2024-07-18 15:30 | disposition home or self-care (01) ==
LOC: HO.ENCR 14:57
PROVIDERS: PCP Internal Medicine; Visit Provider Registered Nurse Diabetes Educator
DX: E11.69 Type 2 diabetes mellitus with other specified complication (principal)

== ENCOUNTER → 2024-07-18 14:57 | Outpatient (BNVA) | payer OTHER, SELFPAY | PROVIDERS: PCP Internal Medicine; Visit Provider Registered Nurse Diabetes Educator | DX: E11.69 Type 2 diabetes mellitus with other specified complication (principal) | CPT/HCPCS: 99211 ==

== ENCOUNTER 2024-08-23 12:50 | Outpatient (AMB) | payer OTHER, SELFPAY ==
--- NOTE | 2024-08-23 08:19 | A.OFFVIS_ITS ---
Vital Signs 08/23/24 13:09 Height 5 ft 2 in Weight 160 lb 14.999 oz BMI 29.4 BP 116/60 Blood Pressure Location Rt brachial Position Sitting Pulse 95 Pulse Source Pulse Oximeter Intake Visit Reasons: T2DM Intake Note: Patient presents today for a follow-up on Type 2 Diabetes Mellitus: Last Diabetic Eye exam: DUE Last Podiatry Exam: Does not see a Automotive Sales Professional Most recent HbA1c: 6.5%, 07/05/2024 Random Glucose- 134 mg/dL, Today Junior Network Engineer Required: No Accompanied by: Self / Same As Patient Allergies insulin detemir Allergy (Unknown, Verified 08/23/24 13:12) hives insulin glargine Allergy (Unknown, Verified 08/23/24 13:12) rash/ hives Penicillins [PENICILLINS] Allergy (Unknown, Verified 08/23/24 13:12) HIVES sitagliptin [Januvia] Allergy (Unknown, Verified 08/23/24 13:12) hives metformin Adverse Reaction (Intermediate, Verified 08/23/24 13:12) diarrhea HPI Comments Details: 78 YO female who is seen in f/u for type 2 diabetes. She was last seen in April at which time she was started on Jardiance. Most recent A1C was 6.5% Initially diagnosed with T2DM in [1995 ]. Previous: HbA1c: 9.4%, 03/17/2024 Was initially started on treatment with [glipizide]. Metformin (not er) gas/bloating Lantus/levemir hives Diffuse rash with Lantus/detemir many years ago glipizide stopped:ineffective Current regimen [Trulicity 1.5mg] and Jardiance 10 mg Has been on Trulicity for several years, recently tried 3.0 mg and was unable to tolerate. Freestyle Asim average 150 Had 1 yeast infection since starting Jardiance and cleared with otc Rx. She did have some persistent vaginal itching which has since resolved with occasional vagisil use. Reports low sugars [none]. One day sensor malfunctioned and was low all day. Treats lows with: has candy in her purse. [Checks] sugar after to ensure it is rising. . Had eyes checked yearly in the past, last eye exam [2-3 years ago], [not certain] retinopathy. She will call with the name of the Opthamologist she would like to see if [employer] requires a referral. [Denies ] neuropathy, last foot exam [Sees PA at the [facility]], [Denies] nephropathy, on [KENNY]. [Has] HLD, on [statin]. Last LDL [65] as measured on [03/13]. [Denies] CAD. Sees vascular has had angioplasty Denies numbness, tingling, cramping in legs Diet: [Eats a slice of toast/ 1/2 banana for breakfast, picks on veg/fruit/cheese for lunch and small dinner.] Weight: [stable, appetite down since Trulicity] [Had] diabetes education. None recent with exception of sensor training. She quit smoking a year and a half ago. Rare alcohol PFSH Medical History Right hip pain Abdominal bloating Diarrhea Overweight (BMI 25.0-29.9) Right otitis media Left otitis media Left knee sprain Annual physical exam Obesity (BMI 30-39.9) Vitamin D deficiency H/O coronary angiogram Hip pain, bilateral Arthralgia Smoker Low back pain Benign essential hypertension Pure hypercholesterolemia Diabetes mellitus Surgical History H/O tubal ligation H/O colonoscopy Hx of appendectomy History of tonsillectomy History of laser refractive surgery History of cataract surgery Family History Mother Alzheimer disease Heart problem Father Heart attack Brother Cancer Sister Breast cancer Family/Other Breast cancer Other Substance abuse Social History Housing: Apartment Alcohol intake: current Alcohol intake frequency: holidays/special occasions only Patient Tobacco Use Status: Former Tobacco user Cigarettes Per Day: 5 e-Cigarette/Vaping Use: Never Used Second Hand Smoke Exposure: Yes service: No Current occupational status: employed Cognitive needs: No Hearing needs: No Vision needs: Yes Physical Exam Vital Signs: Last Vital Signs Pulse 95 08/23/24 13:09 BP 116/60 08/23/24 13:09 BMI result Body Mass Index 29.4 Const Other: Absence of Cushingoid features. Absence of acromegalic features. Neck exam reveals nl size thyroid about 15 gms. No thyroid nodules palpable. Heart S1 S2, Reg R/R. No M/R G. Skin exam reveals absence of vitiligo or acanthosis nigricans. Visual exam of foot performed. No ulcerations or open lesions. Bilateral bunions. No inter digit maceration or fissuring. No onychomycosis, no callouses. Sensation intact to monofilament exam. Results Reviewed Results Reviewed: Laboratory Last Values Glucose (Clinic) 134 mg/dL (60-115) H 08/23/24 13:12 Assessment & Plan Assessment & Plan (1) Diabetes mellitus: Code(s): E11.9 - Type 2 diabetes mellitus without complications Category: Medical Qualifiers: Diabetes mellitus complication status: with other specified complication 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 termite insulin use: without exterminator termite use Diabetes mellitus type: type 2 Qualified Code(s): E11.69 - Type 2 diabetes mellitus with other specified complication Plan: 78-year-old type 2 diabetic with peripheral vascular disease, no nephropathy, retinopathy or neuropathy with a recent A1C of 6.5% on Trulicity 1.5 weekly and Jardiance. The patient had an opportunity to ask questions regarding treatment plan. The patient expressed understanding and agreement with the above treatment plan. The patient will be discharged to the care of PCP. She has f/u with vascular for PVD. Medications: New blood-glucose sensor (FreeStyle Asim 3 Plus Sensor device) As directed every 15 days 6 ea 3RF Discontinued blood-glucose sensor Discontinued Reason: Doctor's Order As directed 6 ea 11RF Patient Instructions: The patient was counseled to achieve a target A1C of less than 8%;. Fasting blood sugars should be 90-130 in the morning and less than 200 two hours after meals. Reviewed the relationship between poor diabetic control and the development of complications. Check your feet daily looking for any signs of infection, ulceration and seek medical attention if this occurs. Break in shoes gradually and do not wear open-toed shoes or walk barefooted. The patient was counseled to always carry a source of sugar and on the rule of 15's: Take 3 glucose tablets and repeat again in 15 minutes if blood sugar is not in normal range. Continue to repeat every 15 minutes until blood sugar is normal. Coding Level of Care Code Tele Est Pt Level 4 (37235) Complex EM visit Add On G2211 Diagnoses Type 2 diabetes mellitus with other specified complication, without long-term current use of insulin E11.69 Diabetes mellitus complication status: with other specified complication Diabetes mellitus penitentiary insulin use: without penitentiary use Diabetes mellitus type: type 2
[2024-08-23 13:09] VITALS: BP 116/60; PULSE 95; BMI 29.4
[2024-08-23 13:17] LABS: Glucose, Whole Blood 134 mg/dL (60-115)
== END 2024-08-23 15:01 | disposition home or self-care (01) ==
PROVIDERS: PCP Internal Medicine; Visit Provider Nurse Practitioner Adult Health
DX: E11.69 Type 2 diabetes mellitus with other specified complication (principal)
CPT/HCPCS: 99214; G2211

== ENCOUNTER → 2024-08-23 12:50 | Outpatient (BNVA) | payer OTHER, SELFPAY | PROVIDERS: PCP Internal Medicine; Visit Provider Nurse Practitioner Adult Health | DX: E11.69 Type 2 diabetes mellitus with other specified complication (principal) | CPT/HCPCS: 82947 ==

== ENCOUNTER 2024-10-18 13:30 | Outpatient (AMB) | payer OTHER, SELFPAY ==
--- NOTE | 2024-10-18 13:58 | A.OFFVIS_ITS ---
Intake Intake Visit Reasons: 60 min Newborn Hearing Screener Required: No Allergies insulin detemir Allergy (Unknown, Verified 08/23/24 13:12) hives insulin glargine Allergy (Unknown, Verified 08/23/24 13:12) rash/ hives Penicillins [PENICILLINS] Allergy (Unknown, Verified 08/23/24 13:12) HIVES sitagliptin [Januvia] Allergy (Unknown, Verified 08/23/24 13:12) hives metformin Adverse Reaction (Intermediate, Verified 08/23/24 13:12) diarrhea HPI Comprehensive Diabetes Asmnt Most Recent Diabetes Results: Hemoglobin A1c 11.4 % 02/09/20 Microalb/Creat Ratio 8.2 ug/mg cr (<30) 07/05/24 Cholesterol 178 mg/dL (<200) 07/05/24 HDL Cholesterol 36 mg/dL (>40) L 07/05/24 Triglycerides 105 mg/dL (<150) 07/05/24 Creatinine 0.78 mg/dL (0.5-1.4) 07/05/24 Blood Urea Nitrogen 10 mg/dL (9-16) 07/05/24 Sodium 143 mmol/L (135-145) 07/05/24 Potassium 4.1 mmol/L (3.3-5.1) 07/05/24 Chloride 106 mmol/L (96-108) 07/05/24 Carbon Dioxide 29 mmol/L (22-29) 07/05/24 Calcium 9.4 mg/dL (8.4-10.2) 07/05/24 AST 40 U/L (5-31) H 07/05/24 ALT 19 U/L (0-31) 07/05/24 Total Protein 6.5 g/dL (6.5-8.0) 07/05/24 Albumin 4.0 g/dL (3.5-5.0) 07/05/24 [facility] Medical History Right hip pain Abdominal bloating Diarrhea Overweight (BMI 25.0-29.9) Right otitis media Left otitis media Left knee sprain Annual physical exam Obesity (BMI 30-39.9) Vitamin D deficiency H/O coronary angiogram Hip pain, bilateral Arthralgia Smoker Low back pain Benign essential hypertension Pure hypercholesterolemia Diabetes mellitus Surgical History H/O tubal ligation H/O colonoscopy Hx of appendectomy History of tonsillectomy History of laser refractive surgery History of cataract surgery Family History Mother Alzheimer disease Heart problem Father Heart attack Brother Cancer Sister Breast cancer Family/Other Breast cancer Other Substance abuse Social History Housing: Apartment Alcohol intake: current Alcohol intake frequency: holidays/special occasions only Patient Tobacco Use Status: Former Tobacco user Cigarettes Per Day: 5 e-Cigarette/Vaping Use: Never Used Second Hand Smoke Exposure: Yes service: No Current occupational status: employed Cognitive needs: No Hearing needs: No Vision needs: Yes Assessment & Plan Assessment & Plan (1) Diabetes mellitus: Code(s): E11.9 - Type 2 diabetes mellitus without complications Qualifiers: Diabetes mellitus type: type 2 Diabetes mellitus ocean transportation intermediary insulin use: without ocean transportation intermediary use Diabetes mellitus complication status: with other specified complication Qualified Code(s): E11.69 - Type 2 diabetes mellitus with other specified complication Plan: Learning objectives: The patient was provided with verbal and written education on the following topics as outlined below. The patient met all learning objectives and was able to verbalize understanding and provide teach back of education topics discussed . The patient was provided with the opportunity to ask questions and all questions were answered. Patient Assessment Assess patient education level/literacy/barriers Patient questions/concerns, patient's last A1c on 07/05/2024 was 6.5%. Patient has upcoming appointment with PCP, A1c has been put in. Patient using Who[employer] Asim 3 to monitor Patient's average glucose for past 14 days 127 mg/dL Patient above target 10% At target 87 % Below target 3% Patient is having episodes of overnight hypoglycemia, patient reports she has woken up by the alerts but is not experiencing symptoms. Recommended to patient she do fingerstick if she is not experiencing symptoms and getting a low alert on Asim. If glucose is below 70 mg/dL treat with rule of 15s Instructed patient to contact PCP if she is experiencing true hypoglycemia, for adjustment in medication Patient is currently taking Trulicity 1.5 mg weekly Jardiance 10 mg daily Exercise Medical clearance Effect of exercise on blood sugar Start slowly and gradually increase pace/duration over time Goal amount of exercise Checking blood glucose/have a source of carbs with you Diabetes Complications: ?Nephropathy :Kidney Disease ?diabetes can damage the kidneys, which is not only can cause them to fail but can make them lose their ability to filter waste from the blood? ?Retinopathy: Eye complications ?Retinopathy? is the commonest long-term complication of diabetes. It is leading cause of blindness Besides, Retinopathy- People with diabetes? are also prone to cataract and Glaucoma. ?Neuropathy: Nerve damage -It involves temporary or permanent damage to nerve tissue. Nerve tissue gets injured mainly due to decreased blood flow and rise in blood glucose levels. This damage can lead to pain , or loss of sensation it can also include sexual dysfunction in both men and women ? Infections poor healing: People with diabetes? have increased susceptibility to various infections, such as? pneumonias, pyelonephritis, carbuncles and diabetic ulcers. This may be due to poor blood supply, reduced cellular immunity or hyperglycemia. ?Heart Disease And Stroke: People with diabetes are four times more prone to develop Heart disease than those who do not have diabetes ?Depression: Feeling down once in awhile is normal, but some people feel sadness that just won't go away. Life for them seems hopeless. Feeling this way most of the day for two weeks or more is a sign of serious depression ?Gum Disease: People get gum disease when plaque destroys the gums and bone around the teeth. People with diabetes can get gum disease from having high blood glucose levels for a long time Lifestyle * Work * Travel * Stress management * Problem solving Know your goals * A1C * Blood sugar targets * Blood pressure * Cholesterol/LDL Urine microalbumin Smart Goal Assessment: Patient will keep meals 30-45 g per meal Pt met goal 75% New Goal:? Patient will make eye exam appointment Educational Materials: The patient was provided with the following written educational materials: ADCES 7 Healthy Behaviors Reducing Risks handout Patient Response to instructions: Comprehension of Instructions: Good Readiness to make changes: Action How confident they feel about making changes: Positive Portions of this note were created using voice recognition software, please excuse any words or phrases that may have been misinterpreted. Patient Instructions: Include regular daily activity. ADA recommends 30 minutes of exercise 5 days a week. Weight loss talk to PCP or Cabin Outfitter before starting new plan. Test blood sugar as directed; Fasting and 2hpp largest meal. Watch trends in results. Utilize results and to assess how food, physical activity and medications affect blood sugar results. Bring glucometer or CGM to next visit. Be knowledgeable about diabetes medication, its action, side effects, efficacy, toxicity, prescribed dosage, appropriate timing and frequency of administration, effect of missed and delayed doses and instructions for storage, travel and safety. Problem solving techniques to monitor hypo/hyperglycemia episodes and treatments. Reduce risk reduction behaviors, smoking cessation, regular eye, foot and dental examinations. Coding Level of Care Code Est Pt Level 1 (98654) Diagnoses Type 2 diabetes mellitus with other specified complication, without long-term current use of insulin E11.69 Diabetes mellitus type: type 2 Diabetes mellitus ocean transportation intermediary insulin use: without ocean transportation intermediary use Diabetes mellitus complication status: with other specified complication
== END 2024-10-18 14:00 | disposition home or self-care (01) ==
PROVIDERS: PCP Internal Medicine; Visit Provider Registered Nurse Diabetes Educator
DX: E11.69 Type 2 diabetes mellitus with other specified complication (principal)

== ENCOUNTER → 2024-10-18 13:30 | Outpatient (BNVA) | payer OTHER, SELFPAY | PROVIDERS: PCP Internal Medicine; Visit Provider Registered Nurse Diabetes Educator | DX: E11.69 Type 2 diabetes mellitus with other specified complication (principal) | CPT/HCPCS: 99211 ==

== ENCOUNTER 2024-11-06 10:59 | Outpatient (REF) | payer MEDICARE, SELFPAY ==
[2024-11-06 11:09] LABS: MANUAL DIFF FLAG NO
[2024-11-06 11:32] LABS: Basophils Percent Auto 0.4 % (0-2); Eosinophils Absolute Auto 0.2 X10*3/uL (0.0-0.4); Eosinophils Percent Auto 2.1 % (0-4); Hematocrit 44.1 % (37.0-47.0); Hemoglobin 14.2 g/dl (12.0-16.0); Imm Gran Abs Auto 0.03 X10*3/uL (0.00-0.03); Imm Gran Pct Auto 0.4 % (0.0-0.4); Lymphocytes Absolute Auto 2.8 X10*3/uL (1.2-4.9); Lymphocytes Percent Auto 38.3 % (20-40); Mean Corpuscular HGB Conc 32.2 g/dl (31.0-35.0); Mean Corpuscular Hemoglobin 28.4 pg (27.0-33.0); Mean Corpuscular Volume 88.2 fL (80.0-98.0); Mean Platelet Volume 8.5 fL (9.4-12.3); Monocytes Absolute Auto 0.4 X10*3/uL (0.1-1.2); Monocytes Percent Auto 5.4 % (2-11); Neutrophils Absolute Auto 3.9 x10*3/uL (2.0-8.3); Neutrophils Percent Auto 53.4 % (45-73); Platelet Count 323 X10*3/uL (160-400); Red Cell Distribution Width 13.2 % (11.0-16.0); White Blood Count 7.3 X10*3/uL (4.8-10.8)
[2024-11-06 11:40] LABS: Appearance Urine Clear; Color Urine Yellow; Glucose Urine UA 100 mg/dL (Negative); Leukocyte Esterase Urine Trace (Negative); Nitrite Urine Negative (Negative); PH 6.5 (5.0-9.0); Specific Gravity - Urine 1.015 (1.005-1.025); UMIC TRIGGER UACC YES; Urine Blood Negative (Negative); Urine Ketones Negative (Negative); Urine Protein Trace mg/dL (Neg-Trace)
[2024-11-06 11:45] LABS: Bacteria Urine None Seen (None Seen); Hyaline Casts Urine 0-2 /LPF (0-2); RBC Urine 0-2 /HPF (0-2); Squamous Epithelial Cell Urine 0-2 /HPF (0-2); UACC Culture Trigger YES
[2024-11-06 11:47] LABS: Estimated Average Glucose 151 mg/dL; Hemoglobin A1C 190.1133 umol/L; Hemoglobin A1c % 6.9 % (<6.0); Total Hemoglobin (HGBA1C) 3657.7317 umol/L
[2024-11-06 12:02] LABS: Alanine Aminotransferase 21 U/L (0-31); Albumin Level 3.9 g/dL (3.5-5.0); Alkaline Phosphatase 82 U/L (39-117); Anion Gap 12 (12-20); Aspartate Amino Transferase 55 U/L (5-31); Bilirubin Total 0.4 mg/dL (0.0-1.0); Blood Urea Nitrogen 10 mg/dL (9-16); Calcium 9.1 mg/dL (8.4-10.2); Carbon Dioxide 26 mmol/L (22-29); Chloride 108 mmol/L (96-108); Cholesterol 161 mg/dL (<200); Estimated Glomerular Filt Rate > 60; Glucose Fasting 166 mg/dL (60-99); HDL Cholesterol 40 mg/dL (>40); LDL Cholesterol Calculated 94 mg/dL (<100); Potassium 3.7 mmol/L (3.3-5.1); Sodium 142 mmol/L (135-145); Triglycerides 135 mg/dL (<150)
[2024-11-06 12:07] LABS: Creatinine Urine 65.96 mg/dL; Microalbum/Creatinine Ratio Ur 159.1 ug/mg cr (<30)
[2024-11-06 12:21] LABS: Vitamin D 25-OH Total 33.4 ng/mL (>30)
== END 2024-11-06 11:00 | disposition home or self-care (01) ==
LOC: HO.LAB 10:59
PROVIDERS: PCP Internal Medicine; Visit Provider Internal Medicine
DX: D64.9 Anemia, unspecified (principal); E55.9 Vitamin D deficiency, unspecified; E11.9 Type 2 diabetes mellitus without complications; E78.00 Pure hypercholesterolemia, unspecified; R30.0 Dysuria
CPT/HCPCS: 36415; 80053; 80061; 81001; 82043; 82306; 82570; 83036; 85025; 87086

== ENCOUNTER 2024-11-07 14:21 | Outpatient (AMB) | payer MEDICARE, SELFPAY ==
--- NOTE | 2024-11-07 14:29 | MHC.PC.OV ---
Vital Signs 11/07/24 14:30 Height 5 ft 2 in Weight 160 lb 2 oz BMI 29.3 BP 132/70 Blood Pressure Location Lt brachial Position Sitting Pulse 100 Pulse Source Pulse Oximeter Pulse Oximetry (%) 96 Oxygen Delivery Method Room Air Intake Visit Reasons: hyperlipidemia, DM, HTN Research Director Required: No Accompanied by: Self / Same As Patient Allergies insulin detemir Allergy (Unknown, Verified 11/07/24 15:14) hives insulin glargine Allergy (Unknown, Verified 11/07/24 15:14) rash/ hives Penicillins [PENICILLINS] Allergy (Unknown, Verified 11/07/24 15:14) HIVES sitagliptin [Januvia] Allergy (Unknown, Verified 11/07/24 15:14) hives metformin Adverse Reaction (Intermediate, Verified 11/07/24 15:14) diarrhea Medication List - Last Reconciled 11/07/24 by Jono Vallecillo MD aspirin 81 mg PO DAILY atorvastatin 40 mg PO DAILY blood sugar diagnostic (OneTouch Ultra Test strips) As directed prn tid to confirm glucose sensor readings blood-glucose meter As directed Dispense as one touch ultra prn to confirm glucose sensor blood-glucose sensor (FreeStyle Asim 3 Plus Sensor device) As directed every 15 days cholecalciferol (vitamin D3) 50 mcg PO DAILY 90 days clopidogrel 75 mg PO DAILY diclofenac sodium 1% (Arthritis Pain (diclofenac)) 2 grams topical QID PRN dulaglutide (Trulicity) 1.5 mg (0.5 mL) subcut QWEEK empagliflozin (Jardiance) 10 mg PO DAILY 90 days gabapentin 100 mg PO TID PRN 30 days lancets (Fingerstix Lancets) As directed for use with freestyle lite prn low glucose on sensor lisinopril 5 mg PO DAILY 90 days tramadol 50 mg PO TID PRN 30 days Tobacco use date assessed: 11/07/24 Fall risk assessment: No Falls in past year Last assessed Fall Risk: 11/07/24 Dental Screening Dental Screen Date: 11/07/24 Did you have a dental visit in the last 12 months?: No Did you have a dental problem in the last 6 months where you did not have access to dental care?: No Was dental information given to patient?: Patient has dentist HPI hyperlipidemia, DM, HTN HPI Details Patient comes in today for her follow up visit States that she feels okay but has been struggling with sleeping at night for a while now She denies any headaches or dizziness Denies any chest pains, no increased SOB No nausea/vomiting, no abdominal pain No change in bowel habits noted Needs her Clopidogrel Rx refilled She had her follow-up labs done yesterday - to discuss her results [facility] Medical History (Updated 11/07/24 @ 15:21 by Jono Vallecillo MD) Insomnia Right hip pain Abdominal bloating Diarrhea Overweight (BMI 25.0-29.9) Right otitis media Left otitis media Left knee sprain Annual physical exam Obesity (BMI 30-39.9) Vitamin D deficiency H/O coronary angiogram Hip pain, bilateral Arthralgia Smoker Low back pain Benign essential hypertension Pure hypercholesterolemia Diabetes mellitus Surgical History H/O tubal ligation H/O colonoscopy Hx of appendectomy History of tonsillectomy History of laser refractive surgery History of cataract surgery Family History Mother Alzheimer disease Heart problem Father Heart attack Brother Cancer Sister Breast cancer Family/Other Breast cancer Other Substance abuse Social History Housing: Apartment Alcohol intake: current Alcohol intake frequency: holidays/special occasions only Patient Tobacco Use Status: Former Tobacco user Cigarettes Per Day: 5 e-Cigarette/Vaping Use: Never Used Second Hand Smoke Exposure: Yes service: No Current occupational status: employed Cognitive needs: No Hearing needs: No Vision needs: Yes Questionnaire PHQ-9 Over the last 2 weeks, how often have you been bothered by any of the following problems? 1. Little interest or pleasure in doing things: not at all 2. Feeling down, depressed, or hopeless: not at all 3. Trouble falling or staying asleep, or sleeping too much: not at all 4. Feeling tired or having little energy: not at all 5. Poor appetite or overeating: not at all 6. Feeling bad about yourself - or that you are a failure or have let yourself or your family down: not at all 7. Trouble concentrating on things, such as reading the newspaper or watching television: not at all 8. Moving or speaking so slowly that other people could have noticed. Or the opposite - being so fidgety or restless that you have been moving around a lot more than usual: not at all 9. Thoughts that you would be better off or of hurting yourself in some way: not at all Total score: 0 Depression Screening Interpretation: Negative Depression Screening Done: Yes 56305 - PHQ-9 Billing: Yes Source: Developed by Drs. Jet Sutton, Anali Darby, Rg Fleming and colleagues, with an educational casandra from [employer]. Thrive Questionnaire Date Thrive assessed: 11/07/24 I am a: Patient What is your living situation today?: I have a steady place to live Within the past 12 months, did the food you bought not last and you didn't have the money to get more?: Never true Within the past 12 months, did you worry whether your food would run out before you got money to buy more?: Never true Do you have trouble paying for medicines?: No Do you have trouble getting transportation to medical appointments?: No Do you have trouble paying your heating and electricity bill?: No Do you have trouble taking care of your child, family member or friend?: No Do you have trouble with day-to-day activities such as bathing, preparing meals, shopping, managing finances, etc.?: No Are you currently unemployed and looking for a job?: No Are you interested in more education?: No Please select the resources that you would like help with: None Currently or been in a relationship where the following occur: No concerns reported THRIVE Score: 0 AUDIT C Alcohol Use Questionnaire (AUDIT-C) 1. How often do you have a drink containing alcohol?: Monthly or less 2. How many drinks containing alcohol do you have on a typical day when you are drinking?: 1 or 2 3. How often do you have six or more drinks on one occasion?: Never Total Score: 1 Score Reviewed/Action Taken: Yes WILDA-7 AMB Questionnaire WILDA-7 Date WILDA - 7 assessed: 11/07/24 Feeling nervous, anxious, or on edge: 0 = Not at all Not being able to stop or control worryin = Not at all Worrying too much about different things: 0 = Not at all Trouble relaxin = Not at all Being so restless that it is hard to sit still: 0 = Not at all Becoming easily annoyed or irritable: 0 = Not at all Feeling afraid as if something awful might happen: 0 = Not at all Total WILDA-7 score (0-4 normal; 5-9 mild; 10-14 moderate; 15-21 severe): 0 Source: Developed by Drs. Jet Sutton, Anali Darby, Rg Fleming and colleagues, with an educational casandra from [employer]. Review of Systems Const Denies chills, Reports difficulty sleeping, Denies fatigue, Denies fever(s) and Denies headache(s) ENT Denies dysphagia, Denies dizziness, Denies otalgia, Denies headache(s), Denies neck pain, Denies odynophagia and Denies sore throat Card Denies chest pain, Denies palpitations and Denies dyspnea Resp Denies chest congestion, Denies cough and Denies dyspnea GI Denies abdominal pain, Denies constipation, Denies dysphagia, Denies heartburn, Denies diarrhea, Denies nausea, Denies odynophagia and Denies vomiting Denies difficulty voiding, Denies nocturia, Denies dysuria (but occasional sensation of irritation - thinks it is due to Jardiance) and Denies urinary urgency Musc Reports back pain (over the lower back - chronic), Reports arthralgias (in both hips, on and off) and Denies neck pain Skin/Breast Denies rash Neuro Denies dizziness and Denies headache(s) Endo Denies fatigue and Denies palpitations Physical exam (Primary Care) Vital Signs: Last Vital Signs Pulse 100 11/07/24 14:30 BP 132/70 11/07/24 14:30 Pulse Ox 96 11/07/24 14:30 Oxygen Delivery Method Room Air 11/07/24 14:30 BMI result Body Mass Index 29.3 Tobacco/Smoking Status: Tobacco use Status Tobacco use date assessed 11/07/24 11/07/24 14:37 Patient Tobacco Use Status Former Tobacco user 11/07/24 14:37 e-Cigarette/Vaping Use Never Used 11/07/24 14:37 PHQ-9: PHQ-9 Score PHQ-9: Total score 0 11/08/24 09:19 Depression Screening Interpretation: Negative Thrive Assessment: Date of Thrive Assessment Date Thrive assessed 11/07/24 11/07/24 14:37 Currently or been in a relationship where the following occur: No concerns reported Const General: no acute distress and alert HENMT Ears: TM's normal bilaterally and EAC's normal Throat: Yes posterior oropharynx normal and Yes tonsils normal (no TP congestion) Neck Neck: Yes no lymphadenopathy and Yes supple Thyroid: Thyroid normal Resp Auscultation: clear to auscultation bilaterally, no rales and no wheezes Cardio Rate: regular rate Rhythm: regular rhythm Heart sounds: no murmurs GI Palpation (GI): Soft to palpation and nontender Auscultation: normal bowel sounds General: Yes no CVA tenderness Back/Spine/Pelvis Back: no CVA tenderness Thoracic/Lumbar Spine: lumbar spinal tenderness (mild) Extrem General: Yes no clubbing, cyanosis or edema Right lower extremity: hip/thigh Details: tenderness Location: of the hip Left lower extremity: knee Details: tenderness; no swelling Results Reviewed Results Reviewed: Laboratory Tests 11/06/24 11/06/24 10:55 11:08 WBC 7.3 Hgb 14.2 Hct 44.1 Plt Count 323 Sodium 142 Potassium 3.7 Creatinine 0.76 Estimated GFR > 60 Fasting Glucose 166 H Hemoglobin A1c % 6.9 H Calcium 9.1 AST 55 H ALT 21 Triglycerides 135 Cholesterol 161 LDL Cholesterol, Calc 94 HDL Cholesterol 40 L 25-OH Vitamin D Total 33.4 Ur Specific [place] 1.015 Urine Protein Trace Urine Glucose (UA) 100 H Urine Blood Negative Urine Nitrite Negative Ur Leukocyte Esterase Trace H Microalb/Creat Ratio 159.1 H Coding Level of Care Code Est Pt Level 4 (91143) Diagnoses Type 2 diabetes mellitus with other specified complication, without long-term current use of insulin E11.69 Diabetes mellitus complication status: with other specified complication Diabetes mellitus longitudinal float operator insulin use: without longitudinal float operator use Diabetes mellitus type: type 2 Pure hypercholesterolemia E78.00 Benign essential hypertension I10 Vitamin D deficiency E55.9 PAD (peripheral artery disease) I73.9 Facet arthritis, degenerative, 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 Insomnia, unspecified type G47.00 Insomnia type: unspecified Obesity (BMI 30-39.9) E66.9 Additional Codes PHQ-9 - 19199 - PHQ-9 Billing: Yes ([id number]) Assessment & Plan Assessment & Plan (1) Diabetes mellitus: Code(s): E11.9 - Type 2 diabetes mellitus without complications Category: Medical Qualifiers: Diabetes mellitus complication status: with other specified complication Diabetes mellitus mcfp insulin use: without mcfp use Diabetes mellitus type: type 2 Qualified Code(s): E11.69 - Type 2 diabetes mellitus with other specified complication Plan: Patient's HgbA1c is at 6.9% on her labs done yesterday (was previously at 6.5% a few months ago) - goal is < 7.0% Reinforced diabetic diet Continue Glipizide 10 mg BID; we tried increasing her Trulicity from 1.5 mg to 3 mg SQ once a week a few months ago but she could not tolerate the 3 mg dose due to severe nausea and went back on the 1.5 mg dose once a week She also developed hives previously to long-acting insulins like Tresiba and Lantus as well as to Januvia and she could not tolerate Metformin due to diarrhea We tried to start her additionally on Onglyza but her insurance declined to cover Rx; she was started on Jardiance 10 mg QD by endocrinology a few months ago when she was first seen She is now doing very well on her current Rx - Trulicity 1.5 mg once a week, Glipizide 10 mg BID and Jardiance 10 mg Q AM Will recheck her labs and HgbA1c in 4 months for follow up Follow up with endocrinology as scheduled (2) Pure hypercholesterolemia: Code(s): E78.00 - Pure hypercholesterolemia, unspecified Category: Medical Plan: Results of her labs done yesterday reviewed and discussed with patient Reinforced low cholesterol diet Continue Atorvastatin 40 mg QD Will recheck her fasting lipids and labs in 4 months for follow-up (3) Benign essential hypertension: Code(s): I10 - Essential (primary) hypertension Category: Medical Plan: Reinforced low-sodium diet - goal is systolic BP of at least 140 mm or less Continue Lisinopril 5 mg QD (4) Vitamin D deficiency: Code(s): E55.9 - Vitamin D deficiency, unspecified Category: Medical Plan: Continue Vitamin D3 2000 units QD (5) PAD (peripheral artery disease): Comment: 05/13/2022 - right SFA atherectomy and plasty, 01/12/2024 - left SFA atherectomy and plasty Code(s): I73.9 - Peripheral vascular disease, unspecified Category: Medical Plan: S/P endovascular intervention of the right lower extremity a couple of years ago in April 2022 S/P dual antiplatelet therapy with Aspirin 81 mg QD and Clopidogrel 75 mg QD x 6 months post-op She was on Aspirin 81 mg QD alone for a while but now appears to be back on Clopidogrel 75 mg QD as well - Rx refilled Follow up with vascular surgery as scheduled (6) Facet arthritis, degenerative, lumbar spine: Code(s): M47.816 - Spondylosis without myelopathy or radiculopathy, lumbar region Category: Medical Plan: Lumbar spine x-rays done last year revealed (+) facet arthritis changes in the lumbar spine Reinforced activity and weight lifting restrictions Patient reports (+) significant improvement of her low back pain with physical therapy Continue Tramadol 50 mg TID PRN and Voltaren gel topically over her lower back as needed; continue Gabapentin 100 mg TID (7) Insomnia: Code(s): G47.00 - Insomnia, unspecified Category: Medical Qualifiers: Insomnia type: unspecified Qualified Code(s): G47.00 - Insomnia, unspecified Plan: Sleep hygiene reinforced Will start patient on Trazodone 50 mg Q HS PRN (8) Obesity (BMI 30-39.9): Code(s): E66.9 - Obesity, unspecified Category: Medical Plan: Reinforced diet/exercise as tolerated/lose weight Plan Follow up in 4 months Orders: Orders Complete Blood Count Auto Diff 4 Months D64.9 - Anemia, unspecified Microalbumin, Random (w Creat) 4 Months E11.9 - Type 2 diabetes mellitus without complications TSH reflex Free T4 4 Months E78.00 - Pure hypercholesterolemia, unspecified UA CC w/rflx Micro + Cult 4 Months R30.0 - Dysuria Comprehensive [place]. Panel Fast 4 Months E78.00 - Pure hypercholesterolemia, unspecified Lipid Panel 4 Months E78.00 - Pure hypercholesterolemia, unspecified Hemoglobin A1c 4 Months E11.9 - Type 2 diabetes mellitus without complications Medications: New trazodone 50 mg PO BEDTIME 30 days PRN 30 tabs 3RF sleep Changed From clopidogrel 75 mg PO DAILY 90 tabs 1RF To clopidogrel 75 mg PO DAILY 90 days 90 tabs 1RF
[2024-11-07 14:30] VITALS: BP 132/70; PULSE 100; O2SAT 96; BMI 29.3
== END 2024-11-07 15:27 | disposition home or self-care (01) ==
PROVIDERS: PCP Internal Medicine; Visit Provider Internal Medicine
DX: E11.69 Type 2 diabetes mellitus with other specified complication (principal); I73.9 Peripheral vascular disease, unspecified; E78.00 Pure hypercholesterolemia, unspecified; I10 Essential (primary) hypertension; E55.9 Vitamin D deficiency, unspecified; M47.816 Spondylosis without myelopathy or radiculopathy, lumbar region; G47.00 Insomnia, unspecified; E66.9 Obesity, unspecified

== ENCOUNTER → 2024-11-07 14:21 | Outpatient (BNVA) | payer MEDICARE, SELFPAY | PROVIDERS: PCP Internal Medicine; Visit Provider Internal Medicine | DX: E11.69 Type 2 diabetes mellitus with other specified complication (principal); E78.00 Pure hypercholesterolemia, unspecified; E55.9 Vitamin D deficiency, unspecified; I10 Essential (primary) hypertension; I73.9 Peripheral vascular disease, unspecified; M47.816 Spondylosis without myelopathy or radiculopathy, lumbar region; G47.00 Insomnia, unspecified; E66.9 Obesity, unspecified | CPT/HCPCS: 96127; 99212 ==

== ENCOUNTER 2024-11-29 13:04 | Outpatient (REF) | payer OTHER, SELFPAY ==
--- NOTE | ~2024-11-29 | US_ITS ---
CLINICAL HISTORY: I73.9 - Peripheral vascular disease, unspecified Ankle-brachial index Comparison: US/SR - US ARTERIAL DUPLEX BI W/ DANYELLE - 05/15/24 13:24 EDT US/SR - US ARTERIAL DUPLEX [facility] 01/04/24 18:22 EDT US/SR - US VENOUS DUPLEX [facility] 01/04/24 15:31 EDT Findings: Right brachial artery 112 mmHg Right posterior tibial artery 102 mmHg Right dorsalis pedis artery 86 mmHg Right DANYELLE:0.85 Left brachial artery 120 mmHg Left posterior tibial artery 100 mmHg Left dorsalis pedis artery 121 mmHg Left DANYELLE:1.01 DANYELLE and estimated severity of disease: 0.96 - 1.30 generally normal 0.81 - 0.95 mild disease 0.51 - 0.80 moderate disease 0.31 - 0.50 moderate to severe disease < 0.30 severe disease Impression: 1. Right DANYELLE 0.85 reflecting mild disease. Previous DANYELLE 1.56 2. Left DANYELLE normal at 1.01. Previous DANYELLE 1.56 Bilateral lower extremity duplex arterial Doppler Comparison: US/SR - US ARTERIAL DUPLEX BI W/ DANYELLE - 05/15/24 13:24 EDT US/SR - US ARTERIAL DUPLEX [facility] 01/04/24 18:22 EDT US/SR - US VENOUS DUPLEX [facility] 01/04/24 15:31 EDT Technique: Grayscale/Color and duplex Doppler sonographic evaluation of the arterial system within both lower extremities. Peak systolic velocities recorded in centimeters per second. Findings: Right lower extremity SUPERVISOR MULTIFOCAL LENS: Biphasic. 161 cm/s SFA: Biphasic. 133 cm/s Popliteal artery: Monophasic. 92.4 cm/s Posterior tibial: Occluded. Dorsalis pedis: Monophasic. 28.4 cm/s Anterior tibial: Monophasic. 47.6 cm/s Peroneal: Monophasic. 52.9 cm/s Left lower extremity SUPERVISOR MULTIFOCAL LENS: Biphasic. 101 cm/s SFA: Monophasic. 177cm/s Popliteal artery: Biphasic. 58.0 cm/s Posterior tibial: Monophasic. 30.9 cm/s Dorsalis pedis: Monophasic. 34.0 cm/s Anterior tibial: Monophasic. 372 cm/s Peroneal: Absent flow. Impression: 1. Right posterior tibial artery is occluded. 2. Absent flow left peroneal artery. High velocity in the anterior tibial artery on the left reflecting high-grade stenosis. 3. No occlusive disease proximally This document has been electronically signed by: Daniel Terrazas MD on 11/30/2024 09:55:22
== END 2024-11-29 13:05 | disposition home or self-care (01) ==
LOC: HO.US 13:04
PROVIDERS: PCP Internal Medicine; Visit Provider Surgery Vascular Surgery
DX: I73.9 Peripheral vascular disease, unspecified (principal)
CPT/HCPCS: 93922; 93925

== ENCOUNTER → 2024-11-29 13:06 | Outpatient (BNV) | payer OTHER, SELFPAY | PROVIDERS: PCP Internal Medicine; Visit Provider Radiology Diagnostic Radiology | DX: I73.9 Peripheral vascular disease, unspecified (principal); I74.3 Embolism and thrombosis of arteries of the lower extremities | CPT/HCPCS: 93922; 93925 ==

== ENCOUNTER 2024-12-14 14:57 | Outpatient (AMB) | payer OTHER, SELFPAY ==
[2024-12-14 15:03] VITALS: BMI 29.3
--- NOTE | 2024-12-14 15:03 | A.OFFVIS_ITS ---
Vital Signs 12/14/24 15:03 Height 5 ft 2 in Weight 160 lb BMI 29.3 Intake Visit Reasons: 6m follow up s/p Arterial US 11/30/24 Intake Note: 6 mo follow up s/p Arterial US 11/30/24 w/ hx of Left Angio 01/12/24 & Right LE Angio 05/13/22. Pt states bilateral LE feel fine but feet have been cold since procedures were done. Pt states she also get some numbness over Right pre-tibial area on occasion. 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 Accompanied by: Self / Same As Patient Allergies insulin detemir Allergy (Unknown, Verified 12/14/24 15:06) hives insulin glargine Allergy (Unknown, Verified 12/14/24 15:06) rash/ hives Penicillins [PENICILLINS] Allergy (Unknown, Verified 12/14/24 15:06) HIVES sitagliptin [Januvia] Allergy (Unknown, Verified 12/14/24 15:06) hives animal dander Adverse Reaction (Intermediate, Verified 12/14/24 15:07) Hives metformin Adverse Reaction (Intermediate, Verified 12/14/24 15:06) diarrhea HPI HPI 6m follow up s/p Arterial US 11/30/24: Details: Very pleasant 79-year-old female presents for routine arterial surveillance follow-up. At the current time she reports no difficulties ambulating. She is doing extremely well. She had prior right endovascular intervention back in 2021 and left lower extremity intervention back in April of 2024. She can walk several blocks easily with no significant difficulty. She is remains quite active. She has 1 daughter in [place] and 1 daughter in [place] who were both going back for further studies. She now presents for routine arterial surveillance follow-up. Of note she is being maintained on aspirin and statin. [facility] Medical History Insomnia Right hip pain Abdominal bloating Diarrhea Overweight (BMI 25.0-29.9) Right otitis media Left otitis media Left knee sprain Annual physical exam Obesity (BMI 30-39.9) Vitamin D deficiency H/O coronary angiogram Hip pain, bilateral Arthralgia Smoker Low back pain Benign essential hypertension Pure hypercholesterolemia Diabetes mellitus Surgical History H/O tubal ligation H/O colonoscopy Hx of appendectomy History of tonsillectomy History of laser refractive surgery History of cataract surgery Family History Mother Alzheimer disease Heart problem Father Heart attack Brother Cancer Sister Breast cancer Family/Other Breast cancer Other Substance abuse Social History Housing: Apartment Alcohol intake: current Alcohol intake frequency: holidays/special occasions only Patient Tobacco Use Status: Former Tobacco user Cigarettes Per Day: 5 e-Cigarette/Vaping Use: Never Used Second Hand Smoke Exposure: Yes service: No Current occupational status: employed Cognitive needs: No Hearing needs: No Vision needs: Yes Review of Systems Const All systems reviewed & are unremarkable except as noted in HPI and below Reports no additional complaints ENT Reports Normal hearing present Card Denies chest pain, Denies chest pain at rest, Denies chest pain with activity and Denies pedal edema Resp Denies cough GI Denies abdominal pain Musc Denies abnormal gait, Denies muscle cramps and Denies radiating pain into limb Skin/Breast Denies skin ulcer and Denies wounds Neuro Reports Normal hearing present and Denies abnormal gait Psych Reports no additional complaints Physical Exam Vital Signs: BMI result Body Mass Index 29.3 Const General: cooperative, healthy appearing and comfortable Orientation/consciousness: oriented to person, oriented to place and oriented to time HEENT Head: Yes normal to inspection Neck Neck: Yes normal visual inspection Carotids: no bruits Chest Chest palpation & inspection: normal inspection of the chest Resp Effort & Inspection: normal respiratory effort and able to speak in complete sentences Auscultation: clear to auscultation bilaterally, no crackles, no rales, no rhonchi and no wheezes Cardio Other: Palpable bilateral dorsalis pedis pulses Rate: regular rate Rhythm: regular rhythm Heart sounds: S1 normal heart sound present and S2 normal heart sound present Bruits: no carotid bruits Peripheral pulses: Peripheral pulses 2+ throughout GI Inspection: Yes normal to inspection Skin Wounds: no wounds Hair: normal Neuro General: oriented to person, oriented to place and oriented to time Cranial nerves: Yes CN's II-XII intact bilaterally and Yes Normal hearing present Cognition (Neuro): normal cognition Motor exam (neuro): 5/5 motor strength present throughout Extrem Other: venous exam: No significant superficial varicosities or spider telangiectasias, minimal edema General: No clubbing, No cyanosis and No edema Psych Appearance: grossly normal Mental Status: mental status grossly normal Speech and movement: Normal speech and movement present Results Reviewed Results Reviewed: Noninvasive arterial testing dated 11/29/2024 demonstrates DANYELLE on the right of 0.85 and on the left of 1.01 Assessment & Plan Assessment & Plan (1) PAD (peripheral artery disease): Comment: 05/13/2022 - right SFA atherectomy and plasty, 01/12/2024 - left SFA atherectomy and plasty Code(s): I73.9 - Peripheral vascular disease, unspecified Category: Medical Plan: In short patient has stable claudication. I did review the pathophysiology of peripheral vascular disease with the patient. In addition we did discuss routine conservative measures including a healthy diet and the importance of exercise and ambulation. We did discuss risk factor modification. The patient will continue to to follow-up with surveillance follow-up in approximately 1 year. Thank you for allowing us to participate in this patient's care. If there are any questions or concerns please do not hesitate to contact us. Orders: Orders US arterial duplex LE BI 1 Year I73.9 - Peripheral vascular disease, unspecified Coding Level of Care Code Est Pt Level 4 (66726) Complex EM visit Add On G2211 Diagnoses PAD (peripheral artery disease) I73.9
== END 2024-12-14 15:31 | disposition home or self-care (01) ==
LOC: HO.HVS 14:58
PROVIDERS: PCP Internal Medicine; Visit Provider Surgery Vascular Surgery
DX: I73.9 Peripheral vascular disease, unspecified (principal)
CPT/HCPCS: 99214

== ENCOUNTER → 2024-12-14 14:57 | Outpatient (BNVA) | payer OTHER, SELFPAY | PROVIDERS: PCP Internal Medicine; Visit Provider Surgery Vascular Surgery ==

== ENCOUNTER 2024-12-25 11:57 | Outpatient (AMB) | payer OTHER, SELFPAY ==
--- NOTE | 2024-12-25 12:38 | A.OFFPC_ITS ---
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: No Accompanied by: Self / Same As Patient Allergies insulin detemir Allergy (Unknown, Verified 12/25/24 13:00) hives insulin glargine Allergy (Unknown, Verified 12/25/24 13:00) rash/ hives Penicillins [PENICILLINS] Allergy (Unknown, Verified 12/25/24 13:00) HIVES sitagliptin [Januvia] Allergy (Unknown, Verified 12/25/24 13:00) hives animal dander Adverse Reaction (Intermediate, Verified 12/25/24 13:00) Hives metformin Adverse Reaction (Intermediate, Verified 12/25/24 13:00) diarrhea Medication List - Last Reconciled 12/25/24 by Jono Vallecillo MD aspirin 81 mg PO DAILY atorvastatin 40 mg PO DAILY blood sugar diagnostic (OneTouch Ultra Test strips) As directed prn tid to confirm glucose sensor readings blood-glucose meter As directed Dispense as one touch ultra prn to confirm glucose sensor blood-glucose sensor (FreeStyle Asim 3 Plus Sensor device) As directed every 15 days cholecalciferol (vitamin D3) 50 mcg PO DAILY 90 days clopidogrel 75 mg PO DAILY diclofenac sodium 1% (Arthritis Pain (diclofenac)) 2 grams topical QID PRN dulaglutide (Trulicity) 1.5 mg (0.5 mL) subcut QWEEK empagliflozin (Jardiance) 10 mg PO DAILY 90 days gabapentin 100 mg PO TID PRN 30 days lancets (Fingerstix Lancets) As directed for use with freestyle lite prn low glucose on sensor lisinopril 5 mg PO DAILY 90 days tramadol 50 mg PO TID PRN 30 days trazodone 50 mg PO BEDTIME PRN 30 days Tobacco use date assessed: 12/25/24 Fall risk assessment: No Falls in past year Last assessed Fall Risk: 12/25/24 Dental Screening Dental Screen Date: 12/25/24 Did you have a dental visit in the last 12 months?: No Did you have a dental problem in the last 6 months where you did not have access to dental care?: No Was dental information given to patient?: Patient has dentist HPI Annual Exam HPI Details Patient comes in today for her annual physical examination States that she has been experiencing on and off bouts of chest pressure over the past month or so Notes that she is currently displaced and is looking for a place of her own and has been under some stress lately as a result - states that her recently and she supposedly makes too much money to be able to continue staying where she was living with her before he passed Notes that these episodes of chest pressure do not appear to be associated with activity or exertion and tend to last for about 10 minutes on average before they gradually subside on their own States that she feels okay otherwise She denies any headaches or dizziness Denies any exertional chest pains or increased SOB No nausea/vomiting, no abdominal pain No change in bowel habits noted She denies any acute urinary symptoms She states that she was not able to get any follow up labs done prior to her appointment today She had a negative Cologuard test done in September 2023 and will be due for either repeat Cologuard testing or screening colonoscopy in early 2026 She is due for her annual mammogram (she did not get one done last year) and for her repeat BMD States that she no longer wishes to keep up with her yearly gynecology exam and pap smear at her age PFSH Medical History (Updated 12/25/24 @ 19:02 by Jono Vallecillo MD) Insomnia Right hip pain Abdominal bloating Overweight (BMI 25.0-29.9) Vitamin D deficiency H/O coronary angiogram Hip pain, bilateral Arthralgia Smoker Low back pain Benign essential hypertension Pure hypercholesterolemia Diabetes mellitus Surgical History H/O tubal ligation H/O colonoscopy Hx of appendectomy History of tonsillectomy History of laser refractive surgery History of cataract surgery Family History Mother Alzheimer disease Heart problem Father Heart attack Brother Cancer Sister Breast cancer Family/Other Breast cancer Other Substance abuse Social History Housing: Apartment Alcohol intake: current Alcohol intake frequency: holidays/special occasions only Patient Tobacco Use Status: Former Tobacco user Cigarettes Per Day: 5 e-Cigarette/Vaping Use: Never Used Second Hand Smoke Exposure: Yes service: No Current occupational status: employed Cognitive needs: No Hearing needs: No Vision needs: Yes Questionnaire PHQ-9 Over the last 2 weeks, how often have you been bothered by any of the following problems? 1. Little interest or pleasure in doing things: not at all 2. Feeling down, depressed, or hopeless: not at all 3. Trouble falling or staying asleep, or sleeping too much: several days 4. Feeling tired or having little energy: not at all 5. Poor appetite or overeating: not at all 6. Feeling bad about yourself - or that you are a failure or have let yourself or your family down: not at all 7. Trouble concentrating on things, such as reading the newspaper or watching television: not at all 8. Moving or speaking so slowly that other people could have noticed. Or the opposite - being so fidgety or restless that you have been moving around a lot more than usual: not at all 9. Thoughts that you would be better off or of hurting yourself in some way: not at all Total score: 1 Depression Screening Interpretation: Negative Depression Screening Done: Yes 19003 - PHQ-9 Billing: Yes Source: Developed by Drs. Jet Sutton, Anali Darby, Rg Fleming and colleagues, with an educational casandra from [employer]. Thrive Questionnaire Date Thrive assessed: 12/25/24 I am a: Patient What is your living situation today?: I do not have a steady places to live I am temporarily staying with others Within the past 12 months, did the food you bought not last and you didn't have the money to get more?: Never true Within the past 12 months, did you worry whether your food would run out before you got money to buy more?: Never true Do you have trouble paying for medicines?: No Do you have trouble getting transportation to medical appointments?: No Do you have trouble paying your heating and electricity bill?: No Do you have trouble taking care of your child, family member or friend?: No Do you have trouble with day-to-day activities such as bathing, preparing meals, shopping, managing finances, etc.?: No Are you currently unemployed and looking for a job?: No Are you interested in more education?: No Please select the resources that you would like help with: None Currently or been in a relationship where the following occur: No concerns reported THRIVE Score: 1 AUDIT C Alcohol Use Questionnaire (AUDIT-C) 1. How often do you have a drink containing alcohol?: Monthly or less 2. How many drinks containing alcohol do you have on a typical day when you are drinking?: 1 or 2 3. How often do you have six or more drinks on one occasion?: Never Total Score: 1 Score Reviewed/Action Taken: Yes WILDA-7 AMB Questionnaire WILDA-7 Date WILDA - 7 assessed: 12/25/24 Feeling nervous, anxious, or on edge: 0 = Not at all Not being able to stop or control worryin = Not at all Worrying too much about different things: 0 = Not at all Trouble relaxin = Not at all Being so restless that it is hard to sit still: 0 = Not at all Becoming easily annoyed or irritable: 0 = Not at all Feeling afraid as if something awful might happen: 0 = Not at all Total WILDA-7 score (0-4 normal; 5-9 mild; 10-14 moderate; 15-21 severe): 0 Source: Developed by Drs. Jet Sutton, Anali Darby, Rg Fleming and colleagues, with an educational casandra from [employer]. Review of Systems Const Denies chills, Reports difficulty sleeping, Denies fatigue, Denies fever(s), Denies headache(s) and Denies malaise Eyes Denies blurry vision, Denies change in vision, Denies irritation and Denies itchy eyes ENT Denies dysphagia, Denies dizziness, Denies headache(s), Denies neck pain and Denies odynophagia Card Denies chest pain (but reports (+) on and off chest pressure - see HPI), Denies rapid heart rate, Denies irregular heart rhythm, Denies palpitations and Denies dyspnea Resp Denies chest congestion, Denies cough, Denies dyspnea and Denies wheezing GI Denies abdominal pain, Denies bloating, Denies constipation, Denies dysphagia, Denies heartburn, Denies diarrhea, Denies nausea, Denies odynophagia and Denies vomiting Denies hematuria, Denies urinary frequency, Denies dysuria, Denies urinary incontinence and Denies urinary urgency Musc Reports back pain (over the lower back - chronic), Reports arthralgias (in both hips, on and off) and Denies neck pain Skin/Breast Denies breast pain, Denies breast mass, Denies change in pigmentation, Denies lesions, Denies rash and Denies unusual bruising Neuro Denies dizziness, Denies headache(s) and Denies paresthesias Psych Reports anxiety and Denies depression Endo Denies fatigue and Denies palpitations Chicho/Lymph Denies easy bruising Aller/Immun Denies itchy eyes and Denies wheezing Physical exam (Primary Care) Vital Signs: Last Vital Signs Pulse 105 H 12/25/24 12:39 BP 130/78 12/25/24 12:39 Pulse Ox 95 12/25/24 12:39 Oxygen Delivery Method Room Air 12/25/24 12:39 BMI result Body Mass Index 29.4 Tobacco/Smoking Status: Tobacco use Status Tobacco use date assessed 12/25/24 12/25/24 12:44 Patient Tobacco Use Status Former Tobacco user 12/25/24 12:44 e-Cigarette/Vaping Use Never Used 12/25/24 12:44 PHQ-9: PHQ-9 Score PHQ-9: Total score 1 12/25/24 16:50 Depression Screening Interpretation: Negative Thrive Assessment: Date of Thrive Assessment Date Thrive assessed 12/25/24 12/25/24 12:44 Currently or been in a relationship where the following occur: No concerns reported Const General: no acute distress and alert Orientation/consciousness: patient oriented x3 HENMT Head: Yes normocephalic and Yes atraumatic Ears: TM's normal bilaterally and EAC's normal General nose exam: No nasal discharge present Face and sinus: Yes normal facial exam and Yes sinuses nontender Teeth and gingiva: dentition normal Throat: Yes posterior oropharynx normal and Yes tonsils normal (no TP congestion) Eyes Eyelids: Yes eyelids normal Conjunctivae: conjunctivae normal Pupils: Equal, round and reactive pupils present EOM: EOMs intact bilaterally Neck Neck: Yes supple and No lymphadenopathy Thyroid: Thyroid normal Resp Auscultation: clear to auscultation bilaterally, no rales and no wheezes Cardio Rate: regular rate Rhythm: regular rhythm Heart sounds: no murmurs GI Palpation (GI): Soft to palpation and nontender Auscultation: normal bowel sounds General: Yes no CVA tenderness Back/Spine/Pelvis Back: no CVA tenderness Thoracic/Lumbar Spine: lumbar spinal tenderness (mild) Skin Lesions: no lesions Rashes: no rashes Neuro General: patient oriented x3, moves all extremities, no focal motor deficits and CN's II-XI intact bilaterally Cranial nerves: Yes Equal, round and reactive pupils present Cognition (Neuro): normal cognition Gait exam (Neuro): Normal gait present Extrem General: Yes no clubbing, cyanosis or edema Right lower extremity: hip/thigh Details: tenderness Location: of the hip Left lower extremity: knee Details: tenderness; no swelling Coding Level of Care Code Est Pt Prev Care >65y(48012) Diagnoses Annual physical exam Z00.00 Type 2 diabetes mellitus with other specified complication, without long-term current use of insulin E11.69 Diabetes mellitus complication status: with other specified complication Diabetes mellitus intermediate insulin use: without 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 bottom 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 use Diabetes mellitus type: type 2 Pure hypercholesterolemia E78.00 Benign essential hypertension I10 Chest pressure R07.89 Vitamin D deficiency E55.9 PAD (peripheral artery disease) I73.9 Facet arthritis, degenerative, 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 Insomnia, unspecified type G47.00 Insomnia type: unspecified Obesity (BMI 30-39.9) E66.9 Breast cancer screening by mammogram Z12.31 Osteoporosis screening Z13.820 Additional Codes PHQ-9 - 87765 - PHQ-9 Billing: Yes ([id number]) Assessment & Plan Assessment & Plan (1) Annual physical exam: Code(s): Z00.00 - Encounter for general adult medical examination without abnormal findings Category: Medical Plan: Patient did not have any labs ordered for this appointment; she did have her labs done back in October 2024 and her results were discussed at her last appointment She had a negative Cologuard test done in September 2023 and will be due for either repeat Cologuard testing or screening colonoscopy in early 2026 She is due for her annual mammogram (she did not get one done last year) and for her repeat BMD States that she no longer wishes to keep up with her yearly gynecology exam and pap smear at her age (2) Diabetes mellitus: Code(s): E11.9 - Type 2 diabetes mellitus without complications Category: Medical Qualifiers: Diabetes mellitus complication status: with other specified complication Diabetes mellitus intermediate insulin use: without intermediate use Diabetes mellitus type: type 2 Qualified Code(s): E11.69 - Type 2 diabetes mellitus with other specified complication Plan: Patient's HgbA1c is at 6.9% a couple of months ago (was previously at 6.5% a few months prior to that) - goal is < 7.0% Reinforced diabetic diet Continue Glipizide 10 mg BID; we tried increasing her Trulicity from 1.5 mg to 3 mg SQ once a week a few months ago but she could not tolerate the 3 mg dose due to severe nausea and went back on the 1.5 mg dose once a week She also developed hives previously to long-acting insulins like Tresiba and Lantus as well as to Januvia and she could not tolerate Metformin due to diarrhea We tried to start her additionally on Onglyza but her insurance declined to cover Rx; she was started on Jardiance 10 mg QD by endocrinology a few months ago when she was first seen She is now doing very well on her current Rx - Trulicity 1.5 mg once a week, Glipizide 10 mg BID and Jardiance 10 mg Q AM Will recheck her labs and HgbA1c as scheduled in a couple of months for follow up Follow up with endocrinology as scheduled (3) Pure hypercholesterolemia: Code(s): E78.00 - Pure hypercholesterolemia, unspecified Category: Medical Plan: Reinforced low cholesterol diet Continue Atorvastatin 40 mg QD Will recheck her fasting lipids and labs in 2 months for follow-up (4) Benign essential hypertension: Code(s): I10 - Essential (primary) hypertension Category: Medical Plan: Reinforced low-sodium diet - goal is systolic BP of at least 140 mm or less Continue Lisinopril 5 mg QD (5) Chest pressure: Code(s): R07.89 - Other chest pain Category: Medical Plan: Patient feels that her recent recurrent bouts of chest pressure are likely due to anxiety BUT discussed with patient that she is a diabetic and also has other comorbidities that increase her cardiac risks so we still should get her checked out for any potential cardiac issues to be on the safe side Will refer her to cardiology for urgent consultation regarding her recent recurrent bouts of chest pressure (6) Vitamin D deficiency: Code(s): E55.9 - Vitamin D deficiency, unspecified Category: Medical Plan: Continue Vitamin D3 2000 units QD (7) PAD (peripheral artery disease): Comment: 05/13/2022 - right SFA atherectomy and plasty, 01/12/2024 - left SFA atherectomy and plasty Code(s): I73.9 - Peripheral vascular disease, unspecified Category: Medical Plan: S/P endovascular intervention of the right lower extremity a couple of years ago in April 2022 S/P dual antiplatelet therapy with Aspirin 81 mg QD and Clopidogrel 75 mg QD x 6 months post-op She was on Aspirin 81 mg QD alone for a while but now appears to be back on Clopidogrel 75 mg QD as well Follow up with vascular surgery as scheduled (8) Facet arthritis, degenerative, lumbar spine: Code(s): M47.816 - Spondylosis without myelopathy or radiculopathy, lumbar region Category: Medical Plan: Lumbar spine x-rays done last year revealed (+) facet arthritis changes in the lumbar spine Reinforced activity and weight lifting restrictions Patient reports (+) significant improvement of her low back pain with physical therapy Continue Tramadol 50 mg TID PRN and Voltaren gel topically over her lower back as needed; continue Gabapentin 100 mg TID (9) Insomnia: Code(s): G47.00 - Insomnia, unspecified Category: Medical Qualifiers: Insomnia type: unspecified Qualified Code(s): G47.00 - Insomnia, unspecified Plan: Sleep hygiene reinforced Continue Trazodone 50 mg Q HS PRN (10) Obesity (BMI 30-39.9): Code(s): E66.9 - Obesity, unspecified Category: Medical Plan: Reinforced diet; exercise and weight loss are not realistic in this patient with multiple comorbidities but she is still encouraged to stay as active as she can (11) Breast cancer screening by mammogram: Code(s): Z12.31 - Encounter for screening mammogram for malignant neoplasm of breast Category: Medical Plan: Will send her to get her annual mammogram updated CHANO (12) Osteoporosis screening: Code(s): Z13.820 - Encounter for screening for osteoporosis Category: Medical Plan: Will also send her for BMD for osteoporosis screening Plan Follow up as scheduled in February 2024 Orders: Orders MM tomosynthesis screening BI Today Z12.31 - Encounter for screening mammogram for malignant neoplasm of breast XR DEXA axial skeleton Today Z78.0 - Asymptomatic menopausal state Referrals Cardiology Referral R07.89 - Other chest pain
[2024-12-25 12:39] VITALS: BP 130/78; PULSE 105; O2SAT 95; BMI 29.4
== END 2024-12-25 13:13 | disposition home or self-care (01) ==
LOC: HO.HMCH 11:58
PROVIDERS: PCP Internal Medicine; Visit Provider Internal Medicine
DX: Z00.00 Encounter for general adult medical examination without abnormal findings (principal); E11.69 Type 2 diabetes mellitus with other specified complication; E78.00 Pure hypercholesterolemia, unspecified; I10 Essential (primary) hypertension; R07.89 Other chest pain; E55.9 Vitamin D deficiency, unspecified; I73.9 Peripheral vascular disease, unspecified; M47.816 Spondylosis without myelopathy or radiculopathy, lumbar region; G47.00 Insomnia, unspecified; E66.9 Obesity, unspecified; Z12.31 Encounter for screening mammogram for malignant neoplasm of breast; Z13.820 Encounter for screening for osteoporosis

== ENCOUNTER → 2024-12-25 11:57 | Outpatient (BNVA) | payer OTHER, SELFPAY | PROVIDERS: PCP Internal Medicine; Visit Provider Internal Medicine | DX: Z00.00 Encounter for general adult medical examination without abnormal findings (principal); E11.69 Type 2 diabetes mellitus with other specified complication; E78.00 Pure hypercholesterolemia, unspecified; I10 Essential (primary) hypertension; R07.89 Other chest pain; E55.9 Vitamin D deficiency, unspecified; I73.9 Peripheral vascular disease, unspecified; M47.816 Spondylosis without myelopathy or radiculopathy, lumbar region; G47.00 Insomnia, unspecified; E66.9 Obesity, unspecified; Z68.29 Body mass index [BMI] 29.0-29.9, adult; Z79.84 Long term (current) use of oral hypoglycemic drugs; Z79.85 Long-term (current) use of injectable non-insulin antidiabetic drugs; Z79.899 Other long term (current) drug therapy | CPT/HCPCS: 96127 ==

== ENCOUNTER 2025-02-01 15:01 | Outpatient (AMB) | payer OTHER, SELFPAY ==
--- NOTE | 2025-02-01 15:05 | A.OFFVIS_ITS ---
Vital Signs 02/01/25 15:09 Height 5 ft 2 in Weight 165 lb 2.02 oz BMI 30.2 BP 108/64 Blood Pressure Location Rt brachial Position Sitting Pulse 98 Pulse Source Pulse Oximeter Pulse Oximetry (%) 98 Oxygen Delivery Method Room Air Intake Visit Reasons: Type 2 DM, On Jardiance with side effects Intake Note: Patient present today to follow up on Type 2 Diabetes Mellitus. C/o Yeast Infections approx 3 weeks ago while being on Jardiance. Patient stated she experienced itching, pain, and burning and she bought OTC products as Vagisil and Monistat and symptoms started to get worse. 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 Accompanied by: Self / Same As Patient Allergies insulin detemir Allergy (Unknown, Verified 02/01/25 15:10) hives insulin glargine Allergy (Unknown, Verified 02/01/25 15:10) rash/ hives Penicillins [PENICILLINS] Allergy (Unknown, Verified 02/01/25 15:10) HIVES sitagliptin [Januvia] Allergy (Unknown, Verified 02/01/25 15:10) hives animal dander Adverse Reaction (Intermediate, Verified 02/01/25 15:10) Hives empagliflozin [From Jardiance] Adverse Reaction (Intermediate, Verified 02/01/25 15:10) vaginal yeast infection metformin Adverse Reaction (Intermediate, Verified 02/01/25 15:10) diarrhea Medication List - Last Reconciled 02/01/25 by Jet Putnam MD aspirin 81 mg PO DAILY atorvastatin 40 mg PO DAILY blood sugar diagnostic (OneTouch Ultra Test strips) As directed prn tid to confirm glucose sensor readings blood-glucose meter As directed Dispense as one touch ultra prn to confirm glucose sensor blood-glucose sensor (FreeStyle Asim 3 Plus Sensor device) As directed every 15 days cholecalciferol (vitamin D3) 50 mcg PO DAILY 90 days clopidogrel 75 mg PO DAILY diclofenac sodium 1% (Arthritis Pain (diclofenac)) 2 grams topical QID PRN dulaglutide (Trulicity) 1.5 mg (0.5 mL) subcut QWEEK fluconazole 100 mg PO DAILY 3 days gabapentin 100 mg PO TID PRN 30 days lancets (Fingerstix Lancets) As directed for use with freestyle lite prn low glucose on sensor lisinopril 5 mg PO DAILY 90 days tramadol 50 mg PO TID PRN 30 days trazodone 50 mg PO BEDTIME PRN 30 days HPI Comments Details: 79 YO female who is seen in f/u for type 2 diabetes. She was last seen in 08/23/24 by Valentina Renteria NP Most recent A1C was 6.5% Initially diagnosed with T2DM in [1995 ]. Previous: HbA1c: 9.4%, 03/17/2024 Was initially started on treatment with [glipizide]. Metformin (not er) gas/bloating Lantus/levemir hives Diffuse rash with Lantus/detemir many years ago glipizide stopped:ineffective Current regimen [Trulicity 1.5mg] off Jardiance due to yeast infection Has been on Trulicity for several years, recently tried 3.0 mg and was unable to tolerate. Freestyle Asim Asim active 97% of the time. Average glucose is 164 with G mi of 7.2% and variability 27.2%. 66% range with 34% hyperglycemia and no hypoglycemia Reports low sugars [none]. One day sensor malfunctioned and was low all day. Treats lows with: has candy in her purse. [Checks] sugar after to ensure it is rising. . Had eyes checked yearly in the past, last eye exam [not certain] retinopathy. She will call with the name of the Opthamologist she would like to see if [employer] requires a referral. [Denies ] neuropathy, last foot exam [Sees PA at the [facility] for nail care], [Denies] nephropathy, on [KENNY]. [Has] HLD, on [statin]. Last LDL [65] as measured on [03/13]. [Denies] CAD. Sees vascular has had angioplasty Denies numbness, tingling, cramping in legs Diet: [Eats a slice of toast/ 1/2 banana for breakfast, picks on veg/fruit/cheese for lunch and small dinner.] Weight: [stable, appetite down since Trulicity] [Had] diabetes education. None recent with exception of sensor training. She quit smoking a year and a half ago. Rare alcohol PFSH Medical History (Updated 12/25/24 @ 19:02 by Jono Vallecillo MD) Insomnia Right hip pain Abdominal bloating Overweight (BMI 25.0-29.9) Vitamin D deficiency H/O coronary angiogram Hip pain, bilateral Arthralgia Smoker Low back pain Benign essential hypertension Pure hypercholesterolemia Diabetes mellitus Surgical History H/O tubal ligation H/O colonoscopy Hx of appendectomy History of tonsillectomy History of laser refractive surgery History of cataract surgery Family History Mother Alzheimer disease Heart problem Father Heart attack Brother Cancer Sister Breast cancer Family/Other Breast cancer Other Substance abuse Social History Housing: Apartment Alcohol intake: current Alcohol intake frequency: holidays/special occasions only Patient Tobacco Use Status: Former Tobacco user Cigarettes Per Day: 5 e-Cigarette/Vaping Use: Never Used Second Hand Smoke Exposure: Yes service: No Current occupational status: employed Cognitive needs: No Hearing needs: No Vision needs: Yes Physical Exam Absence of Cushingoid features. Absence of acromegalic features. Neck exam reveals nl size thyroid about 15 gms. No thyroid nodules palpable. No carotid bruits present. Lungs CTA. Heart S1 S2, Reg R/R. No M/R/ G. Skin exam reveals absence of vitiligo or acanthosis nigricans. Abdominal exam reveals Soft NT/ND with NA BS. No organomegaly present. Neck Other: . Extrem Other: Visual exam of foot performed. No ulcerations or open lesions. No onchomycosis, no callouses.Pulses 2 + distally Sensation intact to monofilament exam. Vibratory sensation sensed is intact with 128 Hz tuning fork Results AMB Hemoglobin A1c AMB Hemoglobin A1c 6.9 % Last Edit by REILLY Martel on 02/01/25 15:29 Assessment & Plan Assessment & Plan (1) Diabetes mellitus: Code(s): E11.9 - Type 2 diabetes mellitus without complications Category: Medical Qualifiers: Diabetes mellitus type: type 2 Diabetes mellitus [facility] insulin use: without [facility] use Diabetes mellitus complication status: with other specified complication Qualified Code(s): E11.69 - Type 2 diabetes mellitus with other specified complication Plan: This is a 79-year-old black female with a history of type 2 diabetes being treated with Trulicity previously on Jardiance which was stopped with adequate glycemic control considering age and comorbidities with known macrovascular and microvascular complications namely peripheral vascular disease and microalbuminuria. The plan is to continue the current regimen. Patient will follow up with primary care diabetes team in 3 months Orders: Orders AMB Hemoglobin A1c Today E11.69 - Type 2 diabetes mellitus with other specified complication Coding Level of Care Code Est Pt Level 4 (14277) Complex EM visit Add On G2211 Diagnoses Type 2 diabetes mellitus with other specified complication, without long-term current use of insulin E11.69 Diabetes mellitus type: type 2 Diabetes mellitus buttermaker continuous churn insulin use: without buttermaker continuous churn use Diabetes mellitus complication status: with other specified complication
[2025-02-01 15:09] VITALS: BP 108/64; PULSE 98; O2SAT 98; BMI 30.2
[2025-02-01 15:24] LABS: Glucose, Whole Blood 94 mg/dL (60-115)
== END 2025-02-01 15:38 | disposition home or self-care (01) ==
LOC: HO.ENCR 15:02
PROVIDERS: PCP Internal Medicine; Visit Provider Internal Medicine Endocrinology, Diabetes & Metabolism
DX: E11.69 Type 2 diabetes mellitus with other specified complication (principal)
CPT/HCPCS: 99214

== ENCOUNTER → 2025-02-01 15:01 | Outpatient (BNVA) | payer OTHER, SELFPAY | PROVIDERS: PCP Internal Medicine; Visit Provider Internal Medicine Endocrinology, Diabetes & Metabolism | DX: E11.69 Type 2 diabetes mellitus with other specified complication (principal) | CPT/HCPCS: 82947; 83036 ==

== ENCOUNTER 2025-02-14 13:51 | Outpatient (REF) | payer MEDICARE, SELFPAY ==
--- NOTE | ~2025-02-14 | MM_ITS ---
EXAMINATION: DXA BONE DENSITY AXIAL HISTORY: Z78.0 - Asymptomatic menopausal state TECHNIQUE: Podaddies Dual energy absorptiometry (DEXA) of the lumbar spine, total left hip, and femoral neck was performed. COMPARISON: Comparison is made with the prior examination dated 04/12/2009. FINDINGS: The bone mineral density of the lumbar spine is 1.199, corresponding to a T-score of 0.2, and a Z-score of 0.9. This is indicative of normal bone mineral density. This represents a BMD change of -3.5% compared to the prior exam. This is statistically significant. The bone mineral density of the left total hip is 1.012, corresponding to a T-score of 0.0, and a Z-score of 0.6. This is indicative of normal bone mineral density. This represents a BMD change of -9.6% compared to the prior exam. This is statistically significant. The bone mineral density of the left femoral neck is 0.856, corresponding to a T-score of -1.3, and a Z-score of -0.5. This is indicative of osteopenia. This represents a BMD change of -12.9% compared to the prior exam. MM/XR DEXA axial skeleton IMPRESSION: Based on bone mineral density, and according to World Health Organization (WHO) criteria, the diagnosis is consistent with osteopenia. All bone density values are in grams per centimeter squared (g/cm2). Statistically, 68% of repeat scans fall within 1 SD (+/- 0.010 g/cm2 for AP spine L1-L4) and 1 SD (+/- 0.012 g/cm2 for femur total) FRAX is a trademark of the [employer], a World Health Organization (WHO) Collaborating Center. Electronically signed by: Jet Tay MD 02/16/2025 03:21 PM EDT
--- NOTE | ~2025-02-14 | MM_ITS ---
EXAMINATION: MM SCREENING DIGITAL BREAST TOMOSYNTHESIS, BILATERAL CLINICAL INFORMATION: Screening. Asymptomatic. COMPARISON: Mammography: Comparison is made with available priors TECHNIQUE: Digital breast mammography with tomosynthesis is performed in both the craniocaudal and mediolateral oblique views along with computer-aided detection (CAD). FINDINGS: The breasts are heterogeneously dense, which may obscure small masses (ACR BI-RADS breast composition Category c). Right marker clip. Left marker clip. Dystrophic calcification central inner right breast are stable. There are no significant masses, abnormal calcifications, or other abnormalities. MM/MM tomosynthesis screening BI IMPRESSION: No mammographic evidence of malignancy. ASSESSMENT: BI-RADS BI-RADS 2 - Benign Findings RECOMMENDATION: Routine annual mammography screening. 1 year F/U This examination should not preclude the clinical evaluation of a suspicious palpable abnormality. This patient's information was entered into a reminder system with a target due date for their next mammogram. Electronically signed by: Lali Means DO 02/20/2025 02:47 PM EDT
== END 2025-02-14 13:52 | disposition home or self-care (01) ==
LOC: HO.MAMMO 13:51
PROVIDERS: PCP Internal Medicine; Visit Provider Internal Medicine
DX: Z12.31 Encounter for screening mammogram for malignant neoplasm of breast (principal); Z78.0 Asymptomatic menopausal state
CPT/HCPCS: 77063; 77067; 77080

== ENCOUNTER → 2025-02-14 14:30 | Outpatient (BNV) | payer MEDICARE, SELFPAY | PROVIDERS: PCP Internal Medicine; Visit Provider Radiology Diagnostic Radiology | DX: Z12.31 Encounter for screening mammogram for malignant neoplasm of breast (principal) | CPT/HCPCS: 77063; 77067 ==

== ENCOUNTER 2025-02-15 14:08 | Outpatient (AMB) | payer MEDICARE, SELFPAY ==
--- NOTE | 2025-02-15 14:30 | MHC.OFFVIS ---
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 Required: No Accompanied by: Self / Same As Patient Allergies insulin detemir Allergy (Unknown, Verified 02/01/25 15:10) hives insulin glargine Allergy (Unknown, Verified 02/01/25 15:10) rash/ hives Penicillins [PENICILLINS] Allergy (Unknown, Verified 02/01/25 15:10) HIVES sitagliptin [Januvia] Allergy (Unknown, Verified 02/01/25 15:10) hives animal dander Adverse Reaction (Intermediate, Verified 02/01/25 15:10) Hives empagliflozin [From Jardiance] Adverse Reaction (Intermediate, Verified 02/01/25 15:10) vaginal yeast infection metformin Adverse Reaction (Intermediate, Verified 02/01/25 15:10) diarrhea Medication List - Last Reconciled 02/15/25 by Félix Nuñez MD aspirin 81 mg PO DAILY atorvastatin 40 mg PO DAILY blood sugar diagnostic (OneTouch Ultra Test strips) As directed prn tid to confirm glucose sensor readings blood-glucose meter As directed Dispense as one touch ultra prn to confirm glucose sensor blood-glucose sensor (FreeStyle Asim 3 Plus Sensor device) As directed every 15 days cholecalciferol (vitamin D3) 50 mcg PO DAILY 90 days clopidogrel 75 mg PO DAILY diclofenac sodium 1% (Arthritis Pain (diclofenac)) 2 grams topical QID PRN dulaglutide (Trulicity) 1.5 mg (0.5 mL) subcut QWEEK gabapentin 100 mg PO TID PRN 30 days lancets (Fingerstix Lancets) As directed for use with freestyle lite prn low glucose on sensor lisinopril 5 mg PO DAILY 90 days tramadol 50 mg PO TID PRN 30 days trazodone 50 mg PO BEDTIME PRN 30 days HPI Comments Details: Ivania is here for consultation regarding chest discomfort. She does not have any known cardiac issues but has peripheral vascular disease. Multiple cardiovascular risk factors including history of smoking, diabetes, dyslipidemia. She has had a few episodes of chest discomfort occurring somewhat randomly. Nothing clearly exertional. Spontaneously relieved. Otherwise, normal physical activity without any major limitations. [facility] Medical History (Updated 02/15/25 @ 14:47 by Félix Nuñez MD) Insomnia Right hip pain Abdominal bloating Overweight (BMI 25.0-29.9) Vitamin D deficiency H/O coronary angiogram Hip pain, bilateral Arthralgia Smoker Low back pain Benign essential hypertension Pure hypercholesterolemia Diabetes mellitus Surgical History H/O tubal ligation H/O colonoscopy Hx of appendectomy History of tonsillectomy History of laser refractive surgery History of cataract surgery Family History Mother Alzheimer disease Heart problem Father Heart attack Brother Cancer Sister Breast cancer Family/Other Breast cancer Other Substance abuse Social History Housing: Apartment Alcohol intake: current Alcohol intake frequency: holidays/special occasions only Patient Tobacco Use Status: Former Tobacco user Cigarettes Per Day: 5 e-Cigarette/Vaping Use: Never Used Second Hand Smoke Exposure: Yes service: No Current occupational status: employed Cognitive needs: No Hearing needs: No Vision needs: Yes Review of Systems Const Denies chills, Denies fatigue, Denies fever(s), Denies frequent falls, Denies weakness, Denies weight gain and Denies weight loss ENT Denies dizziness Card Reports chest pain, Reports chest pain at rest, Reports chest pain with activity, Denies leg edema, Denies lightheadedness, Denies palpitations, Denies dyspnea, Denies dyspnea on exertion and Denies orthopnea Resp Denies cough, Denies dyspnea and Denies dyspnea on exertion GI Denies bloating and Denies change in bowel habits Musc Denies muscle weakness, Denies numbness and Denies tingling Neuro Denies dizziness, Denies frequent falls, Denies numbness, Denies tingling and Denies weakness Endo Denies fatigue and Denies palpitations Physical Exam Vital Signs: Last Vital Signs Pulse 91 02/15/25 14:35 BP 130/62 02/15/25 14:35 BMI result Body Mass Index 26.0 Const General: comfortable and no acute distress Orientation/consciousness: patient oriented x3 HEENT Other: Unremarkable Head: Yes normal to inspection Neck Neck: Yes normal visual inspection Chest Chest palpation & inspection: normal inspection of the chest Resp Auscultation: clear to auscultation bilaterally Cardio Palpation: normal PMI Heart sounds: S1 normal heart sound present, S2 normal heart sound present, no gallops, no murmurs and no rubs GI Palpation (GI): Soft to palpation Back/Spine/Pelvis Other: unremarkable Skin General skin exam: no rashes or lesions noted Neuro General: patient oriented x3 Extrem General: Yes normal to inspection Psych Mental Status: mental status grossly normal Office Procedures EKG Details: EKG with underlying sinus rhythm at 91/Min; slight nonspecific ST-T changes but nothing clearly ischemic; [place]. 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 Requires further evaluation with an echocardiogram/stress test. We discussed about these and she is willing to proceed. We will arrange this as soon as possible. If any interim issues from now till the testing is completed, advised to seek emergency care. Follow-up after testing. Discussion Notes I discussed with the patient the likelihood of coronary artery disease given her symptoms and risk factors, including age, smoking history, diabetes, hyperlipidemia, and peripheral artery disease. I recommended a stress test and cardiac ultrasound to evaluate her cardiac function. The potential for an angiogram was discussed as a follow-up if initial tests indicate the need for further evaluation. The risks and benefits of these diagnostic studies were thoroughly explained, including the possibility of detecting coronary blockages. I advised the patient to avoid strenuous activities and to present to the emergency department if chest pain worsens. The patient understood the urgency and agreed to the outlined plan for further evaluation. Patient was informed and verbally consented to the use of an ambient scribe for clinic note documentation during this visit. Orders: Orders CA echo transthoracic complete Today I25.10 - Atherosclerotic heart disease of [place] coronary artery without angina pectoris, R07.2 - Precordial pain CA stress test Today R07.2 - Precordial pain NM cardiolite stress test Today R07.2 - Precordial pain Patient Instructions: - Avoid strenuous activities or new exercises. - Seek emergency care if chest pain worsens. - Await scheduling for stress test and cardiac ultrasound. - Follow up with any new or unusual symptoms. - Quit smoking and keep diabetes and cholesterol under control. Coding Level of Care Code New Pt Level 4 (36589) Complex EM visit Add On G2211 Diagnoses Precordial chest pain R07.2 Type 2 diabetes mellitus with other specified complication, without long-term current use of insulin E11.69 Diabetes mellitus type: type 2 Diabetes mellitus [facility] insulin use: without tank terminal gauger use Diabetes mellitus complication status: with other specified complication Pure hypercholesterolemia E78.00 CPT Codes EKG - CPT: 67276-[id number], Complete ([id number])
[2025-02-15 14:35] VITALS: BP 130/62; PULSE 91; BMI 26.0
== END 2025-02-15 14:58 | disposition home or self-care (01) ==
PROVIDERS: PCP Internal Medicine; Visit Provider Internal Medicine
DX: R07.2 Precordial pain (principal); E11.69 Type 2 diabetes mellitus with other specified complication; E78.00 Pure hypercholesterolemia, unspecified
CPT/HCPCS: 93010; 99204; G2211

== ENCOUNTER → 2025-02-15 14:08 | Outpatient (BNVA) | payer MEDICARE, SELFPAY | PROVIDERS: PCP Internal Medicine; Visit Provider Internal Medicine | DX: R07.2 Precordial pain (principal); E11.69 Type 2 diabetes mellitus with other specified complication; E78.00 Pure hypercholesterolemia, unspecified | CPT/HCPCS: 93005; 99202 ==

== ENCOUNTER → 2025-02-23 09:57 | Outpatient (REF) | payer MEDICARE, SELFPAY ==
--- NOTE | ~2025-02-23 | NM_ITS ---
Lexiscan Myocardial perfusion study Indication: Precordial chest pain to evaluate for myocardial ischemia Technique: The patient was brought in for a Lexiscan perfusion study on February 23, 2025 and was injected 0.4 mg of Lexiscan intravenously. Within a minute of this injection 25 mCi of sestamibi was given intravenously. Images were obtained using the SPECT gamma camera interlaced with the gating device. Images were obtained in supine position. Resting perfusion study was performed on February 27, 2025. Patient was administered 25 mCi of sestamibi intravenously at rest. Images were then obtained in supine position. Images obtained with and without CT attenuation. Total DLP 111 mGy-cm Images were processed with the software and compared side to side in short axis, horizontal long axis and vertical long axis views. Findings: The stress perfusion study showed nonattenuated images show large area of absent uptake of the lateral, inferolateral, apical as well as inferoapical and significantly reduced uptake in the mid inferior and basal inferior wall of the LV myocardium. He anterior, septal uptake is within normal limits attenuated corrected images show absent uptake in the inferolateral, lateral, inferoapical as well as adjacent apical wall of the LV myocardium is severely reduced uptake in the basal inferior mid inferior wall of the LV myocardium. The gated study shows reduced LV systolic function with calculated LVEF of 40%. LV cavity is mildly to moderately dilated in size. The gated study shows reduced wall thickening and contraction of lateral, inferolateral and inferoapical segments. Resting study shows nonattenuated images show mild improvement in the basal inferior wall of the LV myocardium. Attenuated corrected images also show mildly reduced uptake in the basal inferior wall of the LV myocardium. Gating at rest reveals inferolateral and lateral wall motion with ejection fraction at 38%. The findings are consistent with large area of mostly fixed defect with absent uptake in the inferolateral, lateral wall as well as inferoapical wall suggestive of transmural infarct with partial reversibility in the basal inferior wall which may suggest lynn-infarct ischemia. Severe ischemia cannot be entirely ruled out. NM/NM cardiolite stress test Impression: 1. Myocardial perfusion imaging study shows large area of mostly possible infarct of the lateral, inferolateral as well as inferoapical wall with lynn-infarct ischemia of the basal inferior wall. Severe ischemia cannot be entirely ruled out 2. Gated LVEF is 38% at rest 3. Transient ischemic dilatation not present with LV cavity is dilated Nondiagnostic changes on EKG. Electronically signed by: Inocencio Loomis MD 02/27/2025 06:06 PM EDT Workstation:
--- NOTE | 2025-02-23 09:59 | CA_ITS ---
Acquisition Time: 2025-02-23 11:05:40 Total Exercise Time: 00:04:00 Test Indications: CP Medications: SEE H&P Protocol: TONI Max HR: 141 BPM 98% of Pred: 143 BPM Max BP: 118/62 mmHG Max Work Load: 4.6 METS Exercises tress test with exercise 3 mins 30 secs of Toni Protocol, held at stage 1, achieving 94% MPHR, stopped treadmill due to hip pain and leg cramps before nuclear medicine was injected. Pt in recovery reported 6/10 chest heaviness, unable to get back on treadmill due to leg pain. Without EKG changes at achieved workload. Test switched to Lexiscan. Pharmacological stress test with Lexiscan, with reports of SOB and continued chest heaviness, with isolated PVCs, with normotensive response to injection. Nondiagnostic EKG for ischemia. In recovery, pt treated with IVP Aminophylline 75 mg to reverse Lexiscan after which pt feeling back to [facility]. Nuclear images pending. Test reviewed with Dr. Nuñez. Referred By: Félix Nuñez Electronically Signed By: Klaus Lamar
== END ==
LOC: HO.CARD 09:57
PROVIDERS: PCP Internal Medicine; Visit Provider Internal Medicine
DX: R07.2 Precordial pain (principal)
CPT/HCPCS: 78452; 93017; A9500; J0280; J2785

== ENCOUNTER → 2025-02-23 09:59 | Outpatient (BNV) | payer MEDICARE, SELFPAY | PROVIDERS: PCP Internal Medicine | DX: R07.2 Precordial pain (principal); I25.2 Old myocardial infarction; I25.5 Ischemic cardiomyopathy | CPT/HCPCS: 78452; 93016; 93018 ==

== ENCOUNTER → 2025-02-26 14:01 | Outpatient (REF) | payer MEDICARE, SELFPAY ==
--- NOTE | 2025-02-26 14:04 | CA_ITS ---
Transthoracic Echocardiogram Patient (Last, First, Middle): Ivania Bazzi W Gender: Female Date of : 1945 Age: 79 Procedure Date: 02/26/2025 Procedure Type: Transthoracic Echocardiogram Location: OP Height: 157.48 cm Weight: 64.41 kg BSA: 1.65 m2 Heart Rate: 87 bpm BP: 132 / 64 mmHg Music Publisher: SB Referring MD: Félix Nuñez MD Service Control Operator: Inocencio Loomis MD Symptoms: I25.10 - Atherosclerotic heart disease of [place] coronary artery without... Study Quality: Adequate w contrast ECG Rhythm: Sinus Conclusions: - 1. Mildly reduced LV ejection fraction 45-50% with regional wall motion abnormality consistent with underlying coronary artery disease 2. Cardiac valvular Dopplers within normal limits Findings Procedure Information Contrast agent, definity, is being given per protocol without apparent complications. Left Ventricle Normal left ventricular cavity size. There is normal left ventricular wall thickness. The left ventricular systolic function is mildly decreased. The visually estimated ejection fraction is between 45-50%. Spectral Doppler is indicative of a normal filling pattern. Wall Motion Rest Echo Findings The basal inferior, basal inferoseptal, and mid inferolateral segments are hypokinetic. The basal inferolateral segment is akinetic. All other scored wall segments showed normal motion. Right Ventricle Normal right ventricular cavity size and systolic function. Atria The left atrium is normal in size. Interatrial shunt cannot be excluded. The right atrium was not well visualized. Aortic Valve The aortic valve was not well visualized. There is no aortic valve stenosis. There is no aortic valve regurgitation. Mitral Valve There is mild anterior mitral leaflet thickening. There is trace mitral valve regurgitation. There is no mitral valve stenosis. Pulmonic Valve The pulmonic valve was not well visualized. Tricuspid Valve Likely normal tricuspid valve structure and function. Tricuspid regurgitation envelope is inadequate for calculation of right ventricular systolic pressure. Normal right atrial pressure. Great Vessels The aorta was not well visualized. The pulmonary artery was not well visualized. Venous The inferior vena cava is normal in size and collapses greater than 50% with inspiration. Pericardium/Pleural The pericardium was not well visualized. Prior Study Comparison No prior study available for comparison. Measurements 2D Linear Measurements IVSd: 0.98 0.6-0.9/0.6-1.0 cm LVIDd: 4.85 3.9-5.3/4.2-5.9 cm LVIDd Index: 2.94 2.4-3.2/2.2-3.1 cm/m2 LVIDs: 4.19 2.0-3.6 cm LVPWd: 0.68 0.7-1.1 cm LA Diam: 3.10 2.7-3.8/3.0-4.0 cm LAIDs Index: 1.88 1.5-2.3 cm/m2 LV Mass: 167.36 67-162/88-224 g LV Mass Index: 101.43 43-95/49-115 g/m2 LVOT Diam: 2.00 3.0+(-)1.3 cm 2D Systolic Function EF 4C: 43.10 >55% EF 2C: 53.40 >55% EF BiP: 48.20 >55% Mitral Valve MV Pk E: 1.01 MV PK A: 0.95 MV Decel Time: 119.00 E/A: 1.10 E'Lateral: 3.92 E'Medial: 4.03 E/E' Med: 25.10 E/E' Lat: 25.80 PHT: 35.00 MVA PHT: 6.29 Decel Hardeman: 8.52 Aortic Valve AoV Pk Geoff: 1.08 AoV Pk Grad: 5.00 RHEA: 1.91 LVOT LVOT Pk Geoff: 0.63 LVOT Mn Geoff: 0.40 LVOT VTI: 0.11 LVOT Pk Grad: 2.00 LVOT Mn Grad: 1.00 LVOT Diam: 2.00 LVOT Area: 3.14 Diastolic Function MV Pk E: 1.01 MV Pk A: 0.95 E/A: 1.10 E'Medial: 4.03 E/E' Med: 25.10 E' Laterial: 3.92 E/E' Lat: 25.80 Right Ventricle TAPSE (mm): 22.20 TVS' Geoff: 11.30 Tricuspid Valve RA Press: 8.00 Great Vessels Aorta Sinus of Valsalva: 2.70 2.0-3.5 cm Ao Asc: 2.90 2.1-3.4 cm Pulmonary Valve PV Pk Geoff: 0.81 Peak PV Grad: 3.00 Updated in Other Vendor System with Status of Final Inocencio Loomis MD electronically signed on 02/26/2025 3:03:34 PM with status of Final
== END ==
LOC: HO.CARD 14:01
PROVIDERS: PCP Internal Medicine; Visit Provider Internal Medicine
DX: R07.2 Precordial pain (principal); I25.10 Atherosclerotic heart disease of native coronary artery without angina pectoris
CPT/HCPCS: 93306; Q9957

== ENCOUNTER → 2025-02-26 14:04 | Outpatient (BNV) | payer MEDICARE, SELFPAY | PROVIDERS: PCP Internal Medicine; Visit Provider Internal Medicine Cardiovascular Disease | DX: I34.0 Nonrheumatic mitral (valve) insufficiency (principal); I25.10 Atherosclerotic heart disease of native coronary artery without angina pectoris | CPT/HCPCS: 93306 ==

== ENCOUNTER 2025-03-01 13:37 | Outpatient (REF) | payer MEDICARE, SELFPAY ==
[2025-03-01 14:34] LABS: Hematocrit 39.3 % (37.0-47.0); Hemoglobin 12.9 g/dl (12.0-16.0); Mean Corpuscular HGB Conc 32.8 g/dl (31.0-35.0); Mean Corpuscular Hemoglobin 28.6 pg (27.0-33.0); Mean Corpuscular Volume 87.1 fL (80.0-98.0); Mean Platelet Volume 9.1 fL (9.4-12.3); Platelet Count 333 X10*3/uL (160-400); Red Blood Count 4.51 X10*6/uL (4.20-5.50); Red Cell Distribution Width 13.2 % (11.0-16.0); White Blood Count 7.6 X10*3/uL (4.8-10.8)
[2025-03-01 14:37] LABS: INTERNATIONAL NORM RATIO 0.9 (0.9-1.1); Prothrombin Time 10.8 SEC (10.9-12.4)
[2025-03-01 14:57] LABS: Anion Gap 12 (12-20); Blood Urea Nitrogen 11 mg/dL (9-16); Calcium 8.8 mg/dL (8.4-10.2); Carbon Dioxide 26 mmol/L (22-29); Chloride 105 mmol/L (96-108); Estimated Glomerular Filt Rate > 60; Glucose Random 282 mg/dL (60-115); Potassium 4.1 mmol/L (3.3-5.1); Sodium 139 mmol/L (135-145)
== END 2025-03-01 13:38 | disposition home or self-care (01) ==
LOC: HO.LAB 13:37
PROVIDERS: PCP Internal Medicine
DX: R07.2 Precordial pain (principal)
CPT/HCPCS: 36415; 80048; 85027; 85610

== ENCOUNTER → 2025-03-07 23:59 | Outpatient (BNV) | payer MEDICARE, SELFPAY | PROVIDERS: PCP Internal Medicine; Visit Provider Internal Medicine Cardiovascular Disease | DX: I20.0 Unstable angina (principal); R93.1 Abnormal findings on diagnostic imaging of heart and coronary circulation | CPT/HCPCS: 93458; 99152 ==

== ENCOUNTER 2025-04-18 14:03 | Outpatient (AMB) | payer MEDICARE, SELFPAY ==
[2025-04-18 14:18] VITALS: BP 90/58; PULSE 76; BMI 29.4
--- NOTE | 2025-04-18 14:18 | A.OFFVIS_ITS ---
Vital Signs 04/18/25 14:18 Height 5 ft 2 in Weight 160 lb 14.999 oz BMI 29.4 BP 90/58 L Blood Pressure Location Lt brachial Position Sitting Pulse 76 Pulse Source Monitor Intake Visit Reasons: Follow up- CABG Allergies insulin detemir Allergy (Unknown, Verified 02/01/25 15:10) hives insulin glargine Allergy (Unknown, Verified 02/01/25 15:10) rash/ hives Penicillins (PENICILLINS) Allergy (Unknown, Verified 02/01/25 15:10) HIVES sitagliptin (Januvia) Allergy (Unknown, Verified 02/01/25 15:10) hives animal dander Adverse Reaction (Intermediate, Verified 02/01/25 15:10) Hives empagliflozin (From Jardiance) Adverse Reaction (Intermediate, Verified 02/01/25 15:10) vaginal yeast infection metformin Adverse Reaction (Intermediate, Verified 02/01/25 15:10) diarrhea Medication List - Last Reconciled 04/18/25 by Félix Nuñez MD aspirin 81 mg PO DAILY atorvastatin 40 mg PO DAILY blood sugar diagnostic (OneTouch Ultra Test strips) As directed prn tid to confirm glucose sensor readings blood-glucose meter As directed Dispense as one touch ultra prn to confirm glucose sensor blood-glucose sensor (FreeStyle Asim 3 Plus Sensor device) As directed every 15 days cholecalciferol (vitamin D3) 50 mcg PO DAILY 90 days clopidogrel 75 mg PO DAILY diclofenac sodium 1% (Arthritis Pain (diclofenac)) 2 grams topical QID PRN dulaglutide (Trulicity) 1.5 mg (0.5 mL) subcut QWEEK gabapentin 100 mg PO TID PRN 30 days lancets (Fingerstix Lancets) As directed for use with freestyle lite prn low glucose on sensor lisinopril 5 mg PO DAILY 90 days tramadol 50 mg PO TID PRN 30 days trazodone 50 mg PO BEDTIME PRN 30 days HPI Comments Details: Ivania returns for follow-up. Recently seen in consultation regarding chest discomfort. She has multiple cardiovascular risk factors as well as establish peripheral vascular disease. Following this, she underwent echocardiogram and stress test which were abnormal. Then had diagnostic catheterization that showed multivessel disease including severe left main disease. Following this, she underwent coronary artery bypass surgery. She is slowly recovering well. Seems to be doing okay for the most part. No clear-cut concerns like angina. [facility] Medical History (Updated 04/18/25 @ 15:06 by Félix Nuñez MD) Ischemic cardiomyopathy Insomnia Right hip pain Abdominal bloating Overweight (BMI 25.0-29.9) Vitamin D deficiency H/O coronary angiogram Hip pain, bilateral Arthralgia Smoker Low back pain Benign essential hypertension Pure hypercholesterolemia Diabetes mellitus Surgical History (Updated 04/18/25 @ 14:38 by Félix Nuñez MD) Status post aorto-coronary artery bypass graft H/O tubal ligation H/O colonoscopy Hx of appendectomy History of tonsillectomy History of laser refractive surgery History of cataract surgery Family History Mother Alzheimer disease Heart problem Father Heart attack Brother Cancer Sister Breast cancer Family/Other Breast cancer Other Substance abuse Social History Housing: Apartment Alcohol intake: current Alcohol intake frequency: holidays/special occasions only Patient Tobacco Use Status: Former Tobacco user Cigarettes Per Day: 5 e-Cigarette/Vaping Use: Never Used Second Hand Smoke Exposure: Yes service: No Current occupational status: employed Cognitive needs: No Hearing needs: No Vision needs: Yes Review of Systems Const Denies weakness ENT Denies dizziness Card Denies chest pain, Denies chest pain with activity, Denies syncope, Denies rapid heart rate, Denies pedal edema, Denies edema, Denies leg edema, Denies lightheadedness, Denies palpitations, Denies dyspnea, Denies dyspnea on exertion and Denies orthopnea Resp Denies cough, Denies dyspnea and Denies dyspnea on exertion GI Denies hematochezia and Denies change in stool character Musc Denies abnormal gait, Denies muscle cramps, Denies muscle weakness, Denies numbness, Denies radiating pain into limb and Denies tingling Neuro Denies abnormal gait, Denies dizziness, Denies syncope, Denies numbness, Denies tingling and Denies weakness Endo Denies palpitations Physical Exam Vital Signs: Last Vital Signs Pulse 76 04/18/25 14:18 BP 90/58 L 04/18/25 14:18 BMI result Body Mass Index 29.4 Const General: comfortable and no acute distress Orientation/consciousness: patient oriented x3 HEENT Other: Unremarkable Head: Yes normal to inspection Neck Neck: Yes normal visual inspection Chest Chest palpation & inspection: normal inspection of the chest Resp Auscultation: clear to auscultation bilaterally Cardio Palpation: normal PMI Heart sounds: S1 normal heart sound present, S2 normal heart sound present, no gallops, no murmurs and no rubs GI Palpation (GI): Soft to palpation Back/Spine/Pelvis Other: unremarkable Skin General skin exam: no rashes or lesions noted Neuro General: patient oriented x3 Extrem General: Yes normal to inspection Psych Mental Status: mental status grossly normal Office Procedures EKG Details: EKG with underlying sinus rhythm at 76/Min; MT prolongation to 238 milliseconds; rightward axis; inferior and anterolateral [place]. [id number], Complete Assessment & Plan Assessment & Plan (1) Atherosclerotic cardiovascular disease: Code(s): I25.10 - Atherosclerotic heart disease of [place] coronary artery without angina pectoris Category: Medical (2) Status post aorto-coronary artery bypass graft: Code(s): Z95.1 - Presence of aortocoronary bypass graft Category: Surgical (3) Ischemic cardiomyopathy: Code(s): I25.5 - Ischemic cardiomyopathy Category: Medical (4) DM (diabetes mellitus), type 2 with peripheral vascular complications: Code(s): E11.51 - Type 2 diabetes mellitus with diabetic peripheral angiopathy without gangrene Category: Medical Plan Cardiac studies reviewed. Echocardiogram with LVEF of 45-50% with wall motion abnormalities suggestive of underlying coronary disease. In the another echocardiogram from [facility], LVEF was 30%. Myocardial perfusion imaging study showed large area of possible infarct of lateral/inferolateral as well as inferior apical wall with lynn-infarct ischemia of the basal inferior wall. Cardiac catheterization with severe left main disease. Mid LAD with 70% stenosis. Left circumflex MANAGEMENT MANAGER with [id number] collaterals. Severe proximal RCA and PDA disease. Status post CABG x3. Ball to LAD. SVG to OM, sequential to distal RCA. She can continue long-term aspirin. She already takes Plavix from vascular standpoint and hence continue that. Continue statins. LDL 40 mg/dL and triglycerides 107 mg/dL. Blood pressure is lowish but we can monitor that. If continues to be this way, may have to stop lisinopril. To be decided. Diabetes management. Hemoglobin A1c from [facility] 7.9%. We will repeat her echocardiogram to see if there is any improvement in the ca rdiomyopathy. Clinically, she has got no angina or heart failure. Start cardiac rehabilitation. Follow up in 3 months. Orders: Orders CA echo transthoracic complete Today I25.10 - Atherosclerotic heart disease of [place] coronary artery without angina pectoris, Z95.1 - Presence of aortoc oronary bypass graft Cardiac Rehab Today Z95.1 - Presence of aortocoronary bypass graft Coding Level of Care Code Est Pt Level 4 (19733) Complex EM visit Add On G2211 Diagnoses Atherosclerotic cardiovascular disease I25.10 Status post aorto-coronary artery bypass graft Z95.1 Ischemic cardiomyopathy I25.5 DM (diabetes mellitus), type 2 with peripheral vascular complications E11.51 CPT Codes EKG - CPT: 27414-[id number], Complete ([id number])
== END 2025-04-18 14:47 | disposition home or self-care (01) ==
LOC: HO.HCS 14:04
PROVIDERS: PCP Internal Medicine; Visit Provider Internal Medicine
DX: I25.10 Atherosclerotic heart disease of native coronary artery without angina pectoris (principal); Z95.1 Presence of aortocoronary bypass graft; I25.5 Ischemic cardiomyopathy; E11.51 Type 2 diabetes mellitus with diabetic peripheral angiopathy without gangrene
CPT/HCPCS: 93010; 99214; G2211

== ENCOUNTER → 2025-04-18 14:03 | Outpatient (BNVA) | payer MEDICARE, SELFPAY | PROVIDERS: PCP Internal Medicine; Visit Provider Internal Medicine | DX: I25.10 Atherosclerotic heart disease of native coronary artery without angina pectoris (principal); Z95.1 Presence of aortocoronary bypass graft; I25.5 Ischemic cardiomyopathy; I10 Essential (primary) hypertension; E11.51 Type 2 diabetes mellitus with diabetic peripheral angiopathy without gangrene; F17.200 Nicotine dependence, unspecified, uncomplicated; Z79.85 Long-term (current) use of injectable non-insulin antidiabetic drugs; Z79.82 Long term (current) use of aspirin | CPT/HCPCS: 93005; 99212 ==

== ENCOUNTER 2025-04-24 13:08 | Outpatient (AMB) | payer MEDICARE, SELFPAY ==
--- NOTE | 2025-04-24 14:15 | A.OFFPC_ITS ---
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 Accompanied by: Self / Same As Patient Allergies insulin detemir Allergy (Unknown, Verified 04/30/25 03:00) hives insulin glargine Allergy (Unknown, Verified 04/30/25 03:00) rash/ hives Penicillins (PENICILLINS) Allergy (Unknown, Verified 04/30/25 03:00) HIVES sitagliptin (Januvia) Allergy (Unknown, Verified 04/30/25 03:00) hives animal dander Adverse Reaction (Intermediate, Verified 04/30/25 03:00) Hives empagliflozin (From Jardiance) Adverse Reaction (Intermediate, Verified 04/30/25 03:00) vaginal yeast infection metformin Adverse Reaction (Intermediate, Verified 04/30/25 03:00) diarrhea Medication List - Last Reconciled 04/30/25 by Jono Vallecillo MD amiodarone 200 mg PO BID aspirin 81 mg PO DAILY atorvastatin 40 mg PO DAILY atorvastatin 80 mg PO BEDTIME blood sugar diagnostic (OneTouch Ultra Test strips) As directed prn tid to confirm glucose sensor readings blood-glucose meter As directed Dispense as one touch ultra prn to confirm glucose sensor blood-glucose sensor (FreeStyle Asim 3 Plus Sensor device) As directed every 15 days cephalexin 500 mg PO QID cholecalciferol (vitamin D3) 50 mcg PO DAILY 90 days clopidogrel 75 mg PO DAILY diclofenac sodium 1% (Arthritis Pain (diclofenac)) 2 grams topical QID PRN dulaglutide (Trulicity) 1.5 mg (0.5 mL) subcut QWEEK dulaglutide (Trulicity) 0.75 mg subcut QWEEK furosemide 20 mg PO DAILY gabapentin 100 mg PO TID PRN 30 days lancets (Fingerstix Lancets) As directed for use with freestyle lite prn low glucose on sensor lisinopril 5 mg PO DAILY 90 days methocarbamol 1,500 mg PO TID PRN metoprolol tartrate 25 mg PO BID tramadol 50 mg PO TID PRN 30 days trazodone 50 mg PO BEDTIME PRN 30 days Tobacco use date assessed: 04/24/25 Fall risk assessment: No Falls in past year Last assessed Fall Risk: 04/24/25 Dental Screening Dental Screen Date: 04/24/25 Did you have a dental visit in the last 12 months?: Yes Did you have a dental problem in the last 6 months where you did not have access to dental care?: No Was dental information given to patient?: Patient has dentist HPI follow up HPI Details Patient comes in today for follow-up visit States that she feels okay Her right lower leg is still sore from where they harvested the vein required for her cardiac bypass surgery done at [facility] a few weeks ago She denies any headaches or dizziness Denies any exertional chest pains, no increased shortness of breath No nausea/vomiting, no abdominal pain No change in bowel habits noted She had some follow-up labs done a couple of months ago - to discuss her results [facility] Medical History Ischemic cardiomyopathy Insomnia Right hip pain Abdominal bloating Overweight (BMI 25.0-29.9) Vitamin D deficiency H/O coronary angiogram Hip pain, bilateral Arthralgia Smoker Low back pain Benign essential hypertension Pure hypercholesterolemia Diabetes mellitus Surgical History (Updated 04/30/25 @ 03:27 by Jono Vallecillo MD) Status post aorto-coronary artery bypass graft H/O tubal ligation H/O colonoscopy Hx of appendectomy History of tonsillectomy History of laser refractive surgery History of cataract surgery Family History Mother Alzheimer disease Heart problem Father Heart attack Brother Cancer Sister Breast cancer Family/Other Breast cancer Other Substance abuse Social History Housing: Apartment Alcohol intake: current Alcohol intake frequency: holidays/special occasions only Patient Tobacco Use Status: Former Tobacco user Cigarettes Per Day: 5 e-Cigarette/Vaping Use: Never Used Second Hand Smoke Exposure: Yes service: No Current occupational status: employed Cognitive needs: No Hearing needs: No Vision needs: Yes Questionnaire PHQ-9 Over the last 2 weeks, how often have you been bothered by any of the following problems? 1. Little interest or pleasure in doing things: not at all 2. Feeling down, depressed, or hopeless: not at all 3. Trouble falling or staying asleep, or sleeping too much: several days 4. Feeling tired or having little energy: not at all 5. Poor appetite or overeating: not at all 6. Feeling bad about yourself - or that you are a failure or have let yourself or your family down: not at all 7. Trouble concentrating on things, such as reading the newspaper or watching te levision: not at all 8. Moving or speaking so slowly that other people could have noticed. Or the opposite - being so fidgety or restless that you have been moving around a lot more than usual: not at all 9. Thoughts that you would be better off or of hurting yourself in some way: not at all Total score: 1 Depression Screening Interpretation: Negative Depression Screening Done: Yes 07822 - PHQ-9 Billing: Yes Source: Developed by Drs. Jet Sutton, Anali Darby, Rg Fleming and colleagues, with an educational casandra from [employer]. Thrive Questionnaire Date Thrive assessed: 04/24/25 I am a: Patient What is your living situation today?: I do not have a steady places to live I am temporarily staying with others Within the past 12 months, did the food you bought not last and you didn't have the money to get more?: Never true Within the past 12 months, did you worry whether your food would run out before you got money to buy more?: Never true Do you have trouble paying for medicines?: No Do you have trouble getting transportation to medical appointments?: No Do you have trouble paying your heating and electricity bill?: No Do you have trouble taking care of your child, family member or friend?: No Do you have trouble with day-to-day activities such as bathing, preparing meals, shopping, managing finances, etc.?: No Are you currently unemployed and looking for a job?: No Are you interested in more education?: No Please select the resources that you would like help with: None Currently or been in a relationship where the following occur: No concerns reported THRIVE Score: 1 AUDIT C Alcohol Use Questionnaire (AUDIT-C) 1. How often do you have a drink containing alcohol?: Monthly or less 2. How many drinks containing alcohol do you have on a typical day when you are drinking?: 1 or 2 3. How often do you have six or more drinks on one occasion?: Never Total Score: 1 Score Reviewed/Action Taken: Yes WILDA-7 AMB Questionnaire WILDA-7 Date WILDA - 7 assessed: 04/24/25 Feeling nervous, anxious, or on edge: 0 = Not at all Not being able to stop or control worryin = Not at all Worrying too much about different things: 0 = Not at all Trouble relaxin = Not at all Being so restless that it is hard to sit still: 0 = Not at all Becoming easily annoyed or irritable: 0 = Not at all Feeling afraid as if something awful might happen: 0 = Not at all Total WILDA-7 score (0-4 normal; 5-9 mild; 10-14 moderate; 15-21 severe): 0 Source: Developed by Drs. Jet Sutton, Anali Darby, Rg Fleming and colleagues, with an educational casandra from [employer]. Review of Systems Const Denies chills, Reports difficulty sleeping, Denies fatigue, Denies fever(s) and Denies headache(s) ENT Denies dysphagia, Denies dizziness, Denies otalgia, Denies headache(s), Denies neck pain, Denies odynophagia and Denies sore throat Card Denies chest pain, Denies rapid heart rate, Denies irregular heart rhythm, Denies palpitations and Denies dyspnea Resp Denies chest congestion, Denies cough and Denies dyspnea GI Denies abdominal pain, Denies constipation, Denies dysphagia, Denies heartburn, Denies diarrhea, Denies nausea, Denies odynophagia and Denies vomiting Denies difficulty voiding, Denies nocturia, Denies dysuria and Denies urinary urgency Musc Reports back pain (over the lower back - chronic), Reports arthralgias (in both hips, on and off) and Denies neck pain Skin/Breast Denies rash Neuro Denies dizziness, Denies headache(s) and Denies paresthesias Psych Reports anxiety and Denies depression Endo Denies fatigue and Denies palpitations Chicho/Lymph Denies easy bruising Physical exam (Primary Care) Vital Signs: Last Vital Signs Pulse 80 08/05/25 14:16 BP 100/74 04/24/25 14:16 Pulse Ox 97 04/24/25 14:16 Oxygen Delivery Method Room Air 04/24/25 14:16 BMI result Body Mass Index 29.7 Tobacco/Smoking Status: Tobacco use Status Tobacco use date assessed 04/24/25 04/24/25 14:21 Patient Tobacco Use Status Former Tobacco user 04/24/25 14:17 e-Cigarette/Vaping Use Never Used 04/24/25 14:17 PHQ-9: PHQ-9 Score PHQ-9: Total score 1 04/24/25 15:26 Depression Screening Interpretation: Negative Thrive Assessment: Date of Thrive Assessment Date Thrive assessed 04/24/25 04/24/25 14:21 Currently or been in a relationship where the following occur: No concerns re ported Const General: no acute distress and alert HENMT Ears: TM's normal bilaterally and EAC's normal Throat: Yes posterior oropharynx normal and Yes tonsils normal (no TP congestion) Neck Neck: Yes supple and No lymphadenopathy Thyroid: Thyroid normal Resp Auscultation: clear to auscultation bilaterally, no rales and no wheezes Cardio Rate: regular rate Rhythm: regular rhythm Heart sounds: no murmurs GI Palpation (GI): Soft to palpation and nontender Auscultation: normal bowel sounds General: Yes no CVA tenderness Back/Spine/Pelvis Back: no CVA tenderness Thoracic/Lumbar Spine: lumbar spinal tenderness (mild) Skin Rashes: no rashes Extrem General: Yes no clubbing, cyanosis or edema Right lower extremity: hip/thigh Details: tenderness Location: of the hip Left lower extremity: knee Details: tenderness; no swelling Results Reviewed Results Reviewed: Laboratory Tests 03/01/25 13:46 WBC 7.6 Hgb 12.9 Hct 39.3 Plt Count 333 Sodium 139 Potassium 4.1 Creatinine 0.73 Estimated GFR > 60 Random Glucose 282 H Calcium 8.8 Coding Level of Care Code Est Pt Level 4 (69339) Diagnoses Atherosclerotic cardiovascular disease I25.10 Ischemic cardiomyopathy I25.5 Type 2 diabetes mellitus with other specified complication, without long-term current use of insulin E11.69 Diabetes mellitus type: type 2 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 insulin use: without exterminator 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 use Diabetes mellitus complication status: with other specified complication Pure hypercholesterolemia E78.00 Benign essential hypertension I10 Vitamin D deficiency E55.9 PAD (peripheral artery disease) I73.9 Facet arthritis, degenerative, 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 Insomnia, unspecified type G47.00 Insomnia type: unspecified Obesity (BMI 30-39.9) E66.9 Additional Codes PHQ-9 - 19024 - PHQ-9 Billing: Yes ([id number]) Assessment & Plan Assessment & Plan (1) Atherosclerotic cardiovascular disease: Code(s): I25.10 - Atherosclerotic heart disease of [place] coronary artery without angina pectoris Category: Medical Plan: S/P coronary artery bypass surgery x 3 (MAHER to LAD, saphenous vein graft to OM and RCA to sequential graft) at [facility] on 03/14/2025 Continue Aspirin 81 mg QD and Clopidogrel 75 mg QD Follow up with cardiology as scheduled She is scheduled to start cardiac rehab on 05/22/2025 (2) Ischemic cardiomyopathy: Code(s): I25.5 - Ischemic cardiomyopathy Category: Medical Plan: Continue Aspirin 81 mg QD Continue Amiodarone 200 mg BID Follow up with cardiology as scheduled (3) Diabetes mellitus: Code(s): E11.9 - Type 2 diabetes mellitus without complications Category: Medical Qualifiers: Diabetes mellitus type: type 2 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 insulin use: without exterminator 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 use Diabetes mellitus complication status: with other specified complication Qualified Code(s): E11.69 - Type 2 diabetes mellitus with other specified complication Plan: Patient's HgbA1c was at 6.9% earlier this year (was previously at 6.5% a few months prior) - goal is < 7.0% Reinforced diabetic diet Continue Glipizide 10 mg BID; we tried increasing her Trulicity from 1.5 mg to 3 mg SQ once a week last year but she could not tolerate the 3 mg dose due to severe nausea and went back on the 1.5 mg dose once a week She also developed hives previously to long-acting insulins like Tresiba and Lantus as well as to Januvia and she could not tolerate Metformin due to d iarrhea We tried to start her additionally on Onglyza but her insurance declined to cover Rx; she was started on Jardiance 10 mg QD by endocrinology a few months ago when she was first seen She is now doing very well on her current Rx - Trulicity 1.5 mg once a week, Glipizide 10 mg BID and Jardiance 10 mg Q AM Will recheck her labs and HgbA1c in 3 months for follow up Follow up with endocrinology as scheduled (4) Pure hypercholesterolemia: Code(s): E78.00 - Pure hypercholesterolemia, unspecified Category: Medical Plan: Results of her labs done a couple of months ago reviewed and discussed with patient but these did not include a fasting lipid profile Reinforced low cholesterol diet Continue Atorvastatin 80 mg QD Will recheck her fasting lipids and labs in 3 months for follow-up (5) Benign essential hypertension: Code(s): I10 - Essential (primary) hypertension Category: Medical Plan: Reinforced low-sodium diet - goal is systolic BP of at least 140 mm or less Continue Lisinopril 5 mg QD (6) Vitamin D deficiency: Code(s): E55.9 - Vitamin D deficiency, unspecified Category: Medical Plan: Continue Vitamin D3 2000 units QD (7) PAD (peripheral artery disease): Comment: 05/13/2022 - right SFA atherectomy and plasty, 01/12/2024 - left SFA atherectomy and plasty Code(s): I73.9 - Peripheral vascular disease, unspecified Category: Medical Plan: S/P endovascular intervention of the right lower extremity a couple of years ago in April 2022 S/P dual antiplatelet therapy with Aspirin 81 mg QD and Clopidogrel 75 mg QD x 6 months post-op Follow up with vascular surgery as scheduled (8) Facet arthritis, degenerative, lumbar spine: Code(s): M47.816 - Spondylosis without myelopathy or radiculopathy, lumbar region Category: Medical Plan: Lumbar spine x-rays done last year revealed (+) facet arthritis changes in the lumbar spine Reinforced activity and weight lifting restrictions Patient reports (+) significant improvement of her low back pain with physical therapy Continue Tramadol 50 mg TID PRN and Voltaren gel topically over her lower back as needed; continue Gabapentin 100 mg TID (9) Insomnia: Code(s): G47.00 - Insomnia, unspecified Category: Medical Qualifiers: Insomnia type: unspecified Qualified Code(s): G47.00 - Insomnia, unspecified Plan: Sleep hygiene reinforced Continue Trazodone 50 mg Q HS PRN (10) Obesity (BMI 30-39.9): Code(s): E66.9 - Obesity, unspecified Category: Medical Plan: Reinforced diet; exercise and weight loss are not realistic in this patient with multiple comorbidities but she is still encouraged to stay as active as she can Plan Follow up in 3 months Orders: Orders Comprehensive [place]. Panel Fast 3 Months E78.00 - Pure hypercholesterolemia, unspecified Microalbumin, Random (w Creat) 3 Months E11.9 - Type 2 diabetes mellitus without complications TSH reflex Free T4 3 Months E78.00 - Pure hypercholesterolemia, unspecified Vitamin B12 and Folate 3 Months E53.8 - Deficiency of other specified B group vitamins Complete Blood Count Auto Diff 3 Months D64.9 - Anemia, unspecified Lipid Panel 3 Months E78.00 - Pure hypercholesterolemia, unspecified Hemoglobin A1c 3 Months E11.9 - Type 2 diabetes mellitus without complications UA CC w/rflx Micro + Cult 3 Months R30.0 - Dysuria Vitamin D 25-OH Total 3 Months E55.9 - Vitamin D deficiency, unspecified
[2025-04-24 14:16] VITALS: BP 100/74; PULSE 80; O2SAT 97; BMI 29.7
== END 2025-04-24 15:30 | disposition home or self-care (01) ==
LOC: HO.HMCH 13:09
PROVIDERS: PCP Internal Medicine; Visit Provider Internal Medicine
DX: I25.10 Atherosclerotic heart disease of native coronary artery without angina pectoris (principal); E11.69 Type 2 diabetes mellitus with other specified complication; E66.9 Obesity, unspecified; Z68.29 Body mass index [BMI] 29.0-29.9, adult; I25.5 Ischemic cardiomyopathy; E78.00 Pure hypercholesterolemia, unspecified; I10 Essential (primary) hypertension; E55.9 Vitamin D deficiency, unspecified; I73.9 Peripheral vascular disease, unspecified; M47.816 Spondylosis without myelopathy or radiculopathy, lumbar region; G47.00 Insomnia, unspecified

== ENCOUNTER → 2025-04-24 13:08 | Outpatient (BNVA) | payer MEDICARE, SELFPAY | PROVIDERS: PCP Internal Medicine; Visit Provider Internal Medicine | DX: I25.10 Atherosclerotic heart disease of native coronary artery without angina pectoris (principal); I25.5 Ischemic cardiomyopathy; E11.69 Type 2 diabetes mellitus with other specified complication; E78.00 Pure hypercholesterolemia, unspecified; I10 Essential (primary) hypertension; E55.9 Vitamin D deficiency, unspecified; I73.9 Peripheral vascular disease, unspecified; M47.816 Spondylosis without myelopathy or radiculopathy, lumbar region; G47.00 Insomnia, unspecified; E66.9 Obesity, unspecified; Z68.29 Body mass index [BMI] 29.0-29.9, adult; Z71.3 Dietary counseling and surveillance | CPT/HCPCS: 96127; 99212 ==

== ENCOUNTER 2025-05-04 14:33 | Outpatient (AMB) | payer OTHER, SELFPAY ==
--- NOTE | 2025-05-04 14:35 | A.OFFVIS_ITS ---
Vital Signs 05/04/25 14:40 Height 5 ft 2 in Weight 162 lb 0.636 oz BMI 29.6 BP 104/56 L Blood Pressure Location Rt brachial Position Sitting Pulse 105 H Pulse Source Pulse Oximeter Pulse Oximetry (%) 98 Oxygen Delivery Method Room Air Intake Visit Reasons: T2DM Intake Note: Patient present today to follow up on Type 2 Diabetes Mellitus. Last seen by Dr. Anton on 02/01/2025. Last Diabetic Eye exam: Over 1 year, needs a referral for new Eye Doctor. 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 Accompanied by: Self / Same As Patient Allergies insulin detemir Allergy (Unknown, Verified 05/04/25 14:41) hives insulin glargine Allergy (Unknown, Verified 05/04/25 14:41) rash/ hives Penicillins (PENICILLINS) Allergy (Unknown, Verified 05/04/25 14:41) HIVES sitagliptin (Januvia) Allergy (Unknown, Verified 05/04/25 14:41) hives animal dander Adverse Reaction (Intermediate, Verified 05/04/25 14:41) Hives empagliflozin (From Jardiance) Adverse Reaction (Intermediate, Verified 05/04/25 14:41) vaginal yeast infection metformin Adverse Reaction (Intermediate, Verified 05/04/25 14:41) diarrhea Medication List - Last Reconciled 05/04/25 by AFSANEH Preciado amiodarone 200 mg PO BID aspirin 81 mg PO DAILY atorvastatin 80 mg PO BEDTIME blood sugar diagnostic (OneTouch Ultra Test strips) As directed prn tid to confirm glucose sensor readings blood sugar diagnostic (Accu-Chek Guide test strips) As directed to check blood sugar twice daily. blood-glucose meter As directed Dispense as one touch ultra prn to confirm glucose sensor blood-glucose meter (Accu-Chek Guide Glucose Meter) As directed to check blood sugar blood-glucose sensor (FreeStyle Asim 3 Plus Sensor device) As directed every 15 days cholecalciferol (vitamin D3) 50 mcg PO DAILY 90 days clopidogrel 75 mg PO DAILY diclofenac sodium 1% (Arthritis Pain (diclofenac)) 2 grams topical QID PRN dulaglutide (Trulicity) 1.5 mg (0.5 mL) subcut QWEEK furosemide 20 mg PO DAILY gabapentin 100 mg PO TID PRN 30 days lancets (Accu-Chek Softclix Lancets) As directed to monitor glucose 2 times daily lancets (Fingerstix Lancets) As directed for use with freestyle lite prn low glucose on sensor lisinopril 5 mg PO DAILY 90 days methocarbamol 1,500 mg PO TID PRN metoprolol tartrate 25 mg PO BID tramadol 50 mg PO TID PRN 30 days trazodone 50 mg PO BEDTIME PRN 30 days HPI Comments Details: 79-year-old female with a past medical history of type 2 diabetes, ischemic cardiomyopathy, CAD, vitamin-D deficiency, peripheral arterial disease, hypertension and hyperlipidemia presents for diabetic management. This is my 1st visit with the patient. She saw Dr. Putnam on 02/01/2025. She was initially diagnosed with type 2 diabetes and 9026. Past medications: Metformin discontinued due to GI side effects. Lantus and Levemir caused hives. Glipizide stopped because it was ineffective. Jardiance discontinued due to yeast infection. Current regimen: Trulicity 1.5 mg weekly. She was not able to tolerate 3 mg of Trulicity. Denies hypoglycemia. Complications: Coronary artery disease (CABG x 3 03/14/25), neuropathy in feet, nephropathy (microalbuminuria). She is on an KENNY inhibitor. Needs referral for eye exam. [facility] contacted the office this week to report patient's blood sugar was 480 via fingerstick however she noted the test strips were . Patient denies symptoms. She recently had a CABG done in the wound on her leg had some delayed healing, and she was treated with antibiotics about 3 weeks ago. Denies fevers or chills. She reports it is slowly getting better. Checked this AM, and it was 406. She checked yesterday, and it was 408. She had no symptoms at all. Today POC is 151. Hemoglobin A1c is stable since her last visit at 6.9% today. ROS: Constitutional: No weight loss, fevers or chills. Denies night sweats. Respiratory: No shortness of breath Cardiovascular: No chest pain Gastrointestinal: No anorexia, nausea, vomiting or diarrhea. No abdominal pain Neurologic: No headache, dizziness, syncope. + neuropathy in her feet. Endocrine: No polyuria or polydipsia. Physical exam: Constitutional: Alert, in no distress. Neck: Supple, Full range of motion. No lymphadenopathy. No palpable thyroid masses. Respiratory: Clear to auscultation. Cardiovascular: S1 S2 regular. No murmurs. Neurologic: No focal neurological deficits Extremities: vertical wound on the right lower extremity - no edema or swelling, dry skin/glue around the wound, the center is open with a small amount of serous fluid visible Psychiatric: Normal mood and affect [facility] Medical History (Updated 05/04/25 @ 15:42 by AFSANEH Preciado) Type II diabetes mellitus Microalbuminuria Ischemic cardiomyopathy Insomnia Right hip pain Abdominal bloating Overweight (BMI 25.0-29.9) Vitamin D deficiency H/O coronary angiogram Hip pain, bilateral Arthralgia Smoker Low back pain Benign essential hypertension Pure hypercholesterolemia Diabetes mellitus Surgical History Status post aorto-coronary artery bypass graft H/O tubal ligation H/O colonoscopy Hx of appendectomy History of tonsillectomy History of laser refractive surgery History of cataract surgery Family History Mother Alzheimer disease Heart problem Father Heart attack Brother Cancer Sister Breast cancer Family/Other Breast cancer Other Substance abuse Social History Housing: Apartment Alcohol intake: current Alcohol intake frequency: holidays/special occasions only Patient Tobacco Use Status: Former Tobacco user Cigarettes Per Day: 5 e-Cigarette/Vaping Use: Never Used Second Hand Smoke Exposure: Yes service: No Current occupational status: employed Cognitive needs: No Hearing needs: No Vision needs: Yes Physical Exam Vital Signs: Last Vital Signs Pulse 105 H 05/04/25 14:40 BP 104/56 L 05/04/25 14:40 Pulse Ox 98 05/04/25 14:40 Oxygen Delivery Method Room Air 05/04/25 14:40 BMI result Body Mass Index 29.6 Results AMB Hemoglobin A1c AMB Hemoglobin A1c 6.9 % Last Edit by REILLY Martel on 05/04/25 15:06 Results Reviewed Results Reviewed: Laboratory Last Values Glucose (Clinic) 151 mg/dL (60-115) H 05/04/25 14:48 Hgb A1c (Clinic) 6.9 % (4.0-6.0) H 05/04/25 14:51 Laboratory Tests 05/12/22 03/17/24 11/06/24 16:52 12:10 10:55 Creatinine Estimated GFR Hgb A1c (Clinic) C-Peptide 6.21 H AST ALT Triglycerides Cholesterol LDL Cholesterol, Calc Vitamin B12 223 TSH 1.51 Urine Creatinine 65.96 Urine Microalbumin 105.0 Microalb/Creat Ratio 159.1 H 11/06/24 02/01/25 03/01/25 11:08 15:22 13:46 Creatinine 0.73 Estimated GFR > 60 Hgb A1c (Clinic) 6.9 H C-Peptide AST 55 H ALT 21 Triglycerides 135 Cholesterol 161 LDL Cholesterol, Calc 94 Vitamin B12 TSH Urine Creatinine Urine Microalbumin Microalb/Creat Ratio 05/04/25 14:51 Creatinine Estimated GFR Hgb A1c (Clinic) 6.9 H C-Peptide AST ALT Triglycerides Cholesterol LDL Cholesterol, Calc Vitamin B12 TSH Urine Creatinine Urine Microalbumin Microalb/Creat Ratio Assessment & Plan Assessment & Plan (1) Type II diabetes mellitus: Code(s): E11.9 - Type 2 diabetes mellitus without complications Category: Medical (2) Microalbuminuria: Code(s): R80.9 - Proteinuria, unspecified Category: Medical Plan In summary this is a 79-year-old female with a past medical history of controlled type 2 diabetes. She is recovering from CABG x 3. Reports she will be starting cardiac rehab soon. [facility] is monitoring the wound on her right lower extremity. She completed antibiotics. Advised patient to call if she develops pustular drainage, redness, swelling, increased pain, fevers or chills. testing supplies likely caused false home readings this week. She reports no symptoms of hyperglycemia, and her hemoglobin A1c is 6.9%. I sent a new meter, test strips and lancets for her to the pharmacy to pick up operator today. We will call her next week to review home readings. Continue Trulicity 1.5 mg weekly. Referred to Ophthalmology for eye exam. Follow up in 3 months for type 2 diabetes. Orders: Orders AMB Hemoglobin A1c Today E11.69 - Type 2 diabetes mellitus with other specified complication Referrals Ophthalmology Referral E11.51 - Type 2 diabetes mellitus with diabetic peripheral angiopathy without gangrene Medications: Refilled dulaglutide (Trulicity) 1.5 mg (0.5 mL) subcut QWEEK 6 mL 1RF Coding Level of Care Code Est Pt Level 4 (14659) Complex EM visit Add On G2211 Diagnoses Type II diabetes mellitus E11.9 Microalbuminuria R80.9
[2025-05-04 14:40] VITALS: BP 104/56; PULSE 105; O2SAT 98; BMI 29.6
[2025-05-04 14:52] LABS: Glucose, Whole Blood 151 mg/dL (60-115)
== END 2025-05-04 15:38 | disposition home or self-care (01) ==
LOC: HO.ENCR 14:34
PROVIDERS: PCP Internal Medicine; Visit Provider Physician Assistant Medical
DX: E11.9 Type 2 diabetes mellitus without complications (principal); R80.9 Proteinuria, unspecified; E11.69 Type 2 diabetes mellitus with other specified complication

== ENCOUNTER → 2025-05-04 14:33 | Outpatient (BNVA) | payer OTHER, SELFPAY | PROVIDERS: PCP Internal Medicine; Visit Provider Physician Assistant Medical | DX: E11.9 Type 2 diabetes mellitus without complications (principal) | CPT/HCPCS: 82947; 83036 ==

== ENCOUNTER → 2025-06-01 13:23 | Outpatient (BNVA) | payer OTHER, SELFPAY | PROVIDERS: PCP Internal Medicine; Visit Provider Physician Assistant Medical | DX: E11.9 Type 2 diabetes mellitus without complications (principal) | CPT/HCPCS: 82947 ==

== ENCOUNTER 2025-06-01 14:22 | Outpatient (AMB) | payer OTHER, SELFPAY ==
--- NOTE | 2025-06-01 14:26 | A.OFFVIS_ITS ---
Vital Signs 06/01/25 14:32 Height 5 ft 2 in Weight 158 lb 11.725 oz BMI 29.0 BP 110/54 L Blood Pressure Location Rt brachial Position Sitting Pulse 98 Pulse Source Pulse Oximeter Pulse Oximetry (%) 97 Oxygen Delivery Method Room Air Intake Visit Reasons: T2DM Intake Note: Patient present today to follow up on Type 2 Diabetes Mellitus. Last seen by Dr. Anton on 02/01/2025. Last Diabetic Eye exam: 05/24/2025 [facility] Last Podiatry Visit: Does not see a Check Weigher Random Glucose: 134 mg/dl HgA1C: 6.9% 05/04/2025 [employer] Required: No Accompanied by: Self / Same As Patient Allergies insulin detemir Allergy (Unknown, Verified 06/01/25 14:31) hives insulin glargine Allergy (Unknown, Verified 06/01/25 14:31) rash/ hives Penicillins (PENICILLINS) Allergy (Unknown, Verified 06/01/25 14:31) HIVES sitagliptin (Januvia) Allergy (Unknown, Verified 06/01/25 14:31) hives animal dander Adverse Reaction (Intermediate, Verified 06/01/25 14:31) Hives empagliflozin (From Jardiance) Adverse Reaction (Intermediate, Verified 06/01/25 14:31) vaginal yeast infection metformin Adverse Reaction (Intermediate, Verified 06/01/25 14:31) diarrhea Medication List - Last Reconciled 06/01/25 by AFSANEH Preciado amiodarone 200 mg PO BID aspirin 81 mg PO DAILY atorvastatin 80 mg PO BEDTIME bacitracin zinc 1 appl topical TID blood sugar diagnostic (OneTouch Ultra Test strips) As directed prn tid to confirm glucose sensor readings blood sugar diagnostic (Accu-Chek Guide test strips) As directed to check blood sugar twice daily. blood-glucose meter As directed Dispense as one touch ultra prn to confirm glucose sensor blood-glucose meter (Accu-Chek Guide Glucose Meter) As directed to check blood sugar blood-glucose sensor (FreeStyle Asim 3 Plus Sensor device) As directed every 15 days blood-glucose,systems accountant,cont (FreeStyle Asim 3 [place]) Use daily to monitor blood glucose levels continuously. cholecalciferol (vitamin D3) 50 mcg PO DAILY 90 days clopidogrel 75 mg PO DAILY diclofenac sodium 1% (Arthritis Pain (diclofenac)) 2 grams topical QID PRN dulaglutide (Trulicity) 1.5 mg (0.5 mL) subcut QWEEK gabapentin 100 mg PO TID PRN 30 days lancets (Accu-Chek Softclix Lancets) As directed to monitor glucose 2 times daily lancets (Fingerstix Lancets) As directed for use with freestyle lite prn low glucose on sensor lisinopril 5 mg PO DAILY 90 days methocarbamol 1,500 mg PO TID PRN metoprolol succinate ER 25 mg PO DAILY tramadol 50 mg PO TID PRN 30 days trazodone 50 mg PO BEDTIME PRN 30 days HPI Comments Details: 79-year-old female with a past medical history of type 2 diabetes, ischemic cardiomyopathy, CAD, vitamin-D deficiency, peripheral arterial disease, hypertension and hyperlipidemia presents for diabetic management. Past medications: Metformin discontinued due to GI side effects. Lantus and Levemir caused hives. Glipizide stopped because it was ineffective. Jardiance discontinued due to yeast infection. Current regimen: Trulicity 1.5 mg weekly. She was not able to tolerate 3 mg of Trulicity. Her hemoglobin A1c is 6.9%. She contacted the office after our last visit on 05/10/2025 to report that she had blood sugars ?all over the place. ? her highest was 234 and her lowest was 134. She was asymptomatic. Since that time she has continued Trulicity, and her blood sugars are better. I reviewed her glucometer download today, and during the past couple of weeks 92% of her blood sugars are within target range. Highest sugar was 192 in the lowest was 101. Denies hypoglycemia. She was notified that the pharmacy has the Asim 3+ CGM ready. Complications: Coronary artery disease (CABG x 3 03/14/25), neuropathy in feet, nephropathy (microalbuminuria). She is on an KENNY inhibitor. She still has the wound with delayed healing on her right lower extremity following CABG. She no longer has the VNA doing dressing changes because she started cardiac rehab, and insurance will not cover it. There is some weeping intermittently from it. No redness, pain, swelling. No fevers or chills. She ran out of the antibiotic ointment that was prescribed to her. ROS: Constitutional: No weight loss, fevers or chills. Denies night sweats. Respiratory: No shortness of breath Cardiovascular: No chest pain Gastrointestinal: No anorexia, nausea, vomiting or diarrhea. No abdominal pain Neurologic: No headache, dizziness, syncope. + neuropathy in her feet. Endocrine: No polyuria or polydipsia. Physical exam: Constitutional: Alert, in no distress. Neck: Supple, Full range of motion. No lymphadenopathy. No palpable thyroid masses. Respiratory: Clear to auscultation. Cardiovascular: S1 S2 regular. No murmurs. Neurologic: No focal neurological deficits Extremities: vertical wound on the right lower extremity 7.5 x 2.5 cm . There is copious dry skin and debris buildup around the wound and there is some weeping from the center of it. No purulent discharge. Psychiatric: Normal mood and affect [facility] Medical History (Updated 06/01/25 @ 14:51 by AFSANEH Preciado) Leg wound, right Type II diabetes mellitus Microalbuminuria Ischemic cardiomyopathy Insomnia Right hip pain Abdominal bloating Overweight (BMI 25.0-29.9) Vitamin D deficiency H/O coronary angiogram Hip pain, bilateral Arthralgia Smoker Low back pain Benign essential hypertension Pure hypercholesterolemia Diabetes mellitus Surgical History Status post aorto-coronary artery bypass graft H/O tubal ligation H/O colonoscopy Hx of appendectomy History of tonsillectomy History of laser refractive surgery History of cataract surgery Family History Mother Alzheimer disease Heart problem Father Heart attack Brother Cancer Sister Breast cancer Family/Other Breast cancer Other Substance abuse Social History Housing: Apartment Alcohol intake: current Alcohol intake frequency: holidays/special occasions only Patient Tobacco Use Status: Former Tobacco user Cigarettes Per Day: 5 e-Cigarette/Vaping Use: Never Used Second Hand Smoke Exposure: Yes service: No Current occupational status: employed Cognitive needs: No Hearing needs: No Vision needs: Yes Physical Exam Vital Signs: Last Vital Signs Pulse 98 06/01/25 14:32 BP 110/54 L 06/01/25 14:32 Pulse Ox 97 06/01/25 14:32 Oxygen Delivery Method Room Air 06/01/25 14:32 BMI result Body Mass Index 29.0 Results Reviewed Results Reviewed: Laboratory Tests 05/12/22 03/17/24 11/06/24 16:52 12:10 10:55 Creatinine Estimated GFR Hgb A1c (Clinic) C-Peptide 6.21 H AST ALT Triglycerides Cholesterol LDL Cholesterol, Calc Vitamin B12 223 TSH 1.51 Urine Creatinine 65.96 Urine Microalbumin 105.0 Microalb/Creat Ratio 159.1 H 11/06/24 02/01/25 03/01/25 11:08 15:22 13:46 Creatinine 0.73 Estimated GFR > 60 Hgb A1c (Clinic) 6.9 H C-Peptide AST 55 H ALT 21 Triglycerides 135 Cholesterol 161 LDL Cholesterol, Calc 94 Vitamin B12 TSH Urine Creatinine Urine Microalbumin Microalb/Creat Ratio 05/04/25 14:51 Creatinine Estimated GFR Hgb A1c (Clinic) 6.9 H C-Peptide AST ALT Triglycerides Cholesterol LDL Cholesterol, Calc Vitamin B12 TSH Urine Creatinine Urine Microalbumin Microalb/Creat Ratio Assessment & Plan Assessment & Plan (1) Type II diabetes mellitus: Code(s): E11.9 - Type 2 diabetes mellitus without complications Category: Medical (2) Microalbuminuria: Code(s): R80.9 - Proteinuria, unspecified Category: Medical (3) Wound of right lower extremity: Code(s): S81.801A - Unspecified open wound, right lower leg, initial encounter Qualifiers: Encounter type: subsequent encounter Qualified Code(s): S81.801D - Unspecified open wound, right lower leg, subsequent encounter Plan: Patient instructed to contact her partnership marketing manager or primary care provider her if she had lumps increased discharge, redness, swelling, pain, fevers or chills. I am referring her to the [facility]. She will apply bacitracin 2-3 times daily. Plan In summary this is a 79-year-old female with a past medical history of controlled type 2 diabetes. She is recovering from CABG x 3. She started cardiac rehab. Reviewed her glucometer download with her today. Her blood sugars are good. No adjustments need to be made to medications. Continue Trulicity 1.5 mg weekly. Follow up in 3 months for type 2 diabetes. Orders: Referrals Wound Care Referral S81.801A - Unspecified open wound, right lower leg, initial encounter Medications: New bacitracin zinc 1 appl topical TID 28.4 grams 0RF Coding Level of Care Code Est Pt Level 4 (29096) Complex EM visit Add On G2211 Diagnoses Type II diabetes mellitus E11.9 Microalbuminuria R80.9 Wound of right lower extremity, subsequent encounter S81.801D Encounter type: subsequent encounter
[2025-06-01 14:32] VITALS: BP 110/54; PULSE 98; O2SAT 97; BMI 29.0
== END 2025-06-01 15:00 | disposition home or self-care (01) ==
LOC: HO.ENCR 14:22
PROVIDERS: PCP Internal Medicine; Visit Provider Physician Assistant Medical
DX: E11.9 Type 2 diabetes mellitus without complications (principal); R80.9 Proteinuria, unspecified; S81.801D Unspecified open wound, right lower leg, subsequent encounter

== ENCOUNTER → 2025-07-16 12:39 | Outpatient (REF) | payer MEDICARE, SELFPAY ==
--- NOTE | 2025-07-16 12:45 | CA_ITS ---
Transthoracic Echocardiogram Patient (Last, First, Middle): Ivania Bazzi W Gender: F Date of : 1945 Age: 79 Procedure Date: 07/16/2025 Procedure Type: Transthoracic Echocardiogram Location: OP Height: 154.94 cm Weight: 71.67 kg BSA: 1.71 m2 Heart Rate: bpm BP: 122 / 60 mmHg Top Frame Maker: Referring MD: Félix Nuñez MD Symptoms: I25.10 - Atherosclerotic heart disease of [place] coronary artery without... Study Quality: Adequate ECG Rhythm: Sinus Conclusions: - The left ventricular systolic function is normal. The calculated ejection fraction is 57% by biplane method. - The basal inferior segment is hypokinetic. - No obvious valvular pathology seen on this study. Findings Left Ventricle Normal left ventricular cavity size. There is moderately increased left ventricular wall thickness. The left ventricular systolic function is normal. The calculated ejection fraction is 57% by biplane method. There is evidence of regional wall motion abnormalities. Evidence suggests grade I (mild) diastolic dysfunction. Wall Motion Rest Echo Findings The basal inferior segment is hypokinetic. Right Ventricle The right ventricle was not well visualized. There is normal right ventricular systolic function. Atria Both atria are normal in size. Aortic Valve There is a normal trileaflet aortic valve. There is no aortic valve stenosis. There is no aortic valve regurgitation. Mitral Valve The mitral valve appears normal. There is no mitral valve regurgitation. There is no mitral valve stenosis. Pulmonic Valve The pulmonic valve is likely normal. Tricuspid Valve There is trace tricuspid valve regurgitation. There is no evidence of pulmonary hypertension. Great Vessels The asc aorta is normal in size. Venous The inferior vena cava is normal in size and collapses greater than 50% with inspiration. Pericardium/Pleural There is a trivial pericardial effusion. Prior Study Comparison Changes noted compared to prior study dated: 02/26/2025. Wall motion abnormalities seems improved. Recommendations, Care & Conclusions No obvious valvular pathology seen on this study. Measurements 2D Linear Measurements IVSd: 1.40 0.6-0.9/0.6-1.0 cm LVIDd: 3.06 3.9-5.3/4.2-5.9 cm LVIDd Index: 1.79 2.4-3.2/2.2-3.1 cm/m2 LVIDs: 2.19 2.0-3.6 cm LVPWd: 1.34 0.7-1.1 cm Ao Root: 2.60 2.1-3.5 cm LA Diam: 3.50 2.7-3.8/3.0-4.0 cm LAIDs Index: 2.05 1.5-2.3 cm/m2 LV Mass: 173.12 67-162/88-224 g LV Mass Index: 101.24 43-95/49-115 g/m2 LVOT Diam: 1.90 3.0+(-)1.3 cm 2D Systolic Function EF 4C: 58.40 >55% EF 2C: 52.60 >55% EF BiP: 57.10 >55% Mitral Valve MV Pk E: 0.56 MV PK A: 1.18 MV Decel Time: 136.00 E/A: 0.50 E'Lateral: 5.00 E'Medial: 5.11 E/E' Med: 10.90 E/E' Lat: 11.10 PHT: 40.00 MVA PHT: 5.50 Decel [place]: 4.10 Aortic Valve AoV Pk Geoff: 1.49 AoV Mn Geoff: 0.96 AoV VTI: 0.28 AoV Pk Grad: 9.00 Aov Mn Grad: 5.00 RHEA Cont.VTI: 1.72 LVOT LVOT Pk Geoff: 0.83 LVOT Mn Geoff: 0.54 LVOT VTI: 0.17 LVOT Pk Grad: 3.00 LVOT Mn Grad: 2.00 LVOT Diam: 1.90 LVOT Area: 2.84 Diastolic Function MV Pk E: 0.56 MV Pk A: 1.18 E/A: 0.50 E'Medial: 5.11 E/E' Med: 10.90 E' Laterial: 5.00 E/E' Lat: 11.10 Right Ventricle TAPSE (mm): 24.00 TVS' Geoff: 11.00 Tricuspid Valve TR Pk Geoff: 1.95 TR Pk Grad: 15.00 RA Press: 3.00 RVSP: 18.00 Great Vessels Aorta Ao Root-2D: 2.60 2.0-3.7 cm Ao Asc: 2.80 2.1-3.4 cm Pulmonary Valve PV Pk Geoff: 1.03 Peak PV Grad: 4.00 Updated in Other Vendor System with Status of Final Félix Nuñez MD electronically signed on 07/17/2025 4:46:48 PM with status of Final
== END ==
LOC: HO.CARD 12:39
PROVIDERS: Visit Provider Internal Medicine
DX: I25.10 Atherosclerotic heart disease of native coronary artery without angina pectoris (principal); Z95.1 Presence of aortocoronary bypass graft
CPT/HCPCS: 93306

== ENCOUNTER → 2025-07-16 12:45 | Outpatient (BNV) | payer MEDICARE, SELFPAY | PROVIDERS: Visit Provider Internal Medicine | DX: I25.10 Atherosclerotic heart disease of native coronary artery without angina pectoris (principal) | CPT/HCPCS: 93306 ==

== ENCOUNTER 2025-07-24 12:18 | Outpatient (AMB) | payer MEDICARE, SELFPAY ==
--- NOTE | 2025-07-24 12:29 | MHC.OFFVIS ---
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 Required: No Accompanied by: Self / Same As Patient Allergies insulin detemir Allergy (Unknown, Verified 06/01/25 14:31) hives insulin glargine Allergy (Unknown, Verified 06/01/25 14:31) rash/ hives Penicillins (PENICILLINS) Allergy (Unknown, Verified 06/01/25 14:31) HIVES sitagliptin (Januvia) Allergy (Unknown, Verified 06/01/25 14:31) hives animal dander Adverse Reaction (Intermediate, Verified 06/01/25 14:31) Hives empagliflozin (From Jardiance) Adverse Reaction (Intermediate, Verified 06/01/25 14:31) vaginal yeast infection metformin Adverse Reaction (Intermediate, Verified 06/01/25 14:31) diarrhea Medication List - Last Reconciled 07/24/25 by Félix Nuñez MD aspirin 81 mg PO DAILY atorvastatin 80 mg PO BEDTIME bacitracin zinc 1 appl topical TID blood sugar diagnostic (OneTouch Ultra Test strips) As directed prn tid to confirm glucose sensor readings blood sugar diagnostic (Accu-Chek Guide test strips) As directed to check blood sugar twice daily. blood-glucose meter As directed Dispense as one touch ultra prn to confirm glucose sensor blood-glucose meter (Accu-Chek Guide Glucose Meter) As directed to check blood sugar blood-glucose sensor (FreeStyle Asim 3 Plus Sensor device) As directed every 15 days blood-glucose,software quality automation engineer,cont (FreeStyle Asim 3 [place]) Use daily to monitor blood glucose levels continuously. cholecalciferol (vitamin D3) 50 mcg PO DAILY 90 days clopidogrel 75 mg PO DAILY diclofenac sodium 1% (Arthritis Pain (diclofenac)) 2 grams topical QID PRN dulaglutide (Trulicity) 1.5 mg (0.5 mL) subcut QWEEK gabapentin 100 mg PO TID PRN 30 days lancets (Accu-Chek Softclix Lancets) As directed to monitor glucose 2 times daily lancets (Fingerstix Lancets) As directed for use with freestyle lite prn low glucose on sensor lisinopril 5 mg PO DAILY 90 days metoprolol succinate ER 25 mg PO DAILY tramadol 50 mg PO TID PRN 30 days trazodone 50 mg PO BEDTIME PRN 30 days HPI Comments Details: Ivania returns for follow-up regarding coronary artery disease. She has multiple cardiovascular risk factors as well as establish peripheral vascular disease. She had some chest discomfort underwent further workup with an echocardiogram and stress test which were abnormal. Then had diagnostic catheterization that showed multivessel disease including severe left main disease. Following this, she underwent coronary artery bypass surgery. States she feels good. No cardiac complaints. [facility] Medical History Leg wound, right Type II diabetes mellitus Microalbuminuria Ischemic cardiomyopathy Insomnia Right hip pain Abdominal bloating Overweight (BMI 25.0-29.9) Vitamin D deficiency H/O coronary angiogram Hip pain, bilateral Arthralgia Smoker Low back pain Benign essential hypertension Pure hypercholesterolemia Diabetes mellitus Surgical History Status post aorto-coronary artery bypass graft H/O tubal ligation H/O colonoscopy Hx of appendectomy History of tonsillectomy History of laser refractive surgery History of cataract surgery Family History Mother Alzheimer disease Heart problem Father Heart attack Brother Cancer Sister Breast cancer Family/Other Breast cancer Other Substance abuse Social History Housing: Apartment Alcohol intake: current Alcohol intake frequency: holidays/special occasions only Patient Tobacco Use Status: Former Tobacco user Cigarettes Per Day: 5 e-Cigarette/Vaping Use: Never Used Second Hand Smoke Exposure: Yes service: No Current occupational status: employed Cognitive needs: No Hearing needs: No Vision needs: Yes Review of Systems Const Denies chills, Denies fatigue, Denies fever(s), Denies frequent falls, Denies weakness, Denies weight gain and Denies weight loss ENT Denies dizziness Card Denies chest pain, Denies leg edema, Denies lightheadedness, Denies palpitations, Denies dyspnea and Denies dyspnea on exertion Resp Denies cough, Denies dyspnea and Denies dyspnea on exertion GI Denies hematochezia Musc Denies abnormal gait, Denies muscle weakness, Denies numbness, Denies radiating pain into limb and Denies tingling Neuro Denies abnormal gait, Denies dizziness, Denies frequent falls, Denies numbness, Denies tingling and Denies weakness Endo Denies fatigue and Denies palpitations Physical Exam Vital Signs: Last Vital Signs Pulse 106 H 07/24/25 12:32 BP 110/50 L 07/24/25 12:32 BMI result Body Mass Index 31.4 Const General: comfortable and no acute distress Orientation/consciousness: patient oriented x3 HEENT Other: Unremarkable Head: Yes normal to inspection Neck Neck: Yes normal visual inspection Chest Chest palpation & inspection: normal inspection of the chest Resp Auscultation: clear to auscultation bilaterally Cardio Palpation: normal PMI Heart sounds: S1 normal heart sound present, S2 normal heart sound present, no gallops, no murmurs and no rubs GI Palpation (GI): Soft to palpation Back/Spine/Pelvis Other: unremarkable Skin General skin exam: no rashes or lesions noted Neuro General: patient oriented x3 Extrem General: Yes normal to inspection Psych Mental Status: mental status grossly normal Office Procedures EKG Details: EKG with sinus tachycardia at 106/Min; cannot exclude old anterior infarct; [place]. [id number], Complete Assessment & Plan Assessment & Plan (1) Atherosclerotic cardiovascular disease: Code(s): I25.10 - Atherosclerotic heart disease of [place] coronary artery without angina pectoris Category: Medical (2) Status post aorto-coronary artery bypass graft: Comment: 03/14/2025 - (CABG x3 - MAHER to LAD, greater saphenous vein graft to OM and RCAto sequential graft) Code(s): Z95.1 - Presence of aortocoronary bypass graft Category: Surgical (3) Ischemic cardiomyopathy: Code(s): I25.5 - Ischemic cardiomyopathy Category: Medical (4) DM (diabetes mellitus), type 2 with peripheral vascular complications: Code(s): E11.51 - Type 2 diabetes mellitus with diabetic peripheral angiopathy without gangrene Category: Medical Plan Cardiac studies reviewed. In the most recent echocardiogram, LVEF is 57%. Basal inferior hypokinesis. In a prior echocardiogram from [facility], LVEF was 30%. Myocardial perfusion imaging study showed large area of possible infarct of lateral/inferolateral as well as inferior apical wall with lynn-infarct ischemia of the basal inferior wall. Cardiac catheterization with severe left main disease. Mid LAD with 70% stenosis. 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 Severe proximal RCA and PDA disease. Status post CABG x3. MAHER to LAD. SVG to OM, sequential to distal RCA. She can continue long-term aspirin. She already takes Plavix from vascular standpoint and hence continue that. Continue statins. LDL 40 mg/dL and triglycerides 107 mg/dL. Blood pressure seems stable. Diabetes management. Hemoglobin A1c from [facility] 7.9%. Clinically, she has got no angina or heart failure. Continue cardiac rehabilitation. Follow up in 6 months. Coding Level of Care Code Est Pt Level 4 (63467) Complex EM visit Add On G2211 Diagnoses Atherosclerotic cardiovascular disease I25.10 Status post aorto-coronary artery bypass graft Z95.1 Ischemic cardiomyopathy I25.5 DM (diabetes mellitus), type 2 with peripheral vascular complications E11.51 CPT Codes EKG - CPT: 77208-[id number], Complete ([id number])
[2025-07-24 12:32] VITALS: BP 110/50; PULSE 106; BMI 31.4
== END 2025-07-24 12:53 | disposition home or self-care (01) ==
PROVIDERS: PCP Internal Medicine; Visit Provider Internal Medicine
DX: I25.10 Atherosclerotic heart disease of native coronary artery without angina pectoris (principal); Z95.1 Presence of aortocoronary bypass graft; I25.5 Ischemic cardiomyopathy; E11.51 Type 2 diabetes mellitus with diabetic peripheral angiopathy without gangrene
CPT/HCPCS: 93010; 99214; G2211

== ENCOUNTER → 2025-07-24 12:18 | Outpatient (BNVA) | payer MEDICARE, SELFPAY | PROVIDERS: PCP Internal Medicine; Visit Provider Internal Medicine | DX: E11.51 Type 2 diabetes mellitus with diabetic peripheral angiopathy without gangrene (principal); I25.5 Ischemic cardiomyopathy; I25.10 Atherosclerotic heart disease of native coronary artery without angina pectoris; Z95.1 Presence of aortocoronary bypass graft | CPT/HCPCS: 93005; 99212 ==

== ENCOUNTER 2025-07-25 14:45 | Outpatient (AMB) | payer MEDICARE, SELFPAY ==
[2025-07-25 14:47] VITALS: BP 120/60; PULSE 113; O2SAT 96; BMI 31.5
--- NOTE | 2025-07-25 14:47 | MHC.PC.OV ---
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 Accompanied by: Self / Same As Patient Allergies insulin detemir Allergy (Unknown, Verified 07/25/25 16:12) hives insulin glargine Allergy (Unknown, Verified 07/25/25 16:12) rash/ hives Penicillins (PENICILLINS) Allergy (Unknown, Verified 07/25/25 16:12) HIVES sitagliptin (Januvia) Allergy (Unknown, Verified 07/25/25 16:12) hives animal dander Adverse Reaction (Intermediate, Verified 07/25/25 16:12) Hives empagliflozin (From Jardiance) Adverse Reaction (Intermediate, Verified 07/25/25 16:12) vaginal yeast infection metformin Adverse Reaction (Intermediate, Verified 07/25/25 16:12) diarrhea Medication List - Last Reconciled 07/25/25 by Jono Vallecillo MD aspirin 81 mg PO DAILY atorvastatin 80 mg PO BEDTIME bacitracin zinc 1 appl topical TID blood sugar diagnostic (OneTouch Ultra Test strips) As directed prn tid to confirm glucose sensor readings blood sugar diagnostic (Accu-Chek Guide test strips) As directed to check blood sugar twice daily. blood-glucose meter As directed Dispense as one touch ultra prn to confirm glucose sensor blood-glucose meter (Accu-Chek Guide Glucose Meter) As directed to check blood sugar blood-glucose sensor (FreeStyle Asim 3 Plus Sensor device) As directed every 15 days blood-glucose,pv installer tech,cont (FreeStyle Asim 3 [place]) Use daily to monitor blood glucose levels continuously. cholecalciferol (vitamin D3) 50 mcg PO DAILY 90 days clopidogrel 75 mg PO DAILY diclofenac sodium 1% (Arthritis Pain (diclofenac)) 2 grams topical QID PRN dulaglutide (Trulicity) 1.5 mg (0.5 mL) subcut QWEEK gabapentin 100 mg PO TID PRN 30 days lancets (Accu-Chek Softclix Lancets) As directed to monitor glucose 2 times daily lancets (Fingerstix Lancets) As directed for use with freestyle lite prn low glucose on sensor lisinopril 5 mg PO DAILY 90 days metoprolol succinate ER 25 mg PO DAILY tramadol 50 mg PO TID PRN 30 days trazodone 50 mg PO BEDTIME PRN 30 days Tobacco use date assessed: 07/25/25 Fall risk assessment: No Falls in past year Last assessed Fall Risk: 07/25/25 Dental Screening Dental Screen Date: 07/25/25 Did you have a dental visit in the last 12 months?: Yes Did you have a dental problem in the last 6 months where you did not have access to dental care?: No Was dental information given to patient?: Patient has dentist HPI Follow Up HPI Details Patient comes in today for her follow up visit States that she currently feels okay She denies any headaches or dizziness Denies any exertional chest pains, no increased SOB - she is currently still going to cardiac rehab and feels that cardiac rehab has been helping her a lot No nausea/vomiting, no abdominal pain No change in bowel habits noted She was not able to get her follow up labs done prior to coming in for her appointment today [facility] Medical History Leg wound, right Type II diabetes mellitus Microalbuminuria Ischemic cardiomyopathy Insomnia Right hip pain Abdominal bloating Overweight (BMI 25.0-29.9) Vitamin D deficiency H/O coronary angiogram Hip pain, bilateral Arthralgia Smoker Low back pain Benign essential hypertension Pure hypercholesterolemia Diabetes mellitus Surgical History Status post aorto-coronary artery bypass graft H/O tubal ligation H/O colonoscopy Hx of appendectomy History of tonsillectomy History of laser refractive surgery History of cataract surgery Family History Mother Alzheimer disease Heart problem Father Heart attack Brother Cancer Sister Breast cancer Family/Other Breast cancer Other Substance abuse Social History Housing: Apartment Alcohol intake: current Alcohol intake frequency: holidays/special occasions only Patient Tobacco Use Status: Former Tobacco user Cigarettes Per Day: 5 e-Cigarette/Vaping Use: Never Used Second Hand Smoke Exposure: Yes service: No Current occupational status: employed Cognitive needs: No Hearing needs: No Vision needs: Yes Questionnaire PHQ-9 Over the last 2 weeks, how often have you been bothered by any of the following problems? 1. Little interest or pleasure in doing things: not at all 2. Feeling down, depressed, or hopeless: not at all 3. Trouble falling or staying asleep, or sleeping too much: several days 4. Feeling tired or having little energy: not at all 5. Poor appetite or overeating: not at all 6. Feeling bad about yourself - or that you are a failure or have let yourself or your family down: not at all 7. Trouble concentrating on things, such as reading the newspaper or watching television: not at all 8. Moving or speaking so slowly that other people could have noticed. Or the opposite - being so fidgety or restless that you have been moving around a lot more than usual: not at all 9. Thoughts that you would be better off or of hurting yourself in some way: not at all Total score: 1 Depression Screening Interpretation: Negative Depression Screening Done: Yes 81209 - PHQ-9 Billing: Yes Source: Developed by Drs. Jet Sutton, Anali Darby, Rg Fleming and colleagues, with an educational casandra from [employer]. Thrive Questionnaire Date Thrive assessed: 07/25/25 I am a: Patient What is your living situation today?: I do not have a steady places to live I am temporarily staying with others Within the past 12 months, did the food you bought not last and you didn't have the money to get more?: Never true Within the past 12 months, did you worry whether your food would run out before you got money to buy more?: Never true Do you have trouble paying for medicines?: No Do you have trouble getting transportation to medical appointments?: No Do you have trouble paying your heating and electricity bill?: No Do you have trouble taking care of your child, family member or friend?: No Do you have trouble with day-to-day activities such as bathing, preparing meals, shopping, managing finances, etc.?: No Are you currently unemployed and looking for a job?: No Are you interested in more education?: No Please select the resources that you would like help with: None Currently or been in a relationship where the following occur: No concerns reported THRIVE Score: 1 AUDIT C Alcohol Use Questionnaire (AUDIT-C) 1. How often do you have a drink containing alcohol?: Monthly or less 2. How many drinks containing alcohol do you have on a typical day when you are drinking?: 1 or 2 3. How often do you have six or more drinks on one occasion?: Never Total Score: 1 Score Reviewed/Action Taken: Yes WILDA-7 AMB Questionnaire WILDA-7 Date WILDA - 7 assessed: 07/25/25 Feeling nervous, anxious, or on edge: 0 = Not at all Not being able to stop or control worryin = Not at all Worrying too much about different things: 0 = Not at all Trouble relaxin = Not at all Being so restless that it is hard to sit still: 0 = Not at all Becoming easily annoyed or irritable: 0 = Not at all Feeling afraid as if something awful might happen: 0 = Not at all Total WILDA-7 score (0-4 normal; 5-9 mild; 10-14 moderate; 15-21 severe): 0 Source: Developed by Drs. Jet Sutton, Anali Darby, Rg Fleming and colleagues, with an educational casandra from [employer]. Review of Systems Const Denies chills, Reports difficulty sleeping, Denies fatigue, Denies fever(s) and Denies headache(s) ENT Denies dysphagia, Denies dizziness, Denies otalgia, Denies headache(s), Denies neck pain, Denies odynophagia and Denies sore throat Card Denies chest pain, Denies rapid heart rate, Denies irregular heart rhythm, Denies palpitations and Denies dyspnea Resp Denies chest congestion, Denies cough and Denies dyspnea GI Denies abdominal pain, Denies constipation, Denies dysphagia, Denies heartburn, Denies diarrhea, Denies nausea, Denies odynophagia and Denies vomiting Denies difficulty voiding, Denies nocturia, Denies dysuria and Denies urinary urgency Musc Reports back pain (over the lower back - chronic), Reports arthralgias (in both hips, on and off) and Denies neck pain Skin/Breast Denies rash Neuro Denies dizziness, Denies headache(s) and Denies paresthesias Psych Reports anxiety and Denies depression Endo Denies fatigue and Denies palpitations [place]/Lymph Denies easy bruising Physical exam (Primary Care) Vital Signs: Last Vital Signs Pulse 113 H 07/25/25 14:47 BP 120/60 07/25/25 14:47 Pulse Ox 96 07/25/25 14:47 Oxygen Delivery Method Room Air 07/25/25 14:47 BMI result Body Mass Index 31.5 Tobacco/Smoking Status: Tobacco use Status Tobacco use date assessed 07/25/25 07/25/25 14:50 Patient Tobacco Use Status Former Tobacco user 07/25/25 14:50 e-Cigarette/Vaping Use Never Used 07/25/25 14:50 PHQ-9: PHQ-9 Score PHQ-9: Total score 1 07/25/25 15:33 Depression Screening Interpretation: Negative Thrive Assessment: Date of Thrive Assessment Date Thrive assessed 07/25/25 07/25/25 14:50 Currently or been in a relationship where the following occur: No concerns reported Const General: no acute distress and alert HENMT Ears: TM's normal bilaterally and EAC's normal Throat: Yes posterior oropharynx normal and Yes tonsils normal (no TP congestion) Neck Neck: Yes supple and No lymphadenopathy Thyroid: Thyroid normal Resp Auscultation: clear to auscultation bilaterally, no rales and no wheezes Cardio Rate: regular rate Rhythm: regular rhythm Heart sounds: no murmurs GI Palpation (GI): Soft to palpation and nontender Auscultation: normal bowel sounds General: Yes no CVA tenderness Back/Spine/Pelvis Back: no CVA tenderness Thoracic/Lumbar Spine: lumbar spinal tenderness (mild) Skin Rashes: no rashes Extrem General: Yes no clubbing, cyanosis or edema Right lower extremity: hip/thigh Details: tenderness Location: of the hip Left lower extremity: knee Details: tenderness; no swelling Results AMB Hemoglobin A1c AMB Hemoglobin A1c 7.7 % Last Edit by REILLY Thompson on 07/25/25 15:36 Coding Level of Care Code Est Pt Level 4 (32750) Complex EM visit Add On G2211 Diagnoses Atherosclerotic cardiovascular disease I25.10 Ischemic cardiomyopathy I25.5 Type 2 diabetes mellitus with other specified complication, without long-term current use of insulin E11.69 Diabetes mellitus type: type 2 Diabetes mellitus nursing home insulin use: without nursing home use Diabetes mellitus complication status: with other specified complication Pure hypercholesterolemia E78.00 Benign essential hypertension I10 Vitamin D deficiency E55.9 PAD (peripheral artery disease) I73.9 Facet arthritis, degenerative, 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 Insomnia, unspecified type G47.00 Insomnia type: unspecified Obesity (BMI 30-39.9) E66.9 Additional Codes PHQ-9 - 95265 - PHQ-9 Billing: Yes ([id number]) Assessment & Plan Assessment & Plan (1) Atherosclerotic cardiovascular disease: Code(s): I25.10 - Atherosclerotic heart disease of [place] coronary artery without angina pectoris Category: Medical Plan: S/P coronary artery bypass surgery x 3 (MAHER to LAD, saphenous vein graft to OM and RCA to sequential graft) at [facility] on 03/14/2025 Continue Aspirin 81 mg QD and Clopidogrel 75 mg QD Follow up with cardiology as scheduled She started cardiac rehab a couple of months ago on 05/22/2025 and is presently still attending cardiac rehab (2) Ischemic cardiomyopathy: Code(s): I25.5 - Ischemic cardiomyopathy Category: Medical Plan: Continue Aspirin 81 mg QD Continue Amiodarone 200 mg BID Follow up with cardiology as scheduled (3) Diabetes mellitus: Code(s): E11.9 - Type 2 diabetes mellitus without complications Category: Medical Qualifiers: Diabetes mellitus type: type 2 Diabetes mellitus nursing home insulin use: without inpatient pharmacist use Diabetes mellitus complication status: with other specified complication Qualified Code(s): E11.69 - Type 2 diabetes mellitus with other specified complication Plan: Patient's in-office HgbA1c today is at 7.7% (her HgbA1c was previously at 6.9% a few months ago in April 2025) - goal is at least < 7.0% Reinforced diabetic diet Continue Trulicity 1.5 mg SQ once a week - she could not tolerate the 3 mg dose due to severe nausea She also developed hives previously to long-acting insulins like Tresiba and Lantus as well as to Januvia and she could not tolerate Metformin due to diarrhea Glipizide was stopped because it was ineffective and Jardiance was discontinued due to frequent yeast infection. Will recheck her labs and HgbA1c in 3 months for follow up Follow up with endocrinology as scheduled (4) Pure hypercholesterolemia: Code(s): E78.00 - Pure hypercholesterolemia, unspecified Category: Medical Plan: She was not able to get her follow up labs done prior to her appointment today and is instructed to get them done [facility] as she has not had her cholesterol levels checked since October 2024 Reinforced low cholesterol diet Continue Atorvastatin 80 mg QD Will recheck her fasting lipids and labs again in 3 months for follow-up (5) Benign essential hypertension: Code(s): I10 - Essential (primary) hypertension Category: Medical Plan: Reinforced low-sodium diet - goal is systolic BP of at least 140 mm or less Continue Lisinopril 5 mg QD (6) Vitamin D deficiency: Code(s): E55.9 - Vitamin D deficiency, unspecified Category: Medical Plan: Continue Vitamin D3 2000 units QD (7) PAD (peripheral artery disease): Comment: 05/13/2022 - right SFA atherectomy and plasty, 01/12/2024 - left SFA atherectomy and plasty Code(s): I73.9 - Peripheral vascular disease, unspecified Category: Medical Plan: S/P endovascular intervention of the right lower extremity a couple of years ago in April 2022 S/P dual antiplatelet therapy with Aspirin 81 mg QD and Clopidogrel 75 mg QD x 6 months post-op but she currently remains on the medications Follow up with vascular surgery as scheduled (8) Facet arthritis, degenerative, lumbar spine: Code(s): M47.816 - Spondylosis without myelopathy or radiculopathy, lumbar region Category: Medical Plan: Lumbar spine x-rays done last year revealed (+) facet arthritis changes in the lumbar spine Reinforced activity and weight lifting restrictions Patient reports (+) significant improvement of her low back pain with physical therapy Continue Tramadol 50 mg TID PRN and Voltaren gel topically over her lower back as needed; continue Gabapentin 100 mg TID (9) Insomnia: Code(s): G47.00 - Insomnia, unspecified Category: Medical Qualifiers: Insomnia type: unspecified Qualified Code(s): G47.00 - Insomnia, unspecified Plan: Sleep hygiene reinforced Continue Trazodone 50 mg Q HS PRN (10) Obesity (BMI 30-39.9): Code(s): E66.9 - Obesity, unspecified Category: Medical Plan: Reinforced diet; exercise and weight loss are not realistic in this patient with multiple comorbidities but she is still encouraged to stay as active as she can Plan Follow up in 3 months Orders: Orders AMB Hemoglobin A1c Today Z13.9 - Encounter for screening, unspecified Hemoglobin A1c 3 Months E11.9 - Type 2 diabetes mellitus without complications Microalbumin, Random (w Creat) 3 Months E11.9 - Type 2 diabetes mellitus without complications Comprehensive [place]. Panel Fast 3 Months E78.00 - Pure hypercholesterolemia, unspecified TSH reflex Free T4 3 Months E78.00 - Pure hypercholesterolemia, unspecified Complete Blood Count Auto Diff 3 Months D64.9 - Anemia, unspecified Lipid Panel 3 Months E78.00 - Pure hypercholesterolemia, unspecified UA CC w/rflx Micro + Cult 3 Months R30.0 - Dysuria Vitamin D 25-OH Total 3 Months E55.9 - Vitamin D deficiency, unspecified
== END 2025-07-25 15:50 | disposition home or self-care (01) ==
LOC: HO.HMCH 14:46
PROVIDERS: PCP Internal Medicine; Visit Provider Internal Medicine
DX: I25.10 Atherosclerotic heart disease of native coronary artery without angina pectoris (principal); E11.69 Type 2 diabetes mellitus with other specified complication; I25.5 Ischemic cardiomyopathy; E78.00 Pure hypercholesterolemia, unspecified; I10 Essential (primary) hypertension; E55.9 Vitamin D deficiency, unspecified; I73.9 Peripheral vascular disease, unspecified; M47.816 Spondylosis without myelopathy or radiculopathy, lumbar region; G47.00 Insomnia, unspecified; E66.9 Obesity, unspecified; Z68.31 Body mass index [BMI] 31.0-31.9, adult

== ENCOUNTER → 2025-07-25 14:45 | Outpatient (BNVA) | payer MEDICARE, SELFPAY | PROVIDERS: PCP Internal Medicine; Visit Provider Internal Medicine | DX: I25.10 Atherosclerotic heart disease of native coronary artery without angina pectoris (principal); I25.5 Ischemic cardiomyopathy; E11.69 Type 2 diabetes mellitus with other specified complication; E78.00 Pure hypercholesterolemia, unspecified; I10 Essential (primary) hypertension; E55.9 Vitamin D deficiency, unspecified; I73.9 Peripheral vascular disease, unspecified; M47.816 Spondylosis without myelopathy or radiculopathy, lumbar region; G47.00 Insomnia, unspecified; E66.9 Obesity, unspecified; Z13.31 Encounter for screening for depression; Z13.39 Encounter for screening examination for other mental health and behavioral disorders | CPT/HCPCS: 83036; 96127; 99212 ==

== ENCOUNTER 2025-08-20 11:30 | Outpatient (REF) | payer MEDICARE, SELFPAY ==
[2025-08-20 12:21] LABS: Hematocrit 38.6 % (37.0-47.0); Hemoglobin 11.3 g/dl (12.0-16.0); Imm Gran Abs Auto 0.02 X10*3/uL (0.00-0.03); Imm Gran Pct Auto 0.3 % (0.0-0.4); Lymphocytes Absolute Auto 2.6 X10*3/uL (1.2-4.9); MANUAL DIFF FLAG SCAN; Mean Corpuscular HGB Conc 29.3 g/dl (31.0-35.0); Mean Corpuscular Hemoglobin 23.0 pg (27.0-33.0); Mean Corpuscular Volume 78.5 fL (80.0-98.0); NRBC Abs Auto 0.000 X10*3/uL (0.0-0.012); NRBC Pct Auto 0.0 /100WBC (0.0-0.2); PLT CLUMP 1; Red Blood Count 4.92 X10*6/uL (4.20-5.50); SCAN SMEAR FLAG 1
[2025-08-20 12:54] LABS: Microalbum/Creatinine Ratio Ur 36.1 ug/mg cr (<30)
[2025-08-20 13:13] LABS: Alanine Aminotransferase 15 U/L (0-31); Albumin Level 4.1 g/dL (3.5-5.0); Alkaline Phosphatase 104 U/L (39-117); Anion Gap 12 (12-20); Aspartate Amino Transferase 61 U/L (5-31); Blood Urea Nitrogen 9 mg/dL (9-16); Calcium 8.6 mg/dL (8.4-10.2); Carbon Dioxide 23 mmol/L (22-29); Chloride 109 mmol/L (96-108); Cholesterol 151 mg/dL (<200); Estimated Glomerular Filt Rate > 60; HDL Cholesterol 36 mg/dL (>40); Potassium 4.0 mmol/L (3.3-5.1); Sodium 140 mmol/L (135-145); Total Protein 6.7 g/dL (6.5-8.0); Triglycerides 130 mg/dL (<150)
[2025-08-20 13:21] LABS: Folate 13.8 ng/mL (> or = 4.0); Vitamin B12 222 pg/mL (200-900)
[2025-08-20 13:22] LABS: Appearance Urine Clear; Glucose Urine UA Negative (Negative); PH 6.0 (5.0-9.0); Specific Gravity - Urine 1.020 (1.005-1.025); UMIC TRIGGER UACC YES
[2025-08-20 13:23] LABS: Platelet Count 305 X10*3/uL (160-400); White Blood Count 7.2 X10*3/uL (4.8-10.8)
== END 2025-08-20 11:31 | disposition home or self-care (01) ==
LOC: HO.LAB 11:30
PROVIDERS: PCP Internal Medicine; Visit Provider Internal Medicine
DX: E11.9 Type 2 diabetes mellitus without complications (principal); E53.8 Deficiency of other specified B group vitamins; E78.00 Pure hypercholesterolemia, unspecified; E55.9 Vitamin D deficiency, unspecified; D64.9 Anemia, unspecified
CPT/HCPCS: 36415; 80053; 80061; 81001; 81003; 82043; 82306; 82570; 82607; 82746; 83036; 84443; 85025

== ENCOUNTER 2025-09-11 14:48 | Outpatient (AMB) | payer MEDICARE, SELFPAY ==
--- NOTE | 2025-09-11 14:51 | MHC.OFFVIS ---
Vital Signs 09/11/25 14:53 Height 5 ft 1 in Weight 179 lb 10.828 oz BMI 33.9 BP 160/86 H Blood Pressure Location Lt brachial Position Sitting Pulse 97 Pulse Source Pulse Oximeter Pulse Oximetry (%) 98 Oxygen Delivery Method Room Air Intake Visit Reasons: T2DM Intake Note: Patient present today to follow up on Type 2 Diabetes Mellitus. Last Diabetic Eye exam: 10/10/2024 Last Podiatry Visit: Does not see a It Support Manager Random Glucose: 141 mg/dL HgA1C: DUE Event Sales Manager Required: No Accompanied by: Self / Same As Patient Allergies insulin detemir Allergy (Unknown, Verified 09/11/25 14:55) hives insulin glargine Allergy (Unknown, Verified 09/11/25 14:55) rash/ hives Penicillins (PENICILLINS) Allergy (Unknown, Verified 09/11/25 14:55) HIVES sitagliptin (Januvia) Allergy (Unknown, Verified 09/11/25 14:55) hives animal dander Adverse Reaction (Intermediate, Verified 09/11/25 14:55) Hives empagliflozin (From Jardiance) Adverse Reaction (Intermediate, Verified 09/11/25 14:55) vaginal yeast infection metformin Adverse Reaction (Intermediate, Verified 09/11/25 14:55) diarrhea HPI Comments Details: 79-year-old female with a past medical history of type 2 diabetes, ischemic cardiomyopathy, CAD, vitamin-D deficiency, peripheral arterial disease, hypertension and hyperlipidemia presents for diabetic management. Past medications: Metformin discontinued due to GI side effects. Lantus and Levemir caused hives. Januvia caused hives. Jardiance discontinued due to yeast infection. She was on glipizide in the past, and she did not have an allergic reaction, but she says it was switched because it was not getting her blood sugars under control. Current regimen: Trulicity 1.5 mg weekly. She was not able to tolerate 3 mg of Trulicity. Her hemoglobin A1c is 8.6% up from 6.9%. She has a glucometer, but she forgot it today. Denies hypoglycemia. Complications: Coronary artery disease (CABG x 3 03/14/25), neuropathy in feet, nephropathy (microalbuminuria). She is on an KENNY inhibitor. Patient's blood pressure is elevated today. She denies symptoms. Patient says she has been rushing around the grocery store and thought she lost her credit card and attributes it to this. When she was in the office on 07/25/2025 her blood pressure was 120/60. ROS: Constitutional: No weight loss, fevers or chills. Denies night sweats. Respiratory: No shortness of breath Cardiovascular: No chest pain Gastrointestinal: No anorexia, nausea, vomiting or diarrhea. No abdominal pain Neurologic: No headache, dizziness, syncope. + neuropathy in her feet. Endocrine: No polyuria or polydipsia. Physical exam: Constitutional: Alert, in no distress. Neck: Supple, Full range of motion. No lymphadenopathy. No palpable thyroid masses. Respiratory: Clear to auscultation. Cardiovascular: S1 S2 regular. No murmurs. Neurologic: No focal neurological deficits Psychiatric: Normal mood and affect [facility] Medical History Leg wound, right Type II diabetes mellitus Microalbuminuria Ischemic cardiomyopathy Insomnia Right hip pain Abdominal bloating Overweight (BMI 25.0-29.9) Vitamin D deficiency H/O coronary angiogram Hip pain, bilateral Arthralgia Smoker Low back pain Benign essential hypertension Pure hypercholesterolemia Diabetes mellitus Surgical History Status post aorto-coronary artery bypass graft H/O tubal ligation H/O colonoscopy Hx of appendectomy History of tonsillectomy History of laser refractive surgery History of cataract surgery Family History Mother Alzheimer disease Heart problem Father Heart attack Brother Cancer Sister Breast cancer Family/Other Breast cancer Other Substance abuse Social History Housing: Apartment Alcohol intake: current Alcohol intake frequency: holidays/special occasions only Patient Tobacco Use Status: Former Tobacco user Cigarettes Per Day: 5 e-Cigarette/Vaping Use: Never Used Second Hand Smoke Exposure: Yes service: No Current occupational status: employed Cognitive needs: No Hearing needs: No Vision needs: Yes Physical Exam Vital Signs: Last Vital Signs Pulse 97 09/11/25 14:53 BP 160/86 H 09/11/25 14:53 Pulse Ox 98 09/11/25 14:53 Oxygen Delivery Method Room Air 09/11/25 14:53 BMI result Body Mass Index 33.9 Results Reviewed Results Reviewed: Laboratory Last Values Glucose (Clinic) 141 mg/dL (60-115) H 09/11/25 14:57 Laboratory Tests 08/20/25 08/20/25 11:42 11:49 Creatinine 0.80 Estimated GFR > 60 Hemoglobin A1c % 8.6 H AST 61 H ALT 15 Triglycerides 130 Cholesterol 151 LDL Cholesterol, Calc 89 HDL Cholesterol 36 L Urine Creatinine 235.13 Urine Microalbumin 85.0 Microalb/Creat Ratio 36.1 H Assessment & Plan Assessment & Plan (1) Type II diabetes mellitus: Code(s): E11.9 - Type 2 diabetes mellitus without complications Category: Medical Qualifiers: Diabetes mellitus care home insulin use: without care home use Diabetes mellitus complication status: with kidney complications Diabetes mellitus complication detail: with diabetic microalbuminuria Qualified Code(s): E11.29 - Type 2 diabetes mellitus with other diabetic kidney complication; R80.8 - Other proteinuria (2) Microalbuminuria: Code(s): R80.9 - Proteinuria, unspecified Category: Medical (3) Benign essential hypertension: Code(s): I10 - Essential (primary) hypertension Category: Medical Plan: Blood pressure elevated today. Asymptomatic. She attributed this to stress today-see HPI. Advised to recheck at home and call if BP remains elevated. Plan In summary this is a 79-year-old female with uncontrolled type 2 diabetes. She endorses adverse reactions to multiple medications. She can not tolerate higher doses of Trulicity. Continue 1.5 mg weekly. Discussed trial of extended-release metformin which has less risk of GI side effects than IR metformin versus retrying glipizide. She wants to retry glipizide. Start with 2.5 mg once daily. Advised patient to check glucose, fasting and postprandial, and bring meter to next visit. Adjust glipizide based on tolerability and efficacy. Follow up in 4-6 weeks. Medications: New glipizide ER 2.5 mg PO DAILY 90 tabs 0RF Discontinued blood-glucose,corset fitter,cont (FreeStyle Asim 3 [place]) Discontinued Reason: Doctor's Order Use daily to monitor blood glucose levels continuously. 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
[2025-09-11 14:53] VITALS: BP 160/86; PULSE 97; O2SAT 98; BMI 33.9
[2025-09-11 15:03] LABS: Glucose, Whole Blood 141 mg/dL (60-115)
== END 2025-09-11 15:26 | disposition home or self-care (01) ==
LOC: HO.ENCR 14:49
PROVIDERS: PCP Internal Medicine; Visit Provider Physician Assistant Medical
DX: E11.29 Type 2 diabetes mellitus with other diabetic kidney complication (principal); R80.8 Other proteinuria; R80.9 Proteinuria, unspecified; I10 Essential (primary) hypertension

== ENCOUNTER → 2025-09-11 14:48 | Outpatient (BNVA) | payer MEDICARE, SELFPAY | PROVIDERS: PCP Internal Medicine; Visit Provider Physician Assistant Medical | DX: E11.29 Type 2 diabetes mellitus with other diabetic kidney complication (principal); R80.8 Other proteinuria; I10 Essential (primary) hypertension | CPT/HCPCS: 82947; 99212 ==